=== PATIENT | male | born 1985 | race Two or more races ===

== ENCOUNTER 2016-12-31 11:44 | Inpatient (IN) | payer OTHER ==
[2016-12-31 13:16] VITALS: BMI 26.9
--- NOTE | 2016-12-31 16:48 | HP ---
COWS - Scale Resting Pulse: 0= [place] 80 or Below Sweatin=Flushed/Facial Moisture Restless Observation: 3= Extraneous Movement Pupil Size: 2= Moderately Dilated Bone or Joint Aches: 2= Severe Diffuse Aches Runny Nose/ Eye Tearin= Runny Nose/Eyes GI Upset > 30mins: 3= Vomiting/Diarrhea Tremor Observation: 2= Slight Tremor Visible Yawning Observation: 2= >3x During Session Anxiety or Irritability: 2=Irritable/Anxious Goose Flesh Skin: 0=Smooth Skin COWS Score: 20 CIWA Score - CIWA Score Nausea/Vomitin Muscle Tremors: 3 Anxiety: 3 Agitation: 3 Paroxysmal Sweats: 2 Orientation: 0-Oriented Tacttile Disturbances: 2-Mild Itch/Numbness/Burn Auditory Disturbances: 2-Mild Harshness/Frighten Visual Disturbances: 3-Moderate Sensitivity Headache: 2-Mild CIWA-Ar Total Score: 23 Admission ROS BHS - HPI Chief Complaint: i need help to stop using heroin and alcohol Allergies/Adverse Reactions: Allergies Allergy/AdvReac Type Severity Reaction Status Date / Time No Known Drug Allergies Allergy Verified 12/31/16 16:32 shellfish derived Allergy Verified 12/31/16 16:32 History of Present Illness: this 31 years old male with heroin and alcohol dependence,withdrawal symptom, last detox [facility] 08/09/16 to 08/14/16 asthma depression weight loss nicotine dependence longest period of sobriety 6 months Exam Limitations: No Limitations - Ebola screening Have you traveled outside of the country in the last 21 days: No Have you had contact with anyone from an Ebola affected area: No Have you been sick,other than usual withdrawal symptoms: No Do you have a fever: No - Review of Systems Constitutional: Chills, Diaphoresis, Loss of Appetite, Malaise, Night Sweats, Changes in sleep, Weakness, Unintentional Wgt. Loss EENT: reports: Tearing, Nose Congestion Respiratory: reports: No Symptoms reported Cardiac: reports: Palpitations GI: reports: Diarrhea, Nausea, Vomiting, Abdominal cramping : reports: No Symptoms Reported Musculoskeletal: reports: Back Pain, Joint Pain, Muscle Pain, Joint Stiffness Integumentary: reports: Dryness Neuro: reports: Headache, Tremors Endocrine: reports: No Symptoms Reported Hematology: reports: No Symptoms Reported Psychiatric: reports: No Sypmtoms Reported, Judgement Intact, Mood/Affect Appropiate, Orientated x3, Depressed Patient History - Patient Medical History Hx Anemia: No Hx Asthma: Yes (Pt is on MDI) Hx Chronic Obstructive Pulmonary Disease (COPD): No Hx Cancer: No Hx Cardiac Disorders: No Hx Congestive Heart Failure: No Hx Hypertension: No Hx Hypercholesterolemia: No Hx Pacemaker: No HX Cerebrovascular Accident: No Hx Seizures: No Hx Dementia: No Hx Diabetes: No Hx Gastrointestinal Disorders: No Hx Liver Disease: No Hx Genitourinary Disorders: No Hx Sexually Transmitted Disorders: No Hx Renal Disease (ESRD): No Hx Thyroid Disease: No Hx Human Immunodeficiency Virus (HIV): No (NEGATIVE 2015) Hx Hepatitis C: No (NEGATIVE 2015) Hx Depression: Yes (no med) Hx Suicide Attempt: No Hx Bipolar Disorder: No Hx Schizophrenia: No Other Medical History: no suicidal,no homicidal - Patient Surgical History Past Surgical History: No Hx Neurologic Surgery: No Hx Cataract Extraction: No Hx Cardiac Surgery: No Hx Lung Surgery: No Hx Breast Surgery: No Hx Breast Biopsy: No Hx Abdominal Surgery: No Hx Appendectomy: No Hx Cholecystectomy: No Hx Genitourinary Surgery: No Hx Section: No Hx Orthopedic Surgery: No Anesthesia Reaction: No - PPD History Previous Implant?: Yes Documented Results: Negative w/proof Implanted On Prior [facility] Admission?: Yes Date: 01/28/16 Results: 0 mm PPD to be Administered?: No - Smoking Cessation Smoking history: Current every day smoker Have you smoked in the past 12 months: Yes Aproximately how many cigarettes per day: 20 Cigars Per Day: 0 Hx Chewing Tobacco Use: No Initiated information on smoking cessation: Yes 'Breaking Loose' booklet given: 12/31/16 - Substance & Tx. History Hx Alcohol Use: Yes Hx Substance Use: Yes Substance Use Type: Alcohol, Heroin Hx Substance Use Treatment: Yes ([facility] to 08/14/16) - Substances Abused Heroin Route: Injection Frequency: Daily Amount used: 5-8 bags Age of first use: 25 Date of Last Use: 12/30/16 Alcohol Route: Oral Frequency: Daily Amount used: 1 pint cognac Age of first use: 20 Date of Last Use: 12/30/16 Family Disease History - Family Disease History Family History: Denies Family Disease History: Diabetes: Mother Admission Physical Exam BHS - Vital Signs Vital Signs: Vital Signs - 24 hr 12/31/16 13:12 Temperature 97.3 F L Pulse Rate 76 Respiratory 18 Rate Blood Pressure 133/67 - Physical General Appearance: Yes: Moderate Distress, Tremorous, Irritable, Sweating, Anxious HEENTM: Yes: Within Normal Limits, Normal ENT Inspection, Pharynx Normal, Nasal Congestion Respiratory: Yes: Lungs Clear, Normal Breath Sounds, No Respiratory Distress Neck: Yes: Within Normal Limits Breast: Yes: Within Normal Limits Cardiology: Yes: Within Normal Limits, Regular Rhythm, Regular Rate, S1, S2 Abdominal: Yes: Within Normal Limits, Normal Bowel Sounds, Non Tender, Flat, Soft Genitourinary: Yes: Within Normal Limits Back: Yes: Normal Inspection, Muscle Spasm Musculoskeletal: Yes: Back pain, Joint Stiffness, Muscle Pain Extremities: Yes: Within Normal Limits, Normal Range of Motion, Tremors Neurological: Yes: vice president of news II-XII NML intact, Fully Oriented, Alert, Motor Strength 5/5 Integumentary: Yes: Dry Lymphatic: Yes: Within Normal Limits - Diagnostic (1) Alcohol dependence with uncomplicated withdrawal Current Visit: No Status: Acute (2) Nicotine dependence Current Visit: No Status: Acute Qualifiers: Nicotine product type: cigarettes Substance use status: uncomplicated Qualified Code(s): F17.210 - Nicotine dependence, cigarettes, uncomplicated (3) Opioid dependence with withdrawal Current Visit: No Status: Acute (4) Asthma Current Visit: No Status: Chronic Qualifiers: Asthma severity: mild persistent Asthma complication type: with status asthmaticus Qualified Code(s): J45.32 - Mild persistent asthma with status asthmaticus (5) GERD (gastroesophageal reflux disease) Current Visit: No Status: Chronic Qualifiers: Esophagitis presence: without esophagitis Qualified Code(s): K21.9 - Gastro-esophageal reflux disease without esophagitis (6) Weight loss Current Visit: Yes Status: Acute Cleared for Admission [facility] - Detox or Rehab [facility] Level of Care: Medically Managed Detox Regimen/Protocol: Methadone/Librium S Breath Alcohol Content Breath Alcohol Content: 0 Urine Drug Screen - Results Drug Screen Negative: No Urine Drug Screen Results: LYLE-Cocaine, OPI-Opiates, TCA-Tricyclic Antidepress
[2016-12-31] MEDS ORDERED: P-EPHED 60MG/TRIPROLIDI 2.5MG TABLET PO PRN (16:56)
[2016-12-31] MEDS ORDERED: MAG HYDROX/AL HYDROX/SIMETH 30 ML UNIT-DOSE CUP PO PRN (16:56)
[2016-12-31] MEDS ORDERED: MAGNESIUM HYDROX 2400MG/30ML ORAL SUSPENSION 30 ML CUP PO PRN (16:56)
[2016-12-31] MEDS ORDERED: IBUPROFEN 400 MG TABLET (FP) PO PRN (16:56)
[2016-12-31] MEDS ORDERED: MAGNESIUM CITRATE 300 ML BOTTLE PO PRN (16:56)
[2016-12-31] MEDS ORDERED: LOPERAMIDE HCL 2 MG CAPSULE PO PRN (16:56)
[2016-12-31] MEDS ORDERED: ACETAMINOPHEN 325 MG TABLET (FP) PO PRN (16:56)
[2016-12-31] MEDS ORDERED: MENTHOL/PHENOL 1 EACH UD MM PRN (16:56)
[2016-12-31] MEDS ORDERED: METHADONE HCL 10 MG TABLET (FOR DETOX USE ONLY) PO ONE ×2 (17:45→23:00)
[2016-12-31] MEDS ORDERED: chlordiazePOXIDE HCL 25 MG CAPSULE PO ONE (17:45)
[2016-12-31] MEDS: PANTOPRAZOLE 40 MG TABLET (FP) PO SCH (17:53)
[2016-12-31] MEDS: NICOTINE 21 MG/24 HOURS TOPICAL PATCH TD SCH (17:57)
[2016-12-31] MEDS: diphenhydrAMINE HCL 50 MG CAPSULE PO PRN (22:19)
[2016-12-31] MEDS: THIAMINE HCL 100 MG TABLET (FP) PO SCH (22:19)
[2016-12-31] MEDS: chlordiazePOXIDE HCL 25 MG CAPSULE PO SCH (22:20)
[2016-12-31] MEDS: BUDESONIDE/FORMETEROL FUMARATE 80/4.5 mcg INHALER IH SCH (22:22)
[2016-12-31] MEDS: ALBUTEROL SO4 6.7 GM HFA INHALER IH PRN (22:22)
[2016-12-31 23:29] LABS: URINE APPEARANCE CLEAR; URINE BILIRUBIN NEGATIVE (NEGATIVE); URINE BLOOD NEGATIVE (NEGATIVE); URINE COLOR YELLOW; URINE GLUCOSE (UA) NEGATIVE (NEGATIVE); URINE KETONE NEGATIVE (NEGATIVE); URINE LEUK ESTERASE NEGATIVE (NEGATIVE); URINE NITRITE NEGATIVE (NEGATIVE); URINE PROTEIN NEGATIVE (NEGATIVE); URINE UROBILINOGEN NEGATIVE E.U./dl (0.2-1.0)
[2017-01-01] MEDS: diphenhydrAMINE HCL 50 MG CAPSULE PO PRN (00:47)
[2017-01-01] MEDS: chlordiazePOXIDE HCL 25 MG CAPSULE PO PRN ×2 (02:26→14:22)
[2017-01-01] MEDS: chlordiazePOXIDE HCL 25 MG CAPSULE PO SCH ×4 (05:26→22:17)
[2017-01-01] MEDS: ALBUTEROL SO4 6.7 GM HFA INHALER IH PRN ×2 (09:04→22:18)
[2017-01-01] MEDS ORDERED: METHADONE HCL 10 MG TABLET (FOR DETOX USE ONLY) PO SCH (10:00)
[2017-01-01 10:31] LABS: MCH 27.5 pg (25.7-33.7); MCHC 32.4 g/dl (32.0-35.9); MEAN CELL VOLUME 85.1 fl (80-96); MEAN PLT VOLUME 8.7 fl (7.5-11.1); PLATELET COUNT 276 K/MM3 (134-434); RDW 14.9 % (11.9-15.9); WHITE BLOOD COUNT 7.4 K/mm3 (4.0-10.0)
[2017-01-01 11:07] LABS: ALBUMIN 3.8 g/dl (3.4-5.0); ALK PHOS 48 U/L (45-117); ANION GAP 9 (8-16); BILIRUBIN,TOTAL 0.4 mg/dL (0.2-1.0); CALCIUM 8.6 mg/dL (8.5-10.1); CO2 30 mmol/L (21-32); CREATININE 0.9 mg/dL (0.7-1.3); GLUCOSE,RANDOM 70 mg/dL (74-106); SGOT/AST 15 U/L (15-37); SGPT/ALT 22 U/L (12-78); TOT PROT 7.1 g/dl (6.4-8.2)
[2017-01-01] MEDS: BUDESONIDE/FORMETEROL FUMARATE 80/4.5 mcg INHALER IH SCH ×2 (11:08→22:18)
[2017-01-01] MEDS: PANTOPRAZOLE 40 MG TABLET (FP) PO SCH (11:08)
[2017-01-01] MEDS: PRENATAL VITAMINS W/ FOLIC ACID TABLET (FP) PO SCH (11:08)
[2017-01-01] MEDS: NICOTINE 21 MG/24 HOURS TOPICAL PATCH TD SCH (11:09)
--- NOTE | 2017-01-01 11:45 | PN ---
[facility] CIWA - CIWA Score Nausea/Vomitin Muscle Tremors: 3 Anxiety: 3 Agitation: 2 Paroxysmal Sweats: 1-Minimal Palms Moist Orientation: 0-Oriented Tacttile Disturbances: 1-Very Mild Itch/Numbness Auditory Disturbances: 1-Very Mild Visual Disturbances: 1-Very Mild Sensitivity Headache: 2-Mild CIWA-Ar Total Score: 17 BHS COWS - Scale Resting Pulse: 0= [place] 80 or Below Sweatin= Chills/Flushing Restless Observation: 3= Extraneous Movement Pupil Size: 1= Pupils >than Normal Bone or Joint Aches: 2= Severe Diffuse Aches Runny Nose/ Eye Tearin= Runny Nose/Eyes GI Upset > 30mins: 3= Vomiting/Diarrhea Tremor Observation of Outstretched Hands: 2= Slight Tremor Visible Yawning Observation: 1= 1-2x During Session Anxiety or Irritability: 2=Irritable/Anxious Goose Flesh Skin: 0=Smooth Skin COWS Score: 17 [facility] Progress Note (SOAP) Subjective: ALERT,IRRITABLE,ANXIOUS,INTERRUPTED SLEEP,TREMOR,PAIN IN THE BODY AND BACK Objective: 01/01/17 11:43 Vital Signs Temperature 98.2 F 01/01/17 09:57 Pulse Rate 79 01/01/17 09:57 Respiratory Rate 18 01/01/17 09:57 Blood Pressure 110/67 01/01/17 09:57 O2 Sat by Pulse Oximetry (%) EKG NSR,NORMAL ECG Laboratory Last Values WBC 7.4 K/mm3 (4.0-10.0) 01/01/17 06:00 RBC 5.05 M/mm3 (4.00-5.60) 01/01/17 06:00 Hgb 13.9 GM/dL (11.7-16.9) 01/01/17 06:00 Hct 42.9 % (35.4-49) 01/01/17 06:00 MCV 85.1 fl (80-96) 01/01/17 06:00 MCHC 32.4 g/dl (32.0-35.9) 01/01/17 06:00 RDW 14.9 % (11.9-15.9) 01/01/17 06:00 Plt Count 276 K/MM3 (134-434) D 01/01/17 06:00 MPV 8.7 fl (7.5-11.1) 01/01/17 06:00 Urine Color Yellow 12/31/16 19:34 Urine Appearance Clear 12/31/16 19:34 Urine pH 5.0 (5.0-8.0) 12/31/16 19:34 Ur Specific [place] 1.032 (1.001-1.035) 12/31/16 19:34 Urine Protein Negative (NEGATIVE) 12/31/16 19:34 Urine Glucose (UA) Negative (NEGATIVE) 12/31/16 19:34 Urine Ketones Negative (NEGATIVE) 12/31/16 19:34 Urine Blood Negative (NEGATIVE) 12/31/16 19:34 Urine Nitrite Negative (NEGATIVE) 12/31/16 19:34 Urine Bilirubin Negative (NEGATIVE) 12/31/16 19:34 Urine Urobilinogen Negative E.U./dl (0.2-1.0) 12/31/16 19:34 Ur Leukocyte Esterase Negative (NEGATIVE) 12/31/16 19:34 LABS PENDING Assessment: 01/01/17 11:44 WITHDRAWAL SYMPTOM Plan: CONTINUE DETOX
--- NOTE | 2017-01-01 11:47 | CONSULT ---
[facility] Psychiatric Consult - Data Date of interview: 01/01/17 Admission source: [facility] Identifying data: Another admission to [facility] for this 31 y/o [place] male from [place] descent seeking detox treatment on for alcohol,heroin and cocaine dependence.Patient is ,a father of one,domiciled and intermittently employed.. Substance Abuse History: - Smoking Cessation. Smoking history: Current every day smoker. Have you smoked in the past 12 months: Yes. Aproximately how many cigarettes per day: 20. Cigars Per Day: 0. Hx Chewing Tobacco Use: No. Initiated information on smoking cessation: Yes. 'Breaking Loose' booklet given : 12/31/16. - Substance & Tx. History. Hx Alcohol Use: Yes. Hx Substance Use : Yes. Substance Use Type: Alcohol, Heroin. Hx Substance Use Treatment: Yes ( [facility] to 08/14/16). - Substances Abused. Heroin. Route: Injection. Frequency: Daily. Amount used: 5-8 bags. Age of first use: 25. Date of Last Use: 12/30/16. Alcohol. Route: Oral. Frequency: Daily. Amount used: 1 pint cognac. Age of first use: 20. Date of Last Use: 12/30/16. Confirmed by patient. Medical History: GERD,alopecia and bronchial asthma. Psychiatric History: History of psychiatric hospitalizations.Onset of emotional disturbances occurred at age 20 (suicide attempt via ingestion of pills) .Diagnosed with Anxiety Disorder and MDD.Patient states that he stopped taking psychotropic medications two months ago.No OPD care.Patient denies history of suicide attempts. Physical/Sexual Abuse/Trauma History: Patient denies. Additional Comment: Urine Drug Screen Results: LYLE-Cocaine, OPI-Opiates, TCA- Tricyclic Antidepressant.Noted. Mental Status Exam - Mental Status Exam Alert and Oriented to: Time, Place, Person Cognitive Function: Good Patient Appearance: Well Groomed Mood: Hopeful, Euthymic Affect: Appropriate, Normal Range Patient Behavior: Appropriate, Cooperative Speech Pattern: Clear, Appropriate Voice Loudness: Normal Thought Process: Goal Oriented Thought Disorder: Not Present Hallucinations: Denies Suicidal Ideation: Denies Homicidal Ideation: Denies Insight/Judgement: Fair (limited) Sleep: Fair Appetite: Good Muscle strength/Tone: Normal Gait/Station: Normal Psychiatric Findings - Problem List ([place] 1, 2,3) (1) Alcohol dependence with uncomplicated withdrawal Current Visit: Yes Status: Acute (2) Cocaine dependence Current Visit: Yes Status: Acute Qualifiers: Substance use status: uncomplicated Qualified Code(s): F14.20 - Cocaine dependence, uncomplicated (3) Opioid dependence with withdrawal Current Visit: Yes Status: Acute (4) Nicotine dependence Current Visit: Yes Status: Acute Qualifiers: Nicotine product type: cigarettes Substance use status: uncomplicated Qualified Code(s): F17.210 - Nicotine dependence, cigarettes, uncomplicated (5) Substance induced mood disorder Current Visit: Yes Status: Acute (6) Mood disorder Current Visit: Yes Status: Suspected (7) Asthma Current Visit: Yes Status: Chronic Qualifiers: Asthma severity: mild persistent Asthma complication type: with status asthmaticus Qualified Code(s): J45.32 - Mild persistent asthma with status asthmaticus (8) GERD (gastroesophageal reflux disease) Current Visit: Yes Status: Chronic Qualifiers: Esophagitis presence: without esophagitis Qualified Code(s): K21.9 - Gastro-esophageal reflux disease without esophagitis - Initial Treatment Plan Initial Treatment Plan: Psychoeducation.Detoxification treatment accepted by patient.He consents to resume seroquel and zoloft ONLY.Doses discussed : seroquel 100 mg po hs + zoloft 50 mg po daily.Side effects/benefits of both drugs are explained to patient.Observation.
[2017-01-01] MEDS: hydrOXYzine PAMOATE 25 MG CAPSULE (FP) PO PRN ×2 (14:22→20:16)
[2017-01-01] MEDS: QUEtiapine FUMARATE 100 MG TABLET (FP) PO SCH (22:17)
[2017-01-01] MEDS: THIAMINE HCL 100 MG TABLET (FP) PO SCH (22:17)
[2017-01-02] MEDS: chlordiazePOXIDE HCL 25 MG CAPSULE PO PRN ×4 (02:09→19:25)
[2017-01-02] MEDS: diphenhydrAMINE HCL 50 MG CAPSULE PO PRN (02:09)
[2017-01-02] MEDS: chlordiazePOXIDE HCL 25 MG CAPSULE PO SCH ×3 (05:08→17:19)
[2017-01-02] MEDS: SERTRALINE HCL 50 MG TABLET (FP) PO SCH (10:49)
[2017-01-02] MEDS: PRENATAL VITAMINS W/ FOLIC ACID TABLET (FP) PO SCH (10:49)
[2017-01-02] MEDS: METHADONE HCL 5 MG TABLET (FOR DETOX USE ONLY) PO SCH (10:49)
[2017-01-02] MEDS: NICOTINE 21 MG/24 HOURS TOPICAL PATCH TD SCH (10:50)
[2017-01-02] MEDS: PANTOPRAZOLE 40 MG TABLET (FP) PO SCH (10:50)
[2017-01-02] MEDS: BUDESONIDE/FORMETEROL FUMARATE 80/4.5 mcg INHALER IH SCH ×2 (10:51→22:51)
[2017-01-02] MEDS: guaiFENesin/D-METHORPHAN HB 10 ML UNIT-DOSE CUPS PO PRN ×2 (10:53→17:20)
[2017-01-02] MEDS: ALBUTEROL SO4 6.7 GM HFA INHALER IH PRN ×2 (10:54→16:45)
--- NOTE | 2017-01-02 12:12 | PN ---
[facility] CIWA - CIWA Score Nausea/Vomitin Muscle Tremors: 3 Anxiety: 3 Agitation: 2 Paroxysmal Sweats: 1-Minimal Palms Moist Orientation: 0-Oriented Tacttile Disturbances: 1-Very Mild Itch/Numbness Auditory Disturbances: 1-Very Mild Visual Disturbances: 1-Very Mild Sensitivity Headache: 2-Mild CIWA-Ar Total Score: 17 BHS COWS - Scale Resting Pulse: 1= [place] 81-100 Sweatin= Chills/Flushing Restless Observation: 3= Extraneous Movement Pupil Size: 1= Pupils >than Normal Bone or Joint Aches: 2= Severe Diffuse Aches Runny Nose/ Eye Tearin= Runny Nose/Eyes GI Upset > 30mins: 3= Vomiting/Diarrhea Tremor Observation of Outstretched Hands: 2= Slight Tremor Visible Yawning Observation: 1= 1-2x During Session Anxiety or Irritability: 2=Irritable/Anxious Goose Flesh Skin: 0=Smooth Skin COWS Score: 18 S Progress Note (SOAP) Subjective: ALERT,IRRITABLE,ANXIOUS,INTERRUPTED SLEEP,PAIN IN THE BODY AND BACK,TREMOR Objective: 01/02/17 12:10 Vital Signs Temperature 97.9 F 01/02/17 10:48 Pulse Rate 89 01/02/17 10:48 Respiratory Rate 18 01/02/17 10:48 Blood Pressure 118/78 01/02/17 10:48 O2 Sat by Pulse Oximetry (%) Laboratory Last Values WBC 7.4 K/mm3 (4.0-10.0) 01/01/17 06:00 RBC 5.05 M/mm3 (4.00-5.60) 01/01/17 06:00 Hgb 13.9 GM/dL (11.7-16.9) 01/01/17 06:00 Hct 42.9 % (35.4-49) 01/01/17 06:00 MCV 85.1 fl (80-96) 01/01/17 06:00 MCHC 32.4 g/dl (32.0-35.9) 01/01/17 06:00 RDW 14.9 % (11.9-15.9) 01/01/17 06:00 Plt Count 276 K/MM3 (134-434) D 01/01/17 06:00 MPV 8.7 fl (7.5-11.1) 01/01/17 06:00 Sodium 141 mmol/L (136-145) 01/01/17 06:00 Potassium 4.2 mmol/L (3.5-5.1) 01/01/17 06:00 Chloride 102 mmol/L (98-107) 01/01/17 06:00 Carbon Dioxide 30 mmol/L (21-32) D 01/01/17 06:00 Anion Gap 9 (8-16) 01/01/17 06:00 BUN 14 mg/dL (7-18) 01/01/17 06:00 Creatinine 0.9 mg/dL (0.7-1.3) 01/01/17 06:00 Creat Clearance w eGFR > 60 (>60) 01/01/17 06:00 Random Glucose 70 mg/dL (74-106) L D 01/01/17 06:00 Calcium 8.6 mg/dL (8.5-10.1) 01/01/17 06:00 Total Bilirubin 0.4 mg/dL (0.2-1.0) D 01/01/17 06:00 AST 15 U/L (15-37) D 01/01/17 06:00 ALT 22 U/L (12-78) 01/01/17 06:00 Alkaline Phosphatase 48 U/L (45-117) D 01/01/17 06:00 Total Protein 7.1 g/dl (6.4-8.2) 01/01/17 06:00 Albumin 3.8 g/dl (3.4-5.0) 01/01/17 06:00 Urine Color Yellow 12/31/16 19:34 Urine Appearance Clear 12/31/16 19:34 Urine pH 5.0 (5.0-8.0) 12/31/16 19:34 Ur Specific [place] 1.032 (1.001-1.035) 12/31/16 19:34 Urine Protein Negative (NEGATIVE) 12/31/16 19:34 Urine Glucose (UA) Negative (NEGATIVE) 12/31/16 19:34 Urine Ketones Negative (NEGATIVE) 12/31/16 19:34 Urine Blood Negative (NEGATIVE) 12/31/16 19:34 Urine Nitrite Negative (NEGATIVE) 12/31/16 19:34 Urine Bilirubin Negative (NEGATIVE) 12/31/16 19:34 Urine Urobilinogen Negative E.U./dl (0.2-1.0) 12/31/16 19:34 Ur Leukocyte Esterase Negative (NEGATIVE) 12/31/16 19:34 RPR Titer Nonreactive (NONREACTIVE) 01/01/17 06:00 Assessment: 01/02/17 12:11 WITHDRAWAL SYMPTOM Plan: CONTINUE DETOX
[2017-01-02] MEDS: ALBUTEROL SO4 2.5/IPRATROPIUM 0.5 INH SOL 3 ML VIAL.NEB. NEB PRN (19:23)
[2017-01-02] MEDS: QUEtiapine FUMARATE 100 MG TABLET (FP) PO SCH (22:48)
[2017-01-02] MEDS: chlordiazePOXIDE 5 MG CAPSULE PO SCH (22:48)
[2017-01-02] MEDS: THIAMINE HCL 100 MG TABLET (FP) PO SCH (22:48)
[2017-01-03] MEDS: hydrOXYzine PAMOATE 25 MG CAPSULE (FP) PO PRN ×3 (00:54→20:34)
[2017-01-03] MEDS: chlordiazePOXIDE 5 MG CAPSULE PO SCH ×3 (05:08→17:40)
[2017-01-03] MEDS: guaiFENesin/D-METHORPHAN HB 10 ML UNIT-DOSE CUPS PO PRN ×3 (05:10→17:42)
[2017-01-03] MEDS: ALBUTEROL SO4 6.7 GM HFA INHALER IH PRN ×3 (08:31→21:12)
[2017-01-03] MEDS: chlordiazePOXIDE HCL 25 MG CAPSULE PO PRN (08:35)
[2017-01-03] MEDS: BUDESONIDE/FORMETEROL FUMARATE 80/4.5 mcg INHALER IH SCH ×2 (10:30→22:58)
[2017-01-03] MEDS: PANTOPRAZOLE 40 MG TABLET (FP) PO SCH (10:30)
[2017-01-03] MEDS: METHADONE HCL 5 MG TABLET (FOR DETOX USE ONLY) PO SCH (10:30)
[2017-01-03] MEDS: SERTRALINE HCL 50 MG TABLET (FP) PO SCH (10:30)
[2017-01-03] MEDS: NICOTINE 21 MG/24 HOURS TOPICAL PATCH TD SCH (10:31)
[2017-01-03] MEDS: PRENATAL VITAMINS W/ FOLIC ACID TABLET (FP) PO SCH (10:31)
--- NOTE | 2017-01-03 12:19 | PN ---
BHS Progress Note (SOAP) Subjective: better, but interrrupted sleep, sweats and constipation Objective: 01/03/17 12:18 Vital Signs Temperature 99.1 F 01/03/17 11:25 Pulse Rate 83 01/03/17 11:25 Respiratory Rate 16 01/03/17 11:25 Blood Pressure 114/66 01/03/17 11:25 O2 Sat by Pulse Oximetry (%) Laboratory Tests 12/31/16 01/01/17 01/01/17 19:34 06:00 06:00 WBC 7.4 RBC 5.05 Hgb 13.9 Hct 42.9 MCV 85.1 MCHC 32.4 RDW 14.9 Plt Count 276 D MPV 8.7 Sodium 141 Potassium 4.2 Chloride 102 Carbon Dioxide 30 D Anion Gap 9 BUN 14 Creatinine 0.9 Creat Clearance w eGFR > 60 Random Glucose 70 L D Calcium 8.6 Total Bilirubin 0.4 D AST 15 D ALT 22 Alkaline Phosphatase 48 D Total Protein 7.1 Albumin 3.8 Urine Color Yellow Urine Appearance Clear Urine pH 5.0 Ur Specific [place] 1.032 Urine Protein Negative Urine Glucose (UA) Negative Urine Ketones Negative Urine Blood Negative Urine Nitrite Negative Urine Bilirubin Negative Urine Urobilinogen Negative Ur Leukocyte Esterase Negative RPR Titer 01/01/17 06:00 WBC RBC Hgb Hct MCV MCHC RDW Plt Count MPV Sodium Potassium Chloride Carbon Dioxide Anion Gap BUN Creatinine Creat Clearance w eGFR Random Glucose Calcium Total Bilirubin AST ALT Alkaline Phosphatase Total Protein Albumin Urine Color Urine Appearance Urine pH Ur Specific [place] Urine Protein Urine Glucose (UA) Urine Ketones Urine Blood Urine Nitrite Urine Bilirubin Urine Urobilinogen Ur Leukocyte Esterase RPR Titer Nonreactive pt aox3 in nad ambulating Assessment: 01/03/17 12:18 withdrawal sxx' s Plan: cont. detox increase fluids d/c in am
--- NOTE | 2017-01-03 17:17 | PN ---
[facility] Progress Note Note: Psychiatry Attending's note : Approached by patient. Reason : insomnia + anxiety. Seroquel not effective at 100 mg/hs. Plan : Seroquel 200 mg po hs. Discussed with the patient.He agrees.
[2017-01-03] MEDS: QUEtiapine FUMARATE 200 MG TABLET PO SCH (22:59)
[2017-01-03] MEDS: chlordiazePOXIDE HCL 10 MG CAPSULE PO SCH (22:59)
[2017-01-03] MEDS: THIAMINE HCL 100 MG TABLET (FP) PO SCH (22:59)
[2017-01-04] MEDS: hydrOXYzine PAMOATE 25 MG CAPSULE (FP) PO PRN ×2 (02:57→18:27)
[2017-01-04] MEDS: chlordiazePOXIDE HCL 10 MG CAPSULE PO SCH ×3 (05:28→17:16)
[2017-01-04] MEDS: ALBUTEROL SO4 6.7 GM HFA INHALER IH PRN ×3 (05:30→17:56)
[2017-01-04] MEDS ORDERED: METHADONE HCL 10 MG TABLET (FOR DETOX USE ONLY) PO SCH (10:00)
[2017-01-04] MEDS: PRENATAL VITAMINS W/ FOLIC ACID TABLET (FP) PO SCH (10:44)
[2017-01-04] MEDS: PANTOPRAZOLE 40 MG TABLET (FP) PO SCH (10:44)
[2017-01-04] MEDS: NICOTINE 21 MG/24 HOURS TOPICAL PATCH TD SCH (10:45)
[2017-01-04] MEDS: SERTRALINE HCL 50 MG TABLET (FP) PO SCH (10:45)
[2017-01-04] MEDS: BUDESONIDE/FORMETEROL FUMARATE 80/4.5 mcg INHALER IH SCH ×2 (10:45→23:39)
[2017-01-04] MEDS: guaiFENesin/D-METHORPHAN HB 10 ML UNIT-DOSE CUPS PO PRN (10:49)
--- NOTE | 2017-01-04 11:38 | PN ---
[facility] Progress Note (SOAP) Subjective: sweats agitation low appetite Objective: 01/04/17 11:37 Vital Signs Temperature 100.8 F H 01/04/17 10:48 Pulse Rate 89 01/04/17 10:48 Respiratory Rate 19 01/04/17 10:48 Blood Pressure 116/76 01/04/17 10:48 O2 Sat by Pulse Oximetry (%) awake/alert ambulating no acute distress Assessment: 01/04/17 11:37 withdrawal sx Plan: continue detox increase fluids ensure bid d/c in am
[2017-01-04] MEDS: ALBUTEROL SO4 2.5/IPRATROPIUM 0.5 INH SOL 3 ML VIAL.NEB. NEB PRN (21:45)
[2017-01-04] MEDS: THIAMINE HCL 100 MG TABLET (FP) PO SCH (22:22)
[2017-01-04] MEDS: QUEtiapine FUMARATE 200 MG TABLET PO SCH (22:22)
--- NOTE | 2017-01-04 23:40 | EKG ---
Test Reason : Blood Pressure : / mmHG Vent. Rate : 071 BPM Atrial Rate : 071 BPM P-R Int : 162 ms QRS Dur : 100 ms QT Int : 376 ms P-R-T Axes : 072 074 031 degrees QTc Int : 408 ms NORMAL SINUS RHYTHM NORMAL ECG NO PREVIOUS ECGS AVAILABLE Confirmed by ELLIOT PRIETO MD ([id number]) on 01/04/2017 11:40:39 PM Referred By: Confirmed By:ELLIOT PRIETO MD
[2017-01-05] MEDS ORDERED: METHADONE HCL 5 MG TABLET (FOR DETOX USE ONLY) PO SCH (06:00)
[2017-01-05] MEDS: ALBUTEROL SO4 6.7 GM HFA INHALER IH PRN (06:03)
[2017-01-05 06:21] VITALS: BP 107/62; PULSE 79; TEMP 97.9
--- NOTE | 2017-01-05 09:07 | DS ---
[facility] Detox Discharge Summary Admission Date: 12/31/16 Discharge Date: 01/05/17 - History Present History: Alcohol Dependence, Cocaine Dependence, Opioid Dependence - Physical Exam Results Vital Signs: Vital Signs Temperature 97.9 F 01/05/17 06:00 Pulse Rate 79 01/05/17 06:00 Respiratory Rate 18 01/05/17 06:00 Blood Pressure 107/62 01/05/17 06:00 O2 Sat by Pulse Oximetry (%) - Treatment Hospital Course: Detox Protocol Followed, Detoxed Safely, Responded well, Discharged Condition Good - Medication Discharge Medications: Ambulatory Orders Albuterol Sulfate Inhaler - [Ventolin HFA Inhaler -] 2 puff IH Q4H PRN #1 inhaler 07/07/16 Budesonide/Formeterol Fumarate [SYMBICORT 80/4.5mcg -] 2 puff IH BID #1 inhaler 07/07/16 Esomeprazole Magnesium 40 mg PO DAILY 12/31/16 Quetiapine Fumarate [Seroquel] 100 mg PO HS #30 tablet 01/01/17 Sertraline HCl [Zoloft -] 50 mg PO DAILY #30 tablet 01/01/17 - Diagnosis (1) Alcohol dependence with uncomplicated withdrawal Current Visit: Yes Status: Acute (2) Cocaine dependence Current Visit: Yes Status: Acute Qualifiers: Substance use status: uncomplicated Qualified Code(s): F14.20 - Cocaine dependence, uncomplicated (3) Nicotine dependence Current Visit: Yes Status: Acute Qualifiers: Nicotine product type: cigarettes Substance use status: uncomplicated Qualified Code(s): F17.210 - Nicotine dependence, cigarettes, uncomplicated (4) Opioid dependence with withdrawal Current Visit: Yes Status: Acute (5) Asthma Current Visit: Yes Status: Chronic Qualifiers: Asthma severity: mild persistent Asthma complication type: with status asthmaticus Qualified Code(s): J45.32 - Mild persistent asthma with status asthmaticus (6) GERD (gastroesophageal reflux disease) Current Visit: Yes Status: Chronic Qualifiers: Esophagitis presence: without esophagitis Qualified Code(s): K21.9 - Gastro-esophageal reflux disease without esophagitis - AMA Did Patient Leave Against Medical Advice: No
[2017-01-05] MEDS: SERTRALINE HCL 50 MG TABLET (FP) PO SCH (09:10)
[2017-01-05] MEDS: PRENATAL VITAMINS W/ FOLIC ACID TABLET (FP) PO SCH (09:10)
[2017-01-05] MEDS: BUDESONIDE/FORMETEROL FUMARATE 80/4.5 mcg INHALER IH SCH (09:10)
[2017-01-05] MEDS: NICOTINE 21 MG/24 HOURS TOPICAL PATCH TD SCH (09:10)
[2017-01-05] MEDS: PANTOPRAZOLE 40 MG TABLET (FP) PO SCH (09:10)
== END 2017-01-05 09:12 | disposition home or self-care (01) | DRG 773 ==
LOC: YASAS 11:44 → Y6N 17:18
PROVIDERS: ADMIT Internal Medicine; ATTEND Internal Medicine
PROC: HZ2ZZZZ Detoxification Services for Substance Abuse Treatment (ICD-10-PCS; principal; 2016-12-31)
DX: F11.23 Opioid dependence with withdrawal (principal); F10.230 Alcohol dependence with withdrawal, uncomplicated; F14.20 Cocaine dependence, uncomplicated; F17.210 Nicotine dependence, cigarettes, uncomplicated; F19.24 Other psychoactive substance dependence with psychoactive substance-induced mood disorder; F39 Unspecified mood [affective] disorder; J45.32 Mild persistent asthma with status asthmaticus; K21.9 Gastro-esophageal reflux disease without esophagitis; Z87.898 Personal history of other specified conditions
CPT/HCPCS: 36415; 80053; 81003; 85027; 86593; 93005; 93010; 94640

== ENCOUNTER 2017-02-21 12:38 | Inpatient (IN) | payer OTHER ==
[2017-02-21 14:36] VITALS: BMI 27.2
--- NOTE | 2017-02-21 18:51 | HP ---
COWS - Scale Resting Pulse: 1= [place] 81-100 Sweatin= Chills/Flushing Restless Observation: 1= Difficult to Sit Still Pupil Size: 0= Normal to Room Light Bone or Joint Aches: 2= Severe Diffuse Aches Runny Nose/ Eye Tearin= Nasal Congestion GI Upset > 30mins: 2= Nausea/Diarrhea Tremor Observation: 2= Slight Tremor Visible Yawning Observation: 2= >3x During Session Anxiety or Irritability: 2=Irritable/Anxious Goose Flesh Skin: 0=Smooth Skin COWS Score: 14 CIWA Score - CIWA Score Nausea/Vomitin-Mild Nausea/No Vomiting Muscle Tremors: 4-Moderate,w/Arms Extend Anxiety: 4-Mod. Anxious/Guarded Agitation: 4-Moderately Restless Paroxysmal Sweats: 1-Minimal Palms Moist Orientation: 0-Oriented Tacttile Disturbances: 0-None Auditory Disturbances: 0-None Visual Disturbances: 0-None Headache: 0-None Present CIWA-Ar Total Score: 14 Admission ROS S - HPI Chief Complaint: WITHDRAWAL SX Allergies/Adverse Reactions: Allergies Allergy/AdvReac Type Severity Reaction Status Date / Time No Known Drug Allergies Allergy Verified 02/21/17 16:48 shellfish derived Allergy Verified 02/21/17 16:48 History of Present Illness: 31 YEARS OLD MALE WITH LONG HISTORY OF OPIOID ALCOHOL COCAINE NICOTINE DEPENDENE HAS GERD ASTHMA COPD AND DEPRESSION IS ADMITTED TO DETOX Exam Limitations: No Limitations - Ebola screening Have you traveled outside of the country in the last 21 days: No Have you had contact with anyone from an Ebola affected area: No Have you been sick,other than usual withdrawal symptoms: No Do you have a fever: No - Review of Systems Constitutional: Chills, Changes in sleep, Weight Stable EENT: reports: No Symptoms Reported Respiratory: reports: No Symptoms reported Cardiac: reports: No Symptoms Reported GI: reports: Nausea, Poor Fluid Intake, Indigestion, Abdominal cramping : reports: No Symptoms Reported Musculoskeletal: reports: Back Pain, Joint Pain, Muscle Pain, Neck Pain Integumentary: reports: Change in Color (ELBOWS) Neuro: reports: Tremors Endocrine: reports: No Symptoms Reported Hematology: reports: No Symptoms Reported Psychiatric: reports: Judgement Intact, Orientated x3, Depressed Other Systems: Reviewed and Negative Patient History - Patient Medical History Hx Anemia: No Hx Asthma: Yes Hx Chronic Obstructive Pulmonary Disease (COPD): Yes Hx Cancer: No Hx Cardiac Disorders: No Hx Congestive Heart Failure: No Hx Hypertension: No Hx Hypercholesterolemia: No Hx Pacemaker: No HX Cerebrovascular Accident: No Hx Seizures: No Hx Dementia: No Hx Diabetes: No Hx Gastrointestinal Disorders: Yes (acid reflux) Hx Liver Disease: No Hx Genitourinary Disorders: No Hx Sexually Transmitted Disorders: No Hx Renal Disease (ESRD): No Hx Thyroid Disease: No Hx Human Immunodeficiency Virus (HIV): No (NEGATIVE 2015) Hx Hepatitis C: No (NEGATIVE 2015) Hx Depression: Yes Hx Suicide Attempt: No Hx Bipolar Disorder: No Hx Schizophrenia: No - Patient Surgical History Past Surgical History: No Hx Neurologic Surgery: No Hx Cataract Extraction: No Hx Cardiac Surgery: No Hx Lung Surgery: No Hx Breast Surgery: No Hx Breast Biopsy: No Hx Abdominal Surgery: No Hx Appendectomy: No Hx Cholecystectomy: No Hx Genitourinary Surgery: No Hx Orthopedic Surgery: No - PPD History Previous Implant?: Yes Documented Results: Negative w/proof Implanted On Prior R Admission?: Yes Date: 01/28/16 Results: 0 mm PPD to be Administered?: No - Smoking Cessation Smoking history: Current every day smoker Have you smoked in the past 12 months: Yes Aproximately how many cigarettes per day: 20 Cigars Per Day: 0 Hx Chewing Tobacco Use: No Initiated information on smoking cessation: Yes 'Breaking Loose' booklet given: 02/21/17 - Substance & Tx. History Hx Alcohol Use: Yes Hx Substance Use: Yes Substance Use Type: Alcohol, Cocaine, Opiates - Substances Abused Heroin Route: Injection Frequency: Daily Amount used: 10 bags Age of first use: 26 Date of Last Use: 02/21/17 Cocaine Route: Injection Frequency: Daily Amount used: $100 Age of first use: 25 Date of Last Use: 02/20/17 Alcohol-cognac/whisky Route: Oral Frequency: Daily Amount used: 2 pts. VOLKA Age of first use: 19 Date of Last Use: 02/20/17 Family Disease History - Family Disease History Family Disease History: Diabetes: Mother Admission Physical Exam [facility] - Vital Signs Vital Signs: Vital Signs - 24 hr 02/21/17 14:34 Temperature 96.6 F L Pulse Rate 86 Respiratory 20 Rate Blood Pressure 128/86 - Physical General Appearance: Yes: Nourished, Appropriately Dressed, Mild Distress, Tremorous, Irritable, Sweating, Anxious HEENTM: Yes: Hearing grossly Normal, Normal ENT Inspection, Normocephalic, Normal Voice, Other (LEFT EAR LOB PIMPLE LIKE 1MM CYST, NO EXUDATE) Respiratory: Yes: Chest Non-Tender, Lungs Clear, Normal Breath Sounds, No Respiratory Distress, No Accessory Muscle Use Neck: Yes: Supple, Trachea in good position Breast: Yes: Breasts Symetrical Cardiology: Yes: Regular Rhythm, Regular Rate, S1, S2 Abdominal: Yes: Non Tender, Soft Genitourinary: Yes: Within Normal Limits Back: Yes: Normal Inspection Musculoskeletal: Yes: full range of Motion, Gait Steady, Back pain, Muscle Pain Extremities: Yes: Normal Range of Motion, Non-Tender, Tremors Neurological: Yes: Alert, Motor Strength 5/5, Normal Response, Depressed Affect Integumentary: Yes: Warm, Track Erickson Lymphatic: Yes: Within Normal Limits - Diagnostic (1) Alcohol dependence with uncomplicated withdrawal Current Visit: Yes Status: Acute (2) Nicotine dependence Current Visit: Yes Status: Acute Qualifiers: Nicotine product type: cigarettes Substance use status: in withdrawal Qualified Code(s): F17.213 - Nicotine dependence, cigarettes, with withdrawal (3) Opioid dependence with withdrawal Current Visit: Yes Status: Acute (4) COPD (chronic obstructive pulmonary disease) Current Visit: Yes Status: Chronic Qualifiers: COPD type: emphysema Emphysema type: other Qualified Code(s): J43.8 - Other emphysema (5) GERD (gastroesophageal reflux disease) Current Visit: No Status: Acute Qualifiers: Esophagitis presence: without esophagitis Qualified Code(s): K21.9 - Gastro-esophageal reflux disease without esophagitis (6) Constipation Current Visit: Yes Status: Chronic Qualifiers: Constipation type: slow transit constipation Qualified Code(s): K59.01 - Slow transit constipation (7) Hemorrhoidal skin tag Current Visit: Yes Status: Chronic (8) Fungal toenail infection Current Visit: Yes Status: Chronic (9) Depressive disorder Current Visit: Yes Status: Suspected Comment: Historical diagnosis. Cleared for Admission S - Detox or Rehab [facility] Level of Care: Medically Managed Detox Regimen/Protocol: Methadone/Librium S Breath Alcohol Content Breath Alcohol Content: 0 Urine Drug Screen - Results Drug Screen Negative: No Urine Drug Screen Results: LYLE-Cocaine, OPI-Opiates, MTD-Methadone
[2017-02-21] MEDS ORDERED: NICOTINE POLACRILEX 4 MG GUM BC PRN (18:52)
[2017-02-21] MEDS ORDERED: LOPERAMIDE HCL 2 MG CAPSULE PO PRN (18:52)
[2017-02-21] MEDS ORDERED: METHADONE HCL 10 MG TABLET (FOR DETOX USE ONLY) PO ONE ×2 (18:52→23:00)
[2017-02-21] MEDS ORDERED: MAG HYDROX/AL HYDROX/SIMETH 30 ML UNIT-DOSE CUP PO PRN (18:52)
[2017-02-21] MEDS ORDERED: MAGNESIUM CITRATE 300 ML BOTTLE PO PRN (18:52)
[2017-02-21] MEDS ORDERED: P-EPHED 60MG/TRIPROLIDI 2.5MG TABLET PO PRN (18:52)
[2017-02-21] MEDS ORDERED: guaiFENesin/D-METHORPHAN HB 10 ML UNIT-DOSE CUPS PO PRN (18:52)
[2017-02-21] MEDS ORDERED: MAGNESIUM HYDROX 2400MG/30ML ORAL SUSPENSION 30 ML CUP PO PRN (18:52)
[2017-02-21] MEDS ORDERED: MENTHOL/PHENOL 1 EACH UD MM PRN (18:52)
[2017-02-21] MEDS ORDERED: ALBUTEROL SO4 6.7 GM HFA INHALER IH PRN (18:54)
[2017-02-21] MEDS: chlordiazePOXIDE HCL 25 MG CAPSULE PO PRN (20:00)
[2017-02-21 21:12] LABS: URINE APPEARANCE CLEAR; URINE BILIRUBIN NEGATIVE (NEGATIVE); URINE BLOOD NEGATIVE (NEGATIVE); URINE COLOR YELLOW; URINE GLUCOSE (UA) NEGATIVE (NEGATIVE); URINE KETONE NEGATIVE (NEGATIVE); URINE LEUK ESTERASE NEGATIVE (NEGATIVE); URINE NITRITE NEGATIVE (NEGATIVE); URINE PROTEIN NEGATIVE (NEGATIVE); URINE UROBILINOGEN NEGATIVE E.U./dl (0.2-1.0)
[2017-02-21] MEDS ORDERED: BENZOCAINE 28 GM HEMORRHOIDAL OINTMENT PR SCH (22:00)
[2017-02-21] MEDS: THIAMINE HCL 100 MG TABLET (FP) PO SCH (22:20)
[2017-02-21] MEDS: DOCUSATE SODIUM 100 MG CAPSULE (FP) PO SCH (22:20)
[2017-02-21] MEDS: RANITIDINE HCL 150 MG TABLET (FP) PO SCH (22:20)
[2017-02-21] MEDS: chlordiazePOXIDE HCL 25 MG CAPSULE PO SCH (22:20)
[2017-02-21] MEDS: BUDESONIDE/FORMETEROL FUMARATE 80/4.5 mcg INHALER IH SCH (22:21)
[2017-02-21] MEDS: diphenhydrAMINE HCL 50 MG CAPSULE PO PRN (22:22)
[2017-02-21] MEDS: METHYL SALICYLATE/MENTHOL OINT 30 GM TUBE TP SCH (22:25)
[2017-02-21] MEDS: CLOTRIMAZOLE 1% CREAM 15 GM TUBE TP SCH (22:26)
[2017-02-22] MEDS: diphenhydrAMINE HCL 50 MG CAPSULE PO PRN (00:47)
[2017-02-22] MEDS: chlordiazePOXIDE HCL 25 MG CAPSULE PO SCH ×4 (05:57→22:23)
[2017-02-22] MEDS ORDERED: METHADONE HCL 10 MG TABLET (FOR DETOX USE ONLY) PO SCH (10:00)
[2017-02-22 10:05] LABS: MCH 27.3 pg (25.7-33.7); MCHC 32.5 g/dl (32.0-35.9); MEAN CELL VOLUME 84.1 fl (80-96); MEAN PLT VOLUME 8.7 fl (7.5-11.1); PLATELET COUNT 225 K/MM3 (134-434); RDW 14.2 % (11.9-15.9); WHITE BLOOD COUNT 8.2 K/mm3 (4.0-10.0)
[2017-02-22] MEDS: BUDESONIDE/FORMETEROL FUMARATE 80/4.5 mcg INHALER IH SCH ×2 (10:11→22:23)
[2017-02-22] MEDS: METHYL SALICYLATE/MENTHOL OINT 30 GM TUBE TP SCH ×2 (10:11→22:24)
[2017-02-22] MEDS: PRENATAL VITAMINS W/ FOLIC ACID TABLET (FP) PO SCH (10:12)
[2017-02-22] MEDS: CLOTRIMAZOLE 1% CREAM 15 GM TUBE TP SCH ×2 (10:12→22:22)
[2017-02-22] MEDS: DOCUSATE SODIUM 100 MG CAPSULE (FP) PO SCH ×2 (10:12→22:22)
[2017-02-22] MEDS: RANITIDINE HCL 150 MG TABLET (FP) PO SCH ×2 (10:12→22:22)
[2017-02-22] MEDS: NICOTINE 21 MG/24 HOURS TOPICAL PATCH TD SCH (10:13)
--- NOTE | 2017-02-22 10:18 | PN ---
[facility] CIWA - CIWA Score Nausea/Vomitin-No Nausea/No Vomiting Muscle Tremors: 4-Moderate,w/Arms Extend Anxiety: 4-Mod. Anxious/Guarded Agitation: 4-Moderately Restless Paroxysmal Sweats: 1-Minimal Palms Moist Orientation: 0-Oriented Tacttile Disturbances: 3-Moderate Itch/Numb/Burn Auditory Disturbances: 0-None Visual Disturbances: 0-None Headache: 0-None Present CIWA-Ar Total Score: 16 S COWS - Scale Resting Pulse: 0= [place] 80 or Below Sweatin= Chills/Flushing Restless Observation: 3= Extraneous Movement Pupil Size: 2= Moderately Dilated Bone or Joint Aches: 4=Acute Joint/Muscle Pain Runny Nose/ Eye Tearin= Nasal Congestion GI Upset > 30mins: 1= Stomach Cramp Tremor Observation of Outstretched Hands: 2= Slight Tremor Visible Yawning Observation: 2= >3x During Session Anxiety or Irritability: 2=Irritable/Anxious Goose Flesh Skin: 0=Smooth Skin COWS Score: 18 [facility] Progress Note (SOAP) Subjective: ANXIETY,SWEATS,CHILLS,BACK ACHE. Objective: 02/22/17 10:18 Vital Signs Temperature 98.7 F 02/22/17 09:39 Pulse Rate 74 02/22/17 09:39 Respiratory Rate 18 02/22/17 09:39 Blood Pressure 115/78 02/22/17 09:39 O2 Sat by Pulse Oximetry (%) Laboratory Last Values WBC 8.2 K/mm3 (4.0-10.0) 02/22/17 06:00 RBC 4.92 M/mm3 (4.00-5.60) 02/22/17 06:00 Hgb 13.4 GM/dL (11.7-16.9) 02/22/17 06:00 Hct 41.4 % (35.4-49) 02/22/17 06:00 MCV 84.1 fl (80-96) 02/22/17 06:00 MCHC 32.5 g/dl (32.0-35.9) 02/22/17 06:00 RDW 14.2 % (11.9-15.9) 02/22/17 06:00 Plt Count 225 K/MM3 (134-434) 02/22/17 06:00 MPV 8.7 fl (7.5-11.1) 02/22/17 06:00 Urine Color Yellow 02/21/17 20:52 Urine Appearance Clear 02/21/17 20:52 Urine pH 5.0 (5.0-8.0) 02/21/17 20:52 Ur Specific [place] 1.020 (1.005-1.025) 02/21/17 20:52 Urine Protein Negative (NEGATIVE) 02/21/17 20:52 Urine Glucose (UA) Negative (NEGATIVE) 02/21/17 20:52 Urine Ketones Negative (NEGATIVE) 02/21/17 20:52 Urine Blood Negative (NEGATIVE) 02/21/17 20:52 Urine Nitrite Negative (NEGATIVE) 02/21/17 20:52 Urine Bilirubin Negative (NEGATIVE) 02/21/17 20:52 Urine Urobilinogen Negative E.U./dl (0.2-1.0) 02/21/17 20:52 Ur Leukocyte Esterase Negative (NEGATIVE) 02/21/17 20:52 Assessment: 02/22/17 10:18 WITHDRAWAL SX Plan: CONTINUE DETOX
--- NOTE | 2017-02-22 10:37 | CONSULT ---
[facility] Psychiatric Consult - Data Date of interview: 02/22/17 Admission source: [facility] Identifying data: Readmission to 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 Substance Abuse History: - Smoking Cessation. Smoking history: Current every day smoker. Have you smoked in the past 12 months: Yes. Aproximately how many cigarettes per day: 20. Cigars Per Day: 0. Hx Chewing Tobacco Use: No. Initiated information on smoking cessation: Yes. 'Breaking Loose' booklet given : 02/21/17. - Substance & Tx. History. Hx Alcohol Use: Yes. Hx Substance Use : Yes. Substance Use Type: Alcohol, Cocaine, Opiates. - Substances Abused. * * Heroin. Route: Injection. Frequency: Daily. Amount used: 10 bags. Age of first use: 26. Date of Last Use: 02/21/17. Cocaine. Route: Injection. Frequency: Daily. Amount used: $100. Age of first use: 25. Date of Last Use: 02/20/17. Alcohol-cognac/whisky. Route: Oral. Frequency: Daily. Amount used: 2 pts. VOLKA. Age of first use: 19. Date of Last Use: 02/20/17. Confirmed by patient. Medical History: GERD,alopecia and bronchial asthma. Psychiatric History: History of multiple psychiatric hospitalizations since onset of emotional disturbances (age 20).Patient is known to several institutions,including [facility] and in [facility].Diagnosed with Anxiety Disorder and MDD.Mr Diaz reports seroquel 300 mg/hs as his maintenance medication.Vague about his outpatient prescriber.Not a reliable historian." I took my medication two days ago before coming to this place." Questionable adherence to OPD care.Remote history of suicide attempts. Physical/Sexual Abuse/Trauma History: Patient denies history of abuse. Additional Comment: Urine Drug Screen Results: LYLE-Cocaine, OPI-Opiates, MTD- Methadone.Noted. Mental Status Exam - Mental Status Exam Alert and Oriented to: Time, Place, Person Cognitive Function: Good Patient Appearance: Well Groomed Mood: Hopeful, Euthymic Affect: Appropriate, Normal Range Patient Behavior: Appropriate, Cooperative Speech Pattern: Clear Voice Loudness: Normal Thought Process: Goal Oriented Thought Disorder: Not Present Hallucinations: Denies Suicidal Ideation: Denies Homicidal Ideation: Denies Insight/Judgement: Poor Sleep: Poorly, Difficulty falling asleep Appetite: Good Muscle strength/Tone: Normal Gait/Station: Normal Psychiatric Findings - Problem List ([place] 1, 2,3) (1) Alcohol dependence with uncomplicated withdrawal Current Visit: Yes Status: Acute (2) Opioid dependence with withdrawal Current Visit: Yes Status: Acute (3) Cocaine dependence Current Visit: Yes Status: Acute Qualifiers: Substance use status: uncomplicated Qualified Code(s): F14.20 - Cocaine dependence, uncomplicated (4) Nicotine dependence Current Visit: Yes Status: Acute Qualifiers: Nicotine product type: cigarettes Substance use status: in withdrawal Qualified Code(s): F17.213 - Nicotine dependence, cigarettes, with withdrawal (5) Substance induced mood disorder Current Visit: Yes Status: Acute (6) COPD (chronic obstructive pulmonary disease) Current Visit: Yes Status: Chronic Qualifiers: COPD type: emphysema Emphysema type: other Qualified Code(s): J43.8 - Other emphysema (7) Asthma Current Visit: Yes Status: Chronic Qualifiers: Asthma severity: mild persistent Asthma complication type: with status asthmaticus Qualified Code(s): J45.32 - Mild persistent asthma with status asthmaticus (8) Insomnia Current Visit: Yes Status: Acute - Initial Treatment Plan Initial Treatment Plan: Previous records are reviewed.Psychoeducation.Detoxification.Seroquel 200 mg po hs.Side effects/ benefits discussed with the patient.Patient agrees with careplan.Observation.
[2017-02-22 11:43] LABS: COCKROFT - GAULT 147.62; CREATININE 0.9 mg/dL (0.7-1.3); GLUCOSE,RANDOM 112 mg/dL (74-106)
[2017-02-22 11:44] LABS: ALBUMIN 3.7 g/dl (3.4-5.0); ANION GAP 10 (8-16); BILIRUBIN,TOTAL 0.3 mg/dL (0.2-1.0); CALCIUM 9.1 mg/dL (8.5-10.1); CO2 30 mmol/L (21-32); TOT PROT 7.2 g/dl (6.4-8.2)
[2017-02-22 11:45] LABS: ALK PHOS 59 U/L (45-117); SGOT/AST 23 U/L (15-37); SGPT/ALT 24 U/L (12-78)
--- NOTE | 2017-02-22 11:45 | EKG ---
Test Reason : Blood Pressure : / mmHG Vent. Rate : 076 BPM Atrial Rate : 076 BPM P-R Int : 152 ms QRS Dur : 096 ms QT Int : 392 ms P-R-T Axes : 069 076 042 degrees QTc Int : 441 ms NORMAL SINUS RHYTHM NORMAL ECG WHEN COMPARED WITH ECG OF 31-DEC-2016 17:17, NO SIGNIFICANT CHANGE WAS FOUND Confirmed by ELLIOT PRIETO MD ([id number]) on 02/22/2017 11:44:59 AM Referred By: Confirmed By:ELLIOT PRIETO MD
[2017-02-22 13:35] LABS: HIV 1 & 2 AB NEGATIVE; HIV 1 AGp24 NEGATIVE
[2017-02-22] MEDS: chlordiazePOXIDE HCL 25 MG CAPSULE PO PRN (15:24)
[2017-02-22] MEDS: QUEtiapine FUMARATE 200 MG TABLET PO SCH (22:22)
[2017-02-22] MEDS: THIAMINE HCL 100 MG TABLET (FP) PO SCH (22:22)
[2017-02-22] MEDS: HYDROCORTISONE ACETATE 25 MG/SUPP.RECT RC SCH (22:25)
[2017-02-23] MEDS: chlordiazePOXIDE HCL 25 MG CAPSULE PO SCH ×3 (05:26→17:01)
[2017-02-23] MEDS: METHADONE HCL 5 MG TABLET (FOR DETOX USE ONLY) PO SCH (10:42)
[2017-02-23] MEDS: RANITIDINE HCL 150 MG TABLET (FP) PO SCH ×2 (10:43→22:47)
[2017-02-23] MEDS: DOCUSATE SODIUM 100 MG CAPSULE (FP) PO SCH ×2 (10:43→22:47)
[2017-02-23] MEDS: PRENATAL VITAMINS W/ FOLIC ACID TABLET (FP) PO SCH (10:43)
[2017-02-23] MEDS: BUDESONIDE/FORMETEROL FUMARATE 80/4.5 mcg INHALER IH SCH ×2 (10:45→22:46)
[2017-02-23] MEDS: NICOTINE 21 MG/24 HOURS TOPICAL PATCH TD SCH (10:45)
[2017-02-23] MEDS: CLOTRIMAZOLE 1% CREAM 15 GM TUBE TP SCH ×2 (10:46→22:48)
[2017-02-23] MEDS: METHYL SALICYLATE/MENTHOL OINT 30 GM TUBE TP SCH ×2 (10:47→22:48)
--- NOTE | 2017-02-23 10:58 | PN ---
[facility] CIWA - CIWA Score Nausea/Vomitin Muscle Tremors: 3 Anxiety: 3 Agitation: 2 Paroxysmal Sweats: 1-Minimal Palms Moist Orientation: 0-Oriented Tacttile Disturbances: 1-Very Mild Itch/Numbness Auditory Disturbances: 1-Very Mild Visual Disturbances: 1-Very Mild Sensitivity Headache: 2-Mild CIWA-Ar Total Score: 17 [facility] COWS - Scale Resting Pulse: 1= [place] 81-100 Sweatin= Chills/Flushing Restless Observation: 3= Extraneous Movement Pupil Size: 1= Pupils >than Normal Bone or Joint Aches: 2= Severe Diffuse Aches Runny Nose/ Eye Tearin= Runny Nose/Eyes GI Upset > 30mins: 3= Vomiting/Diarrhea Tremor Observation of Outstretched Hands: 2= Slight Tremor Visible Yawning Observation: 1= 1-2x During Session Anxiety or Irritability: 2=Irritable/Anxious Goose Flesh Skin: 0=Smooth Skin COWS Score: 18 S Progress Note (SOAP) Subjective: ALERT,IRRITABLE,ANXIOUS,INTERRUPTED SLEEP,PAIN IN THE BODY AND BACK Objective: 02/23/17 10:57 Vital Signs Temperature 97.8 F 02/23/17 09:26 Pulse Rate 83 02/23/17 09:26 Respiratory Rate 18 02/23/17 09:26 Blood Pressure 112/79 02/23/17 09:26 O2 Sat by Pulse Oximetry (%) Laboratory Last Values WBC 8.2 K/mm3 (4.0-10.0) 02/22/17 06:00 RBC 4.92 M/mm3 (4.00-5.60) 02/22/17 06:00 Hgb 13.4 GM/dL (11.7-16.9) 02/22/17 06:00 Hct 41.4 % (35.4-49) 02/22/17 06:00 MCV 84.1 fl (80-96) 02/22/17 06:00 MCHC 32.5 g/dl (32.0-35.9) 02/22/17 06:00 RDW 14.2 % (11.9-15.9) 02/22/17 06:00 Plt Count 225 K/MM3 (134-434) 02/22/17 06:00 MPV 8.7 fl (7.5-11.1) 02/22/17 06:00 Sodium 141 mmol/L (136-145) 02/22/17 06:00 Potassium 4.0 mmol/L (3.5-5.1) 02/22/17 06:00 Chloride 101 mmol/L (98-107) 02/22/17 06:00 Carbon Dioxide 30 mmol/L (21-32) 02/22/17 06:00 Anion Gap 10 (8-16) 02/22/17 06:00 BUN 12 mg/dL (7-18) 02/22/17 06:00 Creatinine 0.9 mg/dL (0.7-1.3) 02/22/17 06:00 Creat Clearance w eGFR > 60 (>60) 02/22/17 06:00 Random Glucose 112 mg/dL (74-106) H D 02/22/17 06:00 Calcium 9.1 mg/dL (8.5-10.1) 02/22/17 06:00 Total Bilirubin 0.3 mg/dL (0.2-1.0) D 02/22/17 06:00 AST 23 U/L (15-37) D 02/22/17 06:00 ALT 24 U/L (12-78) 02/22/17 06:00 Alkaline Phosphatase 59 U/L (45-117) D 02/22/17 06:00 Total Protein 7.2 g/dl (6.4-8.2) 02/22/17 06:00 Albumin 3.7 g/dl (3.4-5.0) 02/22/17 06:00 Urine Color Yellow 02/21/17 20:52 Urine Appearance Clear 02/21/17 20:52 Urine pH 5.0 (5.0-8.0) 02/21/17 20:52 Ur Specific [place] 1.020 (1.005-1.025) 02/21/17 20:52 Urine Protein Negative (NEGATIVE) 02/21/17 20:52 Urine Glucose (UA) Negative (NEGATIVE) 02/21/17 20:52 Urine Ketones Negative (NEGATIVE) 02/21/17 20:52 Urine Blood Negative (NEGATIVE) 02/21/17 20:52 Urine Nitrite Negative (NEGATIVE) 02/21/17 20:52 Urine Bilirubin Negative (NEGATIVE) 02/21/17 20:52 Urine Urobilinogen Negative E.U./dl (0.2-1.0) 02/21/17 20:52 Ur Leukocyte Esterase Negative (NEGATIVE) 02/21/17 20:52 RPR Titer Nonreactive (NONREACTIVE) 02/22/17 06:00 Hepatitis C Antibody <0.1 s/co ratio (0.0-0.9) 02/21/17 06:00 HIV 1&2 Antibody Screen Negative 02/21/17 17:03 HIV P24 Antigen Negative 02/21/17 17:03 Assessment: 02/23/17 10:57 WITHDRAWAL SYMPTOM Plan: CONTINUE DETOX
[2017-02-23] MEDS: chlordiazePOXIDE HCL 25 MG CAPSULE PO PRN ×2 (12:59→20:09)
[2017-02-23] MEDS: QUEtiapine FUMARATE 200 MG TABLET PO SCH (22:46)
[2017-02-23] MEDS: chlordiazePOXIDE 5 MG CAPSULE PO SCH (22:47)
[2017-02-23] MEDS: THIAMINE HCL 100 MG TABLET (FP) PO SCH (22:50)
[2017-02-23] MEDS: HYDROCORTISONE ACETATE 25 MG/SUPP.RECT RC SCH (23:00)
[2017-02-23] MEDS: ACETAMINOPHEN 325 MG TABLET (FP) PO PRN (23:04)
[2017-02-24] MEDS: chlordiazePOXIDE 5 MG CAPSULE PO SCH ×3 (05:59→17:12)
[2017-02-24] MEDS: PRENATAL VITAMINS W/ FOLIC ACID TABLET (FP) PO SCH (10:30)
[2017-02-24] MEDS: METHADONE HCL 5 MG TABLET (FOR DETOX USE ONLY) PO SCH (10:30)
[2017-02-24] MEDS: DOCUSATE SODIUM 100 MG CAPSULE (FP) PO SCH ×2 (10:30→22:28)
[2017-02-24] MEDS: RANITIDINE HCL 150 MG TABLET (FP) PO SCH ×2 (10:31→22:28)
[2017-02-24] MEDS: BUDESONIDE/FORMETEROL FUMARATE 80/4.5 mcg INHALER IH SCH ×2 (10:32→22:28)
[2017-02-24] MEDS: CLOTRIMAZOLE 1% CREAM 15 GM TUBE TP SCH ×2 (10:33→22:30)
[2017-02-24] MEDS: NICOTINE 21 MG/24 HOURS TOPICAL PATCH TD SCH (10:33)
[2017-02-24] MEDS: METHYL SALICYLATE/MENTHOL OINT 30 GM TUBE TP SCH ×2 (10:33→22:29)
--- NOTE | 2017-02-24 12:10 | PN ---
[facility] Progress Note (SOAP) Subjective: Interrupted Sleep, Chills, Sweating. Objective: PT. A & O X 2 (DISORIENTED ABOUT DAY / DATE). PT. OBSERVED AMBULATING ON UNIT. 02/24/17 12:09 Vital Signs Temperature 96.7 F L 02/24/17 09:11 Pulse Rate 80 02/24/17 09:11 Respiratory Rate 18 02/24/17 09:11 Blood Pressure 96/67 02/24/17 09:11 O2 Sat by Pulse Oximetry (%) Laboratory Tests 02/21/17 02/21/17 02/21/17 06:00 17:03 20:52 WBC RBC Hgb Hct MCV MCHC RDW Plt Count MPV Sodium Potassium Chloride Carbon Dioxide Anion Gap BUN Creatinine Creat Clearance w eGFR Random Glucose Calcium Total Bilirubin AST ALT Alkaline Phosphatase Total Protein Albumin Urine Color Yellow Urine Appearance Clear Urine pH 5.0 Ur Specific [place] 1.020 Urine Protein Negative Urine Glucose (UA) Negative Urine Ketones Negative Urine Blood Negative Urine Nitrite Negative Urine Bilirubin Negative Urine Urobilinogen Negative Ur Leukocyte Esterase Negative RPR Titer Hepatitis C Antibody <0.1 HIV 1&2 Antibody Screen Negative HIV P24 Antigen Negative 02/22/17 02/22/17 02/22/17 06:00 06:00 06:00 WBC 8.2 RBC 4.92 Hgb 13.4 Hct 41.4 MCV 84.1 MCHC 32.5 RDW 14.2 Plt Count 225 MPV 8.7 Sodium 141 Potassium 4.0 Chloride 101 Carbon Dioxide 30 Anion Gap 10 BUN 12 Creatinine 0.9 Creat Clearance w eGFR > 60 Random Glucose 112 H D Calcium 9.1 Total Bilirubin 0.3 D AST 23 D ALT 24 Alkaline Phosphatase 59 D Total Protein 7.2 Albumin 3.7 Urine Color Urine Appearance Urine pH Ur Specific [place] Urine Protein Urine Glucose (UA) Urine Ketones Urine Blood Urine Nitrite Urine Bilirubin Urine Urobilinogen Ur Leukocyte Esterase RPR Titer Nonreactive Hepatitis C Antibody HIV 1&2 Antibody Screen HIV P24 Antigen LABS NOTED. Assessment: 02/24/17 12:10 WITHDRAWAL SYMPTOMS. Plan: CONTINUE DETOX. INCREASE PO FLUID INTAKE.
[2017-02-24] MEDS: ACETAMINOPHEN 325 MG TABLET (FP) PO PRN (12:28)
[2017-02-24] MEDS: chlordiazePOXIDE HCL 25 MG CAPSULE PO PRN (15:00)
[2017-02-24] MEDS ORDERED: hydrOXYzine PAMOATE 25 MG CAPSULE (FP) PO ONE (22:00)
[2017-02-24] MEDS: chlordiazePOXIDE HCL 10 MG CAPSULE PO SCH (22:28)
[2017-02-24] MEDS: QUEtiapine FUMARATE 200 MG TABLET PO SCH (22:28)
[2017-02-24] MEDS: THIAMINE HCL 100 MG TABLET (FP) PO SCH (22:28)
[2017-02-24] MEDS: HYDROCORTISONE ACETATE 25 MG/SUPP.RECT RC SCH (22:29)
[2017-02-25] MEDS: chlordiazePOXIDE HCL 10 MG CAPSULE PO SCH ×2 (07:08→10:33)
[2017-02-25 09:22] VITALS: BP 103/69; PULSE 77; TEMP 97.4
[2017-02-25] MEDS ORDERED: METHADONE HCL 10 MG TABLET (FOR DETOX USE ONLY) PO SCH (10:00)
[2017-02-25] MEDS: BUDESONIDE/FORMETEROL FUMARATE 80/4.5 mcg INHALER IH SCH (10:33)
[2017-02-25] MEDS: NICOTINE 21 MG/24 HOURS TOPICAL PATCH TD SCH (10:34)
[2017-02-25] MEDS: PRENATAL VITAMINS W/ FOLIC ACID TABLET (FP) PO SCH (10:34)
[2017-02-25] MEDS: RANITIDINE HCL 150 MG TABLET (FP) PO SCH (10:34)
[2017-02-25] MEDS: DOCUSATE SODIUM 100 MG CAPSULE (FP) PO SCH (10:34)
[2017-02-25] MEDS: METHYL SALICYLATE/MENTHOL OINT 30 GM TUBE TP SCH (10:36)
[2017-02-25] MEDS: CLOTRIMAZOLE 1% CREAM 15 GM TUBE TP SCH (10:36)
--- NOTE | 2017-02-25 11:28 | DS ---
[facility] Detox Discharge Summary Admission Date: 02/21/17 Discharge Date: 02/25/17 - History Present History: Alcohol Dependence, Cocaine Dependence, Opioid Dependence Pertinent Past History: Asthma GERD - Physical Exam Results Vital Signs: Vital Signs Temperature 97.4 F L 02/25/17 09:21 Pulse Rate 77 02/25/17 09:21 Respiratory Rate 18 02/25/17 09:21 Blood Pressure 103/69 02/25/17 09:21 O2 Sat by Pulse Oximetry (%) Pertinent Admission Physical Exam Findings: Withdrawal sx Laboratory Last Values WBC 8.2 K/mm3 (4.0-10.0) 02/22/17 06:00 RBC 4.92 M/mm3 (4.00-5.60) 02/22/17 06:00 Hgb 13.4 GM/dL (11.7-16.9) 02/22/17 06:00 Hct 41.4 % (35.4-49) 02/22/17 06:00 MCV 84.1 fl (80-96) 02/22/17 06:00 MCHC 32.5 g/dl (32.0-35.9) 02/22/17 06:00 RDW 14.2 % (11.9-15.9) 02/22/17 06:00 Plt Count 225 K/MM3 (134-434) 02/22/17 06:00 MPV 8.7 fl (7.5-11.1) 02/22/17 06:00 Sodium 141 mmol/L (136-145) 02/22/17 06:00 Potassium 4.0 mmol/L (3.5-5.1) 02/22/17 06:00 Chloride 101 mmol/L (98-107) 02/22/17 06:00 Carbon Dioxide 30 mmol/L (21-32) 02/22/17 06:00 Anion Gap 10 (8-16) 02/22/17 06:00 BUN 12 mg/dL (7-18) 02/22/17 06:00 Creatinine 0.9 mg/dL (0.7-1.3) 02/22/17 06:00 Creat Clearance w eGFR > 60 (>60) 02/22/17 06:00 Random Glucose 112 mg/dL (74-106) H D 02/22/17 06:00 Calcium 9.1 mg/dL (8.5-10.1) 02/22/17 06:00 Total Bilirubin 0.3 mg/dL (0.2-1.0) D 02/22/17 06:00 AST 23 U/L (15-37) D 02/22/17 06:00 ALT 24 U/L (12-78) 02/22/17 06:00 Alkaline Phosphatase 59 U/L (45-117) D 02/22/17 06:00 Total Protein 7.2 g/dl (6.4-8.2) 02/22/17 06:00 Albumin 3.7 g/dl (3.4-5.0) 02/22/17 06:00 Urine Color Yellow 02/21/17 20:52 Urine Appearance Clear 02/21/17 20:52 Urine pH 5.0 (5.0-8.0) 02/21/17 20:52 Ur Specific [place] 1.020 (1.005-1.025) 02/21/17 20:52 Urine Protein Negative (NEGATIVE) 02/21/17 20:52 Urine Glucose (UA) Negative (NEGATIVE) 02/21/17 20:52 Urine Ketones Negative (NEGATIVE) 02/21/17 20:52 Urine Blood Negative (NEGATIVE) 02/21/17 20:52 Urine Nitrite Negative (NEGATIVE) 02/21/17 20:52 Urine Bilirubin Negative (NEGATIVE) 02/21/17 20:52 Urine Urobilinogen Negative E.U./dl (0.2-1.0) 02/21/17 20:52 Ur Leukocyte Esterase Negative (NEGATIVE) 02/21/17 20:52 RPR Titer Nonreactive (NONREACTIVE) 02/22/17 06:00 Hepatitis C Antibody <0.1 s/co ratio (0.0-0.9) 02/21/17 06:00 HIV 1&2 Antibody Screen Negative 02/21/17 17:03 HIV P24 Antigen Negative 02/21/17 17:03 labs noted - Treatment Patient has Accepted a Rehab Referral to: [facility] - Medication Discharge Medications: Ambulatory Orders Albuterol Sulfate Inhaler - [Ventolin HFA Inhaler -] 2 puff IH Q4H PRN #1 inhaler 07/07/16 Budesonide/Formeterol Fumarate [SYMBICORT 80/4.5mcg -] 2 puff IH BID #1 inhaler 07/07/16 Quetiapine Fumarate [Seroquel] 100 mg PO HS #30 tablet 01/01/17 Sertraline HCl [Zoloft -] 50 mg PO DAILY #30 tablet 01/01/17 Albuterol Sulfate Inhaler - [Ventolin HFA Inhaler -] 2 puff IH Q4H PRN #1 inhaler 01/05/17 Budesonide/Formeterol Fumarate [SYMBICORT 80/4.5mcg -] 2 puff IH BID #1 inhaler 01/05/17 Esomeprazole Magnesium 40 mg PO DAILY #30 tab-cap 01/05/17 Pantoprazole Sodium [Protonix -] 40 mg PO DAILY #30 tab 01/05/17 Quetiapine Fumarate [Seroquel -] 200 mg PO HS #30 tab 02/22/17 - Diagnosis (1) Alcohol dependence with uncomplicated withdrawal Current Visit: Yes Status: Acute (2) Cocaine dependence Current Visit: Yes Status: Acute Qualifiers: Substance use status: uncomplicated Qualified Code(s): F14.20 - Cocaine dependence, uncomplicated (3) Insomnia Current Visit: Yes Status: Acute (4) Nicotine dependence Current Visit: Yes Status: Acute Qualifiers: Nicotine product type: cigarettes Substance use status: in withdrawal Qualified Code(s): F17.213 - Nicotine dependence, cigarettes, with withdrawal (5) Opioid dependence with withdrawal Current Visit: Yes Status: Acute (6) Substance induced mood disorder Current Visit: Yes Status: Acute (7) Asthma Current Visit: Yes Status: Chronic Qualifiers: Asthma severity: mild persistent Asthma complication type: with status asthmaticus Qualified Code(s): J45.32 - Mild persistent asthma with status asthmaticus (8) COPD (chronic obstructive pulmonary disease) Current Visit: Yes Status: Chronic Qualifiers: COPD type: emphysema Emphysema type: other Qualified Code(s): J43.8 - Other emphysema (9) GERD (gastroesophageal reflux disease) Current Visit: Yes Status: Acute Qualifiers: Esophagitis presence: without esophagitis Qualified Code(s): K21.9 - Gastro-esophageal reflux disease without esophagitis (10) Substance-induced anxiety disorder Current Visit: No Status: Acute - AMA Did Patient Leave Against Medical Advice: Yes
[2017-02-26] MEDS ORDERED: METHADONE HCL 5 MG TABLET (FOR DETOX USE ONLY) PO SCH (06:00)
== END 2017-02-25 11:18 | disposition left against medical advice (07) | DRG 770 ==
LOC: YASAS 12:38 → Y3N 18:05
PROVIDERS: ADMIT Internal Medicine; ATTEND Internal Medicine
PROC: HZ2ZZZZ Detoxification Services for Substance Abuse Treatment (ICD-10-PCS; principal; 2017-02-21)
DX: F11.23 Opioid dependence with withdrawal (principal); F10.230 Alcohol dependence with withdrawal, uncomplicated; F14.20 Cocaine dependence, uncomplicated; F17.213 Nicotine dependence, cigarettes, with withdrawal; F19.24 Other psychoactive substance dependence with psychoactive substance-induced mood disorder; F19.280 Other psychoactive substance dependence with psychoactive substance-induced anxiety disorder; F32.9 Major depressive disorder, single episode, unspecified; G47.00 Insomnia, unspecified; J45.32 Mild persistent asthma with status asthmaticus; J43.8 Other emphysema; K21.9 Gastro-esophageal reflux disease without esophagitis; K59.01 Slow transit constipation; K64.4 Residual hemorrhoidal skin tags; B35.1 Tinea unguium
CPT/HCPCS: 36415; 80053; 81003; 85027; 86593; 86803; 87389; 93005; 93010

== ENCOUNTER 2017-06-11 11:59 | Inpatient (IN) | payer OTHER ==
[2017-06-11 12:52] VITALS: BMI 25.0
--- NOTE | 2017-06-11 13:53 | HP ---
COWS - Scale Resting Pulse: 1= [place] 81-100 Sweatin= Chills/Flushing Restless Observation: 1= Difficult to Sit Still Pupil Size: 0= Normal to Room Light Bone or Joint Aches: 2= Severe Diffuse Aches Runny Nose/ Eye Tearin= Nasal Congestion GI Upset > 30mins: 1= Stomach Cramp Tremor Observation: 1= Tremor [place], Not Seen Yawning Observation: 1= 1-2x During Session Anxiety or Irritability: 1=Feels Anxious/Irritable Goose Flesh Skin: 0=Smooth Skin COWS Score: 10 CIWA Score - CIWA Score Nausea/Vomitin Muscle Tremors: 4-Moderate,w/Arms Extend Anxiety: 4-Mod. Anxious/Guarded Agitation: 1-Slight > Activity Paroxysmal Sweats: 1-Minimal Palms Moist Orientation: 0-Oriented Tacttile Disturbances: 1-Very Mild Itch/Numbness Auditory Disturbances: 1-Very Mild Visual Disturbances: 2-Mild Sensitivity Headache: 2-Mild CIWA-Ar Total Score: 18 Admission ROS [facility] - HPI Chief Complaint: I need to get clean, get it right, stop using Allergies/Adverse Reactions: Allergies Allergy/AdvReac Type Severity Reaction Status Date / Time No Known Drug Allergies Allergy Verified 06/11/17 14:25 shellfish derived Allergy Verified 06/11/17 14:25 History of Present Illness: 31 yo gentleman here for detox from alcohol, benzodiazpine, heroin - previous detox here in January 2017 - was on suboxone in May for 15 days but insurance issues prevented him from continuing. No seizures or black outs. Exam Limitations: Clinical Condition - Ebola screening Have you traveled outside of the country in the last 21 days: No Have you had contact with anyone from an Ebola affected area: No Have you been sick,other than usual withdrawal symptoms: No Do you have a fever: No - Review of Systems Constitutional: Loss of Appetite, Malaise, Changes in sleep EENT: reports: Blurred Vision, Nose Congestion Respiratory: reports: No Symptoms reported Cardiac: reports: No Symptoms Reported GI: reports: Nausea, Poor Appetite, Indigestion : reports: Dysuria Musculoskeletal: reports: Back Pain, Muscle Pain Integumentary: reports: No Symptoms Reported Neuro: reports: Headache Endocrine: reports: No Symptoms Reported Hematology: reports: No Symptoms Reported Psychiatric: reports: Judgement Intact, Mood/Affect Appropiate, Orientated x3, Anxious Other Systems: Reviewed and Negative Patient History - Patient Medical History Hx Anemia: No Hx Asthma: Yes Hx Chronic Obstructive Pulmonary Disease (COPD): Yes Hx Cancer: No Hx Cardiac Disorders: No Hx Congestive Heart Failure: No Hx Hypertension: No Hx Hypercholesterolemia: No Hx Pacemaker: No HX Cerebrovascular Accident: No Hx Seizures: No Hx Dementia: No Hx Diabetes: No Hx Gastrointestinal Disorders: No Hx Liver Disease: No Hx Genitourinary Disorders: No Hx Sexually Transmitted Disorders: No Hx Renal Disease (ESRD): No Hx Thyroid Disease: No Hx Human Immunodeficiency Virus (HIV): No Hx Hepatitis C: No Hx Depression: Yes (with anxiety - Rx gabapentin for same) Hx Suicide Attempt: No Hx Bipolar Disorder: No Hx Schizophrenia: No - Patient Surgical History Past Surgical History: No Hx Neurologic Surgery: No Hx Cataract Extraction: No Hx Cardiac Surgery: No Hx Lung Surgery: No Hx Breast Surgery: No Hx Breast Biopsy: No Hx Abdominal Surgery: No Hx Appendectomy: No Hx Cholecystectomy: No Hx Genitourinary Surgery: No Hx Section: No Hx Orthopedic Surgery: No Anesthesia Reaction: No - PPD History Previous Implant?: Yes Documented Results: Negative w/proof Implanted On Prior [facility] Admission?: No Date: 02/23/17 Results: 0 mm PPD to be Administered?: No - Reproductive History Patient is a Female of Child Bearing Age (11 -55 yrs old): No (male) - Smoking Cessation Smoking history: Current every day smoker Have you smoked in the past 12 months: Yes Aproximately how many cigarettes per day: 10 Cigars Per Day: 0 Hx Chewing Tobacco Use: No Initiated information on smoking cessation: Yes 'Breaking Loose' booklet given: 06/11/17 (give on floor) - Substance & Tx. History Hx Alcohol Use: Yes Hx Substance Use: Yes Substance Use Type: Alcohol, Cocaine, Heroin, Opiates Hx Substance Use Treatment: Yes (detox, rehab, suboxone) - Substances Abused Alcohol Route: Oral Frequency: Daily Amount used: 2 pints liquor Age of first use: 18 Date of Last Use: 06/10/17 Cocaine Route: Injection Frequency: 3-6 times per week Amount used: 1/2 gm Age of first use: 26 Date of Last Use: 06/10/17 Heroin Route: Injection Frequency: Daily Amount used: 1 bundle Age of first use: 27 Date of Last Use: 06/10/17 Alprazolam (Xanax) Route: Oral Frequency: Daily Amount used: three 2 mg bars Age of first use: 29 Date of Last Use: 06/11/17 Non-Rx Methadone Route: Oral Frequency: 1-3 times last 30 days Amount used: 20mg Age of first use: 31 Date of Last Use: 06/09/17 Family Disease History - Family Disease History Family Disease History: Diabetes: Mother (living, ), Other: Father (living, healthy), Mother, Sister (1 living - healthy), Daughter (age 7 - healthy) Admission Physical Exam S - Vital Signs Vital Signs: Vital Signs - 24 hr 06/11/17 12:51 Temperature 96.4 F L Pulse Rate 80 Respiratory 20 Rate Blood Pressure 100/76 - Physical General Appearance: Yes: Nourished, Appropriately Dressed, Mild Distress HEENTM: Yes: Hearing grossly Normal, Normal ENT Inspection, Normocephalic, Normal Voice, Pharynx Normal Respiratory: Yes: Normal Breath Sounds, No Respiratory Distress Neck: Yes: No masses,lesions,Nodules, Supple Breast: Yes: Breast Exam Deferred Cardiology: Yes: Regular Rhythm, Regular Rate Abdominal: Yes: Soft Genitourinary: Yes: Dysuria Back: Yes: Normal Inspection Musculoskeletal: Yes: full range of Motion, Gait Steady Extremities: Yes: Normal Inspection, Normal Range of Motion Neurological: Yes: Fully Oriented, Alert, Normal Mood/Affect, Normal Response Integumentary: Yes: Normal Color, Warm, Track [place] (both arms - no erythema) Lymphatic: Yes: Within Normal Limits - Diagnostic (1) Opioid dependence with withdrawal Current Visit: Yes Status: Chronic (2) Sedative, hypnotic or anxiolytic dependence with withdrawal, uncomplicated Current Visit: Yes Status: Chronic (3) Alcohol dependence with uncomplicated withdrawal Current Visit: Yes Status: Chronic (4) Cocaine dependence Current Visit: Yes Status: Chronic Qualifiers: Substance use status: uncomplicated Qualified Code(s): F14.20 - Cocaine dependence, uncomplicated (5) Nicotine dependence Current Visit: Yes Status: Chronic Qualifiers: Nicotine product type: cigarettes Substance use status: in withdrawal Qualified Code(s): F17.213 - Nicotine dependence, cigarettes, with withdrawal (6) Asthma Current Visit: No Status: Acute Qualifiers: Asthma severity: mild persistent Asthma complication type: with status asthmaticus Qualified Code(s): J45.32 - Mild persistent asthma with status asthmaticus (7) COPD (chronic obstructive pulmonary disease) Current Visit: Yes Status: Chronic Qualifiers: COPD type: emphysema Emphysema type: other Qualified Code(s): J43.8 - Other emphysema Cleared for Admission B[facility] - Detox or Rehab [facility] Level of Care: Medically Managed Detox Regimen/Protocol: Methadone/Librium B[facility] Breath Alcohol Content Breath Alcohol Content: 0 Urine Drug Screen - Results Drug Screen Negative: No Urine Drug Screen Results: LYLE-Cocaine, OPI-Opiates, BZO-Benzodiazepines, MTD- Methadone
[2017-06-11] MEDS ORDERED: diazePAM 5 MG TABLET PO ONE (13:57)
[2017-06-11] MEDS ORDERED: NICOTINE POLACRILEX 4 MG GUM BUC PRN (13:57)
[2017-06-11] MEDS ORDERED: METHADONE HCL 10 MG TABLET (FOR DETOX USE ONLY) PO ONE ×2 (13:57→23:00)
[2017-06-11] MEDS ORDERED: MAGNESIUM HYDROX 2400MG/30ML ORAL SUSPENSION 30 ML CUP PO PRN (13:57)
[2017-06-11] MEDS ORDERED: ACETAMINOPHEN 325 MG TABLET (FP) PO PRN (13:57)
[2017-06-11] MEDS ORDERED: MAGNESIUM CITRATE 300 ML BOTTLE PO PRN (13:57)
[2017-06-11] MEDS ORDERED: IBUPROFEN 400 MG TABLET (FP) PO PRN (13:57)
[2017-06-11] MEDS ORDERED: guaiFENesin/D-METHORPHAN HB 10 ML UNIT-DOSE CUPS PO PRN (13:57)
[2017-06-11] MEDS ORDERED: P-EPHED 60MG/TRIPROLIDI 2.5MG TABLET PO PRN (13:57)
[2017-06-11] MEDS ORDERED: hydrOXYzine PAMOATE 50 MG CAPSULE (FP) PO PRN (13:57)
[2017-06-11] MEDS ORDERED: MAG HYDROX/AL HYDROX/SIMETH 30 ML UNIT-DOSE CUP PO PRN (13:57)
[2017-06-11] MEDS ORDERED: MENTHOL/PHENOL 1 EACH UD MM PRN (13:57)
[2017-06-11] MEDS ORDERED: LOPERAMIDE HCL 2 MG CAPSULE PO PRN (13:57)
[2017-06-11] MEDS ORDERED: ALBUTEROL SO4 6.7 GM HFA INHALER IH PRN (13:59)
[2017-06-11] MEDS: NICOTINE 21 MG/24 HOURS TOPICAL PATCH TD SCH (15:54)
[2017-06-11] MEDS ORDERED: ALBUTEROL SO4 6.7 GM HFA INHALER IH ONE (21:38)
[2017-06-11] MEDS: diazePAM 5 MG TABLET PO SCH (22:28)
[2017-06-11] MEDS: BUDESONIDE/FORMETEROL FUMARATE 80/4.5 mcg INHALER IH SCH (22:28)
[2017-06-11] MEDS: THIAMINE HCL 100 MG TABLET (FP) PO SCH (22:28)
[2017-06-11] MEDS: diphenhydrAMINE HCL 50 MG CAPSULE PO PRN (22:28)
[2017-06-11 22:34] LABS: URINE APPEARANCE SLCLOUDY; URINE BILIRUBIN NEGATIVE (NEGATIVE); URINE BLOOD NEGATIVE (NEGATIVE); URINE COLOR YELLOW; URINE GLUCOSE (UA) NEGATIVE (NEGATIVE); URINE KETONE NEGATIVE (NEGATIVE); URINE LEUK ESTERASE NEGATIVE (NEGATIVE); URINE NITRITE NEGATIVE (NEGATIVE); URINE PROTEIN NEGATIVE (NEGATIVE); URINE UROBILINOGEN NEGATIVE mg/dL (0.2-1.0)
[2017-06-12] MEDS: diazePAM 5 MG TABLET PO SCH ×3 (05:25→22:40)
[2017-06-12 09:48] LABS: PLATELET COUNT 286 K/MM3 (134-434); WHITE BLOOD COUNT 5.7 K/mm3 (4.0-10.0)
[2017-06-12 09:51] LABS: MCH 26.8 pg (25.7-33.7); MCHC 32.4 g/dl (32.0-35.9); MEAN CELL VOLUME 82.6 fl (80-96); MEAN PLT VOLUME 8.1 fl (7.5-11.1); RDW 14.5 % (11.9-15.9)
--- NOTE | 2017-06-12 09:55 | EKG ---
Test Reason : Blood Pressure : / mmHG Vent. Rate : 073 BPM Atrial Rate : 073 BPM P-R Int : 160 ms QRS Dur : 098 ms QT Int : 380 ms P-R-T Axes : 072 079 051 degrees QTc Int : 418 ms NORMAL SINUS RHYTHM NORMAL ECG WHEN COMPARED WITH ECG OF 21-FEB-2017 19:07, NO SIGNIFICANT CHANGE WAS FOUND Confirmed by MD HARMONY, CORNELIUS ([id number]) on 06/12/2017 9:55:01 AM Referred By: Confirmed By:CORNELIUS ANTUNEZ MD
[2017-06-12] MEDS ORDERED: METHADONE HCL 10 MG TABLET (FOR DETOX USE ONLY) PO SCH (10:00)
[2017-06-12 10:13] LABS: ALBUMIN 3.3 g/dl (3.4-5.0); ALK PHOS 51 U/L (45-117); ANION GAP 9 (8-16); BILIRUBIN,TOTAL 0.4 mg/dL (0.2-1.0); CALCIUM 8.5 mg/dL (8.5-10.1); CO2 28 mmol/L (21-32); CREATININE 0.8 mg/dL (0.7-1.3); GLUCOSE,RANDOM 89 mg/dL (74-106); SGOT/AST 14 U/L (15-37); SGPT/ALT 23 U/L (12-78); TOT PROT 6.8 g/dl (6.4-8.2)
[2017-06-12] MEDS: diazePAM 5 MG TABLET PO PRN ×2 (10:22→19:26)
[2017-06-12] MEDS: BUDESONIDE/FORMETEROL FUMARATE 80/4.5 mcg INHALER IH SCH ×2 (10:22→22:40)
[2017-06-12] MEDS: PRENATAL VITAMINS W/ FOLIC ACID TABLET (FP) PO SCH (10:22)
[2017-06-12] MEDS: NICOTINE 21 MG/24 HOURS TOPICAL PATCH TD SCH (10:23)
--- NOTE | 2017-06-12 17:59 | PN ---
S CIWA - CIWA Score Nausea/Vomitin Muscle Tremors: 4-Moderate,w/Arms Extend Anxiety: 4-Mod. Anxious/Guarded Agitation: 4-Moderately Restless Paroxysmal Sweats: 3 Orientation: 0-Oriented Tacttile Disturbances: 1-Very Mild Itch/Numbness Auditory Disturbances: 0-None Visual Disturbances: 0-None Headache: 1-Very Mild CIWA-Ar Total Score: 20 BHS COWS - Scale Resting Pulse: 0= [place] 80 or Below Sweatin=Flushed/Facial Moisture Restless Observation: 3= Extraneous Movement Pupil Size: 0= Normal to Room Light Bone or Joint Aches: 2= Severe Diffuse Aches Runny Nose/ Eye Tearin= Runny Nose/Eyes GI Upset > 30mins: 2= Nausea/Diarrhea Tremor Observation of Outstretched Hands: 2= Slight Tremor Visible Yawning Observation: 1= 1-2x During Session Anxiety or Irritability: 2=Irritable/Anxious Goose Flesh Skin: 0=Smooth Skin COWS Score: 16 S Progress Note (SOAP) Subjective: Chills, nausea, sweating, tremor Objective: 06/12/17 17:58 Last Vital Signs Temp Pulse Resp BP Pulse Ox 97.1 F L 75 18 113/68 06/12/17 13:30 06/12/17 13:30 06/12/17 13:30 06/12/17 13:30 Laboratory Last Values WBC 5.7 K/mm3 (4.0-10.0) D 06/12/17 07:50 RBC 4.98 M/mm3 (4.00-5.60) 06/12/17 07:50 Hgb 13.3 GM/dL (11.7-16.9) 06/12/17 07:50 Hct 41.1 % (35.4-49) 06/12/17 07:50 MCV 82.6 fl (80-96) 06/12/17 07:50 MCH 26.8 pg (25.7-33.7) 06/12/17 07:50 MCHC 32.4 g/dl (32.0-35.9) 06/12/17 07:50 RDW 14.5 % (11.9-15.9) 06/12/17 07:50 Plt Count 286 K/MM3 (134-434) D 06/12/17 07:50 MPV 8.1 fl (7.5-11.1) 06/12/17 07:50 Sodium 138 mmol/L (136-145) 06/12/17 07:50 Potassium 4.0 mmol/L (3.5-5.1) 06/12/17 07:50 Chloride 101 mmol/L (98-107) 06/12/17 07:50 Carbon Dioxide 28 mmol/L (21-32) 06/12/17 07:50 Anion Gap 9 (8-16) 06/12/17 07:50 BUN 9 mg/dL (7-18) D 06/12/17 07:50 Creatinine 0.8 mg/dL (0.7-1.3) 06/12/17 07:50 Creat Clearance w eGFR > 60 (>60) 06/12/17 07:50 Random Glucose 89 mg/dL (74-106) D 06/12/17 07:50 Calcium 8.5 mg/dL (8.5-10.1) 06/12/17 07:50 Total Bilirubin 0.4 mg/dL (0.2-1.0) D 06/12/17 07:50 AST 14 U/L (15-37) L D 06/12/17 07:50 ALT 23 U/L (12-78) 06/12/17 07:50 Alkaline Phosphatase 51 U/L (45-117) 06/12/17 07:50 Total Protein 6.8 g/dl (6.4-8.2) 06/12/17 07:50 Albumin 3.3 g/dl (3.4-5.0) L 06/12/17 07:50 Urine Color Yellow 06/11/17 22:00 Urine Appearance Slcloudy 06/11/17 22:00 Urine pH 5.0 (5.0-8.0) 06/11/17 22:00 Ur Specific [place] 1.025 (1.005-1.025) 06/11/17 22:00 Urine Protein Negative (NEGATIVE) 06/11/17 22:00 Urine Glucose (UA) Negative (NEGATIVE) 06/11/17 22:00 Urine Ketones Negative (NEGATIVE) 06/11/17 22:00 Urine Blood Negative (NEGATIVE) 06/11/17 22:00 Urine Nitrite Negative (NEGATIVE) 06/11/17 22:00 Urine Bilirubin Negative (NEGATIVE) 06/11/17 22:00 Urine Urobilinogen Negative mg/dL (0.2-1.0) 06/11/17 22:00 Ur Leukocyte Esterase Negative (NEGATIVE) 06/11/17 22:00 RPR Titer Nonreactive (NONREACTIVE) 06/12/17 07:50 Labs noted Assessment: 06/12/17 17:59 Withdrawal symptoms Plan: Continue detox
[2017-06-12] MEDS: THIAMINE HCL 100 MG TABLET (FP) PO SCH (22:40)
[2017-06-12] MEDS: diphenhydrAMINE HCL 50 MG CAPSULE PO PRN (22:40)
[2017-06-13] MEDS: diazePAM 5 MG TABLET PO PRN (08:40)
[2017-06-13 09:27] VITALS: BP 107/70; PULSE 74; TEMP 97.9
[2017-06-13] MEDS ORDERED: diazePAM 5 MG TABLET PO SCH (10:00)
[2017-06-13] MEDS ORDERED: METHADONE HCL 5 MG TABLET (FOR DETOX USE ONLY) PO SCH (10:00)
[2017-06-13] MEDS: PRENATAL VITAMINS W/ FOLIC ACID TABLET (FP) PO SCH (10:48)
[2017-06-13] MEDS: BUDESONIDE/FORMETEROL FUMARATE 80/4.5 mcg INHALER IH SCH (10:48)
[2017-06-13] MEDS: NICOTINE 21 MG/24 HOURS TOPICAL PATCH TD SCH (10:48)
[2017-06-13] MEDS ORDERED: ONDANSETRON *ODT* 4 MG TABLET SL PRN (10:52)
[2017-06-13] MEDS ORDERED: ZOLPIDEM TARTRATE 10 MG TABLET (PARK CARE ONLY) PO PRN (10:53)
--- NOTE | 2017-06-13 10:55 | PN ---
[facility] CIWA - CIWA Score Nausea/Vomitin Muscle Tremors: 4-Moderate,w/Arms Extend Anxiety: 4-Mod. Anxious/Guarded Agitation: 4-Moderately Restless Paroxysmal Sweats: 3 Orientation: 0-Oriented Tacttile Disturbances: 0-None Auditory Disturbances: 0-None Visual Disturbances: 0-None Headache: 0-None Present CIWA-Ar Total Score: 18 BHS COWS - Scale Resting Pulse: 0= [place] 80 or Below Sweatin= Chills/Flushing Restless Observation: 1= Difficult to Sit Still Pupil Size: 1= Pupils >than Normal Bone or Joint Aches: 2= Severe Diffuse Aches Runny Nose/ Eye Tearin= Runny Nose/Eyes GI Upset > 30mins: 2= Nausea/Diarrhea Tremor Observation of Outstretched Hands: 2= Slight Tremor Visible Yawning Observation: 1= 1-2x During Session Anxiety or Irritability: 2=Irritable/Anxious Goose Flesh Skin: 3=[place] COWS Score: 17 [facility] Progress Note (SOAP) Subjective: nausea, sweats, interrupted sleep, anxiety, tremosrs, runny nose, body aches Objective: 06/13/17 10:54 Vital Signs - 24 hr 06/12/17 06/12/17 06/12/17 13:30 18:15 22:29 Temperature 97.1 F L 98.0 F 98.6 F Pulse Rate 75 71 67 Respiratory 18 18 18 Rate Blood Pressure 113/68 103/64 124/76 06/13/17 06/13/17 06/13/17 00:30 03:43 09:26 Temperature 97.9 F Pulse Rate 74 Respiratory 18 18 18 Rate Blood Pressure 107/70 Laboratory Tests 06/11/17 06/12/17 06/12/17 22:00 07:50 07:50 WBC 5.7 D RBC 4.98 Hgb 13.3 Hct 41.1 MCV 82.6 MCH 26.8 MCHC 32.4 RDW 14.5 Plt Count 286 D MPV 8.1 Sodium 138 Potassium 4.0 Chloride 101 Carbon Dioxide 28 Anion Gap 9 BUN 9 D Creatinine 0.8 Creat Clearance w eGFR > 60 Random Glucose 89 D Calcium 8.5 Total Bilirubin 0.4 D AST 14 L D ALT 23 Alkaline Phosphatase 51 Total Protein 6.8 Albumin 3.3 L Urine Color Yellow Urine Appearance Slcloudy Urine pH 5.0 Ur Specific [place] 1.025 Urine Protein Negative Urine Glucose (UA) Negative Urine Ketones Negative Urine Blood Negative Urine Nitrite Negative Urine Bilirubin Negative Urine Urobilinogen Negative Ur Leukocyte Esterase Negative RPR Titer 06/12/17 07:50 WBC RBC Hgb Hct MCV MCH MCHC RDW Plt Count MPV Sodium Potassium Chloride Carbon Dioxide Anion Gap BUN Creatinine Creat Clearance w eGFR Random Glucose Calcium Total Bilirubin AST ALT Alkaline Phosphatase Total Protein Albumin Urine Color Urine Appearance Urine pH Ur Specific [place] Urine Protein Urine Glucose (UA) Urine Ketones Urine Blood Urine Nitrite Urine Bilirubin Urine Urobilinogen Ur Leukocyte Esterase RPR Titer Nonreactive Assessment: 06/13/17 10:54 withdrawal sx Plan: cont detox, fluids, ensure plus, symptomatic relief
--- NOTE | 2017-06-13 11:08 | PN ---
[facility] Progress Note Note: patient does not wish to complete detox as ordered in spite of additional medication sadded to regimen, risks and benefits of not completing detox discussed, nurse aware patient will be signing out AMA
--- NOTE | 2017-06-13 11:11 | DS ---
[facility] Detox Discharge Summary Admission Date: 06/11/17 Discharge Date: 06/13/17 - History Present History: Alcohol Dependence, Cocaine Dependence, Opioid Dependence Pertinent Past History: nicotine dependence, anxiety, depression, insomnia, GERD - Physical Exam Results Vital Signs: Vital Signs Temperature 97.9 F 06/13/17 09:26 Pulse Rate 74 06/13/17 09:26 Respiratory Rate 18 06/13/17 09:26 Blood Pressure 107/70 06/13/17 09:26 O2 Sat by Pulse Oximetry (%) Laboratory Tests 06/11/17 06/12/17 06/12/17 22:00 07:50 07:50 WBC 5.7 D RBC 4.98 Hgb 13.3 Hct 41.1 MCV 82.6 MCH 26.8 MCHC 32.4 RDW 14.5 Plt Count 286 D MPV 8.1 Sodium 138 Potassium 4.0 Chloride 101 Carbon Dioxide 28 Anion Gap 9 BUN 9 D Creatinine 0.8 Creat Clearance w eGFR > 60 Random Glucose 89 D Calcium 8.5 Total Bilirubin 0.4 D AST 14 L D ALT 23 Alkaline Phosphatase 51 Total Protein 6.8 Albumin 3.3 L Urine Color Yellow Urine Appearance Slcloudy Urine pH 5.0 Ur Specific [place] 1.025 Urine Protein Negative Urine Glucose (UA) Negative Urine Ketones Negative Urine Blood Negative Urine Nitrite Negative Urine Bilirubin Negative Urine Urobilinogen Negative Ur Leukocyte Esterase Negative RPR Titer 06/12/17 07:50 WBC RBC Hgb Hct MCV MCH MCHC RDW Plt Count MPV Sodium Potassium Chloride Carbon Dioxide Anion Gap BUN Creatinine Creat Clearance w eGFR Random Glucose Calcium Total Bilirubin AST ALT Alkaline Phosphatase Total Protein Albumin Urine Color Urine Appearance Urine pH Ur Specific [place] Urine Protein Urine Glucose (UA) Urine Ketones Urine Blood Urine Nitrite Urine Bilirubin Urine Urobilinogen Ur Leukocyte Esterase RPR Titer Nonreactive Pertinent Admission Physical Exam Findings: withdrawal sx - Treatment Hospital Course: Detox Protocol Followed - Medication Discharge Medications: Ambulatory Orders Albuterol Sulfate Inhaler - [Ventolin HFA Inhaler -] 2 puff IH Q4H PRN #1 inhaler 07/07/16 Budesonide/Formeterol Fumarate [SYMBICORT 80/4.5mcg -] 2 puff IH BID #1 inhaler 07/07/16 Gabapentin [Neurontin] 600 mg PO TID 06/11/17 - Diagnosis (1) Alcohol dependence with uncomplicated withdrawal Current Visit: Yes Status: Chronic (2) COPD (chronic obstructive pulmonary disease) Current Visit: Yes Status: Chronic Qualifiers: COPD type: emphysema Emphysema type: other Qualified Code(s): J43.8 - Other emphysema (3) Cocaine dependence Current Visit: Yes Status: Chronic Qualifiers: Substance use status: uncomplicated Qualified Code(s): F14.20 - Cocaine dependence, uncomplicated (4) Nicotine dependence Current Visit: Yes Status: Chronic Qualifiers: Nicotine product type: cigarettes Substance use status: in withdrawal Qualified Code(s): F17.213 - Nicotine dependence, cigarettes, with withdrawal (5) Opioid dependence with withdrawal Current Visit: Yes Status: Chronic (6) Sedative, hypnotic or anxiolytic dependence with withdrawal, uncomplicated Current Visit: Yes Status: Chronic (7) Asthma Current Visit: No Status: Acute Qualifiers: Asthma severity: mild persistent Asthma complication type: with status asthmaticus Qualified Code(s): J45.32 - Mild persistent asthma with status asthmaticus (8) Panic disorder Current Visit: No Status: Acute (9) Substance induced mood disorder Current Visit: No Status: Acute (10) Substance-induced anxiety disorder Current Visit: No Status: Acute (11) Weight loss Current Visit: No Status: Acute (12) Acne Current Visit: No Status: Chronic (13) Alopecia Current Visit: No Status: Chronic (14) Anxiety and depression Current Visit: No Status: Chronic (15) Fungal toenail infection Current Visit: No Status: Chronic (16) Hemorrhoidal skin tag Current Visit: No Status: Chronic (17) Heroin dependence Current Visit: No Status: Chronic (18) MDD (major depressive disorder), recurrent episode, moderate Current Visit: No Status: Chronic (19) TINO (generalized anxiety disorder) Current Visit: Yes Status: Chronic (20) Mood disorder Current Visit: No Status: Suspected - AMA Did Patient Leave Against Medical Advice: Yes
[2017-06-13] MEDS ORDERED: NAPROXEN 500 MG TABLET (FP) PO SCH (11:30)
[2017-06-13] MEDS ORDERED: cloNIDine HCL 0.1 MG TABLET PO SCH (11:30)
[2017-06-13] MEDS ORDERED: CYCLOBENZAPRINE HCL 10 MG TABLET (FP) PO SCH (14:00)
[2017-06-13] MEDS ORDERED: GABAPENTIN 300 MG CAPSULE (FP) PO SCH (14:00)
[2017-06-15] MEDS ORDERED: diazePAM 5 MG TABLET PO SCH (10:00)
[2017-06-15] MEDS ORDERED: METHADONE HCL 10 MG TABLET (FOR DETOX USE ONLY) PO SCH (10:00)
[2017-06-16] MEDS ORDERED: METHADONE HCL 5 MG TABLET (FOR DETOX USE ONLY) PO SCH (06:00)
== END 2017-06-13 11:30 | disposition left against medical advice (07) | DRG 770 ==
LOC: YASAS 11:59 → Y3N 15:03
PROVIDERS: ADMIT Internal Medicine Addiction Medicine; ATTEND Internal Medicine Addiction Medicine
PROC: HZ2ZZZZ Detoxification Services for Substance Abuse Treatment (ICD-10-PCS; principal; 2017-06-11)
DX: F11.23 Opioid dependence with withdrawal (principal); F13.230 Sedative, hypnotic or anxiolytic dependence with withdrawal, uncomplicated; F10.230 Alcohol dependence with withdrawal, uncomplicated; F14.20 Cocaine dependence, uncomplicated; F17.213 Nicotine dependence, cigarettes, with withdrawal; F41.0 Panic disorder [episodic paroxysmal anxiety]; F19.24 Other psychoactive substance dependence with psychoactive substance-induced mood disorder; F19.280 Other psychoactive substance dependence with psychoactive substance-induced anxiety disorder; F41.8 Other specified anxiety disorders; F33.2 Major depressive disorder, recurrent severe without psychotic features; F41.1 Generalized anxiety disorder; J45.32 Mild persistent asthma with status asthmaticus; J43.8 Other emphysema; L70.9 Acne, unspecified; L65.9 Nonscarring hair loss, unspecified; B35.1 Tinea unguium; K64.4 Residual hemorrhoidal skin tags; Z87.898 Personal history of other specified conditions; Z91.013 Allergy to seafood
CPT/HCPCS: 36415; 80053; 81003; 85027; 86593; 93005; 93010

== ENCOUNTER 2017-08-10 14:30 | Inpatient (IN) | payer OTHER ==
[2017-08-10 17:53] VITALS: BMI 25.0
--- NOTE | 2017-08-10 18:16 | HP ---
Admission ROS [facility] Chief Complaint: I WANT TO GO TO REHAB Allergies/Adverse Reactions: Allergies Allergy/AdvReac Type Severity Reaction Status Date / Time shellfish derived Allergy Severe Swelling Verified 08/10/17 18:25 No Known Drug Allergies Allergy Verified 08/10/17 18:25 History of Present Illness: 31 YEARS OLD MALE WITH LONG HISTORY OF ALCOHOL COCAINE NICOTINE DEPENDENCE HAD WISDOM TOOTH REMOVED 08/08/17 METHADONE 100 MG PO DAILY AND DEPRESSION IS ADMITTED TO REHAB Exam Limitations: No Limitations - Ebola screening Have you traveled outside of the country in the last 21 days: No Have you had contact with anyone from an Ebola affected area: No Have you been sick,other than usual withdrawal symptoms: No Do you have a fever: No - Review of Systems Constitutional: Loss of Appetite, Unintentional Wgt. Loss EENT: reports: Dental Problems (TOOTH REMOVED 08/08/17) Respiratory: reports: SOB with Exertion Cardiac: reports: No Symptoms Reported GI: reports: Constipated : reports: No Symptoms Reported Musculoskeletal: reports: No Symptoms Reported Integumentary: reports: No Symptoms Reported Neuro: reports: No Symptoms reported Endocrine: reports: No Symptoms Reported Hematology: reports: No Symptoms Reported Psychiatric: reports: Judgement Intact, Orientated x3, Depressed Other Systems: Reviewed and Negative Patient History - Patient Medical History Hx Anemia: No Hx Asthma: Yes Hx Chronic Obstructive Pulmonary Disease (COPD): No Hx Cancer: No Hx Cardiac Disorders: No Hx Congestive Heart Failure: No Hx Hypertension: No Hx Hypercholesterolemia: No Hx Pacemaker: No HX Cerebrovascular Accident: No Hx Seizures: No Hx Dementia: No Hx Diabetes: No Hx Gastrointestinal Disorders: Yes (acid reflux) Hx Liver Disease: No Hx Genitourinary Disorders: No Hx Sexually Transmitted Disorders: No Hx Renal Disease (ESRD): No Hx Thyroid Disease: No Hx Human Immunodeficiency Virus (HIV): No (negative) Hx Hepatitis C: No (negative) Hx Depression: Yes Hx Suicide Attempt: No (denies) Hx Bipolar Disorder: No Hx Schizophrenia: No - Patient Surgical History Past Surgical History: No Hx Neurologic Surgery: No Hx Cataract Extraction: No Hx Cardiac Surgery: No Hx Lung Surgery: No Hx Breast Surgery: No Hx Breast Biopsy: No Hx Abdominal Surgery: No Hx Appendectomy: No Hx Cholecystectomy: No Hx Genitourinary Surgery: No Hx Orthopedic Surgery: No - PPD History Previous Implant?: Yes Documented Results: Negative w/proof Implanted On Prior [facility] Admission?: Yes Date: 02/23/17 Results: 0 mm PPD to be Administered?: No - Smoking Cessation Smoking history: Current every day smoker Have you smoked in the past 12 months: Yes Aproximately how many cigarettes per day: 20 Cigars Per Day: 0 Hx Chewing Tobacco Use: No Initiated information on smoking cessation: Yes 'Breaking Loose' booklet given: 08/10/17 - Substance & Tx. History Hx Alcohol Use: Yes Hx Substance Use: Yes Substance Use Type: Alcohol, Cocaine Hx Substance Use Treatment: Yes (08/2017) - Substances Abused Alcohol Route: Oral Frequency: Daily Amount used: 2 [place] Age of first use: 21 Date of Last Use: 08/01/17 Family Disease History - Family Disease History Family Disease History: Diabetes: Mother (living, ), Other: Father (living, healthy), Mother, Sister (1 living - healthy), Daughter (age 7 - healthy) Admission Physical Exam S - Vital Signs Vital Signs: Vital Signs - 24 hr 08/10/17 17:50 Temperature 97.7 F Pulse Rate 83 Respiratory 18 Rate Blood Pressure 117/68 - Physical General Appearance: Yes: No Apparent Distress, Appropriately Dressed, Thin HEENTM: Yes: Hearing grossly Normal, Normal ENT Inspection, Normocephalic, Normal Voice, Other (TOOTH REMOVED 08/08/17) Respiratory: Yes: Chest Non-Tender, No Respiratory Distress, No Accessory Muscle Use, Wheezing Neck: Yes: Supple, Trachea in good position Breast: Yes: Breasts Symetrical Cardiology: Yes: Regular Rhythm, Regular Rate, S1, S2 Abdominal: Yes: Normal Bowel Sounds, Non Tender, Soft Genitourinary: Yes: Within Normal Limits Back: Yes: Normal Inspection Musculoskeletal: Yes: full range of Motion, Gait Steady Extremities: Yes: Normal Inspection, Normal Range of Motion, Non-Tender Neurological: Yes: Fully Oriented, Alert, Motor Strength 5/5, Normal Response, Depressed Affect Integumentary: Yes: Warm Lymphatic: Yes: Within Normal Limits - Diagnostic (1) Constipation Current Visit: Yes Status: Chronic Qualifiers: Constipation type: slow transit constipation Qualified Code(s): K59.01 - Slow transit constipation (2) Weight loss Current Visit: Yes Status: Acute (3) Alcohol dependence with uncomplicated withdrawal Current Visit: Yes Status: Acute (4) Asthma Current Visit: Yes Status: Chronic Qualifiers: Asthma severity: mild Asthma complication type: with status asthmaticus (5) Nicotine dependence Current Visit: Yes Status: Acute Qualifiers: Nicotine product type: cigarettes Substance use status: in withdrawal Qualified Code(s): F17.213 - Nicotine dependence, cigarettes, with withdrawal Cleared for Admission [facility] - Detox or Rehab [facility] Level of Care: Observation Bed Detox Regimen/Protocol: Not Applicable Claeared for Rehab Admission: Yes [facility] Breath Alcohol Content Breath Alcohol Content: 0 Urine Drug Screen - Results Drug Screen Negative: No Urine Drug Screen Results: LYLE-Cocaine, OPI-Opiates, MET-Methamphetamine, BZO- Benzodiazepines, MTD-Methadone, TCA-Tricyclic Antidepress Inpatient Rehab Admission - Initial Determination Are CD services needed?: Yes Free of communicable disease: Yes Not in need of hospitalization: Yes - Rehab Admission Criteria Previous failed treatment: Yes Poor recovery environment: Yes Comorbidities: Yes Lacks judgement: No Patient is meeting Inpatient Rehab admission criteria:: Yes
[2017-08-10] MEDS ORDERED: MAGNESIUM HYDROX 2400MG/30ML ORAL SUSPENSION 30 ML CUP PO PRN (18:25)
[2017-08-10] MEDS ORDERED: P-EPHED 60MG/TRIPROLIDI 2.5MG TABLET PO PRN (18:25)
[2017-08-10] MEDS ORDERED: MENTHOL/PHENOL 1 EACH UD MM PRN (18:25)
[2017-08-10] MEDS ORDERED: MAGNESIUM CITRATE 300 ML BOTTLE PO PRN (18:25)
[2017-08-10] MEDS ORDERED: NICOTINE POLACRILEX 4 MG GUM BUC PRN (18:25)
[2017-08-10] MEDS ORDERED: LOPERAMIDE HCL 2 MG CAPSULE PO PRN (18:25)
[2017-08-10] MEDS ORDERED: guaiFENesin/D-METHORPHAN HB 10 ML UNIT-DOSE CUPS PO PRN (18:25)
[2017-08-10] MEDS ORDERED: BENZOCAINE 28 GM HEMORRHOIDAL OINTMENT PR PRN (18:47)
[2017-08-10] MEDS: THIAMINE HCL 100 MG TABLET (FP) PO SCH (21:49)
[2017-08-10] MEDS: RANITIDINE HCL 150 MG TABLET (FP) PO SCH ×2 (21:49→22:02)
[2017-08-10] MEDS ORDERED: IBUPROFEN 400 MG TABLET (FP) PO ONE (21:52)
[2017-08-10] MEDS ORDERED: AMOXICILLIN 500 MG CAPSULE (FP) PO ONE (21:53)
[2017-08-10] MEDS: BUDESONIDE/FORMETEROL FUMARATE 80/4.5 mcg INHALER IH SCH ×2 (22:18)
[2017-08-10] MEDS ORDERED: QUEtiapine FUMARATE 300 MG TABLET PO ONE (22:33)
--- NOTE | 2017-08-10 22:35 | PN ---
[facility] Progress Note Note: Psychiatry Attending's note :
--- NOTE | 2017-08-10 22:42 | PN ---
[facility] Progress Note Note: Psychiatry Attending's credit card control clerk note : Called to enter order for seroquel. Patient is already known to mortgage loan underwriter. Mr Diaz was seen on . Transferred today to [facility]-. Maintained on seroquel 300 mg po hs. Ordered.
[2017-08-10] MEDS: DOCUSATE SODIUM 100 MG CAPSULE (FP) PO PRN (23:00)
[2017-08-11 01:09] LABS: URINE APPEARANCE CLEAR; URINE BILIRUBIN NEGATIVE (NEGATIVE); URINE BLOOD NEGATIVE (NEGATIVE); URINE COLOR YELLOW; URINE GLUCOSE (UA) NEGATIVE (NEGATIVE); URINE KETONE NEGATIVE (NEGATIVE); URINE NITRITE NEGATIVE (NEGATIVE); URINE PROTEIN NEGATIVE (NEGATIVE); URINE UROBILINOGEN NEGATIVE mg/dL (0.2-1.0)
--- NOTE | 2017-08-11 08:12 | HP ---
Psychiatrist Admission - Data Date of interview: 08/11/17 Admission source: N Identifying data: This is the second 5N inpatient rehabilitation admission for this 31 year old nale who is father of one, he is domiciled and unemployed supported by relatives/friends. Medical History: GERD, and bronchial asthma, smokes cigarettes 1/2 PPD. On MMTP 100 mg. Psychiatric History: Patient peports first psychiaric contact was at age 20 when he was admitted to [facility] for suicidal attempt by taking pills. Reports a subsequent hospitalization in 2016 at [facility] for depression. Patient known for non-compliance with psychiatric outpatient services and medications, while at 6 detox was seen by and he currently on Seroquel 300 mg po HS. At present, he feels depressed, anxious having panic attacks, fearful to take public transportation. While at in 2016 treated with Buspar and Gabapentin. Physical/Sexual Abuse/Trauma History: Denies history of sexual, physical and verbal abuse. Vital Signs: Vital Signs - 24 hr 08/10/17 08/10/17 08/11/17 17:50 21:14 00:30 Temperature 97.7 F Pulse Rate 83 75 Respiratory 18 18 16 Rate Blood Pressure 117/68 120/77 08/11/17 08/11/17 03:30 07:01 Temperature 97.9 F Pulse Rate 67 Respiratory 16 16 Rate Blood Pressure 105/64 Allergies/Adverse Reactions: Allergies Allergy/AdvReac Type Severity Reaction Status Date / Time shellfish derived Allergy Severe Swelling Verified 08/10/17 18:25 No Known Drug Allergies Allergy Verified 08/10/17 18:25 Date of last physical exam: 08/10/17 Concur with the findings of this exam: Yes - Substance Abuse/Tx History Hx Alcohol Use: Yes (age of first use 22) Hx Substance Use: Yes Substance Use Type: Alcohol (cognag 2 pints daily, beer "sometimes"), Cocaine ( 2 times a week), Heroin (2 bags daily injecting ), Tranquilizers (xanax daily 4 mg , started using 6 months ago) Hx Substance Use Treatment: Yes (5N, [facility]) Mental Status Exam - Mental Status Exam Alert and Oriented to: Time, Place, Person Cognitive Function: Good Patient Appearance: Well Groomed Mood: Depressed, Sad, Anxious Patient Behavior: Appropriate, Cooperative Speech Pattern: Clear, Appropriate Voice Loudness: Normal Thought Process: Goal Oriented Thought Disorder: Not Present Hallucinations: Denies Suicidal Ideation: Denies Homicidal Ideation: Denies Insight/Judgement: Fair Sleep: Well Appetite: Weight loss (20 lbs over 6 months) Muscle strength/Tone: Normal Gait/Station: Normal Psychiatric Findings - Problem List ([place] 1, 2,3) (1) TINO (generalized anxiety disorder) Current Visit: No Status: Chronic Comment: Historical diagnosis. (2) Alcohol dependence Current Visit: Yes Status: Acute (3) Opioid dependence on agonist therapy Current Visit: No Status: Acute (4) Mood disorder Current Visit: No Status: Suspected (5) Sedative hypnotic or anxiolytic dependence Current Visit: Yes Status: Acute - Initial Treatment Plan Initial Treatment Plan: Will continue Seroquel 300 mg po hs, restart Buspar 10 mg po bid.
[2017-08-11 08:58] LABS: URINE LEUK ESTERASE Negative (NEGATIVE)
[2017-08-11] MEDS: NICOTINE 21 MG/24 HOURS TOPICAL PATCH TD SCH (09:15)
[2017-08-11] MEDS: RANITIDINE HCL 150 MG TABLET (FP) PO SCH ×2 (09:16→21:27)
[2017-08-11] MEDS: PRENATAL VITAMINS W/ FOLIC ACID TABLET (FP) PO SCH (09:16)
[2017-08-11] MEDS: BUDESONIDE/FORMETEROL FUMARATE 80/4.5 mcg INHALER IH SCH ×2 (09:16→21:30)
[2017-08-11] MEDS ORDERED: METHADONE HCL 10 MG TABLET PO SCH (09:45)
[2017-08-11] MEDS ORDERED: FLUTICASONE/SALMETEROL 100 MCG/50 MCG DISKUS IH SCH (10:00)
[2017-08-11] MEDS ORDERED: busPIRone HCL 10 MG TABLET (FP) PO SCH (10:45)
[2017-08-11] MEDS: PATIENT'S OWN MEDICATION (NON-FORMULARY) (Ibuprofen [Ibuprofen] 800 MG) PO SCH ×3 (10:52→21:29)
[2017-08-11] MEDS: CHLORHEXIDINE GLUCONATE PO SCH ×3 (10:53→21:27)
[2017-08-11] MEDS ORDERED: METHADONE HCL 40 MG DISPERSABLE TABLET ONE (11:03)
[2017-08-11] MEDS: METHADONE 80 MG, METHADONE 20 MG PO SCH (11:05)
[2017-08-11] MEDS: DOCUSATE SODIUM 100 MG CAPSULE (FP) PO PRN (11:06)
[2017-08-11] MEDS ORDERED: PNEUMOCOCCAL 23 VACCINE 0.5 ML VIAL IM ONE (12:00)
[2017-08-11] MEDS ORDERED: PNEUMOC 13-VAL CONJ-DIP CRM/PF 0.5 ML DISP.SYRIN IM ONE (12:00)
--- NOTE | 2017-08-11 13:51 | PN ---
S Progress Note (SOAP) Subjective: c/o constipation from methadone Objective: 08/11/17 13:50 Vital Signs - 8 hr 08/11/17 07:01 Temperature 97.9 F Pulse Rate 67 Respiratory 16 Rate Blood Pressure 105/64 Laboratory Tests 08/10/17 22:56 Urine Color Yellow Urine Appearance Clear Urine pH 6.0 Ur Specific [place] 1.023 Urine Protein Negative Urine Glucose (UA) Negative Urine Ketones Negative Urine Blood Negative Urine Nitrite Negative Urine Bilirubin Negative Urine Urobilinogen Negative Ur Leukocyte Esterase Negative glucose WNL, has had elevated hb a1c in past and fasting glucose, prediabetic Assessment: 08/11/17 13:50 constipation 2/2 methadone, prediabetes, strong familiy history Plan: colace 300mg qHS scheduled, dietary advice given with nursing staff, d/c ensure glucerna ordered
[2017-08-11] MEDS: ACETAMINOPHEN 325 MG TABLET (FP) PO PRN (14:59)
--- NOTE | 2017-08-11 16:39 | EKG ---
Test Reason : Blood Pressure : / mmHG Vent. Rate : 072 BPM Atrial Rate : 072 BPM P-R Int : 154 ms QRS Dur : 108 ms QT Int : 398 ms P-R-T Axes : 071 080 058 degrees QTc Int : 435 ms SINUS RHYTHM WITH PREMATURE SUPRAVENTRICULAR COMPLEXES OTHERWISE NORMAL ECG WHEN COMPARED WITH ECG OF 01-AUG-2017 16:46, PREMATURE SUPRAVENTRICULAR COMPLEXES ARE NOW PRESENT Confirmed by BIBIANA MURRAY, PENG ([id number]) on 08/11/2017 4:38:51 PM Referred By: BUD WHYTE Confirmed By:PENG MCCARTY MD
[2017-08-11] MEDS: MAG HYDROX/AL HYDROX/SIMETH 30 ML UNIT-DOSE CUP PO PRN (17:16)
[2017-08-11] MEDS: ALBUTEROL SO4 18 GM HFA INHALER IH PRN (19:32)
[2017-08-11] MEDS: THIAMINE HCL 100 MG TABLET (FP) PO SCH (21:27)
[2017-08-11] MEDS: busPIRone HCL 10 MG TABLET (FP) PO SCH (21:27)
[2017-08-11] MEDS: DOCUSATE SODIUM 100 MG CAPSULE (FP) PO SCH (21:29)
[2017-08-11] MEDS: QUEtiapine FUMARATE 300 MG TABLET PO SCH (21:29)
[2017-08-12] MEDS ORDERED: METHADONE HCL 10 MG TABLET ONE (03:24)
[2017-08-12] MEDS ORDERED: METHADONE HCL 40 MG DISPERSABLE TABLET ONE (03:24)
[2017-08-12] MEDS: METHADONE 80 MG, METHADONE 20 MG PO SCH (06:57)
[2017-08-12] MEDS: PATIENT'S OWN MEDICATION (NON-FORMULARY) (Ibuprofen [Ibuprofen] 800 MG) PO SCH ×3 (08:48→21:38)
[2017-08-12] MEDS: NICOTINE 21 MG/24 HOURS TOPICAL PATCH TD SCH (10:18)
[2017-08-12] MEDS: PRENATAL VITAMINS W/ FOLIC ACID TABLET (FP) PO SCH (10:19)
[2017-08-12] MEDS: RANITIDINE HCL 150 MG TABLET (FP) PO SCH ×2 (10:19→21:35)
[2017-08-12] MEDS: busPIRone HCL 10 MG TABLET (FP) PO SCH ×2 (10:19→21:35)
[2017-08-12] MEDS: CHLORHEXIDINE GLUCONATE PO SCH ×2 (10:20→21:40)
[2017-08-12] MEDS: BUDESONIDE/FORMETEROL FUMARATE 80/4.5 mcg INHALER IH SCH ×2 (10:20→21:38)
[2017-08-12] MEDS: MAG HYDROX/AL HYDROX/SIMETH 30 ML UNIT-DOSE CUP PO PRN (11:31)
[2017-08-12] MEDS: DOCUSATE SODIUM 100 MG CAPSULE (FP) PO PRN (14:49)
[2017-08-12] MEDS: THIAMINE HCL 100 MG TABLET (FP) PO SCH (21:35)
[2017-08-12] MEDS: DOCUSATE SODIUM 100 MG CAPSULE (FP) PO SCH (21:35)
[2017-08-12] MEDS: QUEtiapine FUMARATE 300 MG TABLET PO SCH (21:35)
[2017-08-13] MEDS ORDERED: METHADONE HCL 10 MG TABLET ONE (03:12)
[2017-08-13] MEDS ORDERED: METHADONE HCL 40 MG DISPERSABLE TABLET ONE (03:13)
[2017-08-13] MEDS: METHADONE 80 MG, METHADONE 20 MG PO SCH (06:56)
[2017-08-13] MEDS: PATIENT'S OWN MEDICATION (NON-FORMULARY) (Ibuprofen [Ibuprofen] 800 MG) PO SCH ×3 (06:57→15:43)
[2017-08-13] MEDS: DOCUSATE SODIUM 100 MG CAPSULE (FP) PO PRN ×2 (08:34→15:37)
[2017-08-13] MEDS: NICOTINE 21 MG/24 HOURS TOPICAL PATCH TD SCH (09:59)
[2017-08-13] MEDS: RANITIDINE HCL 150 MG TABLET (FP) PO SCH ×2 (09:59→21:24)
[2017-08-13] MEDS: PRENATAL VITAMINS W/ FOLIC ACID TABLET (FP) PO SCH (09:59)
[2017-08-13] MEDS: busPIRone HCL 10 MG TABLET (FP) PO SCH ×2 (09:59→21:24)
[2017-08-13] MEDS: BUDESONIDE/FORMETEROL FUMARATE 80/4.5 mcg INHALER IH SCH ×2 (09:59→21:55)
[2017-08-13] MEDS: CHLORHEXIDINE GLUCONATE PO SCH ×2 (10:00→21:25)
[2017-08-13] MEDS: ALBUTEROL SO4 18 GM HFA INHALER IH PRN (15:37)
[2017-08-13] MEDS: THIAMINE HCL 100 MG TABLET (FP) PO SCH (21:24)
[2017-08-13] MEDS: DOCUSATE SODIUM 100 MG CAPSULE (FP) PO SCH (21:24)
[2017-08-13] MEDS: HYDROCORTISONE ACETATE 25 MG/SUPP.RECT RC SCH ×2 (21:24→21:59)
[2017-08-13] MEDS: QUEtiapine FUMARATE 300 MG TABLET PO SCH (21:24)
[2017-08-13] MEDS: ACETAMINOPHEN 325 MG TABLET (FP) PO PRN (21:26)
[2017-08-14] MEDS: PATIENT'S OWN MEDICATION (NON-FORMULARY) (Ibuprofen [Ibuprofen] 800 MG) PO SCH ×4 (00:04→21:35)
[2017-08-14] MEDS ORDERED: METHADONE HCL 40 MG DISPERSABLE TABLET ONE (03:08)
[2017-08-14] MEDS ORDERED: METHADONE HCL 10 MG TABLET ONE (03:08)
[2017-08-14] MEDS: METHADONE 80 MG, METHADONE 20 MG PO SCH (06:32)
[2017-08-14] MEDS: busPIRone HCL 10 MG TABLET (FP) PO SCH ×2 (10:11→21:33)
[2017-08-14] MEDS: PRENATAL VITAMINS W/ FOLIC ACID TABLET (FP) PO SCH (10:11)
[2017-08-14] MEDS: RANITIDINE HCL 150 MG TABLET (FP) PO SCH ×2 (10:11→21:33)
[2017-08-14] MEDS: NICOTINE 21 MG/24 HOURS TOPICAL PATCH TD SCH (10:11)
[2017-08-14] MEDS: CHLORHEXIDINE GLUCONATE PO SCH ×2 (10:12→21:34)
[2017-08-14] MEDS: BUDESONIDE/FORMETEROL FUMARATE 80/4.5 mcg INHALER IH SCH ×2 (10:14→21:35)
[2017-08-14] MEDS: DOCUSATE SODIUM 100 MG CAPSULE (FP) PO PRN (10:14)
[2017-08-14] MEDS ORDERED: HYDROCORTISONE ACETATE 25 MG/SUPP.RECT PR ONE (12:04)
[2017-08-14] MEDS: ALBUTEROL SO4 18 GM HFA INHALER IH PRN (20:57)
[2017-08-14] MEDS: THIAMINE HCL 100 MG TABLET (FP) PO SCH (21:33)
[2017-08-14] MEDS: QUEtiapine FUMARATE 300 MG TABLET PO SCH (21:33)
[2017-08-14] MEDS: DOCUSATE SODIUM 100 MG CAPSULE (FP) PO SCH (21:33)
[2017-08-14] MEDS: HYDROCORTISONE ACETATE 25 MG/SUPP.RECT RC SCH (21:33)
[2017-08-15] MEDS ORDERED: METHADONE HCL 10 MG TABLET ONE (03:03)
[2017-08-15] MEDS ORDERED: METHADONE HCL 40 MG DISPERSABLE TABLET ONE (03:04)
[2017-08-15] MEDS: METHADONE 80 MG, METHADONE 20 MG PO SCH (06:06)
[2017-08-15] MEDS: PATIENT'S OWN MEDICATION (NON-FORMULARY) (Ibuprofen [Ibuprofen] 800 MG) PO SCH (07:19)
[2017-08-15] MEDS: HYDROCORTISONE ACETATE 25 MG/SUPP.RECT RC SCH ×2 (09:46→21:37)
[2017-08-15] MEDS: PRENATAL VITAMINS W/ FOLIC ACID TABLET (FP) PO SCH (09:46)
[2017-08-15] MEDS: RANITIDINE HCL 150 MG TABLET (FP) PO SCH ×2 (09:47→21:33)
[2017-08-15] MEDS: BUDESONIDE/FORMETEROL FUMARATE 80/4.5 mcg INHALER IH SCH ×2 (09:47→21:35)
[2017-08-15] MEDS: DOCUSATE SODIUM 100 MG CAPSULE (FP) PO PRN (09:47)
[2017-08-15] MEDS: busPIRone HCL 10 MG TABLET (FP) PO SCH (09:47)
[2017-08-15] MEDS: NICOTINE 21 MG/24 HOURS TOPICAL PATCH TD SCH (09:47)
[2017-08-15] MEDS: CHLORHEXIDINE GLUCONATE PO SCH ×2 (10:34→21:35)
--- NOTE | 2017-08-15 10:44 | PN ---
S Progress Note (SOAP) Subjective: still constipated, tolerating glucerna instead of ensure Objective: 08/15/17 10:43 Vital Signs - 8 hr 08/15/17 08/15/17 03:30 06:00 Temperature 98.1 F Pulse Rate 55 L Respiratory 18 18 Rate Blood Pressure 124/74 Laboratory Tests 08/10/17 22:56 Urine Color Yellow Urine Appearance Clear Urine pH 6.0 Ur Specific [place] 1.023 Urine Protein Negative Urine Glucose (UA) Negative Urine Ketones Negative Urine Blood Negative Urine Nitrite Negative Urine Bilirubin Negative Urine Urobilinogen Negative Ur Leukocyte Esterase Negative Assessment: 08/15/17 10:43 constipation, prediabtes Plan: cont glucerna, dietary counseling, add senna to colace
[2017-08-15] MEDS ORDERED: SENNOSIDES 8.6MG TABLET (FP) PO SCH (10:45)
[2017-08-15] MEDS: ACETAMINOPHEN 325 MG TABLET (FP) PO PRN (11:24)
[2017-08-15] MEDS: SENNOSIDES 8.6MG TABLET (FP) PO SCH ×2 (13:07→21:33)
[2017-08-15] MEDS: IBUPROFEN 400 MG TABLET (FP) PO SCH ×2 (13:09→21:36)
--- NOTE | 2017-08-15 13:31 | PN ---
Psychiatric Progress Note Vital Signs: Vital Signs Period Temp Pulse Resp BP Sys/Samuel Pulse Ox Last 24 Hr 98.1 F 55-78 18-18 102-124/72-74 Date of Session: 08/15/17 Chief Complaint:: "anxious" HPI: Patient is addressing alcohol, opioid, sedative hypnotic dependence comorbid mood disorder and TINO. Current Medications: Active Medications Generic Name Dose Route Start Last Admin Trade Name Freq PRN Reason Stop Dose Admin Acetaminophen 650 mg 08/10/17 18:25 08/15/17 11:24 Tylenol - PO 650 mg Q4H PRN Administration PAIN Al Hydroxide/Mg Hydroxide 30 ml 08/10/17 18:25 08/12/17 11:31 Mylanta Oral Suspension - PO 30 ml Q6H PRN Administration DYSPEPSIA Albuterol Sulfate 2 puff 08/10/17 18:26 08/14/17 20:57 Ventolin Hfa Inhaler - IH 2 puff Q4H PRN Administration SHORT OF BREATH/WHEEZING Benzocaine 1 applic 08/10/17 18:47 Americaine Ointment - ME PRN PRN PAIN Budesonide/Formoterol Fumarate 2 puff 08/10/17 18:30 08/15/17 09:47 Symbicort 80/4.5mcg - IH 2 puff BID RONNA Administration Buspirone HCl 30 mg 08/16/17 10:00 Buspar - PO 09/13/17 09:59 DAILY RONNA Docusate Sodium 300 mg 08/11/17 22:00 08/14/17 21:33 Colace - PO 300 mg HS RONNA Administration Eucalyptus/Menthol/Phenol/Sorbitol 1 each 08/10/17 18:25 Cepastat Lozenge - MM Q4H PRN SORE THROAT Guaifenesin 10 ml 08/10/17 18:25 Robitussin Dm - PO Q6H PRN COUGH Hydrocortisone Acetate 25 mg 08/14/17 22:00 08/15/17 09:46 Anusol Hc Suppository - RC 25 mg BID RONNA Administration Ibuprofen 800 mg 08/15/17 07:00 08/15/17 13:09 Motrin - PO 800 mg TID RONNA Administration Loperamide HCl 4 mg 08/10/17 18:25 Imodium - PO Q6H PRN DIARRHEA Magnesium Citrate 300 ml 08/10/17 18:25 Citroma - PO Q48H PRN CONSTIPATION Magnesium Hydroxide 30 ml 08/10/17 18:25 08/14/17 21:37 Milk Of Magnesia - PO 30 ml DAILY PRN Administration CONSTIPATION Methadone HCl 80 mg/ Methadone 100 mg 08/11/17 10:54 08/15/17 06:06 HCl 20 mg PO 08/18/17 10:53 100 mg DAILY@0600 RONNA Administration Nicotine 21 mg 08/11/17 10:00 08/15/17 09:47 Nicoderm Patch - TD 21 mg DAILY RONNA Administration Nicotine Polacrilex 4 mg 08/10/17 18:25 Nicorette Gum - BUC Q2H PRN NICOTINE REPLACEMENT RX Non-Formulary Medication 0.5 oz 08/10/17 22:00 08/15/17 10:34 Chlorhexidine Gluconate [Chlorhexidine Gluconate] PO 0.5 oz BID RONNA Administration Multivit/Folic Acid/Iron 1 tab 08/11/17 10:00 08/15/17 09:46 Vitamins (Sjr) - PO 1 tab DAILY RONNA Administration Pseudoephedrine/Triprolidine 1 combo 08/10/17 18:25 Actifed - PO TID PRN NASAL CONGESTION Quetiapine Fumarate 300 mg 08/11/17 22:00 08/14/17 21:33 Seroquel - PO 300 mg HS RONNA Administration Ranitidine HCl 150 mg 08/10/17 18:30 08/15/17 09:47 Zantac - PO 150 mg BID RONNA Administration Senna 2 tab 08/15/17 11:15 08/15/17 13:07 Senna - PO 2 tab HS RONNA Administration Senna 2 tab 08/16/17 10:00 Senna - PO DAILY RONNA Thiamine HCl 100 mg 08/10/17 22:00 08/14/17 21:33 Vitamin B1 - PO 100 mg HS RONNA Administration Medication(s) Change(s): increase Buspar 30 mg po daily Current Side Effect: No Lab tests ordered: No Lab tests reviewed: Yes Provider note:: Patient reports that he still very anxious and restless, thinks that he prefer to take buspar once a day trathe than bid, will change to 30 mg po daily, continue to monitor progress. Total face to face time:: 15 Mental Status Exam - Mental Status Exam Alert and Oriented to: Time, Place, Person Cognitive Function: Good Patient Appearance: Well Groomed Mood: Sad, Anxious Patient Behavior: Appropriate, Cooperative Speech Pattern: Clear Voice Loudness: Normal Thought Process: Goal Oriented Thought Disorder: Not Present Hallucinations: Denies Suicidal Ideation: Denies Homicidal Ideation: Denies Insight/Judgement: Fair Sleep: Fair Appetite: Fair Muscle strength/Tone: Normal Gait/Station: Normal Psychiatric Treatment Plan - Problem List (1) TINO (generalized anxiety disorder) Current Visit: No Comment: Historical diagnosis. (2) Alcohol dependence Current Visit: Yes (3) Opioid dependence on agonist therapy Current Visit: No (4) Mood disorder Current Visit: No (5) Sedative hypnotic or anxiolytic dependence Current Visit: Yes
[2017-08-15] MEDS: ALBUTEROL SO4 18 GM HFA INHALER IH PRN (20:35)
[2017-08-15] MEDS: THIAMINE HCL 100 MG TABLET (FP) PO SCH (21:33)
[2017-08-15] MEDS: QUEtiapine FUMARATE 300 MG TABLET PO SCH (21:33)
[2017-08-15] MEDS: DOCUSATE SODIUM 100 MG CAPSULE (FP) PO SCH (21:33)
[2017-08-16] MEDS ORDERED: METHADONE HCL 40 MG DISPERSABLE TABLET ONE (03:11)
[2017-08-16] MEDS ORDERED: METHADONE HCL 10 MG TABLET ONE (03:11)
[2017-08-16] MEDS: METHADONE 80 MG, METHADONE 20 MG PO SCH (06:23)
[2017-08-16] MEDS: IBUPROFEN 400 MG TABLET (FP) PO SCH (06:24)
[2017-08-16] MEDS: NICOTINE 21 MG/24 HOURS TOPICAL PATCH TD SCH (09:55)
[2017-08-16] MEDS: RANITIDINE HCL 150 MG TABLET (FP) PO SCH ×2 (09:55→21:18)
[2017-08-16] MEDS: PRENATAL VITAMINS W/ FOLIC ACID TABLET (FP) PO SCH (09:55)
[2017-08-16] MEDS: SENNOSIDES 8.6MG TABLET (FP) PO SCH ×2 (09:56→21:18)
[2017-08-16] MEDS: HYDROCORTISONE ACETATE 25 MG/SUPP.RECT RC SCH ×2 (09:56→21:17)
[2017-08-16] MEDS: CHLORHEXIDINE GLUCONATE PO SCH ×2 (09:56→21:18)
[2017-08-16] MEDS: BUDESONIDE/FORMETEROL FUMARATE 80/4.5 mcg INHALER IH SCH ×2 (09:56→21:18)
[2017-08-16] MEDS ORDERED: IBUPROFEN 400 MG TABLET (FP) PO PRN (14:56)
[2017-08-16] MEDS: ACETAMINOPHEN 325 MG TABLET (FP) PO PRN (15:46)
[2017-08-16] MEDS: ALBUTEROL SO4 18 GM HFA INHALER IH PRN (19:43)
[2017-08-16] MEDS: QUEtiapine FUMARATE 300 MG TABLET PO SCH (21:17)
[2017-08-16] MEDS: DOCUSATE SODIUM 100 MG CAPSULE (FP) PO SCH (21:17)
[2017-08-16] MEDS: THIAMINE HCL 100 MG TABLET (FP) PO SCH (21:18)
[2017-08-17] MEDS ORDERED: METHADONE HCL 10 MG TABLET ONE (03:08)
[2017-08-17] MEDS ORDERED: METHADONE HCL 40 MG DISPERSABLE TABLET ONE (03:08)
[2017-08-17] MEDS: METHADONE 80 MG, METHADONE 20 MG PO SCH (06:23)
[2017-08-17] MEDS: PRENATAL VITAMINS W/ FOLIC ACID TABLET (FP) PO SCH (09:58)
[2017-08-17] MEDS: HYDROCORTISONE ACETATE 25 MG/SUPP.RECT RC SCH ×2 (09:58→21:15)
[2017-08-17] MEDS: RANITIDINE HCL 150 MG TABLET (FP) PO SCH ×2 (09:58→21:15)
[2017-08-17] MEDS: SENNOSIDES 8.6MG TABLET (FP) PO SCH ×2 (09:58→21:15)
[2017-08-17] MEDS: CHLORHEXIDINE GLUCONATE PO SCH ×2 (09:59→21:15)
[2017-08-17] MEDS: NICOTINE 21 MG/24 HOURS TOPICAL PATCH TD SCH (09:59)
[2017-08-17] MEDS: BUDESONIDE/FORMETEROL FUMARATE 80/4.5 mcg INHALER IH SCH ×2 (09:59→21:16)
[2017-08-17] MEDS: IBUPROFEN 400 MG TABLET (FP) PO SCH ×2 (11:48→11:52)
[2017-08-17] MEDS: QUEtiapine FUMARATE 300 MG TABLET PO SCH (21:15)
[2017-08-17] MEDS: DOCUSATE SODIUM 100 MG CAPSULE (FP) PO SCH (21:15)
[2017-08-17] MEDS: THIAMINE HCL 100 MG TABLET (FP) PO SCH (21:15)
[2017-08-18] MEDS ORDERED: METHADONE HCL 10 MG TABLET ONE (03:53)
[2017-08-18] MEDS ORDERED: METHADONE HCL 40 MG DISPERSABLE TABLET ONE (03:54)
[2017-08-18] MEDS: METHADONE 80 MG, METHADONE 20 MG PO SCH (06:11)
[2017-08-18] MEDS: BUDESONIDE/FORMETEROL FUMARATE 80/4.5 mcg INHALER IH SCH ×2 (10:08→21:20)
[2017-08-18] MEDS: RANITIDINE HCL 150 MG TABLET (FP) PO SCH ×2 (10:09→21:20)
[2017-08-18] MEDS: NICOTINE 21 MG/24 HOURS TOPICAL PATCH TD SCH (10:09)
[2017-08-18] MEDS: HYDROCORTISONE ACETATE 25 MG/SUPP.RECT RC SCH ×2 (10:09→21:20)
[2017-08-18] MEDS: PRENATAL VITAMINS W/ FOLIC ACID TABLET (FP) PO SCH (10:09)
[2017-08-18] MEDS: SENNOSIDES 8.6MG TABLET (FP) PO SCH ×2 (10:09→21:20)
[2017-08-18] MEDS: CHLORHEXIDINE GLUCONATE PO SCH ×2 (10:11→21:21)
[2017-08-18] MEDS: QUEtiapine FUMARATE 300 MG TABLET PO SCH (21:20)
[2017-08-18] MEDS: DOCUSATE SODIUM 100 MG CAPSULE (FP) PO SCH (21:20)
[2017-08-18] MEDS: THIAMINE HCL 100 MG TABLET (FP) PO SCH (21:21)
[2017-08-19] MEDS ORDERED: METHADONE HCL 40 MG DISPERSABLE TABLET PO SCH (00:30)
[2017-08-19] MEDS ORDERED: METHADONE HCL 40 MG DISPERSABLE TABLET ONE (06:11)
[2017-08-19] MEDS ORDERED: METHADONE HCL 10 MG TABLET ONE (06:12)
[2017-08-19] MEDS: METHADONE 80 MG, METHADONE 20 MG PO SCH (06:42)
[2017-08-19] MEDS: PRENATAL VITAMINS W/ FOLIC ACID TABLET (FP) PO SCH (09:55)
[2017-08-19] MEDS: RANITIDINE HCL 150 MG TABLET (FP) PO SCH ×2 (09:55→21:20)
[2017-08-19] MEDS: HYDROCORTISONE ACETATE 25 MG/SUPP.RECT RC SCH ×2 (09:55→21:21)
[2017-08-19] MEDS: SENNOSIDES 8.6MG TABLET (FP) PO SCH ×2 (09:55→21:21)
[2017-08-19] MEDS: DOCUSATE SODIUM 100 MG CAPSULE (FP) PO SCH ×2 (09:55→21:20)
[2017-08-19] MEDS: CHLORHEXIDINE GLUCONATE PO SCH ×2 (09:57→21:21)
[2017-08-19] MEDS: BUDESONIDE/FORMETEROL FUMARATE 80/4.5 mcg INHALER IH SCH ×2 (09:57→21:21)
[2017-08-19] MEDS: NICOTINE 21 MG/24 HOURS TOPICAL PATCH TD SCH (09:58)
[2017-08-19] MEDS: MAG HYDROX/AL HYDROX/SIMETH 30 ML UNIT-DOSE CUP PO PRN (13:39)
[2017-08-19] MEDS: ACETAMINOPHEN 325 MG TABLET (FP) PO PRN (13:39)
[2017-08-19] MEDS: QUEtiapine FUMARATE 300 MG TABLET PO SCH (21:20)
[2017-08-19] MEDS: THIAMINE HCL 100 MG TABLET (FP) PO SCH (21:20)
[2017-08-20] MEDS ORDERED: METHADONE HCL 40 MG DISPERSABLE TABLET ONE (03:40)
[2017-08-20] MEDS ORDERED: METHADONE HCL 10 MG TABLET ONE (03:40)
[2017-08-20] MEDS: METHADONE 80 MG, METHADONE 20 MG PO SCH (06:19)
[2017-08-20] MEDS: BUDESONIDE/FORMETEROL FUMARATE 80/4.5 mcg INHALER IH SCH ×2 (09:52→21:19)
[2017-08-20] MEDS: HYDROCORTISONE ACETATE 25 MG/SUPP.RECT RC SCH ×2 (09:52→21:18)
[2017-08-20] MEDS: DOCUSATE SODIUM 100 MG CAPSULE (FP) PO SCH ×2 (09:53→21:18)
[2017-08-20] MEDS: RANITIDINE HCL 150 MG TABLET (FP) PO SCH ×2 (09:53→21:18)
[2017-08-20] MEDS: SENNOSIDES 8.6MG TABLET (FP) PO SCH ×2 (09:53→21:18)
[2017-08-20] MEDS: PRENATAL VITAMINS W/ FOLIC ACID TABLET (FP) PO SCH (09:53)
[2017-08-20] MEDS: NICOTINE 21 MG/24 HOURS TOPICAL PATCH TD SCH (09:53)
[2017-08-20] MEDS: CHLORHEXIDINE GLUCONATE PO SCH ×2 (09:54→21:18)
[2017-08-20] MEDS: THIAMINE HCL 100 MG TABLET (FP) PO SCH (21:17)
[2017-08-20] MEDS: QUEtiapine FUMARATE 300 MG TABLET PO SCH (21:18)
[2017-08-21] MEDS ORDERED: METHADONE HCL 10 MG TABLET ONE (03:37)
[2017-08-21] MEDS ORDERED: METHADONE HCL 40 MG DISPERSABLE TABLET ONE (03:38)
[2017-08-21] MEDS: METHADONE 80 MG, METHADONE 20 MG PO SCH (06:20)
[2017-08-21] MEDS: BUDESONIDE/FORMETEROL FUMARATE 80/4.5 mcg INHALER IH SCH ×2 (09:55→21:29)
[2017-08-21] MEDS: DOCUSATE SODIUM 100 MG CAPSULE (FP) PO SCH ×2 (09:55→21:28)
[2017-08-21] MEDS: PRENATAL VITAMINS W/ FOLIC ACID TABLET (FP) PO SCH (09:55)
[2017-08-21] MEDS: RANITIDINE HCL 150 MG TABLET (FP) PO SCH ×2 (09:55→21:28)
[2017-08-21] MEDS: SENNOSIDES 8.6MG TABLET (FP) PO SCH ×2 (09:56→21:31)
[2017-08-21] MEDS: NICOTINE 21 MG/24 HOURS TOPICAL PATCH TD SCH (09:56)
[2017-08-21] MEDS: CHLORHEXIDINE GLUCONATE PO SCH ×2 (09:57→21:30)
[2017-08-21] MEDS: HYDROCORTISONE ACETATE 25 MG/SUPP.RECT RC SCH ×2 (09:57→21:30)
[2017-08-21] MEDS: THIAMINE HCL 100 MG TABLET (FP) PO SCH (21:28)
[2017-08-21] MEDS: QUEtiapine FUMARATE 300 MG TABLET PO SCH (21:28)
[2017-08-22] MEDS ORDERED: METHADONE HCL 40 MG DISPERSABLE TABLET ONE (03:18)
[2017-08-22] MEDS ORDERED: METHADONE HCL 10 MG TABLET ONE (03:18)
[2017-08-22] MEDS: METHADONE 80 MG, METHADONE 20 MG PO SCH (06:07)
[2017-08-22 07:04] VITALS: TEMP 97.5
[2017-08-22] MEDS: NICOTINE 21 MG/24 HOURS TOPICAL PATCH TD SCH (10:21)
[2017-08-22] MEDS: BUDESONIDE/FORMETEROL FUMARATE 80/4.5 mcg INHALER IH SCH ×2 (10:21→21:34)
[2017-08-22] MEDS: RANITIDINE HCL 150 MG TABLET (FP) PO SCH ×2 (10:22→21:32)
[2017-08-22] MEDS: PRENATAL VITAMINS W/ FOLIC ACID TABLET (FP) PO SCH (10:23)
[2017-08-22] MEDS: DOCUSATE SODIUM 100 MG CAPSULE (FP) PO SCH ×2 (10:24→21:32)
[2017-08-22] MEDS: CHLORHEXIDINE GLUCONATE PO SCH ×2 (10:26→21:33)
[2017-08-22] MEDS: HYDROCORTISONE ACETATE 25 MG/SUPP.RECT RC SCH ×2 (10:27→21:33)
[2017-08-22] MEDS: SENNOSIDES 8.6MG TABLET (FP) PO SCH ×2 (11:00→21:34)
[2017-08-22 11:31] VITALS: BP 109/53
[2017-08-22] MEDS: QUEtiapine FUMARATE 300 MG TABLET PO SCH (21:32)
[2017-08-22] MEDS: THIAMINE HCL 100 MG TABLET (FP) PO SCH (21:32)
[2017-08-23] MEDS ORDERED: METHADONE HCL 40 MG DISPERSABLE TABLET ONE (03:13)
[2017-08-23] MEDS ORDERED: METHADONE HCL 10 MG TABLET ONE (03:13)
[2017-08-23] MEDS: METHADONE 80 MG, METHADONE 20 MG PO SCH (06:22)
[2017-08-23 06:49] VITALS: PULSE 69
--- NOTE | 2017-08-23 09:24 | PN ---
Psychiatric Progress Note Vital Signs: Vital Signs Period Temp Pulse Resp BP Sys/Samuel Pulse Ox Last 24 Hr 97.5 F 69-73 18-20 109/53 Date of Session: 08/23/17 Chief Complaint:: discharge visit HPI: Patient is addressing alcohol, opioid, sedative hypnotic dependence comorbid mood disorder and TINO ROS: asthma, GERD medically managed Current Medications: Active Medications Generic Name Dose Route Start Last Admin Trade Name Freq PRN Reason Stop Dose Admin Acetaminophen 650 mg 08/10/17 18:25 08/19/17 13:39 Tylenol - PO 650 mg Q4H PRN Administration PAIN Al Hydroxide/Mg Hydroxide 30 ml 08/10/17 18:25 08/19/17 13:39 Mylanta Oral Suspension - PO 30 ml Q6H PRN Administration DYSPEPSIA Albuterol Sulfate 2 puff 08/10/17 18:26 08/16/17 19:43 Ventolin Hfa Inhaler - IH 2 puff Q4H PRN Administration SHORT OF BREATH/WHEEZING Benzocaine 1 applic 08/10/17 18:47 Americaine Ointment - MD PRN PRN PAIN Budesonide/Formoterol Fumarate 2 puff 08/10/17 18:30 08/22/17 21:34 Symbicort 80/4.5mcg - IH 2 puff BID RONNA Administration Buspirone HCl 30 mg 08/16/17 10:00 08/22/17 10:22 Buspar - PO 09/13/17 09:59 30 mg DAILY RONNA Administration Docusate Sodium 200 mg 08/18/17 22:00 08/22/17 21:32 Colace - PO 200 mg BID RONNA Administration Eucalyptus/Menthol/Phenol/Sorbitol 1 each 08/10/17 18:25 Cepastat Lozenge - MM Q4H PRN SORE THROAT Guaifenesin 10 ml 08/10/17 18:25 Robitussin Dm - PO Q6H PRN COUGH Hydrocortisone Acetate 25 mg 08/14/17 22:00 08/22/17 21:33 Anusol Hc Suppository - RC 25 mg BID RONNA Administration Ibuprofen 800 mg 08/16/17 14:56 Motrin - PO TID PRN PAIN Loperamide HCl 4 mg 08/10/17 18:25 Imodium - PO Q6H PRN DIARRHEA Magnesium Citrate 300 ml 08/10/17 18:25 Citroma - PO Q48H PRN CONSTIPATION Magnesium Hydroxide 30 ml 08/10/17 18:25 08/14/17 21:37 Milk Of Magnesia - PO 30 ml DAILY PRN Administration CONSTIPATION Methadone HCl 80 mg/ Methadone 100 mg 08/19/17 06:15 08/23/17 06:22 HCl 20 mg PO 100 mg DAILY@0600 RONNA Administration Nicotine 21 mg 08/11/17 10:00 08/22/17 10:21 Nicoderm Patch - TD 21 mg DAILY RONNA Administration Nicotine Polacrilex 4 mg 08/10/17 18:25 Nicorette Gum - BUC Q2H PRN NICOTINE REPLACEMENT RX Non-Formulary Medication 0.5 oz 08/10/17 22:00 08/22/17 21:33 Chlorhexidine Gluconate [Chlorhexidine Gluconate] PO 0.5 oz BID RONNA Administration Multivit/Folic Acid/Iron 1 tab 08/11/17 10:00 08/22/17 10:23 Vitamins (Sjr) - PO 1 tab DAILY RONNA Administration Pseudoephedrine/Triprolidine 1 combo 08/10/17 18:25 Actifed - PO TID PRN NASAL CONGESTION Quetiapine Fumarate 300 mg 08/11/17 22:00 08/22/17 21:32 Seroquel - PO 300 mg HS RONNA Administration Ranitidine HCl 150 mg 08/10/17 18:30 08/22/17 21:32 Zantac - PO 150 mg BID RONNA Administration Senna 2 tab 08/15/17 11:15 08/22/17 21:34 Senna - PO Not Given HS RONNA Senna 2 tab 08/16/17 10:00 08/22/17 11:00 Senna - PO Not Given DAILY RONNA Thiamine HCl 100 mg 08/10/17 22:00 08/22/17 21:32 Vitamin B1 - PO 100 mg HS RONNA Administration Current Side Effect: No Lab tests ordered: No Lab tests reviewed: Yes Provider note:: Patient has completed today his treatment and met his goals, will continue to address his issues at his MMTP program, he gained insights into his addiction and motivated to continue maintain abstinence. Medications well tolerated, scripts for Seroquel and Buspar provided, patient was encouraged to take medications as directed, he is stable for discharge today. Total face to face time:: 15 Mental Status Exam - Mental Status Exam Alert and Oriented to: Time, Place, Person Cognitive Function: Good Patient Appearance: Well Groomed Mood: Hopeful Affect: Appropriate, Mood Congruent Patient Behavior: Appropriate, Cooperative Speech Pattern: Clear, Appropriate Voice Loudness: Normal Thought Process: Goal Oriented Thought Disorder: Not Present Hallucinations: Denies Suicidal Ideation: Denies Homicidal Ideation: Denies Insight/Judgement: Fair Sleep: Fair Appetite: Fair Muscle strength/Tone: Normal Gait/Station: Normal Psychiatric Treatment Plan - Problem List (1) TINO (generalized anxiety disorder) Current Visit: No Comment: Historical diagnosis. (2) Alcohol dependence Current Visit: Yes (3) Opioid dependence on agonist therapy Current Visit: No (4) Mood disorder Current Visit: No (5) Sedative hypnotic or anxiolytic dependence Current Visit: Yes
[2017-08-23] MEDS: SENNOSIDES 8.6MG TABLET (FP) PO SCH (09:29)
[2017-08-23] MEDS: DOCUSATE SODIUM 100 MG CAPSULE (FP) PO SCH (09:29)
[2017-08-23] MEDS: HYDROCORTISONE ACETATE 25 MG/SUPP.RECT RC SCH (09:29)
[2017-08-23] MEDS: RANITIDINE HCL 150 MG TABLET (FP) PO SCH (09:29)
[2017-08-23] MEDS: BUDESONIDE/FORMETEROL FUMARATE 80/4.5 mcg INHALER IH SCH (09:30)
[2017-08-23] MEDS: CHLORHEXIDINE GLUCONATE PO SCH (09:30)
[2017-08-23] MEDS: NICOTINE 21 MG/24 HOURS TOPICAL PATCH TD SCH (09:30)
[2017-08-23] MEDS: PRENATAL VITAMINS W/ FOLIC ACID TABLET (FP) PO SCH (09:31)
== END 2017-08-23 09:50 | disposition home or self-care (01) | DRG 772 ==
LOC: YASAS 14:30 → Y5N 19:43
PROVIDERS: ADMIT Psychiatry & Neurology Psychiatry; ATTEND Psychiatry & Neurology Psychiatry
PROC: HZ42ZZZ Group Counseling for Substance Abuse Treatment, Cognitive-Behavioral (ICD-10-PCS; principal; 2017-08-10)
DX: F11.20 Opioid dependence, uncomplicated (principal); F13.20 Sedative, hypnotic or anxiolytic dependence, uncomplicated; F10.230 Alcohol dependence with withdrawal, uncomplicated; F41.1 Generalized anxiety disorder; F39 Unspecified mood [affective] disorder; K59.01 Slow transit constipation; J45.22 Mild intermittent asthma with status asthmaticus; R63.4 Abnormal weight loss; Z68.25 Body mass index [BMI] 25.0-25.9, adult
CPT/HCPCS: 81003; 90732; 93005; 93010; G0009

== ENCOUNTER 2017-12-06 17:27 | Inpatient (IN) | payer OTHER ==
[2017-12-06 19:43] VITALS: BMI 28.1
--- NOTE | 2017-12-06 20:54 | HP ---
CIWA Score - CIWA Score Nausea/Vomitin Muscle Tremors: 3 Anxiety: 1-Mildly Anxious Agitation: 1-Slight > Activity Paroxysmal Sweats: 3 Orientation: 1-Uncertain about Date Tacttile Disturbances: 0-None Auditory Disturbances: 0-None Visual Disturbances: 1-Very Mild Sensitivity Headache: 0-None Present CIWA-Ar Total Score: 13 Admission ROS S - HPI Chief Complaint: withdrawal symptoms Allergies/Adverse Reactions: Allergies Allergy/AdvReac Type Severity Reaction Status Date / Time shellfish derived Allergy Severe Swelling Verified 12/06/17 19:38 No Known Drug Allergies Allergy Verified 12/06/17 19:38 History of Present Illness: 32 yo male with hx xanax, alcohol, IV heroin, and nicotine dependence is here seeking detox. PMHX: asthma, insomnia and anxiety. Denies suicidal / homicidal ideation or suicide attempts. Longest period of sobriety 1 year. Currently attend [facility] out patient MMTP currently on methadone 70 mg last medicated 12/06/17. Exam Limitations: No Limitations - Ebola screening Have you traveled outside of the country in the last 21 days: No Have you had contact with anyone from an Ebola affected area: No Have you been sick,other than usual withdrawal symptoms: No Do you have a fever: No - Review of Systems Constitutional: Chills, Loss of Appetite, Changes in sleep, Unintentional Wgt. Loss (20 lbs weight loss over 2 months) EENT: reports: Dental Problems (missing teeth) Respiratory: reports: No Symptoms reported Cardiac: reports: No Symptoms Reported GI: reports: Constipated, Poor Appetite, Poor Fluid Intake, Indigestion : reports: No Symptoms Reported Musculoskeletal: reports: Back Pain Integumentary: reports: No Symptoms Reported Neuro: reports: No Symptoms reported Endocrine: reports: No Symptoms Reported Hematology: reports: No Symptoms Reported Psychiatric: reports: Orientated x3, Depressed Other Systems: Reviewed and Negative Patient History - Patient Medical History Hx Anemia: No Hx Asthma: Yes Hx Chronic Obstructive Pulmonary Disease (COPD): No Hx Cancer: No Hx Cardiac Disorders: No Hx Congestive Heart Failure: No Hx Hypertension: No Hx Hypercholesterolemia: No Hx Pacemaker: No HX Cerebrovascular Accident: No Hx Seizures: No Hx Dementia: No Hx Diabetes: No Hx Gastrointestinal Disorders: Yes (ACID REFLUX) Hx Liver Disease: No Hx Genitourinary Disorders: No Hx Sexually Transmitted Disorders: No Hx Renal Disease (ESRD): No Hx Thyroid Disease: No Hx Human Immunodeficiency Virus (HIV): No (negative) Hx Hepatitis C: No (negative) Hx Depression: Yes Hx Suicide Attempt: No Hx Bipolar Disorder: No Hx Schizophrenia: No - Patient Surgical History Past Surgical History: No Hx Neurologic Surgery: No Hx Cataract Extraction: No Hx Cardiac Surgery: No Hx Lung Surgery: No Hx Breast Surgery: No Hx Breast Biopsy: No Hx Abdominal Surgery: No Hx Appendectomy: No Hx Cholecystectomy: No Hx Genitourinary Surgery: No Hx Section: No Hx Orthopedic Surgery: No Anesthesia Reaction: No - PPD History Previous Implant?: Yes Documented Results: Negative w/proof Date: 02/23/17 Results: 0 mm PPD to be Administered?: No - Reproductive History Patient is a Female of Child Bearing Age (11 -55 yrs old): Yes - Smoking Cessation Smoking history: Current every day smoker Have you smoked in the past 12 months: Yes Aproximately how many cigarettes per day: 20 Cigars Per Day: 0 Hx Chewing Tobacco Use: No Initiated information on smoking cessation: Yes 'Breaking Loose' booklet given: 12/06/17 - Substance & Tx. History Hx Alcohol Use: Yes Hx Substance Use: Yes Substance Use Type: Alcohol, Opiates, Tranquilizers - Substances Abused Alprazolam (Xanax) Route: Oral Frequency: Daily Amount used: 6mg Age of first use: 29 Date of Last Use: 12/06/17 Alcohol Route: Oral Frequency: 3-6 times per week Amount used: 2 pints Hen[place] Age of first use: 21 Date of Last Use: 12/05/17 Family Disease History - Family Disease History Family Disease History: Diabetes: Mother (living, ), Other: Father (living, healthy), Mother, Sister (1 living - healthy), Daughter (age 7 - healthy) Admission Physical Exam BHS - Vital Signs Vital Signs: Vital Signs - 24 hr 12/06/17 19:41 Temperature 97.0 F L Pulse Rate 93 H Respiratory 18 Rate Blood Pressure 111/62 - Physical General Appearance: Yes: Disheveled, Sweating, Anxious HEENTM: Yes: Within Normal Limits, EOMI, Hearing grossly Normal, Normal ENT Inspection, Normocephalic, Normal Voice, JONATHON, Pharynx Normal, Tm's normal Respiratory: Yes: Chest Non-Tender, Lungs Clear, Normal Breath Sounds, No Respiratory Distress, No Accessory Muscle Use Neck: Yes: No masses,lesions,Nodules, Trachea in good position Breast: Yes: Breast Exam Deferred Cardiology: Yes: Regular Rhythm, Regular Rate Abdominal: Yes: Normal Bowel Sounds, Non Tender, Flat, Soft Genitourinary: Yes: Within Normal Limits Back: Yes: Normal Inspection Musculoskeletal: Yes: full range of Motion, Gait Steady, Pelvis Stable Extremities: Yes: Normal Capillary Refill, Normal Inspection, Normal Range of Motion, Non-Tender Neurological: Yes: serologist II-XII NML intact, Fully Oriented, Alert, Motor Strength 5/5, Depressed Affect Integumentary: Yes: Normal Color, Dry, Warm, Track Erickson (in different healing stages without signs of infection) Lymphatic: Yes: Within Normal Limits - Diagnostic (1) Alcohol dependence with uncomplicated withdrawal Current Visit: Yes Status: Acute (2) Insomnia Current Visit: Yes Status: Acute Qualifiers: Insomnia type: unspecified Qualified Code(s): G47.00 - Insomnia, unspecified (3) Nicotine dependence Current Visit: Yes Status: Chronic Qualifiers: Nicotine product type: cigarettes Substance use status: in withdrawal Qualified Code(s): F17.213 - Nicotine dependence, cigarettes, with withdrawal (4) Opioid dependence on agonist therapy Current Visit: Yes Status: Chronic (5) Weight loss Current Visit: No Status: Acute (6) COPD (chronic obstructive pulmonary disease) Current Visit: Yes Status: Chronic Qualifiers: COPD type: chronic bronchitis (7) Heroin dependence Current Visit: No Status: Chronic (8) Sedative, hypnotic or anxiolytic dependence with withdrawal, uncomplicated Current Visit: Yes Status: Acute Cleared for Admission [facility] - Detox or Rehab [facility] Level of Care: Medically Managed Detox Regimen/Protocol: Valium [facility] Breath Alcohol Content Breath Alcohol Content: 0 Urine Drug Screen - Results Drug Screen Negative: No Urine Drug Screen Results: LYLE-Cocaine, OPI-Opiates, MET-Methamphetamine, BZO- Benzodiazepines, MTD-Methadone, TCA-Tricyclic Antidepress
[2017-12-06] MEDS ORDERED: diazePAM 5 MG TABLET PO ONE (21:01)
[2017-12-06] MEDS ORDERED: NICOTINE POLACRILEX 2 MG GUM BC PRN (21:01)
[2017-12-06] MEDS ORDERED: P-EPHED 60MG/TRIPROLIDI 2.5MG TABLET PO PRN (21:01)
[2017-12-06] MEDS ORDERED: MAG HYDROX/AL HYDROX/SIMETH 30 ML UNIT-DOSE CUP PO PRN (21:01)
[2017-12-06] MEDS ORDERED: MENTHOL/PHENOL 1 EACH UD MM PRN (21:01)
[2017-12-06] MEDS ORDERED: IBUPROFEN 400 MG TABLET (FP) PO PRN (21:01)
[2017-12-06] MEDS ORDERED: guaiFENesin/D-METHORPHAN HB 10 ML UNIT-DOSE CUPS PO PRN (21:01)
[2017-12-06] MEDS ORDERED: MAGNESIUM CITRATE 300 ML BOTTLE PO PRN (21:01)
[2017-12-06] MEDS ORDERED: MAGNESIUM HYDROX 2400MG/30ML ORAL SUSPENSION 30 ML CUP PO PRN (21:01)
[2017-12-06] MEDS ORDERED: LOPERAMIDE HCL 2 MG CAPSULE PO PRN (21:01)
[2017-12-06] MEDS ORDERED: BENZOYL PEROXIDE TP SCH (21:30)
[2017-12-06] MEDS: DOCUSATE SODIUM 50 MG/5 ML ML *BULK BOTTLE PO SCH (22:38)
[2017-12-06] MEDS: THIAMINE HCL 100 MG TABLET (FP) PO SCH (22:38)
[2017-12-06] MEDS: diazePAM 5 MG TABLET PO SCH (22:41)
[2017-12-06] MEDS: FLUTICASONE/SALMETEROL 100 MCG/50 MCG DISKUS IH SCH (22:41)
[2017-12-07 00:37] LABS: URINE APPEARANCE TURBID; URINE BILIRUBIN NEGATIVE (NEGATIVE); URINE BLOOD NEGATIVE (NEGATIVE); URINE COLOR YELLOW; URINE GLUCOSE (UA) NEGATIVE (NEGATIVE); URINE KETONE NEGATIVE (NEGATIVE); URINE LEUK ESTERASE NEGATIVE (NEGATIVE); URINE NITRITE NEGATIVE (NEGATIVE); URINE PROTEIN NEGATIVE (NEGATIVE); URINE UROBILINOGEN 4.0 E.U/dl mg/dL (0.2-1.0)
[2017-12-07] MEDS: diazePAM 5 MG TABLET PO SCH ×3 (05:57→22:32)
[2017-12-07] MEDS: ALBUTEROL SO4 18 GM HFA INHALER IH PRN ×3 (06:07→17:58)
[2017-12-07] MEDS: DOCUSATE SODIUM 50 MG/5 ML ML *BULK BOTTLE PO SCH (06:45)
[2017-12-07] MEDS ORDERED: METHADONE HCL 10 MG TABLET PO SCH (10:00)
[2017-12-07 10:13] LABS: HEMATOCRIT 37.6 % (35.4-49); HEMOGLOBIN 12.3 GM/dL (11.7-16.9); MCH 27.8 pg (25.7-33.7); MCHC 32.7 g/dl (32.0-35.9); MEAN CELL VOLUME 84.9 fl (80-96); PLATELET COUNT 235 K/MM3 (134-434); RBC 4.43 M/mm3 (4.00-5.60); RDW 14.7 % (11.9-15.9); WHITE BLOOD COUNT 5.5 K/mm3 (4.0-10.0)
[2017-12-07 10:17] LABS: ALBUMIN 3.2 g/dl (3.4-5.0); ANION GAP 7 (8-16); BLOOD UREA NITROGEN 13 mg/dL (7-18); CALCIUM 8.2 mg/dL (8.5-10.1); CHLORIDE 107 mmol/L (98-107); CO2 28 mmol/L (21-32); CREATININE 0.9 mg/dL (0.7-1.3); GLUCOSE,RANDOM 111 mg/dL (74-106); SGOT/AST 14 U/L (15-37); SGPT/ALT 21 U/L (12-78); SODIUM 142 mmol/L (136-145)
[2017-12-07 10:19] LABS: ALK PHOS 44 U/L (45-117); BILIRUBIN,TOTAL 0.3 mg/dL (0.2-1.0); TOT PROT 6.2 g/dl (6.4-8.2)
--- NOTE | 2017-12-07 10:23 | EKG ---
Test Reason : Blood Pressure : / mmHG Vent. Rate : 087 BPM Atrial Rate : 087 BPM P-R Int : 158 ms QRS Dur : 096 ms QT Int : 378 ms P-R-T Axes : 068 071 038 degrees QTc Int : 454 ms NORMAL SINUS RHYTHM NORMAL ECG WHEN COMPARED WITH ECG OF 10-AUG-2017 23:04, PREMATURE SUPRAVENTRICULAR COMPLEXES ARE NO LONGER PRESENT Confirmed by DIOMEDES MURRAY, VALERIY ([id number]) on 12/07/2017 10:22:46 AM Referred By: Confirmed By:VALERIY HERCULES MD
[2017-12-07] MEDS ORDERED: METHADONE HCL 10 MG TABLET ONE (10:25)
[2017-12-07] MEDS ORDERED: METHADONE HCL 40 MG DISPERSABLE TABLET ONE (10:25)
[2017-12-07] MEDS: METHADONE 40 MG, METHADONE 30 MG PO SCH (10:32)
[2017-12-07] MEDS: PRENATAL VITAMINS W/ FOLIC ACID TABLET (FP) PO SCH (10:32)
[2017-12-07] MEDS: FLUTICASONE/SALMETEROL 100 MCG/50 MCG DISKUS IH SCH ×2 (10:32→22:30)
[2017-12-07] MEDS: NICOTINE 14 MG/24 HOURS TOPICAL PATCH TD SCH (10:32)
[2017-12-07] MEDS: diazePAM 5 MG TABLET PO PRN ×2 (10:34→17:57)
--- NOTE | 2017-12-07 11:32 | PN ---
S CIWA - CIWA Score Nausea/Vomitin-No Nausea/No Vomiting Muscle Tremors: 3 Anxiety: 4-Mod. Anxious/Guarded Agitation: 3 Paroxysmal Sweats: 3 Orientation: 0-Oriented Tacttile Disturbances: 1-Very Mild Itch/Numbness Auditory Disturbances: 0-None Visual Disturbances: 2-Mild Sensitivity Headache: 0-None Present CIWA-Ar Total Score: 16 BHS Progress Note (SOAP) Subjective: Tremors, Sweating, Body Aches, Interrupted Sleep. Objective: PATIENT A & O X 3, OBSERVED AMBULATING ON UNIT. NO ACUTE DISTRESS. 12/07/17 11:30 Vital Signs Temperature 96.2 F L 12/07/17 09:19 Pulse Rate 86 12/07/17 09:19 Respiratory Rate 18 12/07/17 09:19 Blood Pressure 108/60 12/07/17 09:19 O2 Sat by Pulse Oximetry (%) Laboratory Tests 12/06/17 12/07/17 12/07/17 21:50 06:00 06:00 WBC 5.5 RBC 4.43 Hgb 12.3 Hct 37.6 MCV 84.9 MCH 27.8 MCHC 32.7 RDW 14.7 Plt Count 235 MPV 8.0 Sodium 142 Potassium 4.0 Chloride 107 Carbon Dioxide 28 Anion Gap 7 L BUN 13 Creatinine 0.9 Creat Clearance w eGFR > 60 Random Glucose 111 H Calcium 8.2 L Total Bilirubin 0.3 AST 14 L D ALT 21 D Alkaline Phosphatase 44 L Total Protein 6.2 L Albumin 3.2 L Urine Color Yellow Urine Appearance Turbid Urine pH 5.0 Ur Specific [place] 1.035 Urine Protein Negative Urine Glucose (UA) Negative Urine Ketones Negative Urine Blood Negative Urine Nitrite Negative Urine Bilirubin Negative Urine Urobilinogen 4.0 e.u/dl Ur Leukocyte Esterase Negative RPR Titer 12/07/17 06:00 WBC RBC Hgb Hct MCV MCH MCHC RDW Plt Count MPV Sodium Potassium Chloride Carbon Dioxide Anion Gap BUN Creatinine Creat Clearance w eGFR Random Glucose Calcium Total Bilirubin AST ALT Alkaline Phosphatase Total Protein Albumin Urine Color Urine Appearance Urine pH Ur Specific [place] Urine Protein Urine Glucose (UA) Urine Ketones Urine Blood Urine Nitrite Urine Bilirubin Urine Urobilinogen Ur Leukocyte Esterase RPR Titer Nonreactive LABS NOTED. Assessment: 12/07/17 11:31 WITHDRAWAL SYMPTOMS. Plan: CONTINUE DETOX.
--- NOTE | 2017-12-07 12:03 | CONSULT ---
[facility] Psychiatric Consult - Data Date of interview: 12/07/17 Admission source: [facility] Identifying data: Readmission to [facility] for this 32 y/o male seeking detox treatment on 3 for alcohol,heroin,xanax and cocaine dependence.Patient is ,a father of one,domiciled,unemployed and supported on Public Assistance. Substance Abuse History: Confirmed by patient in this interview.Smoking history : Current every day smoker. Have you smoked in the past 12 months: Yes. Aproximately how many cigarettes per day: 20. Cigars Per Day: 0. Hx Chewing Tobacco Use: No. Initiated information on smoking cessation: Yes. 'Breaking Loose' booklet given: 12/06/17. - Substance & Tx. History. Hx Alcohol Use: Yes. Hx Substance Use: Yes. Substance Use Type: Alcohol, Opiates, Tranquilizers. - Substances Abused. Alprazolam (Xanax). Route: Oral. Frequency: Daily. Amount used: 6mg. Age of first use: 29. Date of Last Use: 12/06/17. Alcohol. Route: Oral. Frequency: 3-6 times per week. Amount used: 2 pints [place]. Age of first use: 21. Date of Last Use: 12/05/17 Medical History: GERD,alopecia and bronchial asthma. Psychiatric History: History of multiple psychiatric hospitalizations.Onset of emotional disturbances (age 20).Patient is known to [facility] and [facility].Diagnosed with Anxiety Disorder and MDD.Currently on methadone maintenance (70 mg/day) at [facility] program in the [place].Prescribed seroquel 300 mg/hs + buspar 30 mg/day.Chronically non-adherent to [facility] care.Remote history of suicide attempts via various means. Additional Comment: LYLE-Cocaine, OPI-Opiates, MET-Methamphetamine, BZO- Benzodiazepines, MTD-Methadone, TCA-Tricyclic Antidepressant.Noted. Mental Status Exam - Mental Status Exam Alert and Oriented to: Time, Place, Person Cognitive Function: Good Patient Appearance: Well Groomed Mood: Withdrawn, Anxious, Hopeful Affect: Mood Congruent Patient Behavior: Fatigued, Appropriate, Cooperative Speech Pattern: Clear, Appropriate Voice Loudness: Normal Thought Process: Goal Oriented Thought Disorder: Not Present Hallucinations: Denies Suicidal Ideation: Denies Homicidal Ideation: Denies Insight/Judgement: Poor Sleep: Poorly, Difficulty falling asleep Appetite: Good Muscle strength/Tone: Normal Gait/Station: Normal Psychiatric Findings - Problem List ([place] 1, 2,3) (1) Opioid dependence on agonist therapy Current Visit: Yes Status: Acute (2) Alcohol dependence with uncomplicated withdrawal Current Visit: Yes Status: Acute (3) Sedative, hypnotic or anxiolytic dependence with withdrawal, uncomplicated Current Visit: Yes Status: Acute (4) Cocaine dependence Current Visit: Yes Status: Acute Qualifiers: Substance use status: uncomplicated Qualified Code(s): F14.20 - Cocaine dependence, uncomplicated (5) Nicotine dependence Current Visit: Yes Status: Acute Qualifiers: Nicotine product type: cigarettes Substance use status: in withdrawal Qualified Code(s): F17.213 - Nicotine dependence, cigarettes, with withdrawal (6) Substance induced mood disorder Current Visit: Yes Status: Acute (7) Insomnia Current Visit: Yes Status: Acute Qualifiers: Insomnia type: unspecified Qualified Code(s): G47.00 - Insomnia, unspecified - Initial Treatment Plan Initial Treatment Plan: Psychoeducation.Detoxification in progress.Sleep hygiene.Medications : seroquel 300 mg po hs + buspar 30 mg po daily.Side effects /benefits of both drugs are discussed with the patient.Mr Diaz is in agreement with this careplan.Observation.
[2017-12-07] MEDS: BENZOYL PEROXIDE 5% 60 GM GEL..GRAM. TP SCH (12:50)
[2017-12-07] MEDS: hydrOXYzine PAMOATE 50 MG CAPSULE (FP) PO PRN (18:58)
[2017-12-07] MEDS: THIAMINE HCL 100 MG TABLET (FP) PO SCH (22:32)
[2017-12-07] MEDS: QUEtiapine FUMARATE 300 MG TABLET PO SCH (22:32)
[2017-12-07] MEDS: DOCUSATE SODIUM 100 MG CAPSULE (FP) PO SCH (22:32)
[2017-12-08] MEDS: diazePAM 5 MG TABLET PO PRN ×5 (01:04→21:24)
[2017-12-08] MEDS ORDERED: METHADONE HCL 40 MG DISPERSABLE TABLET ONE (03:58)
[2017-12-08] MEDS ORDERED: METHADONE HCL 10 MG TABLET ONE (03:58)
[2017-12-08] MEDS: METHADONE 40 MG, METHADONE 30 MG PO SCH (05:44)
[2017-12-08] MEDS: ACETAMINOPHEN 325 MG TABLET (FP) PO PRN (05:44)
[2017-12-08] MEDS ORDERED: TRIMETHOBENZAMIDE HCL 200MG/2ML INJ IM PRN (10:01)
[2017-12-08] MEDS ORDERED: ONDANSETRON *ODT* 4 MG TABLET SL PRN (10:02)
[2017-12-08] MEDS: diazePAM 5 MG TABLET PO SCH ×3 (10:28→22:58)
[2017-12-08] MEDS: PRENATAL VITAMINS W/ FOLIC ACID TABLET (FP) PO SCH (10:28)
[2017-12-08] MEDS: NICOTINE 14 MG/24 HOURS TOPICAL PATCH TD SCH (10:28)
[2017-12-08] MEDS: BENZOYL PEROXIDE 5% 60 GM GEL..GRAM. TP SCH (10:29)
[2017-12-08] MEDS: FLUTICASONE/SALMETEROL 100 MCG/50 MCG DISKUS IH SCH ×2 (10:29→22:25)
[2017-12-08] MEDS: PANTOPRAZOLE 40 MG TABLET (FP) PO SCH (11:10)
--- NOTE | 2017-12-08 11:49 | PN ---
S CIWA - CIWA Score Nausea/Vomitin Muscle Tremors: 2 Anxiety: 4-Mod. Anxious/Guarded Agitation: 3 Paroxysmal Sweats: 3 Orientation: 0-Oriented Tacttile Disturbances: 0-None Auditory Disturbances: 0-None Visual Disturbances: 2-Mild Sensitivity Headache: 0-None Present CIWA-Ar Total Score: 17 BHS Progress Note (SOAP) Subjective: Nausea, Constipation, Body Aches, Anxious, Tremors, Sweating, Interrupted Sleep. Objective: PATIENT A & O X 3, OBSERVED AMBULATING ON UNIT. NO ACUTE DISTRESS. 12/08/17 11:47 Vital Signs Temperature 97.2 F L 12/08/17 09:34 Pulse Rate 88 12/08/17 09:34 Respiratory Rate 20 12/08/17 09:34 Blood Pressure 110/72 12/08/17 09:34 O2 Sat by Pulse Oximetry (%) Laboratory Tests 12/06/17 12/07/17 12/07/17 21:50 06:00 06:00 WBC 5.5 RBC 4.43 Hgb 12.3 Hct 37.6 MCV 84.9 MCH 27.8 MCHC 32.7 RDW 14.7 Plt Count 235 MPV 8.0 Sodium 142 Potassium 4.0 Chloride 107 Carbon Dioxide 28 Anion Gap 7 L BUN 13 Creatinine 0.9 Creat Clearance w eGFR > 60 Random Glucose 111 H Calcium 8.2 L Total Bilirubin 0.3 AST 14 L D ALT 21 D Alkaline Phosphatase 44 L Total Protein 6.2 L Albumin 3.2 L Urine Color Yellow Urine Appearance Turbid Urine pH 5.0 Ur Specific [place] 1.035 Urine Protein Negative Urine Glucose (UA) Negative Urine Ketones Negative Urine Blood Negative Urine Nitrite Negative Urine Bilirubin Negative Urine Urobilinogen 4.0 e.u/dl Ur Leukocyte Esterase Negative RPR Titer 12/07/17 06:00 WBC RBC Hgb Hct MCV MCH MCHC RDW Plt Count MPV Sodium Potassium Chloride Carbon Dioxide Anion Gap BUN Creatinine Creat Clearance w eGFR Random Glucose Calcium Total Bilirubin AST ALT Alkaline Phosphatase Total Protein Albumin Urine Color Urine Appearance Urine pH Ur Specific [place] Urine Protein Urine Glucose (UA) Urine Ketones Urine Blood Urine Nitrite Urine Bilirubin Urine Urobilinogen Ur Leukocyte Esterase RPR Titer Nonreactive LABS NOTED. Assessment: 12/08/17 11:48 WITHDRAWAL SYMPTOMS. Plan: CONTINUE DETOX. PRN TIGAN IM FOR NAUSEA. PRN FLEXERIL FOR BODY ACHES / MUSCLE SPASMS. PRN MOM FOR CONSTIPATION. INCREASE DAILY PO FLUID INTAKE.
[2017-12-08] MEDS ORDERED: BENZOYL PEROXIDE TP PRN (14:08)
[2017-12-08] MEDS: CYCLOBENZAPRINE HCL 10 MG TABLET (FP) PO PRN (14:09)
[2017-12-08] MEDS: [UNRECOGNIZED DRUG - OTHER] TP SCH (15:25)
[2017-12-08] MEDS: CLOBETASOL PROPIONATE TP SCH (15:25)
--- NOTE | 2017-12-08 18:15 | PN ---
Psychiatric Progress Note Vital Signs: Vital Signs Period Temp Pulse Resp BP Sys/Samuel Pulse Ox Last 24 Hr 97.0 F-98.3 F 83-89 18-20 106-121/61-72 Date of Session: 12/08/17 Chief Complaint:: " I can't sleep." HPI: Pt. admitted to for alcohol,heroin,xanax and cocaine dependence. ROS: Unremarkable. Current Medications: Active Medications Generic Name Dose Route Start Last Admin Trade Name Freq PRN Reason Stop Dose Admin Acetaminophen 650 mg 12/06/17 21:01 12/08/17 05:44 Tylenol - PO 650 mg Q4H PRN Administration FEVER Al Hydroxide/Mg Hydroxide 30 ml 12/06/17 21:01 Mylanta Oral Suspension - PO Q6H PRN DYSPEPSIA Albuterol Sulfate 2 puff 12/06/17 21:00 12/07/17 17:58 Ventolin Hfa Inhaler - IH 2 puff Q4H PRN Administration SHORT OF BREATH/WHEEZING Buspirone HCl 30 mg 12/08/17 10:00 12/08/17 10:28 Buspar - PO 30 mg DAILY RONNA Administration Cyclobenzaprine HCl 10 mg 12/08/17 11:39 12/08/17 14:09 Flexeril - PO 10 mg TID PRN Administration MUSCLE SPASMS Diazepam 10 mg 12/06/17 21:01 12/08/17 16:54 Valium - PO 12/09/17 21:00 10 mg Q4H PRN Administration WITHDRAWAL(CONT SUBST) Diazepam 5 mg 12/08/17 10:00 12/08/17 10:28 Valium - PO 12/09/17 22:01 5 mg BID RONNA Administration Diazepam 5 mg 12/10/17 10:00 Valium - PO 12/10/17 10:01 DAILY RONNA Docusate Sodium 300 mg 12/07/17 22:00 12/07/17 22:32 Colace - PO 300 mg HS RONNA Administration Eucalyptus/Menthol/Phenol/Sorbitol 1 each 12/06/17 21:01 Cepastat Lozenge - MM Q4H PRN SORE THROAT Guaifenesin 10 ml 12/06/17 21:01 Robitussin Dm - PO Q6H PRN COUGH Hydroxyzine Pamoate 50 mg 12/06/17 21:01 12/07/17 18:58 Vistaril - PO 50 mg Q4H PRN Administration AGITATION Ibuprofen 400 mg 12/06/17 21:01 Motrin - PO Q6H PRN PAIN LEVEL 4-6 Loperamide HCl 4 mg 12/06/17 21:01 Imodium - PO Q6H PRN DIARRHEA Magnesium Citrate 300 ml 12/06/17 21:01 Citroma - PO Q48H PRN CONSTIPATION Magnesium Hydroxide 30 ml 12/06/17 21:01 Milk Of Magnesia - PO DAILY PRN CONSTIPATION Methadone HCl 40 mg/ Methadone 70 mg 12/07/17 10:10 12/08/17 05:44 HCl 30 mg PO 12/14/17 10:09 70 mg DAILY@0600 RONNA Administration Nicotine 14 mg 12/07/17 10:00 12/08/17 10:28 Nicoderm Patch - TD 14 mg DAILY RONNA Administration Nicotine Polacrilex 2 mg 12/06/17 21:01 Nicorette Gum - BC Q2H PRN NICOTINE REPLACEMENT RX Non-Formulary Medication 0 gm 12/08/17 14:08 Benzoyl Peroxide [Foaming Acne Face Wash] TP Th@1000 PRN acne Non-Formulary Medication 0 ml 12/08/17 14:15 12/08/17 15:25 Clindamycin Po4 1% Top Lotion [Cleocin T] TP Not Given DAILY RONNA Non-Formulary Medication 0 ml 12/08/17 14:15 12/08/17 15:25 Clobetasol Propionate [Cormax] TP Not Given DAILY RONNA Pantoprazole Sodium 40 mg 12/08/17 10:30 12/08/17 11:10 Protonix - PO 40 mg DAILY RONNA Administration Multivit/Folic Acid/Iron 1 tab 12/07/17 10:00 12/08/17 10:28 Vitamins (Sjr) - PO 1 tab DAILY RONNA Administration Pseudoephedrine/Triprolidine 1 combo 12/06/17 21:01 Actifed - PO TID PRN NASAL CONGESTION Quetiapine Fumarate 300 mg 12/07/17 22:00 12/07/17 22:32 Seroquel - PO 300 mg HS RONNA Administration Fluticasone/Salmeterol 1 puff 12/06/17 22:00 12/08/17 10:29 Advair 100mcg/50mcg - IH 1 inhaler BID RONNA Administration Thiamine HCl 100 mg 12/06/17 22:00 12/07/17 22:32 Vitamin B1 - PO 100 mg HS RONNA Administration Trimethobenzamide HCl 200 mg 12/08/17 10:01 Tigan Injection - IM Q8H PRN NAUSEA Medication(s) Change(s): Yes will add ambien 5mg. Current Side Effect: No Lab tests ordered: No Lab tests reviewed: Yes Provider note:: Water Team Leader approached patient concerning psychiatric reconsultation. Pt. reports poor sleep. Pt. requesting sleep aid. Pt. refusing benadryl. Pt. then offered ambien which he accepted. Pt. made aware of the benefits and risk of sleep walking when accepting ambien. Verbal consent given. Will order ambien 5mg. Sleep hygiene and psychoeducation provided. Pt. satisifed and receptive to feedback. Total face to face time:: 25 Mental Status Exam - Mental Status Exam Alert and Oriented to: Time, Place, Person Cognitive Function: Good Patient Appearance: Well Groomed Mood: Anxious Affect: Mood Congruent Patient Behavior: Cooperative Speech Pattern: Appropriate Voice Loudness: Normal Thought Process: Goal Oriented Thought Disorder: Not Present Hallucinations: Denies Suicidal Ideation: Denies Homicidal Ideation: Denies Insight/Judgement: Poor Sleep: Poorly Appetite: Fair Muscle strength/Tone: Normal Gait/Station: Normal Psychiatric Treatment Plan - Problem List (1) Alcohol dependence with uncomplicated withdrawal Current Visit: Yes (2) Cocaine dependence Current Visit: Yes Qualifiers: Substance use status: uncomplicated Qualified Code(s): F14.20 - Cocaine dependence, uncomplicated (3) Insomnia Current Visit: Yes Qualifiers: Insomnia type: unspecified Qualified Code(s): G47.00 - Insomnia, unspecified (4) Nicotine dependence Current Visit: Yes Qualifiers: Nicotine product type: cigarettes Substance use status: in withdrawal Qualified Code(s): F17.213 - Nicotine dependence, cigarettes, with withdrawal (5) Opioid dependence on agonist therapy Current Visit: Yes (6) Sedative, hypnotic or anxiolytic dependence with withdrawal, uncomplicated Current Visit: Yes (7) Substance induced mood disorder Current Visit: Yes
[2017-12-08] MEDS: hydrOXYzine PAMOATE 50 MG CAPSULE (FP) PO PRN (19:59)
[2017-12-08] MEDS: THIAMINE HCL 100 MG TABLET (FP) PO SCH (22:25)
[2017-12-08] MEDS: DOCUSATE SODIUM 100 MG CAPSULE (FP) PO SCH (22:26)
[2017-12-08] MEDS: HYDROCORTISONE ACETATE 25 MG/SUPP.RECT RC SCH (22:26)
[2017-12-08] MEDS: ZOLPIDEM TARTRATE 5 MG TABLET PO PRN (22:26)
[2017-12-08] MEDS: QUEtiapine FUMARATE 300 MG TABLET PO SCH (22:27)
[2017-12-09] MEDS ORDERED: METHADONE HCL 10 MG TABLET ONE (03:45)
[2017-12-09] MEDS ORDERED: METHADONE HCL 40 MG DISPERSABLE TABLET ONE (03:45)
[2017-12-09] MEDS: CYCLOBENZAPRINE HCL 10 MG TABLET (FP) PO PRN (05:51)
[2017-12-09] MEDS: METHADONE 40 MG, METHADONE 30 MG PO SCH (05:51)
[2017-12-09] MEDS: diazePAM 5 MG TABLET PO PRN ×3 (05:51→16:57)
[2017-12-09] MEDS ORDERED: WITCH HAZEL 50% (TUCKS) 40 PAD/JAR PAD TP PRN (10:04)
[2017-12-09] MEDS: FLUTICASONE/SALMETEROL 100 MCG/50 MCG DISKUS IH SCH ×2 (10:26→23:14)
[2017-12-09] MEDS: PANTOPRAZOLE 40 MG TABLET (FP) PO SCH (10:26)
[2017-12-09] MEDS: PRENATAL VITAMINS W/ FOLIC ACID TABLET (FP) PO SCH (10:26)
[2017-12-09] MEDS: [UNRECOGNIZED DRUG - OTHER] TP SCH (10:27)
[2017-12-09] MEDS: CLOBETASOL PROPIONATE TP SCH (10:28)
[2017-12-09] MEDS: NICOTINE 14 MG/24 HOURS TOPICAL PATCH TD SCH (10:29)
[2017-12-09] MEDS: diazePAM 5 MG TABLET PO SCH ×2 (10:29→21:14)
--- NOTE | 2017-12-09 12:37 | PN ---
BHS Progress Note (SOAP) Subjective: Tremors, Anxious, Body Aches. Objective: PATIENT A & O X 3, OBSERVED AMBULATING ON UNIT. NO ACUTE DISTRESS. 12/09/17 12:36 Vital Signs Temperature 97 F L 12/09/17 10:55 Pulse Rate 104 H 12/09/17 10:55 Respiratory Rate 20 12/09/17 10:55 Blood Pressure 115/74 12/09/17 10:55 O2 Sat by Pulse Oximetry (%) Laboratory Tests 12/06/17 12/07/17 12/07/17 21:50 06:00 06:00 WBC 5.5 RBC 4.43 Hgb 12.3 Hct 37.6 MCV 84.9 MCH 27.8 MCHC 32.7 RDW 14.7 Plt Count 235 MPV 8.0 Sodium 142 Potassium 4.0 Chloride 107 Carbon Dioxide 28 Anion Gap 7 L BUN 13 Creatinine 0.9 Creat Clearance w eGFR > 60 Random Glucose 111 H Calcium 8.2 L Total Bilirubin 0.3 AST 14 L D ALT 21 D Alkaline Phosphatase 44 L Total Protein 6.2 L Albumin 3.2 L Urine Color Yellow Urine Appearance Turbid Urine pH 5.0 Ur Specific [place] 1.035 Urine Protein Negative Urine Glucose (UA) Negative Urine Ketones Negative Urine Blood Negative Urine Nitrite Negative Urine Bilirubin Negative Urine Urobilinogen 4.0 e.u/dl Ur Leukocyte Esterase Negative RPR Titer 12/07/17 06:00 WBC RBC Hgb Hct MCV MCH MCHC RDW Plt Count MPV Sodium Potassium Chloride Carbon Dioxide Anion Gap BUN Creatinine Creat Clearance w eGFR Random Glucose Calcium Total Bilirubin AST ALT Alkaline Phosphatase Total Protein Albumin Urine Color Urine Appearance Urine pH Ur Specific [place] Urine Protein Urine Glucose (UA) Urine Ketones Urine Blood Urine Nitrite Urine Bilirubin Urine Urobilinogen Ur Leukocyte Esterase RPR Titer Nonreactive LABS NOTED. Assessment: 12/09/17 12:36 WITHDRAWAL SYMPTOMS. Plan: CONTINUE DETOX. INCREASE DAILY PO FLUID INTAKE.
[2017-12-09] MEDS: ACETAMINOPHEN 325 MG TABLET (FP) PO PRN ×2 (16:56→21:37)
[2017-12-09] MEDS: HYDROCORTISONE ACETATE 25 MG/SUPP.RECT RC SCH (21:13)
[2017-12-09] MEDS: DOCUSATE SODIUM 100 MG CAPSULE (FP) PO SCH (21:14)
[2017-12-09] MEDS: QUEtiapine FUMARATE 300 MG TABLET PO SCH (21:14)
[2017-12-09] MEDS: ZOLPIDEM TARTRATE 5 MG TABLET PO PRN (21:36)
[2017-12-09] MEDS: THIAMINE HCL 100 MG TABLET (FP) PO SCH (21:36)
[2017-12-10] MEDS ORDERED: VITAMINS A AND D TOPICAL OINTMENT 60 GM TUBE TP SCH
[2017-12-10] MEDS: ALBUTEROL SO4 18 GM HFA INHALER IH PRN (03:50)
[2017-12-10] MEDS ORDERED: METHADONE HCL 10 MG TABLET ONE (04:10)
[2017-12-10] MEDS ORDERED: METHADONE HCL 40 MG DISPERSABLE TABLET ONE (04:10)
[2017-12-10] MEDS: METHADONE 40 MG, METHADONE 30 MG PO SCH (06:10)
[2017-12-10 06:57] VITALS: BP 105/67; PULSE 81; TEMP 97
[2017-12-10] MEDS: ACETAMINOPHEN 325 MG TABLET (FP) PO PRN (08:22)
[2017-12-10] MEDS ORDERED: diazePAM 5 MG TABLET PO SCH (10:00)
--- NOTE | 2017-12-10 18:44 | PN ---
BHS Progress Note (SOAP) Subjective: Patient denies current detox symptoms and reports that he is feeling well overall. Objective: PATIENT A & O X 3, OBSERVED AMBULATING ON UNIT. NO ACUTE DISTRESS. 12/10/17 18:39 Vital Signs Temperature 97.0 F L 12/10/17 06:56 Pulse Rate 81 12/10/17 06:56 Respiratory Rate 18 12/10/17 06:56 Blood Pressure 105/67 12/10/17 06:56 O2 Sat by Pulse Oximetry (%) Laboratory Tests 12/06/17 12/07/17 12/07/17 21:50 06:00 06:00 WBC 5.5 RBC 4.43 Hgb 12.3 Hct 37.6 MCV 84.9 MCH 27.8 MCHC 32.7 RDW 14.7 Plt Count 235 MPV 8.0 Sodium 142 Potassium 4.0 Chloride 107 Carbon Dioxide 28 Anion Gap 7 L BUN 13 Creatinine 0.9 Creat Clearance w eGFR > 60 Random Glucose 111 H Calcium 8.2 L Total Bilirubin 0.3 AST 14 L D ALT 21 D Alkaline Phosphatase 44 L Total Protein 6.2 L Albumin 3.2 L Urine Color Yellow Urine Appearance Turbid Urine pH 5.0 Ur Specific [place] 1.035 Urine Protein Negative Urine Glucose (UA) Negative Urine Ketones Negative Urine Blood Negative Urine Nitrite Negative Urine Bilirubin Negative Urine Urobilinogen 4.0 e.u/dl Ur Leukocyte Esterase Negative RPR Titer 12/07/17 06:00 WBC RBC Hgb Hct MCV MCH MCHC RDW Plt Count MPV Sodium Potassium Chloride Carbon Dioxide Anion Gap BUN Creatinine Creat Clearance w eGFR Random Glucose Calcium Total Bilirubin AST ALT Alkaline Phosphatase Total Protein Albumin Urine Color Urine Appearance Urine pH Ur Specific [place] Urine Protein Urine Glucose (UA) Urine Ketones Urine Blood Urine Nitrite Urine Bilirubin Urine Urobilinogen Ur Leukocyte Esterase RPR Titer Nonreactive LABS NOTED. Assessment: 12/10/17 18:43 COMPLETION OF DETOX REGIMEN. Plan: PATIENT SCHEDULED FOR DISCHARGE TODAY. PATIENT SCHEDULED TO GO ON TO [facility] FOR AFTERCARE.
--- NOTE | 2017-12-10 18:46 | DS ---
[facility] Detox Discharge Summary Admission Date: 12/06/17 Discharge Date: 12/10/17 - History Present History: Alcohol Dependence, Cocaine Dependence, Opioid Dependence, Sedative Dependence, MMTP Additional Comments: PATIENT GOING TO [facility] FOR AFTERCARE. PATIENT WAS DISCHARGED FROM DETOX UNIT IN STABLE MEDICAL CONDITION. Pertinent Past History: Depression, Insomnia, Asthma, GERD, MMTP, COPD, Weight Loss, Nicotine Dependence. - Physical Exam Results Vital Signs: Vital Signs Temperature 97.0 F L 12/10/17 06:56 Pulse Rate 81 12/10/17 06:56 Respiratory Rate 18 12/10/17 06:56 Blood Pressure 105/67 12/10/17 06:56 O2 Sat by Pulse Oximetry (%) Pertinent Admission Physical Exam Findings: WITHDRAWAL SYMPTOMS. Laboratory Tests 12/06/17 12/07/17 12/07/17 21:50 06:00 06:00 WBC 5.5 RBC 4.43 Hgb 12.3 Hct 37.6 MCV 84.9 MCH 27.8 MCHC 32.7 RDW 14.7 Plt Count 235 MPV 8.0 Sodium 142 Potassium 4.0 Chloride 107 Carbon Dioxide 28 Anion Gap 7 L BUN 13 Creatinine 0.9 Creat Clearance w eGFR > 60 Random Glucose 111 H Calcium 8.2 L Total Bilirubin 0.3 AST 14 L D ALT 21 D Alkaline Phosphatase 44 L Total Protein 6.2 L Albumin 3.2 L Urine Color Yellow Urine Appearance Turbid Urine pH 5.0 Ur Specific [place] 1.035 Urine Protein Negative Urine Glucose (UA) Negative Urine Ketones Negative Urine Blood Negative Urine Nitrite Negative Urine Bilirubin Negative Urine Urobilinogen 4.0 e.u/dl Ur Leukocyte Esterase Negative RPR Titer 12/07/17 06:00 WBC RBC Hgb Hct MCV MCH MCHC RDW Plt Count MPV Sodium Potassium Chloride Carbon Dioxide Anion Gap BUN Creatinine Creat Clearance w eGFR Random Glucose Calcium Total Bilirubin AST ALT Alkaline Phosphatase Total Protein Albumin Urine Color Urine Appearance Urine pH Ur Specific [place] Urine Protein Urine Glucose (UA) Urine Ketones Urine Blood Urine Nitrite Urine Bilirubin Urine Urobilinogen Ur Leukocyte Esterase RPR Titer Nonreactive LABS NOTED. - Treatment Hospital Course: Detox Protocol Followed, Detoxed Safely, Responded well, Discharged Condition Good, Rehab Referral Accepted Patient has Accepted a [facility]hab Referral to: [facility]. - Medication Discharge Medications: Ambulatory Orders Quetiapine Fumarate [Seroquel -] 300 mg PO HS #30 tab 08/02/17 Chlorhexidine Gluconate 0.5 oz PO BID 08/10/17 Salmeterol/Fluticasone [Advair 100Mcg/50Mcg -] 1 inh PO BID #1 inh 08/22/17 Benzoyl Peroxide [Foaming Acne Face Wash] 227 gm TP WEEKLY PRN 12/08/17 Clindamycin Po4 1% Top Lotion [Cleocin T] 60 ml TP DAILY 12/08/17 Clobetasol Propionate [Cormax] 50 ml TP DAILY 12/08/17 Albuterol Sulfate Inhaler - [Ventolin HFA Inhaler -] 2 puff IH Q4H PRN #1 inhaler 12/09/17 Buspirone HCl [Buspar -] 30 mg PO DAILY #30 tablet 12/10/17 Docusate Sodium [Colace] 100 mg PO BID 30 Days #60 capsule 12/10/17 Quetiapine Fumarate [Seroquel -] 300 mg PO HS #30 tablet 12/10/17 - Diagnosis (1) Alcohol dependence with uncomplicated withdrawal Status: Acute (2) Sedative, hypnotic or anxiolytic dependence with withdrawal, uncomplicated Status: Acute (3) COPD (chronic obstructive pulmonary disease) Status: Chronic Qualifiers: COPD type: chronic bronchitis Chronic bronchitis type: unspecified Qualified Code(s): J42 - Unspecified chronic bronchitis (4) Opioid dependence on agonist therapy Status: Acute (5) Insomnia Status: Acute Qualifiers: Insomnia type: unspecified Qualified Code(s): G47.00 - Insomnia, unspecified (6) Nicotine dependence Status: Acute Qualifiers: Nicotine product type: cigarettes Substance use status: in withdrawal Qualified Code(s): F17.213 - Nicotine dependence, cigarettes, with withdrawal (7) Weight loss Status: Acute (8) Heroin dependence Status: Chronic (9) Substance induced mood disorder Status: Acute - AMA Did Patient Leave Against Medical Advice: No
== END 2017-12-10 09:50 | disposition home or self-care (01) | DRG 773 ==
LOC: YASAS 17:27 → Y3N 20:08
PROVIDERS: ADMIT Internal Medicine; ATTEND Internal Medicine
PROC: HZ2ZZZZ Detoxification Services for Substance Abuse Treatment (ICD-10-PCS; principal; 2017-12-06)
DX: F10.230 Alcohol dependence with withdrawal, uncomplicated (principal); F11.20 Opioid dependence, uncomplicated; F13.230 Sedative, hypnotic or anxiolytic dependence with withdrawal, uncomplicated; F17.213 Nicotine dependence, cigarettes, with withdrawal; F19.24 Other psychoactive substance dependence with psychoactive substance-induced mood disorder; J42 Unspecified chronic bronchitis; G47.00 Insomnia, unspecified; K21.9 Gastro-esophageal reflux disease without esophagitis; Z91.013 Allergy to seafood; Z87.898 Personal history of other specified conditions
CPT/HCPCS: 36415; 80053; 81003; 85027; 86593; 93005; 93010

== ENCOUNTER 2018-01-30 18:41 | Inpatient (IN) | payer OTHER ==
[2018-01-30 18:56] VITALS: BMI 11.9
--- NOTE | 2018-01-30 21:23 | HP ---
CIWA Score - CIWA Score Nausea/Vomitin-No Nausea/No Vomiting Muscle Tremors: 4-Moderate,w/Arms Extend Anxiety: 4-Mod. Anxious/Guarded Agitation: 4-Moderately Restless Paroxysmal Sweats: No Perspiration Orientation: 0-Oriented Tacttile Disturbances: 0-None Auditory Disturbances: 0-None Visual Disturbances: 0-None Headache: 0-None Present CIWA-Ar Total Score: 12 Admission ROS BHS - HPI Chief Complaint: SEEKING DETOX FOR ALCOHOL DEPENDENCE AND WITHDRAWAL SX'S Allergies/Adverse Reactions: Allergies Allergy/AdvReac Type Severity Reaction Status Date / Time shellfish derived Allergy Severe Swelling Verified 01/30/18 20:47 No Known Drug Allergies Allergy Verified 01/30/18 20:47 History of Present Illness: 32 Y.O. MALE WITH ALCOHOLISM AND OPIOID DEPENDENCE HERE FOR DETOX. CURRENTLY ON MMTP AAT [facility] METHADONE 65 MG DAILY LDM TODAY PENDING VERIFICATION. REFERRED BY HIS METHADONE PROGRAM REPORTS LONGEST CLEAN TIME 5 MONTHS. PMHX- ASTHMA, CONSTIPATION, GERD, ATHLETES FOOT AND HEMORRHOIDS. MENTAL REPORTS ANXIETY. DENIES PAST AND PRESENT SI/HI AND A/V HALLUCINATIONS Exam Limitations: No Limitations - Ebola screening Have you traveled outside of the country in the last 21 days: No Have you had contact with anyone from an Ebola affected area: No Have you been sick,other than usual withdrawal symptoms: No Do you have a fever: No - Review of Systems Constitutional: Chills, Loss of Appetite EENT: reports: Dental Problems (MISSING TEETH) Respiratory: reports: Shortness of Breath (ASTHMA) Cardiac: reports: No Symptoms Reported GI: reports: Constipated (ON MEDS), Poor Appetite, Other (HEMORRHOIDS) : reports: No Symptoms Reported Musculoskeletal: reports: No Symptoms Reported Integumentary: reports: No Symptoms Reported Neuro: reports: No Symptoms reported Endocrine: reports: No Symptoms Reported Hematology: reports: No Symptoms Reported Psychiatric: reports: Anxious Other Systems: Reviewed and Negative Patient History - Patient Medical History Hx Anemia: No Hx Asthma: Yes Hx Chronic Obstructive Pulmonary Disease (COPD): No Hx Cancer: No Hx Cardiac Disorders: No Hx Congestive Heart Failure: No Hx Hypertension: No Hx Hypercholesterolemia: No Hx Pacemaker: No HX Cerebrovascular Accident: No Hx Seizures: No Hx Dementia: No Hx Diabetes: No Hx Gastrointestinal Disorders: Yes (ACID REFLUX) Hx Liver Disease: No Hx Genitourinary Disorders: No Hx Sexually Transmitted Disorders: No Hx Renal Disease (ESRD): No Hx Thyroid Disease: No Hx Human Immunodeficiency Virus (HIV): No Hx Hepatitis C: No (negative) Hx Depression: Yes Hx Suicide Attempt: No Hx Bipolar Disorder: No Hx Schizophrenia: No Other Medical History: ANXIETY - Patient Surgical History Past Surgical History: No Hx Neurologic Surgery: No Hx Cataract Extraction: No Hx Cardiac Surgery: No Hx Lung Surgery: No Hx Breast Surgery: No Hx Breast Biopsy: No Hx Abdominal Surgery: No Hx Appendectomy: No Hx Cholecystectomy: No Hx Genitourinary Surgery: No Hx Section: No Hx Orthopedic Surgery: No Anesthesia Reaction: No - PPD History Previous Implant?: Yes Documented Results: Negative w/proof Date: 02/23/17 Results: 0 mm PPD to be Administered?: No - Smoking Cessation Smoking history: Current every day smoker Have you smoked in the past 12 months: Yes Aproximately how many cigarettes per day: 20 Cigars Per Day: 0 Hx Chewing Tobacco Use: No Initiated information on smoking cessation: Yes 'Breaking Loose' booklet given: 01/30/18 - Substance & Tx. History Hx Alcohol Use: Yes Hx Substance Use: Yes Substance Use Type: Alcohol, Cocaine, Heroin (ON MMTP), Prescribed (METHADONE) Hx Substance Use Treatment: Yes ([facility]) - Substances Abused Alcohol Route: Oral Frequency: Daily Amount used: liquor- 4 pints, beer- 1 six pack Age of first use: 21 Date of Last Use: 01/29/18 COCAINE Route: Injection Frequency: 3-6 times per week Amount used: 1/2 GRAM Age of first use: 27 Date of Last Use: 01/29/18 Family Disease History - Family Disease History Family Disease History: Diabetes: Mother (living, ), Other: Father (living, healthy), Mother, Sister (1 living - healthy), Daughter (age 7 - healthy) Admission Physical Exam BHS - Vital Signs Vital Signs: Vital Signs - 24 hr 01/30/18 18:53 Temperature 98.0 F Pulse Rate 96 H Respiratory 20 Rate Blood Pressure 120/71 - Physical General Appearance: Yes: Appropriately Dressed, Mild Distress, Tremorous, Anxious HEENTM: Yes: EOMI, Normocephalic, Normal Voice, JONATHON, Pharynx Normal, Other ( MISSING TEETH) Respiratory: Yes: Chest Non-Tender, Lungs Clear, Normal Breath Sounds, No Respiratory Distress, No Accessory Muscle Use Neck: Yes: No masses,lesions,Nodules, Supple, Trachea in good position, Other ( SCAR) Breast: Yes: Breast Exam Deferred Cardiology: Yes: Regular Rhythm, Regular Rate, S1, S2 Abdominal: Yes: Normal Bowel Sounds, Non Tender, Soft, Surgical Scar Genitourinary: Yes: Within Normal Limits (NO C/O) Back: Yes: Normal Inspection Musculoskeletal: Yes: full range of Motion, Gait Steady Extremities: Yes: Normal Capillary Refill, Non-Tender, Tremors Neurological: Yes: Fully Oriented, Alert, Motor Strength 5/5 Integumentary: Yes: Normal Color, Dry, Warm, Track Erickson Lymphatic: Yes: Within Normal Limits - Diagnostic (1) Alcohol dependence with uncomplicated withdrawal Current Visit: Yes Status: Chronic (2) Cocaine dependence Current Visit: Yes Status: Chronic Qualifiers: Substance use status: uncomplicated Qualified Code(s): F14.20 - Cocaine dependence, uncomplicated (3) Insomnia Current Visit: Yes Status: Chronic Qualifiers: Insomnia type: unspecified Qualified Code(s): G47.00 - Insomnia, unspecified (4) Nicotine dependence Current Visit: Yes Status: Chronic Qualifiers: Nicotine product type: cigarettes Substance use status: in withdrawal Qualified Code(s): F17.213 - Nicotine dependence, cigarettes, with withdrawal (5) Opioid dependence on agonist therapy Current Visit: Yes Status: Chronic (6) Substance induced mood disorder Current Visit: Yes Status: Suspected (7) Asthma Current Visit: Yes Status: Chronic Qualifiers: Asthma severity: mild Asthma complication type: with status asthmaticus (8) Constipation Current Visit: Yes Status: Chronic Qualifiers: Constipation type: slow transit constipation Qualified Code(s): K59.01 - Slow transit constipation (9) Hemorrhoidal skin tag Current Visit: Yes Status: Chronic (10) GERD (gastroesophageal reflux disease) Current Visit: Yes Status: Acute (11) Skin turgor poor Current Visit: Yes Status: Acute Cleared for Admission BHS - Detox or Rehab [facility] Level of Care: Medically Managed Detox Regimen/Protocol: Librium Claeared for Rehab Admission: No BHS Breath Alcohol Content Breath Alcohol Content: 0 Urine Drug Screen - Results Drug Screen Negative: No Urine Drug Screen Results: LYLE-Cocaine, OPI-Opiates, MTD-Methadone, TCA- Tricyclic Antidepress
[2018-01-30] MEDS ORDERED: ALBUTEROL SO4 18 GM HFA INHALER IH PRN (21:26)
[2018-01-30] MEDS ORDERED: WITCH HAZEL 50% (TUCKS) 40 PAD/JAR PAD TP PRN (21:28)
[2018-01-30] MEDS ORDERED: PHENYLEPHRINE 0.25%/STARCH 1 EACH SUPP.RECT PR PRN (21:29)
[2018-01-30] MEDS ORDERED: MAGNESIUM HYDROX 2400MG/30ML ORAL SUSPENSION 30 ML CUP PO PRN (21:30)
[2018-01-30] MEDS ORDERED: MAGNESIUM CITRATE 300 ML BOTTLE PO PRN (21:30)
[2018-01-30] MEDS ORDERED: NICOTINE POLACRILEX 2 MG GUM BC PRN (21:30)
[2018-01-30] MEDS ORDERED: MENTHOL/PHENOL 1 EACH UD MM PRN (21:30)
[2018-01-30] MEDS ORDERED: LOPERAMIDE HCL 2 MG CAPSULE PO PRN (21:30)
[2018-01-30] MEDS ORDERED: IBUPROFEN 400 MG TABLET (FP) PO PRN (21:30)
[2018-01-30] MEDS ORDERED: MELATONIN 5 MG TABLETS PO PRN (22:00)
[2018-01-30] MEDS: chlordiazePOXIDE HCL 25 MG CAPSULE PO SCH (22:46)
[2018-01-30] MEDS: DOCUSATE SODIUM 100 MG CAPSULE (FP) PO SCH (22:47)
[2018-01-30] MEDS: THIAMINE HCL 100 MG TABLET (FP) PO SCH (22:47)
[2018-01-30] MEDS: BUDESONIDE/FORMETEROL FUMARATE 160/4.5 mcg INHALER IH SCH (22:47)
[2018-01-30 23:12] LABS: URINE APPEARANCE SLCLOUDY; URINE BILIRUBIN NEGATIVE (<2.0 mg/dL); URINE COLOR AMBER; URINE GLUCOSE (UA) NEGATIVE (NEGATIVE); URINE KETONE NEGATIVE (NEGATIVE); URINE LEUK ESTERASE NEGATIVE (NEGATIVE); URINE NITRITE NEGATIVE (NEGATIVE); URINE UROBILINOGEN 4.0 E.U/dl mg/dL (0.2-1.0)
[2018-01-30 23:13] LABS: URINE PROTEIN 1+ (NEGATIVE)
[2018-01-30 23:15] LABS: URINE MUCUS FEW
[2018-01-31] MEDS: chlordiazePOXIDE HCL 25 MG CAPSULE PO PRN ×4 (02:54→19:30)
[2018-01-31] MEDS: ACETAMINOPHEN 325 MG TABLET (FP) PO PRN (02:54)
[2018-01-31] MEDS: P-EPHED 60MG/TRIPROLIDI 2.5MG TABLET PO PRN (02:54)
[2018-01-31] MEDS: chlordiazePOXIDE HCL 25 MG CAPSULE PO SCH ×4 (05:29→22:31)
[2018-01-31] MEDS ORDERED: METHADONE HCL 10 MG TABLET PO SCH (08:45)
[2018-01-31] MEDS ORDERED: METHADONE 40 MG, METHADONE 20 MG, METHADONE 5 MG PO ONE (09:15)
[2018-01-31] MEDS ORDERED: METHADONE HCL 10 MG TABLET ONE (09:41)
[2018-01-31] MEDS ORDERED: METHADONE HCL 40 MG DISPERSABLE TABLET ONE (09:41)
[2018-01-31] MEDS ORDERED: METHADONE HCL 5 MG TABLET ONE (09:41)
[2018-01-31 10:00] LABS: HEMATOCRIT 35.5 % (35.4-49); HEMOGLOBIN 11.7 GM/dL (11.7-16.9); MCH 27.7 pg (25.7-33.7); MEAN PLT VOLUME 8.4 fl (7.5-11.1); PLATELET COUNT 200 K/MM3 (134-434); RBC 4.23 M/mm3 (4.00-5.60); RDW 15.1 % (11.9-15.9); WHITE BLOOD COUNT 6.8 K/mm3 (4.0-10.0)
[2018-01-31] MEDS: DOCUSATE SODIUM 100 MG CAPSULE (FP) PO SCH ×2 (10:51→22:31)
[2018-01-31] MEDS: BUDESONIDE/FORMETEROL FUMARATE 160/4.5 mcg INHALER IH SCH ×2 (10:51→22:33)
[2018-01-31] MEDS: PANTOPRAZOLE 20 MG TABLET (FP) PO SCH (10:51)
[2018-01-31] MEDS: PRENATAL VITAMINS W/ FOLIC ACID TABLET (FP) PO SCH (10:51)
[2018-01-31] MEDS: NICOTINE 21 MG/24 HOURS TOPICAL PATCH TD SCH (10:55)
[2018-01-31 11:06] LABS: CHLORIDE 104 mmol/L (98-107); SODIUM 143 mmol/L (136-145)
[2018-01-31 11:20] LABS: ALBUMIN 3.4 g/dl (3.4-5.0); ALK PHOS 69 U/L (45-117); ANION GAP 9 (8-16); BILIRUBIN,TOTAL 0.3 mg/dL (0.2-1.0); BLOOD UREA NITROGEN 10 mg/dL (7-18); CALCIUM 8.6 mg/dL (8.5-10.1); CO2 30 mmol/L (21-32); CREATININE 0.9 mg/dL (0.7-1.3); GLUCOSE,RANDOM 84 mg/dL (74-106); SGOT/AST 30 U/L (15-37); SGPT/ALT 35 U/L (12-78); TOT PROT 6.8 g/dl (6.4-8.2)
--- NOTE | 2018-01-31 11:41 | PN ---
S CIWA - CIWA Score Nausea/Vomitin Muscle Tremors: 3 Anxiety: 3 Agitation: 3 Paroxysmal Sweats: 1-Minimal Palms Moist Orientation: 0-Oriented Tacttile Disturbances: 1-Very Mild Itch/Numbness Auditory Disturbances: 1-Very Mild Visual Disturbances: 0-None Headache: 2-Mild CIWA-Ar Total Score: 17 BHS Progress Note (SOAP) Subjective: ALERT,IRRITABLE,ANXIOUS,INTERRUPTED SLEEP,TREMOR,PAIN IN THE BODY Objective: 01/31/18 11:37 Vital Signs Temperature 98.1 F 01/31/18 10:30 Pulse Rate 85 01/31/18 10:30 Respiratory Rate 20 01/31/18 10:30 Blood Pressure 103/58 01/31/18 10:30 O2 Sat by Pulse Oximetry (%) EKG NSR 95/MIN PROLONG QT 376/472 NO CHEST PAIN,NO SOB,NO DIZZINESS Laboratory Last Values WBC 6.8 K/mm3 (4.0-10.0) 01/31/18 07:00 RBC 4.23 M/mm3 (4.00-5.60) 01/31/18 07:00 Hgb 11.7 GM/dL (11.7-16.9) 01/31/18 07:00 Hct 35.5 % (35.4-49) 01/31/18 07:00 MCV 84.0 fl (80-96) 01/31/18 07:00 MCH 27.7 pg (25.7-33.7) 01/31/18 07:00 MCHC 33.0 g/dl (32.0-35.9) 01/31/18 07:00 RDW 15.1 % (11.9-15.9) 01/31/18 07:00 Plt Count 200 K/MM3 (134-434) 01/31/18 07:00 MPV 8.4 fl (7.5-11.1) 01/31/18 07:00 Sodium 143 mmol/L (136-145) 01/31/18 07:00 Potassium 4.0 mmol/L (3.5-5.1) 01/31/18 07:00 Chloride 104 mmol/L (98-107) 01/31/18 07:00 Carbon Dioxide 30 mmol/L (21-32) 01/31/18 07:00 Anion Gap 9 (8-16) 01/31/18 07:00 BUN 10 mg/dL (7-18) D 01/31/18 07:00 Creatinine 0.9 mg/dL (0.7-1.3) 01/31/18 07:00 Creat Clearance w eGFR > 60 (>60) 01/31/18 07:00 Random Glucose 84 mg/dL (74-106) D 01/31/18 07:00 Calcium 8.6 mg/dL (8.5-10.1) 01/31/18 07:00 Total Bilirubin 0.3 mg/dL (0.2-1.0) 01/31/18 07:00 AST 30 U/L (15-37) D 01/31/18 07:00 ALT 35 U/L (12-78) D 01/31/18 07:00 Alkaline Phosphatase 69 U/L (45-117) D 01/31/18 07:00 Total Protein 6.8 g/dl (6.4-8.2) 01/31/18 07:00 Albumin 3.4 g/dl (3.4-5.0) 01/31/18 07:00 Urine Color Shu 01/30/18 23:10 Urine Appearance Slcloudy 01/30/18 23:10 Urine pH 5.0 (5.0-8.0) 01/30/18 23:10 Ur Specific [place] 1.031 (1.001-1.035) 01/30/18 23:10 Urine Protein 1+ (NEGATIVE) H 01/30/18 23:10 Urine Glucose (UA) Negative (NEGATIVE) 01/30/18 23:10 Urine Ketones Negative (NEGATIVE) 01/30/18 23:10 Urine Blood Negative (NEGATIVE) 01/30/18 23:10 Urine Nitrite Negative (NEGATIVE) 01/30/18 23:10 Urine Bilirubin Negative (<2.0 mg/dL) 01/30/18 23:10 Urine Urobilinogen 4.0 e.u/dl mg/dL (0.2-1.0) 01/30/18 23:10 Ur Leukocyte Esterase Negative (NEGATIVE) 01/30/18 23:10 Urine WBC (Auto) 1 /hpf (3-5) 01/30/18 23:10 Urine RBC (Auto) <1 /hpf (0-3) 01/30/18 23:10 Urine Mucus Few 01/30/18 23:10 01/31/18 11:40 LABS PENDING Assessment: 01/31/18 11:40 WITHDRAWAL SYMPTOM Plan: CONTINUE DETOX
[2018-01-31] MEDS: guaiFENesin/D-METHORPHAN HB 10 ML UNIT-DOSE CUPS PO PRN (12:22)
--- NOTE | 2018-01-31 13:08 | CONSULT ---
[facility] Psychiatric Consult - Data Date of interview: 01/31/18 Admission source: 01/31/18 Identifying data: Patient is a 32 year old male, father of one, unemployed (not receiving financial assistance), and staying at the [facility] inpatient prison. This is one of multiple admissions for patient. Pt. admitted to for alcohol, cocaine, and opiates dependence. Substance Abuse History: Following information confirmed with : Smoking Cessation. Smoking history: Current every day smoker. Have you smoked in the past 12 months: Yes. Aproximately how many cigarettes per day: 20. Cigars Per Day: 0. Hx Chewing Tobacco Use: No. Initiated information on smoking cessation: Yes. 'Breaking Loose' booklet given: 01/30/18. - Substance & Tx. History. Hx Alcohol Use: Yes. Hx Substance Use: Yes. Substance Use Type : Alcohol, Cocaine, Heroin (ON MMTP), Prescribed (METHADONE). Hx Substance Use Treatment: Yes ([facility]). - Substances Abused. Alcohol. Route: Oral. Frequency: Daily. Amount used: liquor- 4 pints, beer- 1 six pack. Age of first use: 21. Date of Last Use: 01/29/18. COCAINE. Route: Injection. Frequency: 3-6 times per week. Amount used: 1/2 GRAM. Age of first use: 27. Date of Last Use: 01/29/18 Medical History: Asthma, acid reflux Psychiatric History: Patient denies h/o psychiatric hospitalizations but did report one psychiatric emergency room visit "years ago" at [facility] [place] in [place]. OPD care is provided at the [facility] in the [place]. As per previous entries, patient reported multiple psychiatric hospitalizations but denied it to sports book writer when asked. Patient reports a diagnosis of anxiety and depression. Pt. reports being prescribed seroquel 300mg qhs + Buspar 30mg PO daily + Gabapentin 400mg TID. Pt. reports taking his medications yesterday before admission. Pt. denies h/o suicide attempts. Physical/Sexual Abuse/Trauma History: Denies. Mental Status Exam - Mental Status Exam Alert and Oriented to: Time, Place, Person Cognitive Function: Good Patient Appearance: Unkempt Mood: Euthymic Affect: Mood Congruent Patient Behavior: Appropriate, Cooperative Speech Pattern: Appropriate Voice Loudness: Normal Thought Process: Goal Oriented Thought Disorder: Not Present Hallucinations: Denies Suicidal Ideation: Denies Homicidal Ideation: Denies Insight/Judgement: Poor Sleep: Poorly Appetite: Fair Muscle strength/Tone: Normal Gait/Station: Normal Psychiatric Findings - Problem List ([place] 1, 2,3) (1) Alcohol dependence with uncomplicated withdrawal Current Visit: Yes Status: Acute (2) Cocaine dependence Current Visit: Yes Status: Chronic Qualifiers: Substance use status: uncomplicated Qualified Code(s): F14.20 - Cocaine dependence, uncomplicated (3) Substance induced mood disorder Current Visit: Yes Status: Acute (4) Insomnia Current Visit: Yes Status: Chronic Qualifiers: Insomnia type: unspecified Qualified Code(s): G47.00 - Insomnia, unspecified (5) Nicotine dependence Current Visit: Yes Status: Chronic Qualifiers: Nicotine product type: cigarettes Substance use status: in withdrawal Qualified Code(s): F17.213 - Nicotine dependence, cigarettes, with withdrawal (6) Opioid dependence on agonist therapy Current Visit: Yes Status: Chronic - Initial Treatment Plan Initial Treatment Plan: Psychoeducation provided. Buspar 30mg PO daily + Gabapentin 200mg TID + Seroquel 300mg qhs ordered. Benefits and side effects discussed. Verbal consent given. Will continue to monitor.
[2018-01-31] MEDS: GABAPENTIN 100 MG CAPSULE (FP) PO SCH ×2 (14:32→22:31)
[2018-01-31] MEDS: MAG HYDROX/AL HYDROX/SIMETH 30 ML UNIT-DOSE CUP PO PRN (15:13)
[2018-01-31] MEDS: QUEtiapine FUMARATE 300 MG TABLET PO SCH (22:31)
[2018-01-31] MEDS: THIAMINE HCL 100 MG TABLET (FP) PO SCH (22:31)
[2018-02-01] MEDS ORDERED: METHADONE HCL 5 MG TABLET ONE (05:16)
[2018-02-01] MEDS ORDERED: METHADONE HCL 40 MG DISPERSABLE TABLET ONE (05:17)
[2018-02-01] MEDS ORDERED: METHADONE HCL 10 MG TABLET ONE (05:17)
[2018-02-01] MEDS: chlordiazePOXIDE HCL 25 MG CAPSULE PO SCH ×3 (05:43→17:10)
[2018-02-01] MEDS: GABAPENTIN 100 MG CAPSULE (FP) PO SCH ×3 (05:43→22:19)
[2018-02-01] MEDS: METHADONE 40 MG, METHADONE 20 MG, METHADONE 5 MG PO SCH (05:43)
[2018-02-01] MEDS: ACETAMINOPHEN 325 MG TABLET (FP) PO PRN ×3 (06:51→19:28)
--- NOTE | 2018-02-01 09:49 | EKG ---
Test Reason : Blood Pressure : / mmHG Vent. Rate : 095 BPM Atrial Rate : 095 BPM P-R Int : 154 ms QRS Dur : 098 ms QT Int : 376 ms P-R-T Axes : 073 077 046 degrees QTc Int : 472 ms NORMAL SINUS RHYTHM NONSPECIFIC T WAVE ABNORMALITY ABNORMAL ECG WHEN COMPARED WITH ECG OF 06-DEC-2017 22:35, NONSPECIFIC T WAVE ABNORMALITY NOW EVIDENT IN ANTERIOR LEADS Confirmed by DIOMEDES MURRAY, VALERIY ([id number]) on 02/01/2018 9:48:51 AM Referred By: Confirmed By:VALERIY HERCULES MD
--- NOTE | 2018-02-01 10:25 | PN ---
S CIWA - CIWA Score Nausea/Vomitin Muscle Tremors: 3 Anxiety: 2 Agitation: 2 Paroxysmal Sweats: 1-Minimal Palms Moist Orientation: 0-Oriented Tacttile Disturbances: 1-Very Mild Itch/Numbness Auditory Disturbances: 1-Very Mild Visual Disturbances: 0-None Headache: 2-Mild CIWA-Ar Total Score: 15 BHS Progress Note (SOAP) Subjective: ALERT,IRRITABLE,ANXIOUS,INTERRUPTED SLEEP,CONSTIPATION Objective: 02/01/18 10:22 Vital Signs Temperature 99.1 F 02/01/18 09:22 Pulse Rate 107 H 02/01/18 09:22 Respiratory Rate 20 02/01/18 09:22 Blood Pressure 98/65 02/01/18 09:22 O2 Sat by Pulse Oximetry (%) Laboratory Last Values WBC 6.8 K/mm3 (4.0-10.0) 01/31/18 07:00 RBC 4.23 M/mm3 (4.00-5.60) 01/31/18 07:00 Hgb 11.7 GM/dL (11.7-16.9) 01/31/18 07:00 Hct 35.5 % (35.4-49) 01/31/18 07:00 MCV 84.0 fl (80-96) 01/31/18 07:00 MCH 27.7 pg (25.7-33.7) 01/31/18 07:00 MCHC 33.0 g/dl (32.0-35.9) 01/31/18 07:00 RDW 15.1 % (11.9-15.9) 01/31/18 07:00 Plt Count 200 K/MM3 (134-434) 01/31/18 07:00 MPV 8.4 fl (7.5-11.1) 01/31/18 07:00 Sodium 143 mmol/L (136-145) 01/31/18 07:00 Potassium 4.0 mmol/L (3.5-5.1) 01/31/18 07:00 Chloride 104 mmol/L (98-107) 01/31/18 07:00 Carbon Dioxide 30 mmol/L (21-32) 01/31/18 07:00 Anion Gap 9 (8-16) 01/31/18 07:00 BUN 10 mg/dL (7-18) D 01/31/18 07:00 Creatinine 0.9 mg/dL (0.7-1.3) 01/31/18 07:00 Creat Clearance w eGFR > 60 (>60) 01/31/18 07:00 Random Glucose 84 mg/dL (74-106) D 01/31/18 07:00 Calcium 8.6 mg/dL (8.5-10.1) 01/31/18 07:00 Total Bilirubin 0.3 mg/dL (0.2-1.0) 01/31/18 07:00 AST 30 U/L (15-37) D 01/31/18 07:00 ALT 35 U/L (12-78) D 01/31/18 07:00 Alkaline Phosphatase 69 U/L (45-117) D 01/31/18 07:00 Total Protein 6.8 g/dl (6.4-8.2) 01/31/18 07:00 Albumin 3.4 g/dl (3.4-5.0) 01/31/18 07:00 Urine Color Shu 01/30/18 23:10 Urine Appearance Slcloudy 01/30/18 23:10 Urine pH 5.0 (5.0-8.0) 01/30/18 23:10 Ur Specific [place] 1.031 (1.001-1.035) 01/30/18 23:10 Urine Protein 1+ (NEGATIVE) H 01/30/18 23:10 Urine Glucose (UA) Negative (NEGATIVE) 01/30/18 23:10 Urine Ketones Negative (NEGATIVE) 01/30/18 23:10 Urine Blood Negative (NEGATIVE) 01/30/18 23:10 Urine Nitrite Negative (NEGATIVE) 01/30/18 23:10 Urine Bilirubin Negative (<2.0 mg/dL) 01/30/18 23:10 Urine Urobilinogen 4.0 e.u/dl mg/dL (0.2-1.0) 01/30/18 23:10 Ur Leukocyte Esterase Negative (NEGATIVE) 01/30/18 23:10 Urine WBC (Auto) 1 /hpf (3-5) 01/30/18 23:10 Urine RBC (Auto) <1 /hpf (0-3) 01/30/18 23:10 Urine Mucus Few 01/30/18 23:10 HIV 1&2 Antibody Screen Negative 01/31/18 07:00 HIV P24 Antigen Negative 01/31/18 07:00 02/01/18 10:23 RPR PENDING Assessment: 02/01/18 10:23 WITHDRAWAL SYMPTOM Plan: CONTINUE DETOX,ENCOURAGE ORAL FLUID
[2018-02-01] MEDS: BUDESONIDE/FORMETEROL FUMARATE 160/4.5 mcg INHALER IH SCH ×2 (10:45→22:20)
[2018-02-01] MEDS: PRENATAL VITAMINS W/ FOLIC ACID TABLET (FP) PO SCH (10:45)
[2018-02-01] MEDS: PANTOPRAZOLE 20 MG TABLET (FP) PO SCH (10:45)
[2018-02-01] MEDS: NICOTINE 21 MG/24 HOURS TOPICAL PATCH TD SCH (10:45)
[2018-02-01] MEDS: DOCUSATE SODIUM 100 MG CAPSULE (FP) PO SCH ×2 (13:21→22:19)
[2018-02-01] MEDS: chlordiazePOXIDE HCL 25 MG CAPSULE PO PRN ×2 (13:21→19:28)
[2018-02-01] MEDS: hydrOXYzine PAMOATE 50 MG CAPSULE (FP) PO PRN (14:15)
[2018-02-01] MEDS: guaiFENesin/D-METHORPHAN HB 10 ML UNIT-DOSE CUPS PO PRN (17:55)
[2018-02-01] MEDS: P-EPHED 60MG/TRIPROLIDI 2.5MG TABLET PO PRN (17:55)
[2018-02-01] MEDS: MAG HYDROX/AL HYDROX/SIMETH 30 ML UNIT-DOSE CUP PO PRN (19:29)
[2018-02-01] MEDS: chlordiazePOXIDE 5 MG CAPSULE PO SCH (22:19)
[2018-02-01] MEDS: QUEtiapine FUMARATE 300 MG TABLET PO SCH (22:19)
[2018-02-01] MEDS: THIAMINE HCL 100 MG TABLET (FP) PO SCH (22:19)
[2018-02-02] MEDS ORDERED: METHADONE HCL 40 MG DISPERSABLE TABLET ONE (04:29)
[2018-02-02] MEDS ORDERED: METHADONE HCL 10 MG TABLET ONE (04:29)
[2018-02-02] MEDS ORDERED: METHADONE HCL 5 MG TABLET ONE (04:29)
[2018-02-02] MEDS: METHADONE 40 MG, METHADONE 20 MG, METHADONE 5 MG PO SCH (06:16)
[2018-02-02] MEDS: GABAPENTIN 100 MG CAPSULE (FP) PO SCH ×3 (06:17→22:46)
[2018-02-02] MEDS: chlordiazePOXIDE 5 MG CAPSULE PO SCH ×3 (06:17→17:10)
[2018-02-02] MEDS: DOCUSATE SODIUM 100 MG CAPSULE (FP) PO SCH ×3 (06:17→22:46)
[2018-02-02] MEDS: PANTOPRAZOLE 20 MG TABLET (FP) PO SCH (10:25)
[2018-02-02] MEDS: PRENATAL VITAMINS W/ FOLIC ACID TABLET (FP) PO SCH (10:25)
[2018-02-02] MEDS: NICOTINE 21 MG/24 HOURS TOPICAL PATCH TD SCH (10:25)
[2018-02-02] MEDS: BUDESONIDE/FORMETEROL FUMARATE 160/4.5 mcg INHALER IH SCH ×2 (10:25→22:48)
[2018-02-02] MEDS: ACETAMINOPHEN 325 MG TABLET (FP) PO PRN ×2 (10:27→19:27)
[2018-02-02] MEDS: hydrOXYzine PAMOATE 50 MG CAPSULE (FP) PO PRN (10:56)
--- NOTE | 2018-02-02 11:12 | PN ---
S Progress Note (SOAP) Subjective: ALERT,RUNNING TEMPERATURE,COUGHING,YELLOWISH MUCOUS Objective: 02/02/18 11:09 Vital Signs Temperature 100 F H 02/02/18 09:29 Pulse Rate 93 H 02/02/18 09:29 Respiratory Rate 18 02/02/18 09:29 Blood Pressure 134/72 02/02/18 09:29 O2 Sat by Pulse Oximetry (%) Assessment: 02/02/18 11:10 WITHDRAWAL SYMPTOM 02/02/18 11:10 LUNG NO WHEEZING Plan: CONTINUE DETOX,AUGMENTIN 875 MGS PO BID FOR 7 DAYS FOR BRONCHITIS,CHEST XRAY TODAY,DISCHARGE IN AM
[2018-02-02] MEDS ORDERED: AMOX TR/POT CLAV 875MG/125MG TABLETS (FP) PO ONE (11:30)
[2018-02-02] MEDS ORDERED: AMOX TR/POT CLAV 875MG/125MG TABLETS (FP) PO SCH (11:30)
[2018-02-02] MEDS: P-EPHED 60MG/TRIPROLIDI 2.5MG TABLET PO PRN (11:34)
[2018-02-02] MEDS: chlordiazePOXIDE HCL 25 MG CAPSULE PO PRN ×2 (14:25→19:28)
[2018-02-02] MEDS: AMOX TR/POT CLAV 875MG/125MG TABLETS (FP) PO SCH (17:10)
[2018-02-02] MEDS: QUEtiapine FUMARATE 300 MG TABLET PO SCH (22:46)
[2018-02-02] MEDS: chlordiazePOXIDE HCL 10 MG CAPSULE PO SCH (22:46)
[2018-02-02] MEDS: THIAMINE HCL 100 MG TABLET (FP) PO SCH (22:46)
[2018-02-03] MEDS ORDERED: METHADONE HCL 5 MG TABLET ONE (05:27)
[2018-02-03] MEDS ORDERED: METHADONE HCL 10 MG TABLET ONE (05:27)
[2018-02-03] MEDS ORDERED: METHADONE HCL 40 MG DISPERSABLE TABLET ONE (05:27)
[2018-02-03] MEDS: METHADONE 40 MG, METHADONE 20 MG, METHADONE 5 MG PO SCH (06:20)
[2018-02-03] MEDS: chlordiazePOXIDE HCL 10 MG CAPSULE PO SCH ×2 (06:20→10:18)
[2018-02-03] MEDS: GABAPENTIN 100 MG CAPSULE (FP) PO SCH (06:20)
[2018-02-03] MEDS: DOCUSATE SODIUM 100 MG CAPSULE (FP) PO SCH (06:20)
[2018-02-03] MEDS: AMOX TR/POT CLAV 875MG/125MG TABLETS (FP) PO SCH (07:21)
[2018-02-03] MEDS: MAG HYDROX/AL HYDROX/SIMETH 30 ML UNIT-DOSE CUP PO PRN (09:09)
--- NOTE | 2018-02-03 09:56 | PN ---
S Progress Note (SOAP) Subjective: ALERT,NO COMPLAINT Objective: 02/03/18 09:52 Vital Signs Temperature 95.0 F L 02/03/18 07:05 Pulse Rate 83 02/03/18 07:05 Respiratory Rate 16 02/03/18 07:05 Blood Pressure 124/68 02/03/18 07:05 O2 Sat by Pulse Oximetry (%) CHEST XRAY ON 02/02/18 QUESTIONABLE EARLY RIGHT UPPER LOBE INFILTATION Assessment: 02/03/18 09:55 DETOX COMPLETED,NO WITHDRAWAL SYMPTOM Plan: DISCHARGE TODAY,FOLLOW UP WITH AFTER CARE PROGRAM ARRANGEMENT
--- NOTE | 2018-02-03 10:03 | DS ---
[facility] Detox Discharge Summary Admission Date: 01/30/18 Discharge Date: 02/03/18 - History Present History: Alcohol Dependence, Cocaine Dependence, MMTP Additional Comments: FOLLOW UP WITH AFTER CARE PROGRAM ARRANGEMENT Pertinent Past History: ASTHMA GERD CONSTIPATION ACUTE BRONCHITIS PNEUMONIA - Physical Exam Results Vital Signs: Vital Signs Temperature 95.0 F L 02/03/18 07:05 Pulse Rate 83 02/03/18 07:05 Respiratory Rate 16 02/03/18 07:05 Blood Pressure 124/68 02/03/18 07:05 O2 Sat by Pulse Oximetry (%) Pertinent Admission Physical Exam Findings: WITHDRAWAL SIGNS AND SYMPTOM Vital Signs Temperature 95.0 F L 02/03/18 07:05 Pulse Rate 83 02/03/18 07:05 Respiratory Rate 16 02/03/18 07:05 Blood Pressure 124/68 02/03/18 07:05 O2 Sat by Pulse Oximetry (%) Laboratory Last Values WBC 6.8 K/mm3 (4.0-10.0) 01/31/18 07:00 RBC 4.23 M/mm3 (4.00-5.60) 01/31/18 07:00 Hgb 11.7 GM/dL (11.7-16.9) 01/31/18 07:00 Hct 35.5 % (35.4-49) 01/31/18 07:00 MCV 84.0 fl (80-96) 01/31/18 07:00 MCH 27.7 pg (25.7-33.7) 01/31/18 07:00 MCHC 33.0 g/dl (32.0-35.9) 01/31/18 07:00 RDW 15.1 % (11.9-15.9) 01/31/18 07:00 Plt Count 200 K/MM3 (134-434) 01/31/18 07:00 MPV 8.4 fl (7.5-11.1) 01/31/18 07:00 Sodium 143 mmol/L (136-145) 01/31/18 07:00 Potassium 4.0 mmol/L (3.5-5.1) 01/31/18 07:00 Chloride 104 mmol/L (98-107) 01/31/18 07:00 Carbon Dioxide 30 mmol/L (21-32) 01/31/18 07:00 Anion Gap 9 (8-16) 01/31/18 07:00 BUN 10 mg/dL (7-18) D 01/31/18 07:00 Creatinine 0.9 mg/dL (0.7-1.3) 01/31/18 07:00 Creat Clearance w eGFR > 60 (>60) 01/31/18 07:00 Random Glucose 84 mg/dL (74-106) D 01/31/18 07:00 Calcium 8.6 mg/dL (8.5-10.1) 01/31/18 07:00 Total Bilirubin 0.3 mg/dL (0.2-1.0) 01/31/18 07:00 AST 30 U/L (15-37) D 01/31/18 07:00 ALT 35 U/L (12-78) D 01/31/18 07:00 Alkaline Phosphatase 69 U/L (45-117) D 01/31/18 07:00 Total Protein 6.8 g/dl (6.4-8.2) 01/31/18 07:00 Albumin 3.4 g/dl (3.4-5.0) 01/31/18 07:00 Urine Color Shu 01/30/18 23:10 Urine Appearance Slcloudy 01/30/18 23:10 Urine pH 5.0 (5.0-8.0) 01/30/18 23:10 Ur Specific [place] 1.031 (1.001-1.035) 01/30/18 23:10 Urine Protein 1+ (NEGATIVE) H 01/30/18 23:10 Urine Glucose (UA) Negative (NEGATIVE) 01/30/18 23:10 Urine Ketones Negative (NEGATIVE) 01/30/18 23:10 Urine Blood Negative (NEGATIVE) 01/30/18 23:10 Urine Nitrite Negative (NEGATIVE) 01/30/18 23:10 Urine Bilirubin Negative (<2.0 mg/dL) 01/30/18 23:10 Urine Urobilinogen 4.0 e.u/dl mg/dL (0.2-1.0) 01/30/18 23:10 Ur Leukocyte Esterase Negative (NEGATIVE) 01/30/18 23:10 Urine WBC (Auto) 1 /hpf (3-5) 01/30/18 23:10 Urine RBC (Auto) <1 /hpf (0-3) 01/30/18 23:10 Urine Mucus Few 01/30/18 23:10 RPR Titer Nonreactive (NONREACTIVE) 01/31/18 07:00 HIV 1&2 Antibody Screen Negative 01/31/18 07:00 HIV P24 Antigen Negative 01/31/18 07:00 - Treatment Hospital Course: Detox Protocol Followed, Detoxed Safely, Responded well, Discharged Condition Good - Medication Discharge Medications: Ambulatory Orders Quetiapine Fumarate [Seroquel -] 300 mg PO HS #30 tab 08/02/17 Chlorhexidine Gluconate 0.5 oz PO BID 08/10/17 Salmeterol/Fluticasone [Advair 100Mcg/50Mcg -] 1 inh PO BID #1 inh 08/22/17 Benzoyl Peroxide [Foaming Acne Face Wash] 227 gm TP WEEKLY PRN 12/08/17 Clindamycin Po4 1% Top Lotion [Cleocin T] 60 ml TP DAILY 12/08/17 Clobetasol Propionate [Cormax] 50 ml TP DAILY 12/08/17 Albuterol Sulfate Inhaler - [Ventolin HFA Inhaler -] 2 puff IH Q4H PRN #1 inhaler 12/09/17 Buspirone HCl [Buspar -] 30 mg PO DAILY #30 tablet 12/10/17 Docusate Sodium [Colace] 100 mg PO BID 30 Days #60 capsule 12/10/17 Quetiapine Fumarate [Seroquel -] 300 mg PO HS #30 tablet 12/10/17 - Diagnosis (1) Alcohol dependence with uncomplicated withdrawal Current Visit: Yes Status: Acute (2) GERD (gastroesophageal reflux disease) Current Visit: Yes Status: Acute (3) Asthma Current Visit: Yes Status: Chronic Qualifiers: Asthma severity: mild Asthma complication type: with status asthmaticus (4) Cocaine dependence Current Visit: Yes Status: Chronic Qualifiers: Substance use status: uncomplicated Qualified Code(s): F14.20 - Cocaine dependence, uncomplicated (5) Nicotine dependence Current Visit: Yes Status: Chronic Qualifiers: Nicotine product type: cigarettes Substance use status: in withdrawal Qualified Code(s): F17.213 - Nicotine dependence, cigarettes, with withdrawal (6) Opioid dependence on agonist therapy Current Visit: Yes Status: Chronic (7) Type 2 diabetes mellitus Current Visit: No Status: Acute (8) Constipation Current Visit: Yes Status: Chronic Qualifiers: Constipation type: slow transit constipation Qualified Code(s): K59.01 - Slow transit constipation (9) Dehydration Current Visit: Yes Status: Acute (10) Acute bronchitis Current Visit: Yes Status: Acute (11) Pneumonia Current Visit: Yes Status: Acute - AMA Did Patient Leave Against Medical Advice: No
[2018-02-03] MEDS: PANTOPRAZOLE 20 MG TABLET (FP) PO SCH (10:17)
[2018-02-03] MEDS: PRENATAL VITAMINS W/ FOLIC ACID TABLET (FP) PO SCH (10:18)
[2018-02-03] MEDS: BUDESONIDE/FORMETEROL FUMARATE 160/4.5 mcg INHALER IH SCH (10:19)
[2018-02-03] MEDS: NICOTINE 21 MG/24 HOURS TOPICAL PATCH TD SCH (10:19)
[2018-02-03 10:22] VITALS: BP 131/62; PULSE 93; TEMP 99
[2018-02-03] MEDS ORDERED: LACTULOSE 20 GM/30 ML UDC (FOR ORAL USE ONLY) PO ONE (10:30)
== END 2018-02-03 10:27 | disposition home or self-care (01) | DRG 773 ==
LOC: YASAS 18:41 → Y6N 20:47
PROVIDERS: ADMIT Internal Medicine; ATTEND Internal Medicine
PROC: HZ2ZZZZ Detoxification Services for Substance Abuse Treatment (ICD-10-PCS; principal; 2018-01-30)
DX: F11.20 Opioid dependence, uncomplicated (principal); F10.230 Alcohol dependence with withdrawal, uncomplicated; F14.20 Cocaine dependence, uncomplicated; F17.210 Nicotine dependence, cigarettes, uncomplicated; K21.9 Gastro-esophageal reflux disease without esophagitis; J45.22 Mild intermittent asthma with status asthmaticus; J20.9 Acute bronchitis, unspecified; J18.9 Pneumonia, unspecified organism; K64.4 Residual hemorrhoidal skin tags; K59.01 Slow transit constipation; E86.0 Dehydration; G47.00 Insomnia, unspecified; R23.8 Other skin changes
CPT/HCPCS: 36415; 71045-TC-FY; 80053; 81003; 81015; 85027; 86593; 87389; 93005; 93010

== ENCOUNTER 2018-04-05 10:54 | Inpatient (IN) | payer OTHER ==
[2018-04-05 11:01] VITALS: BMI 24.8
--- NOTE | 2018-04-05 12:58 | HP ---
COWS - Scale Resting Pulse: 1= OR 81-100 Sweatin= Beads of Sweat on Face Restless Observation: 1= Difficult to Sit Still Pupil Size: 0= Normal to Room Light Bone or Joint Aches: 1= Mild Discomfort Runny Nose/ Eye Tearin= Nasal Congestion GI Upset > 30mins: 0= None Tremor Observation: 2= Slight Tremor Visible Yawning Observation: 0= None Anxiety or Irritability: 2=Irritable/Anxious Goose Flesh Skin: 0=Smooth Skin COWS Score: 11 CIWA Score - CIWA Score Nausea/Vomitin-No Nausea/No Vomiting Muscle Tremors: 4-Moderate,w/Arms Extend Anxiety: 4-Mod. Anxious/Guarded Agitation: 4-Moderately Restless Paroxysmal Sweats: 4-Forehead w/Sweat Beads Orientation: 0-Oriented Tacttile Disturbances: 0-None Auditory Disturbances: 0-None Visual Disturbances: 0-None Headache: 0-None Present CIWA-Ar Total Score: 16 Admission ROS [facility] - HPI Chief Complaint: Here for alcohol withdrawal. Allergies/Adverse Reactions: Allergies Allergy/AdvReac Type Severity Reaction Status Date / Time shellfish derived Allergy Severe Swelling Verified 01/30/18 20:47 No Known Drug Allergies Allergy Verified 01/30/18 20:47 History of Present Illness: 32 yom w/ hx alcohol use since age 19, cocaine use, currently IV, since age 25, opiate use, currently IV, since age 28. On [facility] M[facility] but uses heroin as well. States missed methadone dosing on 04/04 and 04/05. States is on methadone 70 mg PO daily. Hx blackout r/t alcohol use. Denies seizures. Hx. asthma w/ frequent exacerbations and on meds. States hx hemorrhoids and uses Prep H weekly. Hx acid reflux and takes OTC Nexium. Denies bloody or black stools. State has been able to maintain sobriety for 4 months after detox. States I want to get myself together. Recent tooth removal and has difficulty chewing. Exam Limitations: No Limitations - Ebola screening Have you traveled outside of the country in the last 21 days: No Have you had contact with anyone from an Ebola affected area: No Have you been sick,other than usual withdrawal symptoms: No Do you have a fever: No - Review of Systems Constitutional: Changes in sleep (Difficulty falling and staying asleep. No meds at this time. In past used se) EENT: reports: Dental Problems (Missing many teeth. Tooth extraction 03/28/18 and gums are still sore. Has difficulty chewing.) Respiratory: reports: Other (Hx. asthma on meds. Exacerbation 2 days ago as evidenced by SOB and wheezing. Takes symbicort daily and albuterol as needed.) Cardiac: reports: No Symptoms Reported GI: reports: Constipated (On colace. BM q 3 days. BM's brown. Denies bleeding.) , Other (Hx internal hemorrhoids uses Prep H weekly.) : reports: No Symptoms Reported Musculoskeletal: reports: Back Pain (minor w/ withdrawal), Muscle Weakness (w/ withdrawal) Integumentary: reports: No Symptoms Reported Neuro: reports: Tremors (w/ withdrawal) Endocrine: reports: No Symptoms Reported Hematology: reports: No Symptoms Reported Psychiatric: reports: Orientated x3, Agitated (w/ withdrawal), Anxious (States gabapentin for anxiety.), Depressed (Hx depression 7 years ago r/t grief and was treated for a short time w/ Zoloft. Denies suicide or violent ideation.) Patient History - Patient Medical History Hx Anemia: No Hx Asthma: Yes (exacerbation 2 days ago) Hx Chronic Obstructive Pulmonary Disease (COPD): No Hx Cancer: No Hx Cardiac Disorders: No Hx Congestive Heart Failure: No Hx Hypertension: No Hx Hypercholesterolemia: No Hx Pacemaker: No HX Cerebrovascular Accident: No Hx Seizures: No Hx Dementia: No Hx Diabetes: No Hx Gastrointestinal Disorders: Yes (ACID REFLUX - rx w/ OTC nexium) Hx Liver Disease: No Hx Genitourinary Disorders: No Hx Sexually Transmitted Disorders: No Hx Renal Disease (ESRD): No Hx Thyroid Disease: No Hx Human Immunodeficiency Virus (HIV): No Hx Hepatitis C: No (negative) Hx Depression: Yes (Denies suicide or violent ideation) Hx Suicide Attempt: No Hx Bipolar Disorder: No Hx Schizophrenia: No - Patient Surgical History Past Surgical History: No Hx Neurologic Surgery: No Hx Cataract Extraction: No Hx Cardiac Surgery: No Hx Lung Surgery: No Hx Breast Surgery: No Hx Breast Biopsy: No Hx Abdominal Surgery: No Hx Appendectomy: No Hx Cholecystectomy: No Hx Genitourinary Surgery: No Hx Section: No Hx Orthopedic Surgery: No Anesthesia Reaction: No - PPD History Date: 02/23/17 Results: 0 mm PPD to be Administered?: Yes - Smoking Cessation Smoking history: Current every day smoker Have you smoked in the past 12 months: Yes Aproximately how many cigarettes per day: 20 Cigars Per Day: 0 Hx Chewing Tobacco Use: No Initiated information on smoking cessation: Yes 'Breaking Loose' booklet given: 04/05/18 - Substance & Tx. History Hx Alcohol Use: Yes Hx Substance Use: Yes Substance Use Type: Alcohol, Cocaine, Heroin, Opiates Hx Substance Use Treatment: Yes (Detox's; On [facility]) - Substances Abused Alcohol Route: Oral Frequency: Daily Amount used: 1-2 pints liquor Age of first use: 19 Date of Last Use: 04/04/18 (7 pm) Benzodiazepine (Klonopin) Route: Oral Frequency: Daily Amount used: 2 - 8 mg Age of first use: 31 Date of Last Use: 04/04/18 Alprazolam (Xanax) Route: Oral Frequency: Daily Amount used: 2- 8 mg Age of first use: 31 Date of Last Use: 04/04/18 Heroin Route: Injection (IV) Frequency: Daily Amount used: 2-3 bags Age of first use: 28 Date of Last Use: 04/05/18 (2 am) Cocaine Route: Injection (IV) Frequency: 1-2 times per week Amount used: 1 gm Age of first use: 25 Date of Last Use: 04/03/18 Family Disease History - Family Disease History Family Disease History: Diabetes: Mother (living, ), Other: Father (living, healthy), Mother, Sister (1 living - healthy), Daughter (age 7 - healthy) Admission Physical Exam [facility] - Vital Signs Vital Signs: Vital Signs - 24 hr 04/05/18 11:00 Temperature 99.3 F Pulse Rate 100 H Respiratory 18 Rate Blood Pressure 115/70 - Physical General Appearance: Yes: Appropriately Dressed, Tremorous, Sweating ( Perspiration only on forehead), Anxious HEENTM: Yes: EOMI, Hearing grossly Normal, Normocephalic, Normal Voice, JONATHON, Other (Dry mouth. Thick whitish saliva. Multiple missing teeth. Gums w/o lesions or edema.) Respiratory: Yes: Lungs Clear, Normal Breath Sounds, No Respiratory Distress, No Accessory Muscle Use Neck: Yes: No masses,lesions,Nodules, Supple Breast: Yes: Breast Exam Deferred Cardiology: Yes: Regular Rhythm, Regular Rate, S1, S2, Tachycardia Abdominal: Yes: Normal Bowel Sounds, Non Tender, Flat, Soft Genitourinary: Yes: Within Normal Limits Back: Yes: Normal Inspection Musculoskeletal: Yes: full range of Motion, Gait Steady Extremities: Yes: Normal Capillary Refill, Normal Range of Motion, Non-Tender, Tremors Neurological: Yes: production worker II-XII NML intact, Fully Oriented, Alert, Motor Strength 5/5 Integumentary: Yes: Normal Color, Dry (Dry oral cavity and decreased skin turgor.), Warm, Track Allen (Old and new track allen on both arms.) Lymphatic: Yes: Within Normal Limits - Diagnostic (1) Nicotine dependence with withdrawal Current Visit: Yes Status: Acute Qualifiers: Nicotine product type: cigarettes Qualified Code(s): F17.213 - Nicotine dependence, cigarettes, with withdrawal (2) Hemorrhoids without complication Current Visit: No Status: Chronic (3) Alcohol dependence with uncomplicated withdrawal Current Visit: Yes Status: Acute (4) Dehydration Current Visit: Yes Status: Acute (5) GERD (gastroesophageal reflux disease) Current Visit: Yes Status: Chronic Qualifiers: Esophagitis presence: esophagitis presence not specified Qualified Code(s) : K21.9 - Gastro-esophageal reflux disease without esophagitis (6) Sedative, hypnotic or anxiolytic dependence with withdrawal, uncomplicated Current Visit: Yes Status: Acute (7) Cocaine dependence Current Visit: Yes Status: Chronic Qualifiers: Substance use status: uncomplicated Qualified Code(s): F14.20 - Cocaine dependence, uncomplicated (8) Constipation Current Visit: Yes Status: Chronic Qualifiers: Constipation type: unspecified constipation type Qualified Code(s): K59.00 - Constipation, unspecified (9) Opioid dependence on agonist therapy Current Visit: Yes Status: Chronic (10) Opioid dependence with withdrawal Current Visit: Yes Status: Acute Cleared for Admission S - Detox or Rehab [facility] Level of Care: Medically Managed Detox Regimen/Protocol: Librium [facility] Breath Alcohol Content Breath Alcohol Content: 0 Urine Drug Screen - Results Drug Screen Negative: No Urine Drug Screen Results: LLYE-Cocaine, OPI-Opiates, BZO-Benzodiazepines, MTD- Methadone, OXY-Oxycodone
[2018-04-05] MEDS ORDERED: MAGNESIUM HYDROX 2400MG/30ML ORAL SUSPENSION 30 ML CUP PO PRN (13:38)
[2018-04-05] MEDS ORDERED: MAG HYDROX/AL HYDROX/SIMETH 30 ML UNIT-DOSE CUP PO PRN (13:38)
[2018-04-05] MEDS ORDERED: IBUPROFEN 400 MG TABLET (FP) PO PRN (13:38)
[2018-04-05] MEDS ORDERED: guaiFENesin/D-METHORPHAN HB 10 ML UNIT-DOSE CUPS PO PRN (13:38)
[2018-04-05] MEDS ORDERED: P-EPHED 60MG/TRIPROLIDI 2.5MG TABLET PO PRN (13:38)
[2018-04-05] MEDS ORDERED: LOPERAMIDE HCL 2 MG CAPSULE PO PRN (13:38)
[2018-04-05] MEDS ORDERED: MAGNESIUM CITRATE 300 ML BOTTLE PO PRN (13:38)
[2018-04-05] MEDS ORDERED: ACETAMINOPHEN 325 MG TABLET (FP) PO PRN (13:38)
[2018-04-05] MEDS ORDERED: MENTHOL/PHENOL 1 EACH UD MM PRN (13:38)
[2018-04-05] MEDS ORDERED: ALBUTEROL SO4 8 GM HFA INHALER IH PRN (13:46)
[2018-04-05] MEDS ORDERED: METHADONE HCL 10 MG TABLET PO ONE (14:01)
[2018-04-05] MEDS: DOCUSATE SODIUM 100 MG CAPSULE (FP) PO SCH ×2 (15:20→22:26)
[2018-04-05] MEDS: chlordiazePOXIDE HCL 25 MG CAPSULE PO PRN ×2 (15:20→20:24)
[2018-04-05] MEDS: NICOTINE 21 MG/24 HOURS TOPICAL PATCH TD SCH (15:22)
[2018-04-05] MEDS: chlordiazePOXIDE HCL 25 MG CAPSULE PO SCH ×2 (17:22→22:26)
[2018-04-05] MEDS ORDERED: MELATONIN 5 MG TABLETS PO PRN (22:00)
[2018-04-05] MEDS: THIAMINE HCL 100 MG TABLET (FP) PO SCH (22:26)
[2018-04-05] MEDS: BUDESONIDE/FORMETEROL FUMARATE 160/4.5 mcg INHALER IH SCH (22:26)
[2018-04-05] MEDS: hydrOXYzine PAMOATE 50 MG CAPSULE (FP) PO PRN (22:27)
[2018-04-06] MEDS: chlordiazePOXIDE HCL 25 MG CAPSULE PO SCH ×4 (05:43→22:03)
[2018-04-06] MEDS: DOCUSATE SODIUM 100 MG CAPSULE (FP) PO SCH ×3 (05:43→22:03)
[2018-04-06] MEDS ORDERED: METHADONE 40 MG, METHADONE 30 MG PO SCH (06:00)
[2018-04-06] MEDS ORDERED: METHADONE HCL 40 MG DISPERSABLE TABLET PO SCH (06:00)
[2018-04-06] MEDS ORDERED: METHADONE HCL 10 MG TABLET PO ONE (09:17)
[2018-04-06] MEDS ORDERED: METHADONE 40 MG, METHADONE 20 MG PO ONE (09:45)
[2018-04-06] MEDS ORDERED: PANTOPRAZOLE 20 MG TABLET (FP) PO SCH (10:00)
[2018-04-06] MEDS ORDERED: PRENATAL VITAMINS W/ FOLIC ACID TABLET (FP) PO SCH (10:00)
[2018-04-06] MEDS ORDERED: METHADONE HCL 10 MG TABLET ONE (10:09)
[2018-04-06] MEDS ORDERED: METHADONE HCL 40 MG DISPERSABLE TABLET ONE (10:10)
[2018-04-06] MEDS: BUDESONIDE/FORMETEROL FUMARATE 160/4.5 mcg INHALER IH SCH ×2 (10:13→22:03)
[2018-04-06] MEDS: NICOTINE 21 MG/24 HOURS TOPICAL PATCH TD SCH (10:13)
--- NOTE | 2018-04-06 10:26 | PN ---
S CIWA - CIWA Score Nausea/Vomitin Muscle Tremors: 4-Moderate,w/Arms Extend Anxiety: 4-Mod. Anxious/Guarded Agitation: 4-Moderately Restless Paroxysmal Sweats: 1-Minimal Palms Moist Orientation: 0-Oriented Tacttile Disturbances: 0-None Auditory Disturbances: 0-None Visual Disturbances: 0-None Headache: 0-None Present CIWA-Ar Total Score: 16 [facility] Progress Note (SOAP) Subjective: PT C/O NAUSEA,CHILLS,ANXIETY,BODY ACHES, RUNNY NOSE. LAST DOSE OF METHADONE WAS 04/04/18. RECEIVED 20 MG YESTERDAY HERE PENDING VERIFICATION TODAY. PT DOSE VERIFIED AND ON DAILY DOSE OF 70 MG PO DAILY. PT WILL RECEIVE METHADONE 60 MG TODAY AND START REGULAR DOSE OF 70 MG IN A.M. Objective: 04/06/18 10:26 Vital Signs 04/06/18 04/06/18 04/06/18 03:30 06:11 09:11 Temperature 97.6 F 97.1 F L Pulse Rate 63 67 Respiratory 18 18 18 Rate Blood Pressure 101/55 92/55 LABS PENDING Assessment: 04/06/18 10:26 WITHDRAWAL SX Plan: CONTINUE DETOX ACTIFED PRN ZOFRAN OK
[2018-04-06] MEDS ORDERED: ONDANSETRON *ODT* 4 MG TABLET SL PRN (10:27)
[2018-04-06 10:33] LABS: HEMATOCRIT 36.8 % (35.4-49); MCH 27.2 pg (25.7-33.7); MCHC 32.6 g/dl (32.0-35.9); MEAN CELL VOLUME 83.6 fl (80-96); MEAN PLT VOLUME 8.3 fl (7.5-11.1); PLATELET COUNT 204 K/MM3 (134-434); RDW 13.9 % (11.9-15.9); WHITE BLOOD COUNT 5.4 K/mm3 (4.0-10.0)
[2018-04-06 10:43] LABS: ALBUMIN 3.2 g/dl (3.4-5.0); ALK PHOS 73 U/L (45-117); ANION GAP 6 (8-16); BILIRUBIN,TOTAL 0.3 mg/dL (0.2-1.0); BLOOD UREA NITROGEN 12 mg/dL (7-18); CALCIUM 8.4 mg/dL (8.5-10.1); CHLORIDE 105 mmol/L (98-107); CO2 31 mmol/L (21-32); CREATININE 0.8 mg/dL (0.7-1.3); GLUCOSE,RANDOM 89 mg/dL (74-106); POTASSIUM 4.2 mmol/L (3.5-5.1); SGOT/AST 44 U/L (15-37); SGPT/ALT 43 U/L (12-78); SODIUM 142 mmol/L (136-145); TOT PROT 6.4 g/dl (6.4-8.2)
--- NOTE | 2018-04-06 11:31 | EKG ---
Test Reason : Blood Pressure : / mmHG Vent. Rate : 076 BPM Atrial Rate : 076 BPM P-R Int : 162 ms QRS Dur : 104 ms QT Int : 410 ms P-R-T Axes : 076 074 054 degrees QTc Int : 461 ms SINUS RHYTHM WITH PREMATURE SUPRAVENTRICULAR COMPLEXES OTHERWISE NORMAL ECG WHEN COMPARED WITH ECG OF 30-JAN-2018 22:49, PREMATURE SUPRAVENTRICULAR COMPLEXES ARE NOW PRESENT NON-SPECIFIC CHANGE IN ST SEGMENT IN ANTEROLATERAL LEADS NONSPECIFIC T WAVE ABNORMALITY, IMPROVED IN INFERIOR LEADS NONSPECIFIC T WAVE ABNORMALITY, IMPROVED IN ANTEROLATERAL LEADS Confirmed by PENG MCCARTY MD ([id number]) on 04/06/2018 11:31:01 AM Referred By: Laron Nguyen Confirmed By:PENG MCCARTY MD
--- NOTE | 2018-04-06 12:51 | CONSULT ---
[facility] Psychiatric Consult - Data Date of interview: 04/06/18 Admission source: [facility] Identifying data: Patient is a 32 year old single male, father of one, unemployed, and currently homeless. This is one of multiple admissions for patient. Pt. admitted to for alcohol, cocaine, benzodiazepine, and opiate dependence. Substance Abuse History: Substance & Tx. History. Hx Alcohol Use: Yes. Hx Substance Use: Yes. Substance Use Type: Alcohol, Cocaine, Heroin, Opiates. Hx Substance Use Treatment: Yes (Detox's; On [facility]). - Substances Abused. Alcohol. Route: Oral. Frequency: Daily. Amount used: 1-2 pints liquor. Age of first use: 19. Date of Last Use: 04/04/18 (7 pm). Benzodiazepine ( Klonopin). Route: Oral. Frequency: Daily. Amount used: 2 - 8 mg. Age of first use: 31. Date of Last Use: 04/04/18. Alprazolam (Xanax). Route: Oral. Frequency: Daily. Amount used: 2- 8 mg. Age of first use: 31. Date of Last Use: 04/04/18. Heroin. Route: Injection (IV). Frequency: Daily. Amount used: 2-3 bags. Age of first use: 28. Date of Last Use: 04/05/18 (2 am) . Cocaine. Route: Injection (IV). Frequency: 1-2 times per week. Amount used: 1 gm. Age of first use: 25. Date of Last Use: 04/03/18 Medical History: Asthma, GERD Psychiatric History: Patient denies h/o psychiatric hospitalization. OPD was provided at the [facility] but reports not seeing the psychiatrist for several months. Pt. has been admitted to detox several times. Pt. has been prescribed seroquel 300mg but reports medication nonadherence for two months. As per records, patient has also accepted buspar 30mg daily. Today, patient is only requesting seroquel. Pt denies h/o suicide attempt. Physical/Sexual Abuse/Trauma History: Denies. Mental Status Exam - Mental Status Exam Alert and Oriented to: Time, Place, Person Cognitive Function: Good Patient Appearance: Unkempt Mood: Withdrawn, Euthymic Affect: Mood Congruent Patient Behavior: Cooperative Speech Pattern: Appropriate Voice Loudness: Moderately Soft/Quiet Thought Process: Intact, Goal Oriented Thought Disorder: Not Present Hallucinations: Denies Suicidal Ideation: Denies Homicidal Ideation: Denies Insight/Judgement: Poor Sleep: Poorly Appetite: Fair Muscle strength/Tone: Normal Gait/Station: Normal Psychiatric Findings - Problem List ([place] 1, 2,3) (1) Alcohol dependence with uncomplicated withdrawal Current Visit: Yes Status: Acute (2) Cocaine dependence Current Visit: Yes Status: Acute Qualifiers: Substance use status: uncomplicated Qualified Code(s): F14.20 - Cocaine dependence, uncomplicated (3) Opioid dependence with withdrawal Current Visit: Yes Status: Acute (4) Sedative, hypnotic or anxiolytic dependence with withdrawal, uncomplicated Current Visit: Yes Status: Acute (5) GERD (gastroesophageal reflux disease) Current Visit: Yes Status: Chronic Qualifiers: Esophagitis presence: esophagitis presence not specified Qualified Code(s) : K21.9 - Gastro-esophageal reflux disease without esophagitis (6) Opioid dependence on agonist therapy Current Visit: Yes Status: Chronic (7) Substance induced mood disorder Current Visit: Yes Status: Acute (8) Substance-induced sleep disorder Current Visit: Yes Status: Acute (9) Nicotine dependence Current Visit: Yes Status: Chronic Qualifiers: Nicotine product type: cigarettes Substance use status: in withdrawal Qualified Code(s): F17.213 - Nicotine dependence, cigarettes, with withdrawal - Initial Treatment Plan Initial Treatment Plan: Psychoeducation provided. Detoxification in progress. Seroquel 100mg qhs ordered (reduce dosage due to nonadherence). Benefits and side effects discussed. Verbal consent given.
[2018-04-06] MEDS: chlordiazePOXIDE HCL 25 MG CAPSULE PO PRN ×2 (14:59→20:04)
[2018-04-06 16:52] LABS: URINE APPEARANCE CLEAR; URINE BILIRUBIN NEGATIVE (<2.0 mg/dL); URINE COLOR LTYELLOW; URINE GLUCOSE (UA) NEGATIVE (NEGATIVE); URINE KETONE NEGATIVE (NEGATIVE); URINE LEUK ESTERASE NEGATIVE (NEGATIVE); URINE NITRITE NEGATIVE (NEGATIVE); URINE PROTEIN NEGATIVE (NEGATIVE); URINE UROBILINOGEN 4.0 E.U/dl mg/dL (0.2-1.0)
[2018-04-06] MEDS ORDERED: QUEtiapine FUMARATE 100 MG TABLET (FP) PO SCH (22:00)
[2018-04-06] MEDS: THIAMINE HCL 100 MG TABLET (FP) PO SCH (22:03)
[2018-04-06] MEDS: hydrOXYzine PAMOATE 50 MG CAPSULE (FP) PO PRN (22:06)
[2018-04-06 22:14] VITALS: BP 99/54; PULSE 66; TEMP 97.8
[2018-04-07] MEDS: chlordiazePOXIDE HCL 25 MG CAPSULE PO PRN (01:37)
[2018-04-07] MEDS ORDERED: METHADONE HCL 10 MG TABLET ONE (04:09)
[2018-04-07] MEDS ORDERED: METHADONE HCL 40 MG DISPERSABLE TABLET ONE (04:09)
[2018-04-07] MEDS ORDERED: METHADONE HCL 10 MG TABLET PO SCH (06:00)
[2018-04-07] MEDS ORDERED: METHADONE 40 MG, METHADONE 30 MG PO SCH (06:00)
[2018-04-07] MEDS: chlordiazePOXIDE HCL 25 MG CAPSULE PO SCH (06:10)
[2018-04-07] MEDS: DOCUSATE SODIUM 100 MG CAPSULE (FP) PO SCH (06:10)
--- NOTE | 2018-04-07 09:56 | PN ---
[facility] Progress Note Note: PT DECLINED TO CONTINUE WITH DETOX STATING "I GOT A COUPLE OF THINGS I HAVE TO DO WITH MY KIDS". REPORTS HE IS GOING BACK TO [facility] AT HIS MMTP. PT WAS REMINDED AND ENCOURAGED TO FOLLOW UP AT [facility] REFERRAL PLANNED. PT IS ALERT O X 3. NAD, Vital Signs 04/07/18 03:30 Respiratory 18 Rate PT REFUSED VITAL SIGNS PREVIOUS SHIFT AND THIS SHIFT. IN NO ACUTE DISTRESS AT TIME OF DISCHARGE. PLAN:PT SIGNED OUT AMA
--- NOTE | 2018-04-07 09:58 | DS ---
[facility] Detox Discharge Summary Admission Date: 04/05/18 Discharge Date: 04/07/18 - History Present History: Alcohol Dependence, Cocaine Dependence, Sedative Dependence, MMTP Additional Comments: PT DECLINED TO CONTINUE DETOX. ALERT O X 3. NAD. [facility]. Pertinent Past History: PLEASE SEE DX BELOW. - Physical Exam Results Vital Signs: Vital Signs Temperature 97.8 F 04/06/18 22:12 Pulse Rate 66 04/06/18 22:12 Respiratory Rate 18 04/07/18 03:30 Blood Pressure 99/54 04/06/18 22:12 O2 Sat by Pulse Oximetry (%) Pertinent Admission Physical Exam Findings: WITHDRAWAL SX Laboratory Last Values WBC 5.4 K/mm3 (4.0-10.0) 04/06/18 07:40 RBC 4.40 M/mm3 (4.00-5.60) 04/06/18 07:40 Hgb 12.0 GM/dL (11.7-16.9) 04/06/18 07:40 Hct 36.8 % (35.4-49) 04/06/18 07:40 MCV 83.6 fl (80-96) 04/06/18 07:40 MCH 27.2 pg (25.7-33.7) 04/06/18 07:40 MCHC 32.6 g/dl (32.0-35.9) 04/06/18 07:40 RDW 13.9 % (11.9-15.9) 04/06/18 07:40 Plt Count 204 K/MM3 (134-434) 04/06/18 07:40 MPV 8.3 fl (7.5-11.1) 04/06/18 07:40 Sodium 142 mmol/L (136-145) 04/06/18 07:40 Potassium 4.2 mmol/L (3.5-5.1) 04/06/18 07:40 Chloride 105 mmol/L (98-107) 04/06/18 07:40 Carbon Dioxide 31 mmol/L (21-32) 04/06/18 07:40 Anion Gap 6 (8-16) L 04/06/18 07:40 BUN 12 mg/dL (7-18) 04/06/18 07:40 Creatinine 0.8 mg/dL (0.7-1.3) 04/06/18 07:40 Creat Clearance w eGFR > 60 (>60) 04/06/18 07:40 Random Glucose 89 mg/dL (74-106) 04/06/18 07:40 Calcium 8.4 mg/dL (8.5-10.1) L 04/06/18 07:40 Total Bilirubin 0.3 mg/dL (0.2-1.0) 04/06/18 07:40 AST 44 U/L (15-37) H D 04/06/18 07:40 ALT 43 U/L (12-78) D 04/06/18 07:40 Alkaline Phosphatase 73 U/L (45-117) 04/06/18 07:40 Total Protein 6.4 g/dl (6.4-8.2) 04/06/18 07:40 Albumin 3.2 g/dl (3.4-5.0) L 04/06/18 07:40 Urine Color Ltyellow 04/06/18 11:10 Urine Appearance Clear 04/06/18 11:10 Urine pH 7.0 (5.0-8.0) D 04/06/18 11:10 Ur Specific [place] 1.023 (1.001-1.035) 04/06/18 11:10 Urine Protein Negative (NEGATIVE) 04/06/18 11:10 Urine Glucose (UA) Negative (NEGATIVE) 04/06/18 11:10 Urine Ketones Negative (NEGATIVE) 04/06/18 11:10 Urine Blood Negative (NEGATIVE) 04/06/18 11:10 Urine Nitrite Negative (NEGATIVE) 04/06/18 11:10 Urine Bilirubin Negative (<2.0 mg/dL) 04/06/18 11:10 Urine Urobilinogen 4.0 e.u/dl mg/dL (0.2-1.0) 04/06/18 11:10 Ur Leukocyte Esterase Negative (NEGATIVE) 04/06/18 11:10 RPR Titer Nonreactive (NONREACTIVE) 04/06/18 07:40 HIV 1&2 Antibody Screen Negative 04/06/18 07:40 HIV P24 Antigen Negative 04/06/18 07:40 - Treatment Hospital Course: Discharged Condition Good - Medication Discharge Medications: Ambulatory Orders Albuterol Sulfate Inhaler - [Ventolin HFA Inhaler -] 2 puff IH Q4H PRN #1 inhaler 02/03/18 Budesonide/Formeterol Fumarate [SYMBICORT 160/4.5mcg -] 1 puff IH BID #1 inhaler 02/03/18 Gabapentin 600 mg PO TID 04/05/18 Quetiapine Fumarate [Seroquel] 100 mg PO HS 04/06/18 - Diagnosis (1) Alcohol dependence with uncomplicated withdrawal Status: Acute (2) Dehydration Status: Acute (3) Sedative, hypnotic or anxiolytic dependence with withdrawal, uncomplicated Status: Acute (4) Skin turgor poor Status: Acute (5) Cocaine dependence Status: Acute Qualifiers: Substance use status: uncomplicated Qualified Code(s): F14.20 - Cocaine dependence, uncomplicated (6) Asthma Status: Chronic Qualifiers: Asthma severity: mild Asthma complication type: with status asthmaticus (7) Nicotine dependence Status: Acute Qualifiers: Nicotine product type: cigarettes Substance use status: in withdrawal Qualified Code(s): F17.213 - Nicotine dependence, cigarettes, with withdrawal (8) Methadone maintenance therapy patient Status: Chronic - AMA Did Patient Leave Against Medical Advice: Yes (AMA)
[2018-04-07] MEDS ORDERED: chlordiazePOXIDE 5 MG CAPSULE PO SCH (17:00)
[2018-04-08] MEDS ORDERED: chlordiazePOXIDE HCL 10 MG CAPSULE PO SCH (17:00)
== END 2018-04-07 09:40 | disposition left against medical advice (07) | DRG 770 ==
LOC: YASAS 10:54 → Y3N 14:34
PROVIDERS: ADMIT Surgery; ATTEND Surgery
PROC: HZ2ZZZZ Detoxification Services for Substance Abuse Treatment (ICD-10-PCS; principal; 2018-04-05)
DX: F11.20 Opioid dependence, uncomplicated (principal); F13.230 Sedative, hypnotic or anxiolytic dependence with withdrawal, uncomplicated; F10.230 Alcohol dependence with withdrawal, uncomplicated; F14.20 Cocaine dependence, uncomplicated; F17.213 Nicotine dependence, cigarettes, with withdrawal; F19.24 Other psychoactive substance dependence with psychoactive substance-induced mood disorder; F19.282 Other psychoactive substance dependence with psychoactive substance-induced sleep disorder; J45.22 Mild intermittent asthma with status asthmaticus; K21.9 Gastro-esophageal reflux disease without esophagitis; K64.9 Unspecified hemorrhoids; E86.0 Dehydration; R23.8 Other skin changes
CPT/HCPCS: 36415; 80053; 81003; 85027; 86593; 87389; 93005; 93010

== ENCOUNTER 2018-05-22 12:27 | Inpatient (IN) | payer OTHER ==
[2018-05-22 12:29] VITALS: BMI 24.4
--- NOTE | 2018-05-22 18:58 | HP ---
CIWA Score - CIWA Score Nausea/Vomitin-No Nausea/No Vomiting Muscle Tremors: 2 Anxiety: 4-Mod. Anxious/Guarded Agitation: 3 Paroxysmal Sweats: 2 Orientation: 1-Uncertain about Date (no distress) Tacttile Disturbances: 1-Very Mild Itch/Numbness Auditory Disturbances: 0-None Visual Disturbances: 1-Very Mild Sensitivity Headache: 3-Moderate CIWA-Ar Total Score: 17 Admission ROS BHS - HPI Chief Complaint: benzo and alcohol withdrawal symptoms Allergies/Adverse Reactions: Allergies Allergy/AdvReac Type Severity Reaction Status Date / Time shellfish derived Allergy Severe Swelling Verified 05/22/18 13:09 No Known Drug Allergies Allergy Verified 05/22/18 13:09 History of Present Illness: Patient is a 32 yo male with hx alcohol use since age 19, cocaine use, currently IV heroin and cocaine. On [facility] MMTP : on methadone 90 mg qd, last medicated today, dose pending verification, patient continue to use heroin as well. Hx blackout r/t alcohol use. Denies seizures. PMHX: asthma w/ frequent exacerbations and on meds, hemorrhoids, GERD. Last detox [facility] 04/05/18 -04/07/18 left AMA. Denies suicidal / homicidal ideation. Reports longest period of sobriety 4 months. Exam Limitations: No Limitations - Ebola screening Have you traveled outside of the country in the last 21 days: No (N) Have you had contact with anyone from an Ebola affected area: No Have you been sick,other than usual withdrawal symptoms: No Do you have a fever: No - Review of Systems Constitutional: Loss of Appetite, Changes in sleep, Unintentional Wgt. Loss (40 lbs) EENT: reports: No Symptoms Reported Respiratory: reports: No Symptoms reported Cardiac: reports: No Symptoms Reported GI: reports: No Symptoms Reported : reports: No Symptoms Reported Musculoskeletal: reports: Back Pain Integumentary: reports: No Symptoms Reported Neuro: reports: Headache Endocrine: reports: Increased Thirst Hematology: reports: No Symptoms Reported Psychiatric: reports: Orientated x3, Anxious Other Systems: Reviewed and Negative Patient History - Patient Medical History Hx Anemia: No Hx Asthma: Yes Hx Chronic Obstructive Pulmonary Disease (COPD): No Hx Cancer: No Hx Cardiac Disorders: No Hx Congestive Heart Failure: No Hx Hypertension: No Hx Hypercholesterolemia: No Hx Pacemaker: No HX Cerebrovascular Accident: No Hx Seizures: No Hx Dementia: No Hx Diabetes: No Hx Gastrointestinal Disorders: Yes (acid reflux) Hx Liver Disease: No Hx Genitourinary Disorders: No Hx Sexually Transmitted Disorders: No Hx Renal Disease (ESRD): No Hx Thyroid Disease: No Hx Human Immunodeficiency Virus (HIV): No Hx Hepatitis C: No (negative) Hx Depression: Yes Hx Suicide Attempt: No Hx Bipolar Disorder: No Hx Schizophrenia: No - Patient Surgical History Past Surgical History: No Hx Neurologic Surgery: No Hx Cataract Extraction: No Hx Cardiac Surgery: No Hx Lung Surgery: No Hx Breast Surgery: No Hx Breast Biopsy: No Hx Abdominal Surgery: No Hx Appendectomy: No Hx Cholecystectomy: No Hx Genitourinary Surgery: No Hx Section: No Hx Orthopedic Surgery: No Anesthesia Reaction: No - PPD History Previous Implant?: Yes Documented Results: Negative w/proof Implanted On Prior [facility] Admission?: Yes Date: 04/07/18 Results: 0 mm PPD to be Administered?: Yes - Smoking Cessation Smoking history: Current every day smoker Have you smoked in the past 12 months: Yes Aproximately how many cigarettes per day: 20 Cigars Per Day: 0 Hx Chewing Tobacco Use: No Initiated information on smoking cessation: Yes 'Breaking Loose' booklet given: 05/22/18 - Substance & Tx. History Hx Alcohol Use: Yes Hx Substance Use: Yes Substance Use Type: Alcohol, Cocaine, Heroin, Tranquilizers Hx Substance Use Treatment: Yes ([facility] 04/05/18 -04/07/18 left AMA ) - Substances Abused Cocaine Route: Injection Frequency: Daily Amount used: $80 Age of first use: 26 Date of Last Use: 05/22/18 Xanax/Klonopin Route: Oral Frequency: Daily Amount used: 6 mg. Age of first use: 30 Date of Last Use: 05/21/18 Alcohol- Route: Oral Frequency: 1-2 times per week Amount used: 1 pt. (cognac) Age of first use: 21 Date of Last Use: 05/20/18 Marijuana Route: Smoking Family Disease History - Family Disease History Family Disease History: Diabetes: Mother (living, ), Other: Father (living, healthy), Mother, Sister (1 living - healthy), Daughter (age 7 - healthy) Admission Physical Exam BHS - Vital Signs Vital Signs: Vital Signs - 24 hr 05/22/18 12:28 Temperature 97.6 F Pulse Rate 83 Respiratory 18 Rate Blood Pressure 105/60 - Physical General Appearance: Yes: Nourished, Appropriately Dressed, Sweating, Anxious HEENTM: Yes: EOMI, Hearing grossly Normal, Normal ENT Inspection, Normocephalic , Normal Voice, JONATHON, Pharynx Normal, Tm's normal, Other (poor dentition) Respiratory: Yes: Chest Non-Tender, Lungs Clear, Normal Breath Sounds, No Respiratory Distress, No Accessory Muscle Use Neck: Yes: No masses,lesions,Nodules, Trachea in good position Breast: Yes: Breast Exam Deferred Cardiology: Yes: Regular Rhythm, Regular Rate Abdominal: Yes: Normal Bowel Sounds, Non Tender, Flat, Soft Genitourinary: Yes: Within Normal Limits Back: Yes: Normal Inspection Musculoskeletal: Yes: full range of Motion, Gait Steady, Pelvis Stable, Back pain Extremities: Yes: Normal Capillary Refill, Normal Inspection, Normal Range of Motion, Non-Tender Neurological: Yes: spiritual advisor II-XII NML intact, Fully Oriented, Alert, Motor Strength 5/5, Depressed Affect Integumentary: Yes: Normal Color, Warm, Diaphoresis, Track Erickson (bilateral forearms no infection) Lymphatic: Yes: Within Normal Limits - Diagnostic (1) Alcohol dependence with uncomplicated withdrawal Current Visit: Yes Status: Acute (2) Cocaine dependence Current Visit: Yes Status: Acute Qualifiers: Substance use status: uncomplicated Qualified Code(s): F14.20 - Cocaine dependence, uncomplicated (3) Nicotine dependence Current Visit: Yes Status: Acute Qualifiers: Nicotine product type: cigarettes Substance use status: in withdrawal Qualified Code(s): F17.213 - Nicotine dependence, cigarettes, with withdrawal (4) Sedative, hypnotic or anxiolytic dependence with withdrawal, uncomplicated Current Visit: Yes Status: Acute (5) Weight loss Current Visit: Yes Status: Acute (6) Constipation Current Visit: Yes Status: Chronic Qualifiers: Constipation type: unspecified constipation type Qualified Code(s): K59.00 - Constipation, unspecified (7) Opioid dependence on agonist therapy Current Visit: Yes Status: Chronic Comment: [facility]'s MMTP : on methadone 90 mg qd, last medicated today, dose pending verification (8) Asthma Current Visit: Yes Status: Chronic Qualifiers: Asthma severity: mild Asthma complication type: with status asthmaticus Cleared for Admission [facility] - Detox or Rehab [facility] Level of Care: Medically Managed Detox Regimen/Protocol: Valium [facility] Breath Alcohol Content Breath Alcohol Content: 0 Urine Drug Screen - Results Drug Screen Negative: No Urine Drug Screen Results: THC-Marijuana, LYLE-Cocaine, OPI-Opiates, BAR- Barbiturates, BZO-Benzodiazepines, MTD-Methadone
[2018-05-22] MEDS ORDERED: guaiFENesin/D-METHORPHAN HB 10 ML UNIT-DOSE CUPS PO PRN (19:00)
[2018-05-22] MEDS ORDERED: MAG HYDROX/AL HYDROX/SIMETH 30 ML UNIT-DOSE CUP PO PRN (19:00)
[2018-05-22] MEDS ORDERED: diazePAM 5 MG TABLET PO ONE (19:00)
[2018-05-22] MEDS ORDERED: LOPERAMIDE HCL 2 MG CAPSULE PO PRN (19:00)
[2018-05-22] MEDS ORDERED: IBUPROFEN 400 MG TABLET (FP) PO PRN (19:00)
[2018-05-22] MEDS ORDERED: MAGNESIUM CITRATE 300 ML BOTTLE PO PRN (19:00)
[2018-05-22] MEDS ORDERED: MAGNESIUM HYDROX 2400MG/30ML ORAL SUSPENSION 30 ML CUP PO PRN (19:00)
[2018-05-22] MEDS ORDERED: hydrOXYzine PAMOATE 50 MG CAPSULE (FP) PO PRN (19:00)
[2018-05-22] MEDS ORDERED: MENTHOL/PHENOL 1 EACH UD MM PRN (19:00)
[2018-05-22] MEDS ORDERED: NICOTINE POLACRILEX 2 MG GUM BUC PRN (19:00)
[2018-05-22] MEDS ORDERED: P-EPHED 60MG/TRIPROLIDI 2.5MG TABLET PO PRN (19:00)
[2018-05-22] MEDS ORDERED: ALBUTEROL SO4 8 GM HFA INHALER IH PRN (19:01)
[2018-05-22] MEDS: ACETAMINOPHEN 325 MG TABLET (FP) PO PRN (20:04)
[2018-05-22] MEDS ORDERED: MELATONIN 5 MG TABLETS PO PRN (22:00)
[2018-05-22] MEDS: diazePAM 5 MG TABLET PO SCH (22:23)
[2018-05-22] MEDS: THIAMINE HCL 100 MG TABLET (FP) PO SCH (22:23)
[2018-05-22] MEDS: DOCUSATE SODIUM 100 MG CAPSULE (FP) PO SCH (22:23)
[2018-05-22] MEDS: RANITIDINE HCL 150 MG TABLET (FP) PO SCH (22:23)
[2018-05-22] MEDS: BUDESONIDE/FORMETEROL FUMARATE 160/4.5 mcg INHALER IH SCH (23:03)
[2018-05-23 01:01] LABS: URINE APPEARANCE CLEAR; URINE BILIRUBIN NEGATIVE (<2.0 mg/dL); URINE GLUCOSE (UA) NEGATIVE (NEGATIVE); URINE KETONE NEGATIVE (NEGATIVE); URINE LEUK ESTERASE NEGATIVE (NEGATIVE); URINE NITRITE NEGATIVE (NEGATIVE); URINE UROBILINOGEN 4.0 E.U/dl mg/dL (0.2-1.0)
[2018-05-23 01:09] LABS: URINE COLOR YELLOW; URINE PROTEIN 1+ (NEGATIVE)
[2018-05-23 01:16] LABS: URINE MUCUS FEW
[2018-05-23] MEDS: diazePAM 5 MG TABLET PO PRN ×2 (01:46→12:10)
[2018-05-23] MEDS: diazePAM 5 MG TABLET PO SCH ×3 (05:28→22:24)
[2018-05-23] MEDS: DOCUSATE SODIUM 100 MG CAPSULE (FP) PO SCH ×3 (05:45→22:24)
[2018-05-23] MEDS ORDERED: METHADONE HCL 40 MG DISPERSABLE TABLET PO SCH (07:15)
[2018-05-23] MEDS ORDERED: METHADONE HCL 10 MG TABLET ONE (08:31)
[2018-05-23] MEDS ORDERED: METHADONE HCL 40 MG DISPERSABLE TABLET ONE (08:31)
[2018-05-23 10:24] LABS: HEMATOCRIT 38.1 % (35.4-49); HEMOGLOBIN 12.6 GM/dL (11.7-16.9); MCH 27.3 pg (25.7-33.7); MCHC 33.2 g/dl (32.0-35.9); MEAN CELL VOLUME 82.5 fl (80-96); MEAN PLT VOLUME 8.5 fl (7.5-11.1); PLATELET COUNT 213 K/MM3 (134-434); RBC 4.62 M/mm3 (4.00-5.60); RDW 14.4 % (11.9-15.9); WHITE BLOOD COUNT 3.7 K/mm3 (4.0-10.0)
[2018-05-23 10:53] LABS: ALBUMIN 3.1 g/dl (3.4-5.0); BLOOD UREA NITROGEN 6 mg/dL (7-18); CALCIUM 8.3 mg/dL (8.5-10.1); CHLORIDE 103 mmol/L (98-107); SODIUM 140 mmol/L (136-145)
[2018-05-23 10:58] LABS: ALK PHOS 80 U/L (45-117); ANION GAP 4 (8-16); BILIRUBIN,TOTAL 0.3 mg/dL (0.2-1.0); CO2 33 mmol/L (21-32); CREATININE 0.8 mg/dL (0.7-1.3); GLUCOSE,RANDOM 89 mg/dL (74-106); SGOT/AST 90 U/L (15-37); SGPT/ALT 92 U/L (12-78); TOT PROT 6.3 g/dl (6.4-8.2)
[2018-05-23] MEDS: PRENATAL VITAMINS W/ FOLIC ACID TABLET (FP) PO SCH (11:23)
[2018-05-23] MEDS: RANITIDINE HCL 150 MG TABLET (FP) PO SCH ×2 (11:23→22:24)
[2018-05-23] MEDS: NICOTINE 14 MG/24 HOURS TOPICAL PATCH TD SCH (11:23)
[2018-05-23] MEDS: METHADONE 80 MG, METHADONE 10 MG PO SCH (11:23)
--- NOTE | 2018-05-23 11:53 | CONSULT ---
[facility] Psychiatric Consult - Data Date of interview: 05/23/18 Admission source: [facility] Identifying data: Patient is a 32 year old single male, father of one, domiciled , and currently unemployed. This is one of multiple admissions for patient. Pt. admitted to for alcohol, cocaine, marijuana, and opiate dependence. Substance Abuse History: Smoking Cessation. Smoking history: Current every day smoker. Have you smoked in the past 12 months: Yes. Aproximately how many cigarettes per day: 20. Cigars Per Day: 0. Hx Chewing Tobacco Use: No. Initiated information on smoking cessation: Yes. 'Breaking Loose' booklet given : 05/22/18. - Substance & Tx. History. Hx Alcohol Use: Yes. Hx Substance Use : Yes. Substance Use Type: Alcohol, Cocaine, Heroin, Tranquilizers. Hx Substance Use Treatment: Yes ([facility] 04/05/18 -04/07/18 left AMA ). - Substances Abused. Cocaine. Route: Injection. Frequency: Daily. Amount used: $80. Age of first use: 26. Date of Last Use: 05/22/18. Xanax/Klonopin. Route: Oral. Frequency: Daily. Amount used: 6 mg. Age of first use: 30. Date of Last Use: 05/21/18. Alcohol-. Route: Oral. Frequency: 1-2 times per week. Amount used: 1 pt. (cognac). Age of first use: 21. Date of Last Use: Medical History: asthma, acid reflux Psychiatric History: Patient reports one psychiatric hospitalization at [facility]. OPD was provided at the [facility] clinic. Pt. is nonadherent to outpatient psychiatric services. This is patient's fourth admission to detox in 2018. Pt. has been prescribed seroquel 300mg but reports medication nonadherence for several months. As per records, patient has also accepted buspar 30mg and states he has accepted gabapentin 600mg TID . Patient requesting to resume medications. Patient is currently on Methadone maintainence of 90mg daily. Pt denies h/o suicide attempt. Physical/Sexual Abuse/Trauma History: denies. Mental Status Exam - Mental Status Exam Alert and Oriented to: Time, Place, Person Cognitive Function: Good Patient Appearance: Well Groomed Mood: Euthymic Affect: Appropriate Patient Behavior: Appropriate, Cooperative Speech Pattern: Clear, Appropriate Voice Loudness: Normal Thought Process: Intact, Goal Oriented Thought Disorder: Not Present Hallucinations: Denies Suicidal Ideation: Denies Homicidal Ideation: Denies Insight/Judgement: Poor Sleep: Poorly Appetite: Fair Muscle strength/Tone: Normal Gait/Station: Normal Psychiatric Findings - Problem List ([place] 1, 2,3) (1) Alcohol dependence with uncomplicated withdrawal Current Visit: Yes Status: Acute (2) Cocaine dependence Current Visit: Yes Status: Acute Qualifiers: Substance use status: uncomplicated Qualified Code(s): F14.20 - Cocaine dependence, uncomplicated (3) Nicotine dependence Current Visit: Yes Status: Chronic Qualifiers: Nicotine product type: cigarettes Substance use status: in withdrawal Qualified Code(s): F17.213 - Nicotine dependence, cigarettes, with withdrawal (4) Sedative, hypnotic or anxiolytic dependence with withdrawal, uncomplicated Current Visit: Yes Status: Acute (5) Opioid dependence on agonist therapy Current Visit: Yes Status: Chronic Comment: [facility] MMTP : on methadone 90 mg qd, last medicated today, dose pending verification (6) Substance induced mood disorder Current Visit: Yes Status: Acute (7) Insomnia Current Visit: Yes Status: Acute Qualifiers: Insomnia type: unspecified Qualified Code(s): G47.00 - Insomnia, unspecified - Initial Treatment Plan Initial Treatment Plan: Psychoeducation provided. Detoxification in progress. Buspar 15mg BID + Gabapentin 300mg TID + Seroquel 100mg qhs. Benefits and side effects discussed. Verbal consent given.
--- NOTE | 2018-05-23 13:17 | EKG ---
Test Reason : Blood Pressure : / mmHG Vent. Rate : 071 BPM Atrial Rate : 071 BPM P-R Int : 164 ms QRS Dur : 102 ms QT Int : 402 ms P-R-T Axes : 066 071 048 degrees QTc Int : 436 ms NORMAL SINUS RHYTHM NORMAL ECG WHEN COMPARED WITH ECG OF 05-APR-2018 14:58, PREMATURE SUPRAVENTRICULAR COMPLEXES ARE NO LONGER PRESENT Confirmed by Samuel Slater MD ([id number]) on 05/23/2018 1:16:18 PM Referred By: Confirmed By:Samuel Slater MD
--- NOTE | 2018-05-23 13:37 | PN ---
S CIWA - CIWA Score Nausea/Vomitin Muscle Tremors: 3 Anxiety: 3 Agitation: 2 Paroxysmal Sweats: 1-Minimal Palms Moist Orientation: 0-Oriented Tacttile Disturbances: 1-Very Mild Itch/Numbness Auditory Disturbances: 1-Very Mild Visual Disturbances: 0-None Headache: 2-Mild CIWA-Ar Total Score: 16 BHS Progress Note (SOAP) Subjective: alert,irritable,anxious,interrupted sleep,tremor Objective: 05/23/18 13:55 Vital Signs Temperature 96.6 F L 05/23/18 06:00 Pulse Rate 49 L 05/23/18 06:00 Respiratory Rate 18 05/23/18 06:00 Blood Pressure 103/58 05/23/18 06:00 O2 Sat by Pulse Oximetry (%) Vital Signs Temperature 96.6 F L 05/23/18 06:00 Pulse Rate 49 L 05/23/18 06:00 Respiratory Rate 18 05/23/18 06:00 Blood Pressure 103/58 05/23/18 06:00 O2 Sat by Pulse Oximetry (%) Laboratory Last Values WBC 3.7 K/mm3 (4.0-10.0) L 05/23/18 07:30 RBC 4.62 M/mm3 (4.00-5.60) 05/23/18 07:30 Hgb 12.6 GM/dL (11.7-16.9) 05/23/18 07:30 Hct 38.1 % (35.4-49) 05/23/18 07:30 MCV 82.5 fl (80-96) 05/23/18 07:30 MCH 27.3 pg (25.7-33.7) 05/23/18 07:30 MCHC 33.2 g/dl (32.0-35.9) 05/23/18 07:30 RDW 14.4 % (11.9-15.9) 05/23/18 07:30 Plt Count 213 K/MM3 (134-434) 05/23/18 07:30 MPV 8.5 fl (7.5-11.1) 05/23/18 07:30 Sodium 140 mmol/L (136-145) 05/23/18 07:30 Potassium 4.0 mmol/L (3.5-5.1) 05/23/18 07:30 Chloride 103 mmol/L (98-107) 05/23/18 07:30 Carbon Dioxide 33 mmol/L (21-32) H 05/23/18 07:30 Anion Gap 4 (8-16) L 05/23/18 07:30 BUN 6 mg/dL (7-18) L 05/23/18 07:30 Creatinine 0.8 mg/dL (0.7-1.3) 05/23/18 07:30 Creat Clearance w eGFR > 60 (>60) 05/23/18 07:30 Random Glucose 89 mg/dL (74-106) 05/23/18 07:30 Calcium 8.3 mg/dL (8.5-10.1) L 05/23/18 07:30 Total Bilirubin 0.3 mg/dL (0.2-1.0) 05/23/18 07:30 AST 90 U/L (15-37) H D 05/23/18 07:30 ALT 92 U/L (12-78) H D 05/23/18 07:30 Alkaline Phosphatase 80 U/L (45-117) 05/23/18 07:30 Total Protein 6.3 g/dl (6.4-8.2) L 05/23/18 07:30 Albumin 3.1 g/dl (3.4-5.0) L 05/23/18 07:30 Urine Color Yellow 05/22/18 23:30 Urine Appearance Clear 05/22/18 23:30 Urine pH 6.0 (5.0-8.0) 05/22/18 23:30 Ur Specific [place] 1.024 (1.001-1.035) 05/22/18 23:30 Urine Protein 1+ (NEGATIVE) H 05/22/18 23:30 Urine Glucose (UA) Negative (NEGATIVE) 05/22/18 23:30 Urine Ketones Negative (NEGATIVE) 05/22/18 23:30 Urine Blood Negative (NEGATIVE) 05/22/18 23:30 Urine Nitrite Negative (NEGATIVE) 05/22/18 23:30 Urine Bilirubin Negative (<2.0 mg/dL) 05/22/18 23:30 Urine Urobilinogen 4.0 e.u/dl mg/dL (0.2-1.0) 05/22/18 23:30 Ur Leukocyte Esterase Negative (NEGATIVE) 05/22/18 23:30 Urine WBC (Auto) 1 /hpf (3-5) 05/22/18 23:30 Urine RBC (Auto) <1 /hpf (0-3) 05/22/18 23:30 Urine Mucus Few 05/22/18 23:30 RPR Titer Nonreactive (NONREACTIVE) 05/23/18 07:30 HIV 1&2 Antibody Screen Negative 05/22/18 07:30 HIV P24 Antigen Negative 05/22/18 07:30 Assessment: 05/23/18 13:57 withdrawal symptom Plan: continue detox
[2018-05-23] MEDS: BUDESONIDE/FORMETEROL FUMARATE 160/4.5 mcg INHALER IH SCH ×2 (15:44→22:24)
[2018-05-23] MEDS: GABAPENTIN 300 MG CAPSULE (FP) PO SCH ×2 (15:46→22:24)
[2018-05-23] MEDS: THIAMINE HCL 100 MG TABLET (FP) PO SCH (22:24)
[2018-05-23] MEDS: QUEtiapine FUMARATE 100 MG TABLET (FP) PO SCH (22:24)
[2018-05-24] MEDS: diazePAM 5 MG TABLET PO PRN ×3 (01:31→16:32)
[2018-05-24] MEDS ORDERED: METHADONE HCL 40 MG DISPERSABLE TABLET ONE (04:44)
[2018-05-24] MEDS ORDERED: METHADONE HCL 10 MG TABLET ONE (04:45)
[2018-05-24] MEDS: GABAPENTIN 300 MG CAPSULE (FP) PO SCH ×3 (06:55→22:42)
[2018-05-24] MEDS: DOCUSATE SODIUM 100 MG CAPSULE (FP) PO SCH ×3 (06:56→22:41)
[2018-05-24] MEDS: METHADONE 80 MG, METHADONE 10 MG PO SCH (06:56)
[2018-05-24] MEDS: ACETAMINOPHEN 325 MG TABLET (FP) PO PRN (09:34)
[2018-05-24] MEDS: PRENATAL VITAMINS W/ FOLIC ACID TABLET (FP) PO SCH (09:38)
[2018-05-24] MEDS: NICOTINE 14 MG/24 HOURS TOPICAL PATCH TD SCH (09:38)
[2018-05-24] MEDS: diazePAM 5 MG TABLET PO SCH ×2 (09:39→22:42)
[2018-05-24] MEDS: RANITIDINE HCL 150 MG TABLET (FP) PO SCH ×2 (09:39→22:42)
[2018-05-24] MEDS: BUDESONIDE/FORMETEROL FUMARATE 160/4.5 mcg INHALER IH SCH ×2 (10:54→22:42)
--- NOTE | 2018-05-24 11:16 | PN ---
S CIWA - CIWA Score Nausea/Vomitin Muscle Tremors: 3 Anxiety: 2 Agitation: 2 Paroxysmal Sweats: 1-Minimal Palms Moist Orientation: 0-Oriented Tacttile Disturbances: 1-Very Mild Itch/Numbness Auditory Disturbances: 1-Very Mild Visual Disturbances: 0-None Headache: 2-Mild CIWA-Ar Total Score: 15 S Progress Note (SOAP) Subjective: alert,irritable,anxious,interrupted sleep,pain in the body Objective: 05/24/18 11:15 Vital Signs Temperature 98.4 F 05/24/18 09:53 Pulse Rate 58 L 05/24/18 09:53 Respiratory Rate 18 05/24/18 09:53 Blood Pressure 101/51 05/24/18 09:53 O2 Sat by Pulse Oximetry (%) 05/24/18 11:15 Laboratory Last Values WBC 3.7 K/mm3 (4.0-10.0) L 05/23/18 07:30 RBC 4.62 M/mm3 (4.00-5.60) 05/23/18 07:30 Hgb 12.6 GM/dL (11.7-16.9) 05/23/18 07:30 Hct 38.1 % (35.4-49) 05/23/18 07:30 MCV 82.5 fl (80-96) 05/23/18 07:30 MCH 27.3 pg (25.7-33.7) 05/23/18 07:30 MCHC 33.2 g/dl (32.0-35.9) 05/23/18 07:30 RDW 14.4 % (11.9-15.9) 05/23/18 07:30 Plt Count 213 K/MM3 (134-434) 05/23/18 07:30 MPV 8.5 fl (7.5-11.1) 05/23/18 07:30 Sodium 140 mmol/L (136-145) 05/23/18 07:30 Potassium 4.0 mmol/L (3.5-5.1) 05/23/18 07:30 Chloride 103 mmol/L (98-107) 05/23/18 07:30 Carbon Dioxide 33 mmol/L (21-32) H 05/23/18 07:30 Anion Gap 4 (8-16) L 05/23/18 07:30 BUN 6 mg/dL (7-18) L 05/23/18 07:30 Creatinine 0.8 mg/dL (0.7-1.3) 05/23/18 07:30 Creat Clearance w eGFR > 60 (>60) 05/23/18 07:30 Random Glucose 89 mg/dL (74-106) 05/23/18 07:30 Calcium 8.3 mg/dL (8.5-10.1) L 05/23/18 07:30 Total Bilirubin 0.3 mg/dL (0.2-1.0) 05/23/18 07:30 AST 90 U/L (15-37) H D 05/23/18 07:30 ALT 92 U/L (12-78) H D 05/23/18 07:30 Alkaline Phosphatase 80 U/L (45-117) 05/23/18 07:30 Total Protein 6.3 g/dl (6.4-8.2) L 05/23/18 07:30 Albumin 3.1 g/dl (3.4-5.0) L 05/23/18 07:30 Urine Color Yellow 05/22/18 23:30 Urine Appearance Clear 05/22/18 23:30 Urine pH 6.0 (5.0-8.0) 05/22/18 23:30 Ur Specific [place] 1.024 (1.001-1.035) 05/22/18 23:30 Urine Protein 1+ (NEGATIVE) H 05/22/18 23:30 Urine Glucose (UA) Negative (NEGATIVE) 05/22/18 23:30 Urine Ketones Negative (NEGATIVE) 05/22/18 23:30 Urine Blood Negative (NEGATIVE) 05/22/18 23:30 Urine Nitrite Negative (NEGATIVE) 05/22/18 23:30 Urine Bilirubin Negative (<2.0 mg/dL) 05/22/18 23:30 Urine Urobilinogen 4.0 e.u/dl mg/dL (0.2-1.0) 05/22/18 23:30 Ur Leukocyte Esterase Negative (NEGATIVE) 05/22/18 23:30 Urine WBC (Auto) 1 /hpf (3-5) 05/22/18 23:30 Urine RBC (Auto) <1 /hpf (0-3) 05/22/18 23:30 Urine Mucus Few 05/22/18 23:30 RPR Titer Nonreactive (NONREACTIVE) 05/23/18 07:30 HIV 1&2 Antibody Screen Negative 05/22/18 07:30 HIV P24 Antigen Negative 05/22/18 07:30 Assessment: 05/24/18 11:15 withdrawal symptom Plan: continue detox
[2018-05-24] MEDS: QUEtiapine FUMARATE 100 MG TABLET (FP) PO SCH (22:42)
[2018-05-24] MEDS: THIAMINE HCL 100 MG TABLET (FP) PO SCH (22:42)
[2018-05-25] MEDS ORDERED: METHADONE HCL 40 MG DISPERSABLE TABLET ONE (04:17)
[2018-05-25] MEDS ORDERED: METHADONE HCL 10 MG TABLET ONE (04:17)
[2018-05-25] MEDS: GABAPENTIN 300 MG CAPSULE (FP) PO SCH ×3 (05:31→22:46)
[2018-05-25] MEDS: DOCUSATE SODIUM 100 MG CAPSULE (FP) PO SCH ×3 (05:31→22:46)
[2018-05-25] MEDS: METHADONE 80 MG, METHADONE 10 MG PO SCH (05:31)
[2018-05-25] MEDS: diazePAM 5 MG TABLET PO PRN ×4 (05:33→18:10)
[2018-05-25] MEDS: RANITIDINE HCL 150 MG TABLET (FP) PO SCH ×2 (10:05→22:46)
[2018-05-25] MEDS: PRENATAL VITAMINS W/ FOLIC ACID TABLET (FP) PO SCH (10:05)
[2018-05-25] MEDS: NICOTINE 14 MG/24 HOURS TOPICAL PATCH TD SCH (10:06)
[2018-05-25] MEDS: BUDESONIDE/FORMETEROL FUMARATE 160/4.5 mcg INHALER IH SCH ×2 (10:06→22:49)
[2018-05-25] MEDS: diazePAM 5 MG TABLET PO SCH ×2 (10:07→22:46)
--- NOTE | 2018-05-25 10:44 | PN ---
S Progress Note (SOAP) Subjective: alert,irritable,anxious,interrupted sleep,constipation Objective: 05/25/18 10:42 Vital Signs Temperature 97.8 F 05/25/18 09:27 Pulse Rate 79 05/25/18 09:27 Respiratory Rate 19 05/25/18 09:27 Blood Pressure 121/66 05/25/18 09:27 O2 Sat by Pulse Oximetry (%) Assessment: 05/25/18 10:42 withdrawal symptom Plan: continue detox,metamucil ,discharge in am
[2018-05-25] MEDS ORDERED: PSYLLIUM 5.85 GM PACKET PO SCH (10:45)
[2018-05-25] MEDS: QUEtiapine FUMARATE 100 MG TABLET (FP) PO SCH (22:46)
[2018-05-25] MEDS: THIAMINE HCL 100 MG TABLET (FP) PO SCH (22:50)
[2018-05-26] MEDS ORDERED: METHADONE HCL 40 MG DISPERSABLE TABLET ONE (04:22)
[2018-05-26] MEDS ORDERED: METHADONE HCL 10 MG TABLET ONE (04:22)
[2018-05-26] MEDS: DOCUSATE SODIUM 100 MG CAPSULE (FP) PO SCH (06:10)
[2018-05-26] MEDS: METHADONE 80 MG, METHADONE 10 MG PO SCH (06:10)
[2018-05-26] MEDS: GABAPENTIN 300 MG CAPSULE (FP) PO SCH (06:14)
[2018-05-26 07:11] VITALS: BP 107/52; PULSE 72; TEMP 97.7
--- NOTE | 2018-05-26 08:00 | PN ---
S Progress Note (SOAP) Subjective: alert,no complaint Objective: 05/26/18 07:58 Vital Signs Temperature 97.7 F 05/26/18 07:10 Pulse Rate 72 05/26/18 07:10 Respiratory Rate 18 05/26/18 07:10 Blood Pressure 107/52 05/26/18 07:10 O2 Sat by Pulse Oximetry (%) Assessment: 05/26/18 07:59 detox completed,no withdrawal symptom Plan: discharge today,follow up with after care program as arrangement
--- NOTE | 2018-05-26 08:06 | DS ---
[facility] Detox Discharge Summary Admission Date: 05/22/18 Discharge Date: 05/26/18 - History Present History: Alcohol Dependence, Cocaine Dependence, Sedative Dependence, MMTP Additional Comments: follow up with [facility] as arrangement Pertinent Past History: asthma weight loss - Physical Exam Results Vital Signs: Vital Signs Temperature 97.7 F 05/26/18 07:10 Pulse Rate 72 05/26/18 07:10 Respiratory Rate 18 05/26/18 07:10 Blood Pressure 107/52 05/26/18 07:10 O2 Sat by Pulse Oximetry (%) Pertinent Admission Physical Exam Findings: withdrawal signs and symptom Vital Signs Temperature 97.7 F 05/26/18 07:10 Pulse Rate 72 05/26/18 07:10 Respiratory Rate 18 05/26/18 07:10 Blood Pressure 107/52 05/26/18 07:10 O2 Sat by Pulse Oximetry (%) Laboratory Last Values WBC 3.7 K/mm3 (4.0-10.0) L 05/23/18 07:30 RBC 4.62 M/mm3 (4.00-5.60) 05/23/18 07:30 Hgb 12.6 GM/dL (11.7-16.9) 05/23/18 07:30 Hct 38.1 % (35.4-49) 05/23/18 07:30 MCV 82.5 fl (80-96) 05/23/18 07:30 MCH 27.3 pg (25.7-33.7) 05/23/18 07:30 MCHC 33.2 g/dl (32.0-35.9) 05/23/18 07:30 RDW 14.4 % (11.9-15.9) 05/23/18 07:30 Plt Count 213 K/MM3 (134-434) 05/23/18 07:30 MPV 8.5 fl (7.5-11.1) 05/23/18 07:30 Sodium 140 mmol/L (136-145) 05/23/18 07:30 Potassium 4.0 mmol/L (3.5-5.1) 05/23/18 07:30 Chloride 103 mmol/L (98-107) 05/23/18 07:30 Carbon Dioxide 33 mmol/L (21-32) H 05/23/18 07:30 Anion Gap 4 (8-16) L 05/23/18 07:30 BUN 6 mg/dL (7-18) L 05/23/18 07:30 Creatinine 0.8 mg/dL (0.7-1.3) 05/23/18 07:30 Creat Clearance w eGFR > 60 (>60) 05/23/18 07:30 Random Glucose 89 mg/dL (74-106) 05/23/18 07:30 Calcium 8.3 mg/dL (8.5-10.1) L 05/23/18 07:30 Total Bilirubin 0.3 mg/dL (0.2-1.0) 05/23/18 07:30 AST 90 U/L (15-37) H D 05/23/18 07:30 ALT 92 U/L (12-78) H D 05/23/18 07:30 Alkaline Phosphatase 80 U/L (45-117) 05/23/18 07:30 Total Protein 6.3 g/dl (6.4-8.2) L 05/23/18 07:30 Albumin 3.1 g/dl (3.4-5.0) L 05/23/18 07:30 Urine Color Yellow 05/22/18 23:30 Urine Appearance Clear 05/22/18 23:30 Urine pH 6.0 (5.0-8.0) 05/22/18 23:30 Ur Specific [place] 1.024 (1.001-1.035) 05/22/18 23:30 Urine Protein 1+ (NEGATIVE) H 05/22/18 23:30 Urine Glucose (UA) Negative (NEGATIVE) 05/22/18 23:30 Urine Ketones Negative (NEGATIVE) 05/22/18 23:30 Urine Blood Negative (NEGATIVE) 05/22/18 23:30 Urine Nitrite Negative (NEGATIVE) 05/22/18 23:30 Urine Bilirubin Negative (<2.0 mg/dL) 05/22/18 23:30 Urine Urobilinogen 4.0 e.u/dl mg/dL (0.2-1.0) 05/22/18 23:30 Ur Leukocyte Esterase Negative (NEGATIVE) 05/22/18 23:30 Urine WBC (Auto) 1 /hpf (3-5) 05/22/18 23:30 Urine RBC (Auto) <1 /hpf (0-3) 05/22/18 23:30 Urine Mucus Few 05/22/18 23:30 RPR Titer Nonreactive (NONREACTIVE) 05/23/18 07:30 HIV 1&2 Antibody Screen Negative 05/22/18 07:30 HIV P24 Antigen Negative 05/22/18 07:30 - Treatment Hospital Course: Detox Protocol Followed, Detoxed Safely, Responded well, Discharged Condition Good, Rehab Referral Accepted Patient has Accepted a Rehab Referral to: [facility] - Medication Discharge Medications: Ambulatory Orders Gabapentin 600 mg PO TID 04/05/18 Benzoyl Peroxide [Bp Wash] 227 gm TP ASDIR 05/22/18 Buspirone HCl [Buspar -] 15 mg PO BID 05/22/18 Chlorhexidine Gluconate 15 ml MM BID 05/22/18 Docusate Sodium [Colace -] 100 mg PO TID 05/22/18 Quetiapine Fumarate [Seroquel] 100 mg PO HS 05/23/18 Albuterol Sulfate Inhaler - [Ventolin HFA Inhaler -] 2 puff IH Q4H PRN #1 inhaler 05/25/18 Budesonide/Formeterol Fumarate [SYMBICORT 160/4.5mcg -] 2 puff IH BID #1 inhaler 05/25/18 Docusate Sodium [Colace -] 100 mg PO TID #30 capsule 05/25/18 Psyllium [Metamucil (Sugar-Free) -] 5.85 gm PO DAILY #10 packet 05/25/18 Ranitidine [Zantac -] 150 mg PO BID #20 tablet 05/25/18 - Diagnosis (1) Alcohol dependence with uncomplicated withdrawal Current Visit: Yes Status: Acute (2) Cocaine dependence Current Visit: Yes Status: Acute Qualifiers: Substance use status: uncomplicated Qualified Code(s): F14.20 - Cocaine dependence, uncomplicated (3) Sedative, hypnotic or anxiolytic dependence with withdrawal, uncomplicated Current Visit: Yes Status: Acute (4) Weight loss Current Visit: Yes Status: Acute (5) Asthma Current Visit: Yes Status: Chronic Qualifiers: Asthma severity: mild Asthma complication type: with status asthmaticus (6) Opioid dependence on agonist therapy Current Visit: Yes Status: Chronic (7) Constipation Current Visit: Yes Status: Chronic Qualifiers: Constipation type: unspecified constipation type Qualified Code(s): K59.00 - Constipation, unspecified - AMA Did Patient Leave Against Medical Advice: No
[2018-05-26] MEDS ORDERED: diazePAM 5 MG TABLET PO SCH (10:00)
== END 2018-05-26 08:28 | disposition home or self-care (01) | DRG 773 ==
LOC: YASAS 12:27 → Y6N 15:06
PROVIDERS: ADMIT Surgery; ATTEND Surgery
PROC: HZ2ZZZZ Detoxification Services for Substance Abuse Treatment (ICD-10-PCS; principal; 2018-05-22)
DX: F13.230 Sedative, hypnotic or anxiolytic dependence with withdrawal, uncomplicated (principal); F11.20 Opioid dependence, uncomplicated; F10.230 Alcohol dependence with withdrawal, uncomplicated; F14.20 Cocaine dependence, uncomplicated; F17.213 Nicotine dependence, cigarettes, with withdrawal; J45.22 Mild intermittent asthma with status asthmaticus; K59.00 Constipation, unspecified; J20.9 Acute bronchitis, unspecified; G47.00 Insomnia, unspecified; K21.9 Gastro-esophageal reflux disease without esophagitis; Z91.013 Allergy to seafood; Z87.898 Personal history of other specified conditions
CPT/HCPCS: 36415; 80053; 81003; 81015; 85027; 86593; 87389; 93005; 93010

== ENCOUNTER 2018-06-26 12:39 | Inpatient (IN) | payer OTHER ==
[2018-06-26 12:50] VITALS: BMI 25.7
--- NOTE | 2018-06-26 17:40 | HP ---
"CIWA Score - CIWA Score Nausea/Vomitin-Mild Nausea/No Vomiting Muscle Tremors: 4-Moderate,w/Arms Extend Anxiety: 4-Mod. Anxious/Guarded Agitation: 3 Paroxysmal Sweats: 1-Minimal Palms Moist Orientation: 0-Oriented Tacttile Disturbances: 0-None Auditory Disturbances: 0-None Visual Disturbances: 0-None Headache: 0-None Present CIWA-Ar Total Score: 13 Admission ROS S - HPI Chief Complaint: Here for alcohol and benzo withdrawal. Allergies/Adverse Reactions: Allergies Allergy/AdvReac Type Severity Reaction Status Date / Time shellfish derived Allergy Severe Swelling Verified 06/26/18 14:31 No Known Drug Allergies Allergy Verified 06/26/18 14:31 History of Present Illness: Alcohol use since age 19. Cocaine use since age 21. Heroin use since age 24. Xanan use since age 29. Denies hx seizures, blackouts or overdose. Started Methadone program about 1 year ago. Continues to bhakti and dab with heroin despite being on MMTP. Uses heroin IV. State does not share needles or works. Discussed overdose risks and has a overdose kit at home. Search Terms: Mohinder Diaz, 1985 Search Date: 06/26/2018 05:33:43 PM The Drug Utilization Report below displays all of the controlled substance prescriptions, if any, that your patient has filled in the last twelve months. The information displayed on this report is compiled from pharmacy submissions to the Department, and accurately reflects the information as submitted by the pharmacies. This report was requested by: Rose Pardo | Reference #: [id number] Patient Name: Mohinder Diaz Date: 1985 Address: [address] [place] [address] Sex: Male Rx Written Rx Dispensed Drug Quantity Days Supply Prescriber Name 03/28/2018 03/28/2018 acetaminophen-cod #3 tablet 15 3 Selin Luo DDS MD 08/08/2017 08/08/2017 hydrocodone-acetaminophen 5-325 mg tablet 10 2 Mir Finn DMD Exam Limitations: No Limitations - Ebola screening Have you traveled outside of the country in the last 21 days: No Have you had contact with anyone from an Ebola affected area: No Have you been sick,other than usual withdrawal symptoms: No Do you have a fever: No - Review of Systems Constitutional: Changes in sleep (Difficulty staying asleep) EENT: reports: Dental Problems (Missing back teeth. Some difficulty chewing.) Respiratory: reports: No Symptoms reported, Other (Hx asthma - exacerbation 2 days ago - evidenced by SOB and wheezing.) Cardiac: reports: No Symptoms Reported GI: reports: Constipated (Occ blood in stool from straining. Have hemorrhoids.) , Nausea (From withdrawal), Indigestion (Has acid reflux.) : reports: No Symptoms Reported Musculoskeletal: reports: Back Pain (States chronic back pain. Takes Gabapentin for pain. Pain is sharp to achy. Denies pain at this time.) Integumentary: reports: No Symptoms Reported Neuro: reports: Tremors, Other (Occ jerking motions when going to sleep or relaxed) Endocrine: reports: No Symptoms Reported Hematology: reports: No Symptoms Reported Psychiatric: reports: Judgement Intact, Orientated x3, Agitated, Anxious ( Increased anxiety), Depressed (Denies thoughts of harming self or others.) Patient History - Patient Medical History Hx Anemia: No Hx Asthma: Yes Hx Chronic Obstructive Pulmonary Disease (COPD): No Hx Cancer: No Hx Cardiac Disorders: No Hx Congestive Heart Failure: No Hx Hypertension: No Hx Hypercholesterolemia: No Hx Pacemaker: No HX Cerebrovascular Accident: No Hx Seizures: No Hx Dementia: No Hx Diabetes: No Hx Gastrointestinal Disorders: No (Acid reflux) Hx Liver Disease: No Hx Genitourinary Disorders: No Hx Sexually Transmitted Disorders: No Hx Renal Disease (ESRD): No Hx Thyroid Disease: No Hx Human Immunodeficiency Virus (HIV): No Hx Hepatitis C: No (negative) Hx Depression: Yes Hx Suicide Attempt: No Hx Bipolar Disorder: No Hx Schizophrenia: No - Patient Surgical History Past Surgical History: No Hx Neurologic Surgery: No Hx Cataract Extraction: No Hx Cardiac Surgery: No Hx Lung Surgery: No Hx Breast Surgery: No Hx Breast Biopsy: No Hx Abdominal Surgery: No Hx Appendectomy: No Hx Cholecystectomy: No Hx Genitourinary Surgery: No Hx Section: No Hx Orthopedic Surgery: No Anesthesia Reaction: No - PPD History Previous Implant?: Yes Documented Results: Negative w/proof Implanted On Prior [facility] Admission?: Yes Date: 04/07/18 Results: NEGATIVE PPD to be Administered?: No - Smoking Cessation Smoking history: Current every day smoker Have you smoked in the past 12 months: Yes Aproximately how many cigarettes per day: 10 Cigars Per Day: 0 Hx Chewing Tobacco Use: No Initiated information on smoking cessation: Yes 'Breaking Loose' booklet given: 06/26/18 - Substances Abused Alcohol Route: Oral Frequency: Daily Amount used: 2 PINTS OF MISAEL Age of first use: 19 Date of Last Use: 06/25/18 Cocaine Route: Injection Frequency: 3-6 times per week Amount used: 0.5 GRAM Age of first use: 21 Date of Last Use: 06/25/18 Heroin Route: Injection Frequency: 3-6 times per week Amount used: 0.5 BUNDLE Age of first use: 24 Date of Last Use: 06/25/18 XANAX Route: Oral Frequency: Daily Amount used: 2 MG TABS 3 TIMES A DAY Age of first use: 29 Date of Last Use: 06/25/18 Family Disease History - Family Disease History Family Disease History: Diabetes: Mother (living, ), Other: Father (living, healthy), Mother, Sister (1 living - healthy), Daughter (age 7 - healthy) Admission Physical Exam [facility] - Vital Signs Vital Signs: Vital Signs - 24 hr 06/26/18 12:48 Temperature 98.3 F Pulse Rate 95 H Respiratory 19 Rate Blood Pressure 103/58 L - Physical General Appearance: Yes: Mild Distress, Tremorous, Sweating, Anxious HEENTM: Yes: EOMI, Hearing grossly Normal, Normal Voice, JONATHON (pupils at 2 mm), Other (Tongue and mucous membranes dry.) Respiratory: Yes: Chest Non-Tender, Lungs Clear, Normal Breath Sounds, No Respiratory Distress Neck: Yes: No masses,lesions,Nodules, Supple Breast: Yes: Breast Exam Deferred Cardiology: Yes: Regular Rhythm, Regular Rate, S1, S2 Abdominal: Yes: Non Tender, Soft Genitourinary: Yes: Within Normal Limits Back: Yes: Normal Inspection Musculoskeletal: Yes: full range of Motion, Gait Steady Extremities: Yes: Normal Capillary Refill, Normal Range of Motion, Non-Tender, Tremors (of hands when extended and at rest) Neurological: Yes: aircraft engine specialist II-XII NML intact, Fully Oriented, Alert, Motor Strength 5/5, Normal Mood/Affect Integumentary: Yes: Normal Color, Dry (Decreased skin turgor), Warm Lymphatic: Yes: Within Normal Limits - Diagnostic (1) Alcohol dependence with uncomplicated withdrawal Current Visit: Yes Status: Acute (2) Cocaine dependence Current Visit: Yes Status: Chronic Qualifiers: Substance use status: uncomplicated Qualified Code(s): F14.20 - Cocaine dependence, uncomplicated (3) Dehydration Current Visit: Yes Status: Chronic (4) Sedative, hypnotic or anxiolytic dependence with withdrawal, uncomplicated Current Visit: Yes Status: Acute (5) Skin turgor poor Current Visit: Yes Status: Chronic (6) Constipation Current Visit: No Status: Chronic Qualifiers: Constipation type: unspecified constipation type Qualified Code(s): K59.00 - Constipation, unspecified (7) GERD (gastroesophageal reflux disease) Current Visit: Yes Status: Chronic Qualifiers: Esophagitis presence: esophagitis presence not specified Qualified Code(s) : K21.9 - Gastro-esophageal reflux disease without esophagitis (8) Opioid dependence on agonist therapy Current Visit: Yes Status: Chronic (9) Chronic obstructive pulmonary disease, unspecified Current Visit: Yes Status: Acute Qualifiers: COPD type: unspecified COPD Qualified Code(s): J44.9 - Chronic obstructive pulmonary disease, unspecified (10) Back pain Current Visit: Yes Status: Chronic Qualifiers: Back pain location: low back pain Chronicity: chronic Back pain laterality: midline Sciatica presence: without sciatica Qualified Code(s): M54.5 - Low back pain; G89.29 - Other chronic pain (11) Poor dentition Current Visit: Yes Status: Chronic Cleared for Admission S - Detox or Rehab [facility] Level of Care: Medically Managed Detox Regimen/Protocol: Librium [facility] Breath Alcohol Content Breath Alcohol Content: 0 Urine Drug Screen - Results Drug Screen Negative: No Urine Drug Screen Results: LYLE-Cocaine, OPI-Opiates, BZO-Benzodiazepines, MTD- Methadone"
[2018-06-26] MEDS ORDERED: P-EPHED 60MG/TRIPROLIDI 2.5MG TABLET PO PRN (18:21)
[2018-06-26] MEDS ORDERED: NICOTINE POLACRILEX 2 MG GUM BC PRN (18:21)
[2018-06-26] MEDS ORDERED: guaiFENesin/D-METHORPHAN HB 10 ML UNIT-DOSE CUPS PO PRN (18:21)
[2018-06-26] MEDS ORDERED: LOPERAMIDE HCL 2 MG CAPSULE PO PRN (18:21)
[2018-06-26] MEDS ORDERED: MAG HYDROX/AL HYDROX/SIMETH 30 ML UNIT-DOSE CUP PO PRN (18:21)
[2018-06-26] MEDS ORDERED: IBUPROFEN 400 MG TABLET (FP) PO PRN (18:21)
[2018-06-26] MEDS ORDERED: MAGNESIUM CITRATE 300 ML BOTTLE PO PRN (18:21)
[2018-06-26] MEDS ORDERED: MENTHOL/PHENOL 1 EACH UD MM PRN (18:21)
[2018-06-26] MEDS: chlordiazePOXIDE HCL 25 MG CAPSULE PO PRN (19:29)
[2018-06-26] MEDS ORDERED: GABAPENTIN 300 MG CAPSULE (FP) PO SCH (22:00)
[2018-06-26] MEDS ORDERED: MELATONIN 5 MG TABLETS PO PRN (22:00)
[2018-06-26] MEDS: BUDESONIDE/FORMETEROL FUMARATE 160/4.5 mcg INHALER IH SCH (22:26)
[2018-06-26] MEDS: DOCUSATE SODIUM 100 MG CAPSULE (FP) PO SCH (22:27)
[2018-06-26] MEDS: GABAPENTIN 300 MG CAPSULE (FP) PO SCH (22:27)
[2018-06-26] MEDS: RANITIDINE HCL 150 MG TABLET (FP) PO SCH (22:27)
[2018-06-26] MEDS: THIAMINE HCL 100 MG TABLET (FP) PO SCH (22:27)
[2018-06-26] MEDS: chlordiazePOXIDE HCL 25 MG CAPSULE PO SCH (22:28)
[2018-06-26 23:06] LABS: URINE APPEARANCE CLEAR; URINE BILIRUBIN NEGATIVE (<2.0 mg/dL); URINE COLOR DKYELLOW; URINE GLUCOSE (UA) NEGATIVE (NEGATIVE); URINE KETONE NEGATIVE (NEGATIVE); URINE LEUK ESTERASE NEGATIVE (NEGATIVE); URINE NITRITE NEGATIVE (NEGATIVE); URINE PROTEIN NEGATIVE (NEGATIVE); URINE UROBILINOGEN 4.0 E.U/dl mg/dL (0.2-1.0)
[2018-06-27] MEDS ORDERED: METHADONE HCL 40 MG DISPERSABLE TABLET ONE (04:13)
[2018-06-27] MEDS ORDERED: METHADONE HCL 10 MG TABLET ONE (04:13)
[2018-06-27] MEDS: GABAPENTIN 300 MG CAPSULE (FP) PO SCH ×3 (05:30→22:33)
[2018-06-27] MEDS: chlordiazePOXIDE HCL 25 MG CAPSULE PO SCH ×4 (05:30→22:32)
[2018-06-27] MEDS: METHADONE 80 MG, METHADONE 20 MG PO SCH (05:30)
[2018-06-27] MEDS: DOCUSATE SODIUM 100 MG CAPSULE (FP) PO SCH ×3 (05:31→22:33)
[2018-06-27] MEDS ORDERED: METHADONE HCL 40 MG DISPERSABLE TABLET PO SCH (06:00)
[2018-06-27] MEDS: chlordiazePOXIDE HCL 25 MG CAPSULE PO PRN ×3 (07:36→19:01)
[2018-06-27] MEDS: PRENATAL VITAMINS W/ FOLIC ACID TABLET (FP) PO SCH (10:12)
[2018-06-27] MEDS: RANITIDINE HCL 150 MG TABLET (FP) PO SCH ×2 (10:12→22:33)
[2018-06-27] MEDS: BUDESONIDE/FORMETEROL FUMARATE 160/4.5 mcg INHALER IH SCH ×2 (10:12→23:36)
[2018-06-27] MEDS: NICOTINE 14 MG/24 HOURS TOPICAL PATCH TD SCH (10:13)
[2018-06-27 10:53] LABS: HEMATOCRIT 40.8 % (35.4-49); MCH 26.5 pg (25.7-33.7); MCHC 31.9 g/dl (32.0-35.9); MEAN CELL VOLUME 83.2 fl (80-96); RDW 15.4 % (11.9-15.9); WHITE BLOOD COUNT 5.5 K/mm3 (4.0-10.0)
--- NOTE | 2018-06-27 11:00 | EKG ---
Test Reason : Blood Pressure : / mmHG Vent. Rate : 068 BPM Atrial Rate : 068 BPM P-R Int : 160 ms QRS Dur : 094 ms QT Int : 420 ms P-R-T Axes : 067 080 056 degrees QTc Int : 446 ms NORMAL SINUS RHYTHM NORMAL ECG Confirmed by MD HARMONY, CORNELIUS (2012) on 06/27/2018 11:00:19 AM Referred By: Confirmed By:CORNELIUS ANTUNEZ MD
[2018-06-27 11:47] LABS: ALBUMIN 3.5 g/dl (3.4-5.0); ALK PHOS 160 U/L (45-117); ANION GAP 10 MMOL/L (8-16); BILIRUBIN,TOTAL 0.4 mg/dL (0.2-1); BLOOD UREA NITROGEN 14 mg/dL (7-18); CALCIUM 8.9 mg/dL (8.5-10.1); CHLORIDE 101 mmol/L (98-107); CO2 28 mmol/L (21-32); CREATININE 0.9 mg/dL (0.55-1.3); GLUCOSE,RANDOM 106 mg/dL (74-106); POTASSIUM 4.9 mmol/L (3.5-5.1); SGOT/AST 481 U/L (15-37); SGPT/ALT 552 U/L (13-61); SODIUM 139 mmol/L (136-145); TOT PROT 6.9 g/dl (6.4-8.2)
--- NOTE | 2018-06-27 11:54 | PN ---
S CIWA - CIWA Score Nausea/Vomitin Muscle Tremors: 4-Moderate,w/Arms Extend Anxiety: 4-Mod. Anxious/Guarded Agitation: 3 Paroxysmal Sweats: 3 Orientation: 0-Oriented Tacttile Disturbances: 0-None Auditory Disturbances: 0-None Visual Disturbances: 0-None Headache: 1-Very Mild CIWA-Ar Total Score: 18 S Progress Note (SOAP) Subjective: Tremor, chills, interrupted sleep Objective: 06/27/18 11:49 Last Vital Signs Temp Pulse Resp BP Pulse Ox 97.5 F L 67 16 107/61 06/27/18 09:16 06/27/18 09:16 06/27/18 09:16 06/27/18 09:16 Laboratory Tests 06/26/18 06/27/18 06/27/18 21:30 06:00 06:00 WBC 5.5 RBC 4.90 Hgb 13.0 Hct 40.8 MCV 83.2 MCH 26.5 MCHC 31.9 L RDW 15.4 Sodium 139 Potassium 4.9 Chloride 101 Carbon Dioxide 28 Anion Gap 10 BUN 14 Creatinine 0.9 Creat Clearance w eGFR > 60 Random Glucose 106 Calcium 8.9 Total Bilirubin 0.4 AST 481 H ALT 552 H Alkaline Phosphatase 160 H Total Protein 6.9 Albumin 3.5 Urine Color Dkyellow Urine Appearance Clear Urine pH 6.0 Ur Specific [place] 1.018 Urine Protein Negative Urine Glucose (UA) Negative Urine Ketones Negative Urine Blood Negative Urine Nitrite Negative Urine Bilirubin Negative Urine Urobilinogen 4.0 e.u/dl Ur Leukocyte Esterase Negative Labs ordered: elevated LFTs Assessment: 06/27/18 11:54 Withdrawal symptoms Noted with elevated LFTs Plan: Continue detox Encouraged PO water intake Repeat hepatic panel
--- NOTE | 2018-06-27 15:48 | CONSULT ---
[facility] Psychiatric Consult - Data Date of interview: 06/27/18 Admission source: [facility] Identifying data: Another admission to [facility] for this 32 y/o male self-referred for detoxification treatment (xanax,alcohol,cocaine,opioid). Admitted to [address] [place] [address].Patient is ,a father of one,domiciled,unemployed and supported on Public Assistance. Substance Abuse History: Confirmed by the patient in thiks interview.Details in current [facility] report as follows : Smoking history: Current every day smoker. Have you smoked in the past 12 months: Yes. Aproximately how many cigarettes per day: 10. Cigars Per Day: 0. Hx Chewing Tobacco Use: No. Initiated information on smoking cessation: Yes. 'Breaking Loose' booklet given: . - Substances Abused. Alcohol. Route: Oral. Frequency: Daily. Amount used: 2 PINTS OF MISAEL. Age of first use: 19. Date of Last Use: 06/25/18. Cocaine. Route: Injection. Frequency: 3-6 times per week. Amount used: 0.5 GRAM. Age of first use: 21. Date of Last Use: 06/25/18. Heroin. Route : Injection. Frequency: 3-6 times per week. Amount used: 0.5 BUNDLE. Age of first use: 24. Date of Last Use: 06/25/18. XANAX. Route: Oral. Frequency : Daily. Amount used: 2 MG TABS 3 TIMES A DAY. Age of first use: 29. Date of Last Use: 06/25/18 Medical History: GERD and bronchial asthma. Psychiatric History: No change in psychiatris profile [facility] encounter of 12/2017. History of multiple psychiatric hospitalizations.Onset of emotional disturbances (age 20).Past psychiatric admissions to [facility] and [facility] in [facility].Mr Diaz is diagnosed with Generalized Anxiety Disorder and MDD.Currently on methadone maintenance (100 mg/ day) at [facility] in the [place]. On a regimen of seroquel 300 mg/hs + buspar 15 mg po bid.Chronically non-adherent to OPD care.Distant history of suicide attempts via various means. Physical/Sexual Abuse/Trauma History: Patient denies. Additional Comment: Urine Drug Screen Results: LYLE-Cocaine, OPI-Opiates, BZO- Benzodiazepines, MTD-Methadone.Noted. Mental Status Exam - Mental Status Exam Alert and Oriented to: Time, Place, Person Cognitive Function: Good Patient Appearance: Well Groomed Mood: Nervous, Anxious, Irritable Affect: Mood Congruent Patient Behavior: Fatigued, Cooperative Speech Pattern: Clear, Appropriate Voice Loudness: Normal Thought Process: Goal Oriented Thought Disorder: Not Present Hallucinations: Denies Suicidal Ideation: Denies Homicidal Ideation: Denies Insight/Judgement: Poor Sleep: Poorly, Difficulty falling asleep Appetite: Good Muscle strength/Tone: Normal Gait/Station: Normal Psychiatric Findings - Problem List ([place] 1, 2,3) (1) Opioid dependence on agonist therapy Current Visit: Yes Status: Acute (2) Alcohol dependence with uncomplicated withdrawal Current Visit: Yes Status: Acute (3) Sedative, hypnotic or anxiolytic dependence with withdrawal, uncomplicated Current Visit: Yes Status: Acute (4) Cocaine dependence Current Visit: Yes Status: Acute Qualifiers: Substance use status: uncomplicated Qualified Code(s): F14.20 - Cocaine dependence, uncomplicated (5) Nicotine dependence Current Visit: Yes Status: Acute Qualifiers: Nicotine product type: cigarettes Substance use status: in withdrawal Qualified Code(s): F17.213 - Nicotine dependence, cigarettes, with withdrawal (6) Substance induced mood disorder Current Visit: Yes Status: Acute (7) TINO (generalized anxiety disorder) Current Visit: Yes Status: Chronic Comment: Historical diagnosis. (8) Insomnia Current Visit: Yes Status: Acute Qualifiers: Insomnia type: unspecified Qualified Code(s): G47.00 - Insomnia, unspecified - Initial Treatment Plan Initial Treatment Plan: Psychoeducation.Sleep hygiene.detoxification.Medications reconciled : seroquel 300 mg po hs + buspar 15 mg po bid.Side effects/benefits of both drugs are discussed with the patient.Doses verified with pharmacist at [facility] ([phone]) : refills issued on 06/22/18.Patient is in agreement with this careplan.Observation.
[2018-06-27] MEDS: ACETAMINOPHEN 325 MG TABLET (FP) PO PRN (18:05)
[2018-06-27] MEDS: ALBUTEROL SO4 8 GM HFA INHALER IH PRN (21:24)
[2018-06-27] MEDS: THIAMINE HCL 100 MG TABLET (FP) PO SCH (22:33)
[2018-06-27] MEDS: QUEtiapine FUMARATE 300 MG TABLET PO SCH (22:33)
[2018-06-28] MEDS ORDERED: METHADONE HCL 10 MG TABLET ONE (03:45)
[2018-06-28] MEDS ORDERED: METHADONE HCL 40 MG DISPERSABLE TABLET ONE (03:45)
[2018-06-28] MEDS: METHADONE 80 MG, METHADONE 20 MG PO SCH (05:37)
[2018-06-28] MEDS: DOCUSATE SODIUM 100 MG CAPSULE (FP) PO SCH ×3 (05:38→22:19)
[2018-06-28] MEDS: ACETAMINOPHEN 325 MG TABLET (FP) PO PRN (05:38)
[2018-06-28] MEDS: chlordiazePOXIDE HCL 25 MG CAPSULE PO SCH ×3 (05:38→16:20)
[2018-06-28] MEDS: GABAPENTIN 300 MG CAPSULE (FP) PO SCH ×3 (05:38→22:19)
[2018-06-28] MEDS: ALBUTEROL SO4 8 GM HFA INHALER IH PRN ×2 (08:27→22:21)
[2018-06-28] MEDS: chlordiazePOXIDE HCL 25 MG CAPSULE PO PRN ×2 (08:30→15:07)
[2018-06-28] MEDS: RANITIDINE HCL 150 MG TABLET (FP) PO SCH ×2 (10:03→22:19)
[2018-06-28] MEDS: BUDESONIDE/FORMETEROL FUMARATE 160/4.5 mcg INHALER IH SCH ×2 (10:03→22:20)
[2018-06-28] MEDS: PRENATAL VITAMINS W/ FOLIC ACID TABLET (FP) PO SCH (10:04)
[2018-06-28] MEDS: NICOTINE 14 MG/24 HOURS TOPICAL PATCH TD SCH (10:04)
--- NOTE | 2018-06-28 12:10 | PN ---
S CIWA - CIWA Score Nausea/Vomitin Muscle Tremors: 3 Anxiety: 3 Agitation: 3 Paroxysmal Sweats: 2 Orientation: 0-Oriented Tacttile Disturbances: 0-None Auditory Disturbances: 0-None Visual Disturbances: 0-None Headache: 0-None Present CIWA-Ar Total Score: 13 [facility] Progress Note (SOAP) Subjective: Nausea, headache, back pain, interrupted sleep Objective: 06/28/18 12:10 Last Vital Signs Temp Pulse Resp BP Pulse Ox 97.4 F L 93 H 18 99/58 L 06/28/18 09:27 06/28/18 09:27 06/28/18 09:27 06/28/18 09:27 Laboratory Tests 06/26/18 06/27/18 06/27/18 21:30 06:00 06:00 WBC 5.5 RBC 4.90 Hgb 13.0 Hct 40.8 MCV 83.2 MCH 26.5 MCHC 31.9 L RDW 15.4 Plt Count Platelet Comment Mod plt clumping Sodium 139 Potassium 4.9 Chloride 101 Carbon Dioxide 28 Anion Gap 10 BUN 14 Creatinine 0.9 Creat Clearance w eGFR > 60 Random Glucose 106 Calcium 8.9 Total Bilirubin 0.4 AST 481 H ALT 552 H Alkaline Phosphatase 160 H Total Protein 6.9 Albumin 3.5 Urine Color Dkyellow Urine Appearance Clear Urine pH 6.0 Ur Specific [place] 1.018 Urine Protein Negative Urine Glucose (UA) Negative Urine Ketones Negative Urine Blood Negative Urine Nitrite Negative Urine Bilirubin Negative Urine Urobilinogen 4.0 e.u/dl Ur Leukocyte Esterase Negative RPR Titer 06/27/18 06:00 WBC RBC Hgb Hct MCV MCH MCHC RDW Plt Count Platelet Comment Sodium Potassium Chloride Carbon Dioxide Anion Gap BUN Creatinine Creat Clearance w eGFR Random Glucose Calcium Total Bilirubin AST ALT Alkaline Phosphatase Total Protein Albumin Urine Color Urine Appearance Urine pH Ur Specific [place] Urine Protein Urine Glucose (UA) Urine Ketones Urine Blood Urine Nitrite Urine Bilirubin Urine Urobilinogen Ur Leukocyte Esterase RPR Titer Nonreactive Labs reviewed: noted with elevated LFTs Assessment: 06/28/18 12:11 Withdrawal symptoms Noted with elevated LFTs Plan: Continue detox Elevated LFTs: follow up on repeated LFTs
[2018-06-28] MEDS: hydrOXYzine PAMOATE 25 MG CAPSULE (FP) PO PRN (20:19)
[2018-06-28] MEDS: QUEtiapine FUMARATE 300 MG TABLET PO SCH (22:19)
[2018-06-28] MEDS: THIAMINE HCL 100 MG TABLET (FP) PO SCH (22:19)
[2018-06-28] MEDS: chlordiazePOXIDE 5 MG CAPSULE PO SCH (22:19)
[2018-06-29] MEDS ORDERED: METHADONE HCL 10 MG TABLET ONE (04:05)
[2018-06-29] MEDS ORDERED: METHADONE HCL 40 MG DISPERSABLE TABLET ONE (04:05)
[2018-06-29] MEDS: ACETAMINOPHEN 325 MG TABLET (FP) PO PRN (05:38)
[2018-06-29] MEDS: chlordiazePOXIDE 5 MG CAPSULE PO SCH ×3 (05:38→17:25)
[2018-06-29] MEDS: METHADONE 80 MG, METHADONE 20 MG PO SCH (05:38)
[2018-06-29] MEDS: DOCUSATE SODIUM 100 MG CAPSULE (FP) PO SCH ×3 (05:39→22:34)
[2018-06-29] MEDS: GABAPENTIN 300 MG CAPSULE (FP) PO SCH ×3 (05:39→22:33)
[2018-06-29] MEDS ORDERED: IBUPROFEN 600 MG TABLET (FP) PO PRN (07:36)
[2018-06-29] MEDS: chlordiazePOXIDE HCL 25 MG CAPSULE PO PRN ×2 (09:11→14:04)
[2018-06-29] MEDS: NICOTINE 14 MG/24 HOURS TOPICAL PATCH TD SCH (10:04)
[2018-06-29] MEDS: RANITIDINE HCL 150 MG TABLET (FP) PO SCH ×2 (10:04→22:34)
[2018-06-29] MEDS: PRENATAL VITAMINS W/ FOLIC ACID TABLET (FP) PO SCH (10:04)
[2018-06-29] MEDS: BUDESONIDE/FORMETEROL FUMARATE 160/4.5 mcg INHALER IH SCH ×2 (10:04→23:15)
[2018-06-29 10:31] LABS: ALBUMIN 3.2 g/dl (3.4-5.0); BILIRUBIN,DIRECT 0.3 mg/dL (0.0-0.2); BILIRUBIN,TOTAL 0.4 mg/dL (0.2-1); TOT PROT 6.6 g/dl (6.4-8.2)
--- NOTE | 2018-06-29 11:49 | PN ---
[facility] Progress Note (SOAP) Subjective: Back pain, nausea, sweating Objective: 06/29/18 11:48 Last Vital Signs Temp Pulse Resp BP Pulse Ox 97.8 F 96 H 18 116/71 06/29/18 09:09 06/29/18 09:09 06/29/18 09:09 06/29/18 09:09 Laboratory Tests 06/26/18 06/27/18 06/27/18 21:30 06:00 06:00 WBC 5.5 RBC 4.90 Hgb 13.0 Hct 40.8 MCV 83.2 MCH 26.5 MCHC 31.9 L RDW 15.4 Plt Count Platelet Comment Mod plt clumping Sodium 139 Potassium 4.9 Chloride 101 Carbon Dioxide 28 Anion Gap 10 BUN 14 Creatinine 0.9 Creat Clearance w eGFR > 60 Random Glucose 106 Calcium 8.9 Total Bilirubin 0.4 Direct Bilirubin AST 481 H ALT 552 H Alkaline Phosphatase 160 H Total Protein 6.9 Albumin 3.5 Urine Color Dkyellow Urine Appearance Clear Urine pH 6.0 Ur Specific [place] 1.018 Urine Protein Negative Urine Glucose (UA) Negative Urine Ketones Negative Urine Blood Negative Urine Nitrite Negative Urine Bilirubin Negative Urine Urobilinogen 4.0 e.u/dl Ur Leukocyte Esterase Negative RPR Titer 06/27/18 06/29/18 06:00 07:00 WBC RBC Hgb Hct MCV MCH MCHC RDW Plt Count Platelet Comment Sodium Potassium Chloride Carbon Dioxide Anion Gap BUN Creatinine Creat Clearance w eGFR Random Glucose Calcium Total Bilirubin 0.4 Direct Bilirubin 0.3 H AST 222 H ALT 527 H Alkaline Phosphatase 204 H Total Protein 6.6 Albumin 3.2 L Urine Color Urine Appearance Urine pH Ur Specific [place] Urine Protein Urine Glucose (UA) Urine Ketones Urine Blood Urine Nitrite Urine Bilirubin Urine Urobilinogen Ur Leukocyte Esterase RPR Titer Nonreactive Labs reviewed Assessment: 06/29/18 11:48 Withdrawal symptoms Plan: Continue detox
[2018-06-29] MEDS: MAGNESIUM HYDROX 2400MG/30ML ORAL SUSPENSION 30 ML CUP PO PRN ×2 (14:07→22:37)
[2018-06-29] MEDS: hydrOXYzine PAMOATE 25 MG CAPSULE (FP) PO PRN (19:11)
[2018-06-29] MEDS ORDERED: chlordiazePOXIDE HCL 10 MG CAPSULE PO ONE (19:17)
[2018-06-29] MEDS: THIAMINE HCL 100 MG TABLET (FP) PO SCH (22:33)
[2018-06-29] MEDS: QUEtiapine FUMARATE 300 MG TABLET PO SCH (22:34)
[2018-06-29] MEDS: chlordiazePOXIDE HCL 10 MG CAPSULE PO SCH (22:34)
[2018-06-30] MEDS ORDERED: METHADONE HCL 10 MG TABLET ONE (04:43)
[2018-06-30] MEDS ORDERED: METHADONE HCL 40 MG DISPERSABLE TABLET ONE (04:44)
[2018-06-30] MEDS: DOCUSATE SODIUM 100 MG CAPSULE (FP) PO SCH (05:14)
[2018-06-30] MEDS: GABAPENTIN 300 MG CAPSULE (FP) PO SCH (05:14)
[2018-06-30] MEDS: METHADONE 80 MG, METHADONE 20 MG PO SCH (05:14)
[2018-06-30] MEDS: chlordiazePOXIDE HCL 10 MG CAPSULE PO SCH ×2 (05:14→10:11)
[2018-06-30 09:11] VITALS: BP 107/65; PULSE 92; TEMP 97.6
[2018-06-30] MEDS: RANITIDINE HCL 150 MG TABLET (FP) PO SCH (10:10)
[2018-06-30] MEDS: BUDESONIDE/FORMETEROL FUMARATE 160/4.5 mcg INHALER IH SCH (10:10)
[2018-06-30] MEDS: PRENATAL VITAMINS W/ FOLIC ACID TABLET (FP) PO SCH (10:10)
[2018-06-30] MEDS: NICOTINE 14 MG/24 HOURS TOPICAL PATCH TD SCH (10:11)
--- NOTE | 2018-06-30 12:24 | DS ---
[facility] Detox Discharge Summary Admission Date: 06/26/18 Discharge Date: 06/30/18 - History Present History: Alcohol Dependence, Cocaine Dependence, Opioid Dependence, MMTP Additional Comments: Patient scheduled for discharge to rehab today here at [facility] Pertinent Past History: Withdrawal symptoms Laboratory Tests 06/26/18 06/27/18 06/27/18 21:30 06:00 06:00 WBC 5.5 RBC 4.90 Hgb 13.0 Hct 40.8 MCV 83.2 MCH 26.5 MCHC 31.9 L RDW 15.4 Plt Count Platelet Comment Mod plt clumping Sodium 139 Potassium 4.9 Chloride 101 Carbon Dioxide 28 Anion Gap 10 BUN 14 Creatinine 0.9 Creat Clearance w eGFR > 60 Random Glucose 106 Calcium 8.9 Total Bilirubin 0.4 Direct Bilirubin AST 481 H ALT 552 H Alkaline Phosphatase 160 H Total Protein 6.9 Albumin 3.5 Urine Color Dkyellow Urine Appearance Clear Urine pH 6.0 Ur Specific [place] 1.018 Urine Protein Negative Urine Glucose (UA) Negative Urine Ketones Negative Urine Blood Negative Urine Nitrite Negative Urine Bilirubin Negative Urine Urobilinogen 4.0 e.u/dl Ur Leukocyte Esterase Negative RPR Titer 06/27/18 06/29/18 06:00 07:00 WBC RBC Hgb Hct MCV MCH MCHC RDW Plt Count Platelet Comment Sodium Potassium Chloride Carbon Dioxide Anion Gap BUN Creatinine Creat Clearance w eGFR Random Glucose Calcium Total Bilirubin 0.4 Direct Bilirubin 0.3 H AST 222 H ALT 527 H Alkaline Phosphatase 204 H Total Protein 6.6 Albumin 3.2 L Urine Color Urine Appearance Urine pH Ur Specific [place] Urine Protein Urine Glucose (UA) Urine Ketones Urine Blood Urine Nitrite Urine Bilirubin Urine Urobilinogen Ur Leukocyte Esterase RPR Titer Nonreactive Labs reviewed: elevated LFTs (trending downwards, denies h/o hepatitis C) - Physical Exam Results Vital Signs: Vital Signs Temperature 97.6 F 06/30/18 09:10 Pulse Rate 92 H 06/30/18 09:10 Respiratory Rate 17 06/30/18 09:10 Blood Pressure 107/65 06/30/18 09:10 O2 Sat by Pulse Oximetry (%) - Treatment Hospital Course: Detox Protocol Followed, Detoxed Safely, Responded well, Discharged Condition Good, Rehab Referral Accepted - Medication Discharge Medications: Ambulatory Orders Gabapentin 600 mg PO TID 04/05/18 Benzoyl Peroxide [Bp Wash] 227 gm TP ASDIR 05/22/18 Buspirone HCl [Buspar -] 15 mg PO BID 05/22/18 Chlorhexidine Gluconate 15 ml MM BID 05/22/18 Docusate Sodium [Colace -] 100 mg PO TID 05/22/18 Quetiapine Fumarate [Seroquel] 300 mg PO HS 05/23/18 Albuterol Sulfate Inhaler - [Ventolin HFA Inhaler -] 2 puff IH Q4H PRN #1 inhaler 05/25/18 Budesonide/Formeterol Fumarate [SYMBICORT 160/4.5mcg -] 2 puff IH BID #1 inhaler 05/25/18 Ranitidine [Zantac -] 150 mg PO BID #20 tablet 05/25/18 Albuterol Sulfate Inhaler - [Ventolin Hfa Inhaler -] 2 inh PO Q4H PRN 06/26/18 Loratadine 10 mg PO DAILY PRN 06/26/18 - Diagnosis (1) Elevated LFTs Current Visit: Yes Status: Acute (2) Alcohol dependence with uncomplicated withdrawal Current Visit: Yes Status: Acute (3) Sedative, hypnotic or anxiolytic dependence with withdrawal, uncomplicated Current Visit: Yes Status: Acute (4) COPD (chronic obstructive pulmonary disease) Current Visit: Yes Status: Chronic Qualifiers: Chronic bronchitis type: unspecified (5) Cocaine dependence Current Visit: Yes Status: Acute Qualifiers: Substance use status: uncomplicated Qualified Code(s): F14.20 - Cocaine dependence, uncomplicated (6) Opioid dependence on agonist therapy Current Visit: Yes Status: Acute (7) Asthma Current Visit: No Status: Chronic Qualifiers: Asthma severity: mild Asthma complication type: with status asthmaticus (8) MDD (major depressive disorder), recurrent episode, moderate Current Visit: No Status: Chronic (9) Nicotine dependence Current Visit: Yes Status: Acute Qualifiers: Nicotine product type: cigarettes Substance use status: in withdrawal Qualified Code(s): F17.213 - Nicotine dependence, cigarettes, with withdrawal - AMA Did Patient Leave Against Medical Advice: No (F/U with your PCP within 1 week after completing rehab)
== END 2018-06-30 12:33 | disposition other institution (70) | DRG 773 ==
LOC: YASAS 12:39 → Y3N 17:28
PROC: HZ2ZZZZ Detoxification Services for Substance Abuse Treatment (ICD-10-PCS; principal; 2018-06-26)
DX: F10.230 Alcohol dependence with withdrawal, uncomplicated (principal); F13.230 Sedative, hypnotic or anxiolytic dependence with withdrawal, uncomplicated; F14.20 Cocaine dependence, uncomplicated; F11.20 Opioid dependence, uncomplicated; F17.213 Nicotine dependence, cigarettes, with withdrawal; F33.1 Major depressive disorder, recurrent, moderate; J45.22 Mild intermittent asthma with status asthmaticus; J43.9 Emphysema, unspecified; R94.5 Abnormal results of liver function studies
CPT/HCPCS: 36415; 80053; 80076; 81003; 85027; 86593; 93005; 93010

== ENCOUNTER 2018-06-30 12:46 | Inpatient (IN) | payer OTHER ==
[2018-06-30 14:18] VITALS: BP 120/72; PULSE 95; TEMP 98.6
[2018-06-30] MEDS ORDERED: NICOTINE POLACRILEX 2 MG GUM BUC PRN (14:33)
[2018-06-30] MEDS ORDERED: MAG HYDROX/AL HYDROX/SIMETH 30 ML UNIT-DOSE CUP PO PRN (14:33)
[2018-06-30] MEDS ORDERED: P-EPHED 60MG/TRIPROLIDI 2.5MG TABLET PO PRN (14:33)
[2018-06-30] MEDS ORDERED: MENTHOL/PHENOL 1 EACH UD MM PRN (14:33)
[2018-06-30] MEDS ORDERED: hydrOXYzine PAMOATE 50 MG CAPSULE (FP) PO PRN (14:33)
[2018-06-30] MEDS ORDERED: MAGNESIUM CITRATE 300 ML BOTTLE PO PRN (14:33)
[2018-06-30] MEDS ORDERED: LOPERAMIDE HCL 2 MG CAPSULE PO PRN (14:33)
[2018-06-30] MEDS ORDERED: MAGNESIUM HYDROX 2400MG/30ML ORAL SUSPENSION 30 ML CUP PO PRN (14:33)
[2018-06-30] MEDS ORDERED: IBUPROFEN 400 MG TABLET (FP) PO PRN (14:33)
[2018-06-30] MEDS ORDERED: ACETAMINOPHEN 325 MG TABLET (FP) PO PRN (14:33)
[2018-06-30] MEDS ORDERED: guaiFENesin/D-METHORPHAN HB 10 ML UNIT-DOSE CUPS PO PRN (14:33)
--- NOTE | 2018-06-30 14:39 | HP ---
[facility] Rehab Assess/Revision - Admission History Admitted to Rehab from: [facility] Date of Admission to Rehab: 06/30/2018 - Vital signs Vital Signs: Vital Signs Period Temp Pulse Resp BP Sys/Samuel Pulse Ox Last 24 Hr 98.6 F 95 18 120/72 - Findings Detox History & Physical reviewed: Yes Concur with findings: Yes Comments/Additional Findings: Transferred from detox to rehab as per protocols. Inpatient Rehab Admission - Initial Determination Are CD services needed?: Yes Free of communicable disease: Yes Not in need of hospitalization: Yes - Rehab Admission Criteria Previous failed treatment: Yes Poor recovery environment: Yes Comorbidities: Yes Lacks judgement: No Patient is meeting Inpatient Rehab admission criteria:: Yes
--- NOTE | 2018-06-30 14:40 | HP ---
Psychiatrist Admission - Data Date of interview: 06/30/18 Admission source: [address] [place] [address] detox Identifying data: this is the first admission to [address] [place] [address] rehabilitation for this 32 years old father of 8 years old daughter, patient resides with his mother,supported by PA. Medical History: Significant for COPD. Psychiatric History: Patient sees psychiatrist at [facility] .He is on Seroquel 300 mg po hs,Neurontin 600 mg po tid and Buspar 15 mg po bid. Physical/Sexual Abuse/Trauma History: denies Vital Signs: Vital Signs - 24 hr 06/30/18 14:17 Temperature 98.6 F Pulse Rate 95 H Respiratory 18 Rate Blood Pressure 120/72 Allergies/Adverse Reactions: Allergies Allergy/AdvReac Type Severity Reaction Status Date / Time shellfish derived Allergy Severe Swelling Verified 06/26/18 14:31 No Known Drug Allergies Allergy Verified 06/26/18 14:31 Date of last physical exam: 06/26/18 Concur with the findings of this exam: Yes - Substance Abuse/Tx History Hx Alcohol Use: Yes (drinking since 23 yo) Hx Substance Use: Yes (Xanax since 29 yo,Heroin since 30,MMTP 100 mg daily) Substance Use Type: Alcohol, Cocaine, Opiates, Prescribed Hx [facility] Mental Status Exam - Mental Status Exam Alert and Oriented to: Time, Place, Person Cognitive Function: Grossly Intact Patient Appearance: Unkempt Mood: Anxious, Irritable Affect: Mood Congruent, Labile Patient Behavior: Cooperative Speech Pattern: Clear Voice Loudness: Normal Thought Process: Goal Oriented Thought Disorder: Not Present Hallucinations: Denies Suicidal Ideation: Denies Homicidal Ideation: Denies Insight/Judgement: Fair Sleep: Difficulty falling asleep Appetite: Good Muscle strength/Tone: Normal Gait/Station: Normal Psychiatric Findings - Problem List ([place] 1, 2,3) (1) Alcohol dependence Current Visit: Yes Status: Chronic (2) Chronic obstructive pulmonary disease, unspecified Current Visit: Yes Status: Chronic Qualifiers: (3) Cocaine dependence Current Visit: Yes Status: Chronic Qualifiers: (4) Nicotine dependence Current Visit: Yes Status: Chronic Qualifiers: (5) Opioid dependence on agonist therapy Current Visit: Yes Status: Chronic (6) Substance induced mood disorder Current Visit: Yes Status: Chronic (7) Methadone maintenance therapy patient Current Visit: Yes Status: Chronic - Initial Treatment Plan Initial Treatment Plan: Seroquel 300 mg po hs ,Buspar ,30 mg po daily,Neurontin 600 mg po tid.
[2018-06-30] MEDS ORDERED: GABAPENTIN 300 MG CAPSULE (FP) PO SCH (22:00)
[2018-06-30] MEDS ORDERED: QUEtiapine FUMARATE 300 MG TABLET PO SCH (22:00)
[2018-06-30] MEDS ORDERED: THIAMINE HCL 100 MG TABLET (FP) PO SCH (22:00)
[2018-06-30] MEDS ORDERED: MELATONIN 5 MG TABLETS PO PRN (22:00)
[2018-07-01] MEDS ORDERED: METHADONE HCL 10 MG TABLET PO SCH (06:00)
[2018-07-01] MEDS ORDERED: PRENATAL VITAMINS W/ FOLIC ACID TABLET (FP) PO SCH (10:00)
[2018-07-01] MEDS ORDERED: NICOTINE 14 MG/24 HOURS TOPICAL PATCH TD SCH (10:00)
[2018-07-01] MEDS ORDERED: FLU VACCINE QUAD 60 MCG/0.5 ML (MDV 18-19) IM ONE (12:00)
== END 2018-06-30 14:20 | disposition home or self-care (01) | DRG 772 ==
LOC: YASAS 12:46 → Y5N 12:47
PROVIDERS: ADMIT Psychiatry & Neurology Psychiatry; ATTEND Psychiatry & Neurology Psychiatry
PROC: HZ42ZZZ Group Counseling for Substance Abuse Treatment, Cognitive-Behavioral (ICD-10-PCS; principal; 2018-06-30)
DX: F10.20 Alcohol dependence, uncomplicated (principal); F13.20 Sedative, hypnotic or anxiolytic dependence, uncomplicated; F14.20 Cocaine dependence, uncomplicated; F11.20 Opioid dependence, uncomplicated; F17.213 Nicotine dependence, cigarettes, with withdrawal; F33.1 Major depressive disorder, recurrent, moderate; F19.24 Other psychoactive substance dependence with psychoactive substance-induced mood disorder; J45.22 Mild intermittent asthma with status asthmaticus; J43.9 Emphysema, unspecified; R94.5 Abnormal results of liver function studies

== ENCOUNTER 2018-08-07 10:57 | Inpatient (IN) | payer OTHER ==
[2018-08-07 12:01] VITALS: BMI 27.8
--- NOTE | 2018-08-07 13:48 | HP ---
CIWA Score - CIWA Score Nausea/Vomitin Muscle Tremors: 2 Anxiety: 2 Agitation: 2 Paroxysmal Sweats: 1-Minimal Palms Moist Orientation: 0-Oriented Tacttile Disturbances: 1-Very Mild Itch/Numbness Auditory Disturbances: 1-Very Mild Visual Disturbances: 0-None Headache: 2-Mild CIWA-Ar Total Score: 13 CIWA Score Nausea/Vomitin Muscle Tremors: 2 Anxiety: 2 Agitation: 2 Paroxysmal Sweats: 1-Minimal Palms Moist Orientation: 0-Oriented Tacttile Disturbances: 1-Very Mild Itch/Numbness Auditory Disturbances: 1-Very Mild Visual Disturbances: 0-None Headache: 2-Mild CIWA-Ar Total Score: 13 - Admission Criteria Patient presents the following: CIWA greater than 12 Admission Criteria Met: Admission criteria met Admission ROS [facility] - HPI Chief Complaint: i need help to stop drinking alcohol and xanax,cocaine Allergies/Adverse Reactions: Allergies Allergy/AdvReac Type Severity Reaction Status Date / Time shellfish derived Allergy Severe Swelling Verified 08/07/18 12:56 No Known Drug Allergies Allergy Verified 08/07/18 12:56 History of Present Illness: this 32 years old male with alcohol,cocaine and xanax dependence,seek[facility] detox, withdrawal symptom,last treatment [facility] 06/26/18 to 06/30/18 syncope alcohol related mmtp 100 mgs/day,last medicated today weight loss 15 lbs anxiety and depression nicotine dependence multiple admissions but keep relapsing longest period of sobriety 1 years Exam Limitations: No Limitations - Ebola screening Have you traveled outside of the country in the last 21 days: No Have you had contact with anyone from an Ebola affected area: No Have you been sick,other than usual withdrawal symptoms: No - Review of Systems Constitutional: Loss of Appetite, Malaise, Night Sweats, Changes in sleep, Weakness, Unintentional Wgt. Loss EENT: reports: Nose Congestion Respiratory: reports: No Symptoms reported Cardiac: reports: No Symptoms Reported GI: reports: Diarrhea, Nausea, Vomiting, Abdominal cramping : reports: No Symptoms Reported Musculoskeletal: reports: Back Pain, Muscle Pain Integumentary: reports: Dryness Endocrine: reports: No Symptoms Reported Hematology: reports: No Symptoms Reported Psychiatric: reports: No Sypmtoms Reported, Judgement Intact, Mood/Affect Appropiate, Anxious, Depressed Patient History - Patient Medical History Hx Anemia: No Hx Asthma: Yes (on albuterol inhaler) Hx Chronic Obstructive Pulmonary Disease (COPD): No Hx Cancer: No Hx Cardiac Disorders: No Hx Congestive Heart Failure: No Hx Hypertension: No Hx Hypercholesterolemia: No Hx Pacemaker: No HX Cerebrovascular Accident: No Hx Seizures: No Hx Dementia: No Hx Diabetes: No Hx Gastrointestinal Disorders: Yes (acid reflux) Hx Liver Disease: No Hx Genitourinary Disorders: No Hx Sexually Transmitted Disorders: No Hx Renal Disease (ESRD): No Hx Thyroid Disease: No Hx Human Immunodeficiency Virus (HIV): No Hx Hepatitis C: No (negative) Hx Depression: Yes (and anxiety) Hx Suicide Attempt: No Hx Bipolar Disorder: No Hx Schizophrenia: No Other Medical History: no suicidal,no homicidal - Patient Surgical History Past Surgical History: No Hx Neurologic Surgery: No Hx Cataract Extraction: No Hx Cardiac Surgery: No Hx Lung Surgery: No Hx Breast Surgery: No Hx Breast Biopsy: No Hx Abdominal Surgery: No Hx Appendectomy: No Hx Cholecystectomy: No Hx Genitourinary Surgery: No Hx Section: No Hx Orthopedic Surgery: No Anesthesia Reaction: No - PPD History Previous Implant?: Yes Documented Results: Negative w/proof Implanted On Prior R Admission?: Yes Date: 04/07/18 Results: negative PPD to be Administered?: No - Smoking Cessation Smoking history: Current every day smoker Have you smoked in the past 12 months: Yes Aproximately how many cigarettes per day: 10 Cigars Per Day: 0 Hx Chewing Tobacco Use: No Initiated information on smoking cessation: Yes 'Breaking Loose' booklet given: 08/07/18 - Substance & Tx. History Hx Alcohol Use: Yes Hx Substance Use: Yes Substance Use Type: Alcohol, Cocaine, Tranquilizers - Substances Abused Cocaine Route: Injection Frequency: Daily Amount used: $80 Age of first use: 26 Date of Last Use: 08/06/18 Heroin Route: Injection Frequency: 1-2 times per week Amount used: 2 bags Age of first use: 28 Date of Last Use: 08/06/18 Alcohol-cognac Route: Oral Frequency: Daily Amount used: 2 pts. Age of first use: 22 Date of Last Use: 08/06/18 Xanax Route: Oral Frequency: Daily Amount used: 6-8 mg. Age of first use: 28 Date of Last Use: 08/06/18 Family Disease History - Family Disease History Family Disease History: Diabetes: Mother (living, ), Other: Father (living, healthy), Mother, Sister (1 living - healthy), Daughter (age 7 - healthy) Admission Physical Exam [facility] - Vital Signs Vital Signs: Vital Signs - 24 hr 08/07/18 11:59 Temperature 97.5 F L Pulse Rate 76 Respiratory 20 Rate Blood Pressure 97/60 - Physical General Appearance: Yes: Moderate Distress, Tremorous, Irritable, Sweating, Anxious HEENTM: Yes: Normal ENT Inspection, JONATHON, Pharynx Normal Respiratory: Yes: Lungs Clear, Normal Breath Sounds, No Respiratory Distress Neck: Yes: Within Normal Limits, Supple, Trachea in good position Breast: Yes: Within Normal Limits Cardiology: Yes: Within Normal Limits, Regular Rhythm, Regular Rate, S1, S2 Abdominal: Yes: Within Normal Limits, Normal Bowel Sounds, Non Tender, Flat, Soft Genitourinary: Yes: Within Normal Limits Back: Yes: Muscle Spasm Musculoskeletal: Yes: Back pain, Joint Stiffness, Muscle Pain Extremities: Yes: Tremors, Inflammation Neurological: Yes: Fully Oriented, Alert, Motor Strength 5/5 Integumentary: Yes: Dry Lymphatic: Yes: Within Normal Limits - Diagnostic (1) Alcohol dependence with uncomplicated withdrawal Current Visit: Yes Status: Acute (2) Sedative, hypnotic or anxiolytic dependence with withdrawal, uncomplicated Current Visit: No Status: Acute (3) Dehydration Current Visit: No Status: Chronic (4) GERD (gastroesophageal reflux disease) Current Visit: No Status: Chronic Qualifiers: Esophagitis presence: esophagitis presence not specified Qualified Code(s) : K21.9 - Gastro-esophageal reflux disease without esophagitis (5) Opioid dependence on agonist therapy Current Visit: Yes Status: Chronic (6) Poor dentition Current Visit: No Status: Chronic (7) Insomnia secondary to depression with anxiety Current Visit: Yes Status: Acute Cleared for Admission [facility] - Detox or Rehab [facility] Level of Care: Medically Managed Detox Regimen/Protocol: Valium [facility] Breath Alcohol Content Breath Alcohol Content: 0 Urine Drug Screen - Results Drug Screen Negative: No Urine Drug Screen Results: LYLE-Cocaine, OPI-Opiates, BAR-Barbiturates, BZO- Benzodiazepines, MTD-Methadone
[2018-08-07] MEDS ORDERED: MAG HYDROX/AL HYDROX/SIMETH 30 ML UNIT-DOSE CUP PO PRN (14:00)
[2018-08-07] MEDS ORDERED: P-EPHED 60MG/TRIPROLIDI 2.5MG TABLET PO PRN (14:00)
[2018-08-07] MEDS ORDERED: IBUPROFEN 400 MG TABLET (FP) PO PRN (14:00)
[2018-08-07] MEDS ORDERED: MAGNESIUM HYDROX 2400MG/30ML ORAL SUSPENSION 30 ML CUP PO PRN (14:00)
[2018-08-07] MEDS ORDERED: guaiFENesin/D-METHORPHAN HB 10 ML UNIT-DOSE CUPS PO PRN (14:00)
[2018-08-07] MEDS ORDERED: MAGNESIUM CITRATE 300 ML BOTTLE PO PRN (14:00)
[2018-08-07] MEDS ORDERED: diazePAM 5 MG TABLET PO ONE (16:00)
[2018-08-07] MEDS ORDERED: MELATONIN 5 MG TABLETS PO PRN (22:00)
[2018-08-07] MEDS: GABAPENTIN 300 MG CAPSULE (FP) PO SCH (22:26)
[2018-08-07] MEDS: DOCUSATE SODIUM 100 MG CAPSULE (FP) PO SCH (22:26)
[2018-08-07] MEDS: THIAMINE HCL 100 MG TABLET (FP) PO SCH (22:26)
[2018-08-07] MEDS: hydrOXYzine PAMOATE 25 MG CAPSULE (FP) PO PRN (22:28)
[2018-08-07] MEDS: BUDESONIDE/FORMETEROL FUMARATE 160/4.5 mcg INHALER IH SCH (22:29)
[2018-08-07] MEDS: diazePAM 5 MG TABLET PO SCH (22:29)
[2018-08-08] MEDS: diazePAM 5 MG TABLET PO PRN ×2 (01:35→07:59)
[2018-08-08 01:40] LABS: URINE APPEARANCE CLEAR; URINE BILIRUBIN NEGATIVE (<2.0 mg/dL); URINE COLOR DKYELLOW; URINE GLUCOSE (UA) NEGATIVE (NEGATIVE); URINE KETONE NEGATIVE (NEGATIVE); URINE LEUK ESTERASE NEGATIVE (NEGATIVE); URINE NITRITE NEGATIVE (NEGATIVE); URINE PROTEIN NEGATIVE (NEGATIVE); URINE UROBILINOGEN 4.0 E.U/dl mg/dL (0.2-1.0)
[2018-08-08] MEDS ORDERED: METHADONE HCL 40 MG DISPERSABLE TABLET ONE (05:23)
[2018-08-08] MEDS ORDERED: METHADONE HCL 10 MG TABLET ONE (05:23)
[2018-08-08] MEDS: METHADONE 80 MG, METHADONE 20 MG PO SCH (05:42)
[2018-08-08] MEDS: DOCUSATE SODIUM 100 MG CAPSULE (FP) PO SCH ×3 (05:42→22:32)
[2018-08-08] MEDS: diazePAM 5 MG TABLET PO SCH (05:42)
[2018-08-08] MEDS: GABAPENTIN 300 MG CAPSULE (FP) PO SCH ×3 (05:43→22:32)
[2018-08-08] MEDS: ALBUTEROL SO4 8 GM HFA INHALER IH PRN (05:46)
[2018-08-08] MEDS ORDERED: METHADONE HCL 10 MG TABLET PO SCH (06:00)
[2018-08-08] MEDS: hydrOXYzine PAMOATE 25 MG CAPSULE (FP) PO PRN ×2 (06:58→13:43)
--- NOTE | 2018-08-08 08:33 | PN ---
S CIWA - CIWA Score Nausea/Vomitin-Mild Nausea/No Vomiting Muscle Tremors: 3 Anxiety: 3 Agitation: 2 Paroxysmal Sweats: 1-Minimal Palms Moist Orientation: 1-Uncertain about Date Tacttile Disturbances: 1-Very Mild Itch/Numbness Auditory Disturbances: 0-None Visual Disturbances: 0-None Headache: 1-Very Mild CIWA-Ar Total Score: 13 BHS Progress Note (SOAP) Subjective: patient prefer librium detox regimen for alcohol and benzo withdrawal sx that valium does not work well with him c/o gi distress discontinue motrin begin zantac c/o constipation lactulose works well for him by history withdrawal sx as: tremor sweat gi distress anxiety Objective: 08/08/18 09:50 Vital Signs Temperature 97.9 F 08/08/18 09:11 Pulse Rate 78 08/08/18 09:11 Respiratory Rate 18 08/08/18 09:11 Blood Pressure 98/68 08/08/18 09:11 O2 Sat by Pulse Oximetry (%) Laboratory Last Values Urine Color Dkyellow 08/08/18 00:01 Urine Appearance Clear 08/08/18 00:01 Urine pH 5.0 (5.0-8.0) 08/08/18 00:01 Ur Specific [place] 1.025 (1.010-1.035) 08/08/18 00:01 Urine Protein Negative (NEGATIVE) 08/08/18 00:01 Urine Glucose (UA) Negative (NEGATIVE) 08/08/18 00:01 Urine Ketones Negative (NEGATIVE) 08/08/18 00:01 Urine Blood Negative (NEGATIVE) 08/08/18 00:01 Urine Nitrite Negative (NEGATIVE) 08/08/18 00:01 Urine Bilirubin Negative (<2.0 mg/dL) 08/08/18 00:01 Urine Urobilinogen 4.0 e.u/dl mg/dL (0.2-1.0) 08/08/18 00:01 Ur Leukocyte Esterase Negative (NEGATIVE) 08/08/18 00:01 lab noted Assessment: 08/08/18 09:51 withdrawal sx methadone program Plan: continue detox zantac
[2018-08-08] MEDS ORDERED: LACTULOSE 20 GM/30 ML UDC (FOR ORAL USE ONLY) PO ONE (08:40)
--- NOTE | 2018-08-08 08:49 | CONSULT ---
[facility] Psychiatric Consult - Data Date of interview: 08/08/18 Admission source: [facility] Identifying data: Patient is a 32 year old single male, father of one, domiciled , and currently unemployed. This is one of multiple admissions for patient. Pt. admitted to for alcohol, cocaine, marijuana, and opiate dependence. Substance Abuse History: - Smoking Cessation. Smoking history: Current every day smoker. Have you smoked in the past 12 months: Yes. Aproximately how many cigarettes per day: 10. Cigars Per Day: 0. Hx Chewing Tobacco Use: No. Initiated information on smoking cessation: Yes. 'Breaking Loose' booklet given : 08/07/18. - Substance & Tx. History. Hx Alcohol Use: Yes. Hx Substance Use : Yes. Substance Use Type: Alcohol, Cocaine, Tranquilizers. - Substances Abused. Cocaine. Route: Injection. Frequency: Daily. Amount used: $80. Age of first use: 26. Date of Last Use: 08/06/18. Heroin. Route: Injection. Frequency: 1-2 times per week. Amount used: 2 bags. Age of first use: 28. Date of Last Use: 08/06/18. Alcohol-cognac. Route: Oral. Frequency: Daily. Amount used: 2 pts. Age of first use: 22. Date of Last Use : 08/06/18. Xanax. Route: Oral. Frequency: Daily. Amount used: 6-8 mg. Age of first use: 28. Date of Last Use: 08/06/18 Medical History: GERD and bronchial asthma Psychiatric History: Patient reports one psychiatric hospitalization at [facility]. As per records he also reported psychiatric admissions to [facility] and [facility]. He reports a diagnosis of anxiety and depression. Outpatient psychiatric care is provided at the [facility] clinic. Pt. is currently prescribed seroquel 300mg qhs. He longer accepts buspar and refuses to resume medication while in detox. Patient requesting to resume seroquel dose. Patient is currently on Methadone maintainence of 100mg daily. Pt denies h/o suicide attempt. Physical/Sexual Abuse/Trauma History: denies. Mental Status Exam - Mental Status Exam Alert and Oriented to: Time, Place, Person Cognitive Function: Good Patient Appearance: Well Groomed Mood: Hopeful, Euthymic Affect: Appropriate, Mood Congruent Patient Behavior: Appropriate, Cooperative Speech Pattern: Clear, Appropriate Voice Loudness: Normal Thought Process: Intact, Goal Oriented Thought Disorder: Not Present Hallucinations: Denies Suicidal Ideation: Denies Homicidal Ideation: Denies Insight/Judgement: Poor Sleep: Poorly Appetite: Fair Muscle strength/Tone: Normal Gait/Station: Normal Psychiatric Findings - Problem List ([place] 1, 2,3) (1) Alcohol dependence with uncomplicated withdrawal Current Visit: Yes Status: Acute (2) Sedative hypnotic or anxiolytic dependence Current Visit: Yes Status: Acute (3) Substance-induced sleep disorder Current Visit: Yes Status: Acute (4) Cocaine dependence Current Visit: Yes Status: Chronic Qualifiers: (5) Opioid dependence on agonist therapy Current Visit: Yes Status: Chronic (6) Substance induced mood disorder Current Visit: Yes Status: Acute - Initial Treatment Plan Initial Treatment Plan: Psychoeducation provided. Detoxification in progress. Will order Seroquel 300mg qhs. Benefits and side effects discussed. Verbal consent given.
[2018-08-08] MEDS: chlordiazePOXIDE HCL 25 MG CAPSULE PO SCH ×3 (10:25→22:32)
[2018-08-08] MEDS: RANITIDINE HCL 150 MG TABLET (FP) PO SCH ×2 (10:25→22:32)
[2018-08-08] MEDS: NICOTINE 21 MG/24 HOURS TOPICAL PATCH TD SCH (10:25)
[2018-08-08] MEDS: PRENATAL VITAMINS W/ FOLIC ACID TABLET (FP) PO SCH (10:25)
[2018-08-08 11:35] LABS: HEMATOCRIT 40.2 % (35.4-49); HEMOGLOBIN 12.9 GM/dL (11.7-16.9); MCH 26.8 pg (25.7-33.7); MCHC 32.1 g/dl (32.0-35.9); MEAN CELL VOLUME 83.4 fl (80-96); PLATELET COUNT 174 K/MM3 (134-434); RBC 4.82 M/mm3 (4.00-5.60)
[2018-08-08 11:54] LABS: ALBUMIN 3.7 g/dl (3.4-5.0); ALK PHOS 189 U/L (45-117); ANION GAP 9 MMOL/L (8-16); BILIRUBIN,TOTAL 0.5 mg/dL (0.2-1); BLOOD UREA NITROGEN 12 mg/dL (7-18); CALCIUM 8.8 mg/dL (8.5-10.1); CHLORIDE 103 mmol/L (98-107); CO2 28 mmol/L (21-32); CREATININE 0.8 mg/dL (0.55-1.3); GLUCOSE,RANDOM 68 mg/dL (74-106); POTASSIUM 4.3 mmol/L (3.5-5.1); SGOT/AST 178 U/L (15-37); SGPT/ALT 296 U/L (13-61); SODIUM 140 mmol/L (136-145); TOT PROT 7.1 g/dl (6.4-8.2)
[2018-08-08] MEDS: BUDESONIDE/FORMETEROL FUMARATE 160/4.5 mcg INHALER IH SCH ×2 (12:23→22:33)
[2018-08-08] MEDS: chlordiazePOXIDE HCL 25 MG CAPSULE PO PRN ×2 (12:24→19:28)
[2018-08-08] MEDS: THIAMINE HCL 100 MG TABLET (FP) PO SCH (22:32)
[2018-08-08] MEDS: QUEtiapine FUMARATE 300 MG TABLET PO SCH (22:32)
[2018-08-09] MEDS ORDERED: METHADONE HCL 40 MG DISPERSABLE TABLET ONE (04:18)
[2018-08-09] MEDS ORDERED: METHADONE HCL 10 MG TABLET ONE (04:18)
[2018-08-09] MEDS: DOCUSATE SODIUM 100 MG CAPSULE (FP) PO SCH ×3 (05:14→21:24)
[2018-08-09] MEDS: METHADONE 80 MG, METHADONE 20 MG PO SCH (05:14)
[2018-08-09] MEDS: GABAPENTIN 300 MG CAPSULE (FP) PO SCH ×3 (05:14→23:53)
[2018-08-09] MEDS: chlordiazePOXIDE HCL 25 MG CAPSULE PO SCH ×4 (05:15→23:52)
[2018-08-09] MEDS: chlordiazePOXIDE HCL 25 MG CAPSULE PO PRN (09:15)
--- NOTE | 2018-08-09 09:52 | EKG ---
Test Reason : Blood Pressure : / mmHG Vent. Rate : 059 BPM Atrial Rate : 059 BPM P-R Int : 160 ms QRS Dur : 098 ms QT Int : 446 ms P-R-T Axes : 073 076 053 degrees QTc Int : 441 ms SINUS BRADYCARDIA OTHERWISE NORMAL ECG WHEN COMPARED WITH ECG OF 26-JUN-2018 19:10, NO SIGNIFICANT CHANGE WAS FOUND Confirmed by VALERIY HERCULES MD ([id number]) on 08/09/2018 9:51:55 AM Referred By: Confirmed By:VALERIY HERCULES MD
[2018-08-09] MEDS ORDERED: diazePAM 5 MG TABLET PO SCH (10:00)
--- NOTE | 2018-08-09 10:34 | PN ---
S CIWA - CIWA Score Nausea/Vomitin-Mild Nausea/No Vomiting Muscle Tremors: 2 Anxiety: 1-Mildly Anxious Agitation: 1-Slight > Activity Paroxysmal Sweats: 1-Minimal Palms Moist Orientation: 1-Uncertain about Date Tacttile Disturbances: 1-Very Mild Itch/Numbness Auditory Disturbances: 1-Very Mild Visual Disturbances: 0-None Headache: 1-Very Mild CIWA-Ar Total Score: 10 BHS Progress Note (SOAP) Subjective: sweat constipation tremor anxiety trouble sleep at night Objective: 08/09/18 10:33 Vital Signs Temperature 98.4 F 08/09/18 09:31 Pulse Rate 100 H 08/09/18 09:31 Respiratory Rate 18 08/09/18 09:31 Blood Pressure 115/62 08/09/18 09:31 O2 Sat by Pulse Oximetry (%) Laboratory Last Values WBC 5.0 K/mm3 (4.0-10.0) 08/08/18 06:00 RBC 4.82 M/mm3 (4.00-5.60) 08/08/18 06:00 Hgb 12.9 GM/dL (11.7-16.9) 08/08/18 06:00 Hct 40.2 % (35.4-49) 08/08/18 06:00 MCV 83.4 fl (80-96) 08/08/18 06:00 MCH 26.8 pg (25.7-33.7) 08/08/18 06:00 MCHC 32.1 g/dl (32.0-35.9) 08/08/18 06:00 RDW 16.0 % (11.9-15.9) H 08/08/18 06:00 Plt Count 174 K/MM3 (134-434) 08/08/18 06:00 MPV 9.0 fl (7.5-11.1) 08/08/18 06:00 Sodium 140 mmol/L (136-145) 08/08/18 06:00 Potassium 4.3 mmol/L (3.5-5.1) 08/08/18 06:00 Chloride 103 mmol/L (98-107) 08/08/18 06:00 Carbon Dioxide 28 mmol/L (21-32) 08/08/18 06:00 Anion Gap 9 MMOL/L (8-16) 08/08/18 06:00 BUN 12 mg/dL (7-18) 08/08/18 06:00 Creatinine 0.8 mg/dL (0.55-1.3) 08/08/18 06:00 Creat Clearance w eGFR > 60 (>60) 08/08/18 06:00 Random Glucose 68 mg/dL (74-106) L 08/08/18 06:00 Calcium 8.8 mg/dL (8.5-10.1) 08/08/18 06:00 Total Bilirubin 0.5 mg/dL (0.2-1) 08/08/18 06:00 AST 178 U/L (15-37) H 08/08/18 06:00 ALT 296 U/L (13-61) H 08/08/18 06:00 Alkaline Phosphatase 189 U/L (45-117) H 08/08/18 06:00 Total Protein 7.1 g/dl (6.4-8.2) 08/08/18 06:00 Albumin 3.7 g/dl (3.4-5.0) 08/08/18 06:00 Urine Color Dkyellow 08/08/18 00:01 Urine Appearance Clear 08/08/18 00:01 Urine pH 5.0 (5.0-8.0) 08/08/18 00:01 Ur Specific [place] 1.025 (1.010-1.035) 08/08/18 00:01 Urine Protein Negative (NEGATIVE) 08/08/18 00:01 Urine Glucose (UA) Negative (NEGATIVE) 08/08/18 00:01 Urine Ketones Negative (NEGATIVE) 08/08/18 00:01 Urine Blood Negative (NEGATIVE) 08/08/18 00:01 Urine Nitrite Negative (NEGATIVE) 08/08/18 00:01 Urine Bilirubin Negative (<2.0 mg/dL) 08/08/18 00:01 Urine Urobilinogen 4.0 e.u/dl mg/dL (0.2-1.0) 08/08/18 00:01 Ur Leukocyte Esterase Negative (NEGATIVE) 08/08/18 00:01 RPR Titer Nonreactive (NONREACTIVE) 08/08/18 06:00 lab noted Assessment: 08/09/18 10:36 withdrawal sx repeat ast alt 08/09/18 10:38 constipation Plan: continue detox lactulose bid continue methadone 100 mg
[2018-08-09] MEDS: RANITIDINE HCL 150 MG TABLET (FP) PO SCH ×2 (12:24→23:54)
[2018-08-09] MEDS: LACTULOSE 20 GM/30 ML UDC (FOR ORAL USE ONLY) PO SCH ×2 (12:25→23:05)
[2018-08-09] MEDS: PRENATAL VITAMINS W/ FOLIC ACID TABLET (FP) PO SCH (12:25)
[2018-08-09] MEDS: BUDESONIDE/FORMETEROL FUMARATE 160/4.5 mcg INHALER IH SCH ×2 (12:25→23:53)
[2018-08-09] MEDS: ALBUTEROL SO4 8 GM HFA INHALER IH PRN (12:25)
[2018-08-09] MEDS: NICOTINE 21 MG/24 HOURS TOPICAL PATCH TD SCH (12:25)
[2018-08-09] MEDS: LOPERAMIDE HCL 2 MG CAPSULE PO PRN (15:03)
--- NOTE | 2018-08-09 17:14 | PN ---
[facility] Progress Note Note: Vital Signs Temperature 97.6 F 08/09/18 14:11 Pulse Rate 81 08/09/18 14:11 Respiratory Rate 16 08/09/18 14:11 Blood Pressure 100/68 08/09/18 14:11 O2 Sat by Pulse Oximetry (%) nausea and vomiting one time order tigan fluids as tolerated continue to monitor
[2018-08-09] MEDS ORDERED: TRIMETHOBENZAMIDE HCL 200MG/2ML INJ IM ONE (17:45)
[2018-08-09] MEDS: QUEtiapine FUMARATE 300 MG TABLET PO SCH (23:53)
[2018-08-09] MEDS: THIAMINE HCL 100 MG TABLET (FP) PO SCH (23:53)
[2018-08-10] MEDS: TRIMETHOBENZAMIDE HCL 200MG/2ML INJ IM PRN ×2 (02:23→22:08)
[2018-08-10] MEDS ORDERED: METHADONE HCL 40 MG DISPERSABLE TABLET ONE (04:08)
[2018-08-10] MEDS ORDERED: METHADONE HCL 10 MG TABLET ONE (04:09)
[2018-08-10] MEDS: chlordiazePOXIDE HCL 25 MG CAPSULE PO SCH (05:07)
[2018-08-10] MEDS: GABAPENTIN 300 MG CAPSULE (FP) PO SCH ×3 (05:07→22:46)
[2018-08-10] MEDS: METHADONE 80 MG, METHADONE 20 MG PO SCH (05:07)
[2018-08-10] MEDS: DOCUSATE SODIUM 100 MG CAPSULE (FP) PO SCH (05:11)
[2018-08-10] MEDS: chlordiazePOXIDE HCL 25 MG CAPSULE PO PRN ×3 (07:26→20:23)
--- NOTE | 2018-08-10 08:55 | PN ---
S Progress Note (SOAP) Subjective: patient c/o constipation x "days" treated with colace and lactulose c/o diarrhea today patient had one dose immodium at 1500 on 08/09/18 discontinue colace encourage oral fluid and clear liquid x 24 hours encourage tylenal for low grade fever patient has good appetite encourage clear liquid for today no tremor no sweat sleep better at night Objective: 08/10/18 10:08 Vital Signs Temperature 100.0 F H 08/10/18 09:25 Pulse Rate 106 H 08/10/18 09:25 Respiratory Rate 18 08/10/18 09:25 Blood Pressure 133/69 08/10/18 09:25 O2 Sat by Pulse Oximetry (%) Laboratory Last Values WBC 5.0 K/mm3 (4.0-10.0) 08/08/18 06:00 RBC 4.82 M/mm3 (4.00-5.60) 08/08/18 06:00 Hgb 12.9 GM/dL (11.7-16.9) 08/08/18 06:00 Hct 40.2 % (35.4-49) 08/08/18 06:00 MCV 83.4 fl (80-96) 08/08/18 06:00 MCH 26.8 pg (25.7-33.7) 08/08/18 06:00 MCHC 32.1 g/dl (32.0-35.9) 08/08/18 06:00 RDW 16.0 % (11.9-15.9) H 08/08/18 06:00 Plt Count 174 K/MM3 (134-434) 08/08/18 06:00 MPV 9.0 fl (7.5-11.1) 08/08/18 06:00 Sodium 140 mmol/L (136-145) 08/08/18 06:00 Potassium 4.3 mmol/L (3.5-5.1) 08/08/18 06:00 Chloride 103 mmol/L (98-107) 08/08/18 06:00 Carbon Dioxide 28 mmol/L (21-32) 08/08/18 06:00 Anion Gap 9 MMOL/L (8-16) 08/08/18 06:00 BUN 12 mg/dL (7-18) 08/08/18 06:00 Creatinine 0.8 mg/dL (0.55-1.3) 08/08/18 06:00 Creat Clearance w eGFR > 60 (>60) 08/08/18 06:00 Random Glucose 68 mg/dL (74-106) L 08/08/18 06:00 Calcium 8.8 mg/dL (8.5-10.1) 08/08/18 06:00 Total Bilirubin 0.5 mg/dL (0.2-1) 08/08/18 06:00 AST 178 U/L (15-37) H 08/08/18 06:00 ALT 296 U/L (13-61) H 08/08/18 06:00 Alkaline Phosphatase 189 U/L (45-117) H 08/08/18 06:00 Total Protein 7.1 g/dl (6.4-8.2) 08/08/18 06:00 Albumin 3.7 g/dl (3.4-5.0) 08/08/18 06:00 Urine Color Dkyellow 08/08/18 00:01 Urine Appearance Clear 08/08/18 00:01 Urine pH 5.0 (5.0-8.0) 08/08/18 00:01 Ur Specific [place] 1.025 (1.010-1.035) 08/08/18 00:01 Urine Protein Negative (NEGATIVE) 08/08/18 00:01 Urine Glucose (UA) Negative (NEGATIVE) 08/08/18 00:01 Urine Ketones Negative (NEGATIVE) 08/08/18 00:01 Urine Blood Negative (NEGATIVE) 08/08/18 00:01 Urine Nitrite Negative (NEGATIVE) 08/08/18 00:01 Urine Bilirubin Negative (<2.0 mg/dL) 08/08/18 00:01 Urine Urobilinogen 4.0 e.u/dl mg/dL (0.2-1.0) 08/08/18 00:01 Ur Leukocyte Esterase Negative (NEGATIVE) 08/08/18 00:01 RPR Titer Nonreactive (NONREACTIVE) 08/08/18 06:00 lab noted repeat ast alt pending 08/10/18 10:09 Assessment: 08/10/18 10:09 mild withdrawal sx 08/10/18 10:11 stated no longer constipation Plan: medically supervised detox patient agrees to return to methadone program for medical mental and addiction issues
[2018-08-10] MEDS ORDERED: ONDANSETRON *ODT* 4 MG TABLET SL ONE (10:11)
[2018-08-10] MEDS: BUDESONIDE/FORMETEROL FUMARATE 160/4.5 mcg INHALER IH SCH ×2 (10:12→22:49)
[2018-08-10] MEDS: RANITIDINE HCL 150 MG TABLET (FP) PO SCH ×2 (10:12→22:46)
[2018-08-10] MEDS: NICOTINE 21 MG/24 HOURS TOPICAL PATCH TD SCH (10:12)
[2018-08-10] MEDS: hydrOXYzine PAMOATE 25 MG CAPSULE (FP) PO PRN (10:12)
[2018-08-10] MEDS: chlordiazePOXIDE 5 MG CAPSULE PO SCH ×3 (10:13→22:46)
[2018-08-10] MEDS: PRENATAL VITAMINS W/ FOLIC ACID TABLET (FP) PO SCH (10:14)
[2018-08-10 10:50] LABS: SGOT/AST 160 U/L (15-37); SGPT/ALT 324 U/L (13-61)
[2018-08-10] MEDS: MENTHOL/PHENOL 1 EACH UD MM PRN ×3 (12:42→21:27)
[2018-08-10] MEDS: ACETAMINOPHEN 325 MG TABLET (FP) PO PRN ×2 (12:50→20:16)
[2018-08-10] MEDS: QUEtiapine FUMARATE 300 MG TABLET PO SCH (22:46)
[2018-08-10] MEDS: THIAMINE HCL 100 MG TABLET (FP) PO SCH (22:50)
--- NOTE | 2018-08-10 23:51 | PN ---
[facility] Progress Note Note: ASKED TO SEE PT FOR FEVER X 2 READINGS. CLIENT REPORTS HE FEELS FINE, INITIALLY REFUSING EXAM. HE THEN REPORTED HAVING A SORE THROAT X 1 DAY. C/O N/V/ D EARLIER TODAY BUT SYMPTOMS HAVE SINCE RESOLVED WITH TXMENT. HE IS IVDA. DENIES SOB, C.P. CHILLS, Vital Signs - 24 hr 08/10/18 08/10/18 08/10/18 03:30 07:14 09:25 Temperature 101.7 F H 100.0 F H Pulse Rate 99 H 106 H Respiratory 16 20 18 Rate Blood Pressure 122/67 133/69 08/10/18 08/10/18 17:25 22:07 Temperature 98.9 F 101.7 F H Pulse Rate 84 106 H Respiratory 18 18 Rate Blood Pressure 110/67 145/64 Laboratory Tests 08/08/18 08/08/18 08/08/18 00:01 06:00 06:00 WBC 5.0 RBC 4.82 Hgb 12.9 Hct 40.2 MCV 83.4 MCH 26.8 MCHC 32.1 RDW 16.0 H Plt Count 174 MPV 9.0 Sodium 140 Potassium 4.3 Chloride 103 Carbon Dioxide 28 Anion Gap 9 BUN 12 Creatinine 0.8 Creat Clearance w eGFR > 60 Random Glucose 68 L Calcium 8.8 Total Bilirubin 0.5 AST 178 H ALT 296 H Alkaline Phosphatase 189 H Total Protein 7.1 Albumin 3.7 Urine Color Dkyellow Urine Appearance Clear Urine pH 5.0 Ur Specific [place] 1.025 Urine Protein Negative Urine Glucose (UA) Negative Urine Ketones Negative Urine Blood Negative Urine Nitrite Negative Urine Bilirubin Negative Urine Urobilinogen 4.0 e.u/dl Ur Leukocyte Esterase Negative RPR Titer 08/08/18 08/10/18 06:00 07:00 WBC RBC Hgb Hct MCV MCH MCHC RDW Plt Count MPV Sodium Potassium Chloride Carbon Dioxide Anion Gap BUN Creatinine Creat Clearance w eGFR Random Glucose Calcium Total Bilirubin AST 160 H ALT 324 H Alkaline Phosphatase Total Protein Albumin Urine Color Urine Appearance Urine pH Ur Specific [place] Urine Protein Urine Glucose (UA) Urine Ketones Urine Blood Urine Nitrite Urine Bilirubin Urine Urobilinogen Ur Leukocyte Esterase RPR Titer Nonreactive AWAKE ALERT X3 NAD HEENT- NCAT, MMM, THROAT CLEAR NO REDNESS, TONSIL NL NECK- NEG LAD CV- TACHY LUNGS- CTAB SKIN- HOT TO TOUCH A- WITHDRAWAL SX'S, FEVER P- PO HYDRATION TYLENOL ORDERED CBC WILL REEVALUATE IN A.M IF FEVER CONT WHICH WILL BE GREATER THAN 1 DAY WILL START ON ABT TXMENT
[2018-08-11] MEDS: ACETAMINOPHEN 325 MG TABLET (FP) PO PRN ×2 (00:17→07:10)
[2018-08-11] MEDS: LOPERAMIDE HCL 2 MG CAPSULE PO PRN (00:27)
[2018-08-11] MEDS ORDERED: METHADONE HCL 10 MG TABLET ONE (05:00)
[2018-08-11] MEDS ORDERED: METHADONE HCL 40 MG DISPERSABLE TABLET ONE (05:00)
[2018-08-11] MEDS: METHADONE 80 MG, METHADONE 20 MG PO SCH (07:04)
[2018-08-11] MEDS: GABAPENTIN 300 MG CAPSULE (FP) PO SCH ×3 (07:05→21:23)
[2018-08-11] MEDS: chlordiazePOXIDE 5 MG CAPSULE PO SCH (07:09)
[2018-08-11] MEDS ORDERED: LIDOCAINE VISCOUS 2% ORAL/TOP 20 ML UNIT-DOSE CUP MM PRN (09:10)
[2018-08-11] MEDS ORDERED: diazePAM 5 MG TABLET PO SCH (10:00)
[2018-08-11] MEDS: chlordiazePOXIDE HCL 10 MG CAPSULE PO SCH ×2 (10:22→17:34)
[2018-08-11] MEDS: RANITIDINE HCL 150 MG TABLET (FP) PO SCH ×2 (10:22→21:24)
[2018-08-11] MEDS: PRENATAL VITAMINS W/ FOLIC ACID TABLET (FP) PO SCH (10:22)
[2018-08-11] MEDS: NICOTINE 21 MG/24 HOURS TOPICAL PATCH TD SCH (10:23)
[2018-08-11] MEDS: BUDESONIDE/FORMETEROL FUMARATE 160/4.5 mcg INHALER IH SCH ×2 (10:23→21:24)
[2018-08-11] MEDS ORDERED: AMOX TR/POT CLAV 500MG/125MG TABLETS (FP) PO ONE (10:37)
--- NOTE | 2018-08-11 11:34 | PN ---
[facility] Progress Note (SOAP) Subjective: sore throat sweats body aches Objective: 08/11/18 11:33 Vital Signs Temperature 100.8 F H 08/11/18 09:31 Pulse Rate 104 H 08/11/18 09:31 Respiratory Rate 18 08/11/18 09:31 Blood Pressure 106/84 08/11/18 09:31 O2 Sat by Pulse Oximetry (%) aaox3 ambulating low grade temp noted Assessment: 08/11/18 11:35 sore throat with some redness noted pt c/o having difficulty swallowing Plan: increase fluids continue with detox lidocaine s/s ordered ABX ordered
[2018-08-11] MEDS ORDERED: IBUPROFEN 600 MG TABLET (FP) PO PRN (14:48)
[2018-08-11] MEDS ORDERED: NAPROXEN 500 MG TABLET (FP) PO ONE (14:51)
[2018-08-11 16:26] LABS: BASO % 0.1 % (0-2.0); EOS % 1.1 % (0-4.5); HEMATOCRIT 38.1 % (35.4-49); HEMOGLOBIN 12.6 GM/dL (11.7-16.9); LYMPH % 15.6 % (8-40); MCH 27.2 pg (25.7-33.7); MCHC 33.1 g/dl (32.0-35.9); MEAN CELL VOLUME 82.3 fl (80-96); MEAN PLT VOLUME 8.5 fl (7.5-11.1); MONO % 9.2 % (3.8-10.2); PLATELET COUNT 212 K/MM3 (134-434); RBC 4.63 M/mm3 (4.00-5.60); RDW 15.1 % (11.9-15.9); WHITE BLOOD COUNT 14.1 K/mm3 (4.0-10.0)
[2018-08-11] MEDS: AMOX TR/POT CLAV 500MG/125MG TABLETS (FP) PO SCH (17:33)
[2018-08-11] MEDS: CYCLOBENZAPRINE HCL 10 MG TABLET (FP) PO PRN (21:23)
[2018-08-11] MEDS: QUEtiapine FUMARATE 300 MG TABLET PO SCH (21:23)
[2018-08-11] MEDS: NAPROXEN 500 MG TABLET (FP) PO SCH (21:24)
[2018-08-11] MEDS: THIAMINE HCL 100 MG TABLET (FP) PO SCH (21:24)
[2018-08-12] MEDS: chlordiazePOXIDE HCL 10 MG CAPSULE PO SCH ×2 (00:09→06:20)
[2018-08-12] MEDS ORDERED: METHADONE HCL 40 MG DISPERSABLE TABLET ONE (05:42)
[2018-08-12] MEDS ORDERED: METHADONE HCL 10 MG TABLET ONE (05:43)
[2018-08-12] MEDS: METHADONE 80 MG, METHADONE 20 MG PO SCH (06:20)
[2018-08-12] MEDS: GABAPENTIN 300 MG CAPSULE (FP) PO SCH (06:21)
[2018-08-12] MEDS: CYCLOBENZAPRINE HCL 10 MG TABLET (FP) PO PRN (07:24)
[2018-08-12] MEDS: AMOX TR/POT CLAV 500MG/125MG TABLETS (FP) PO SCH (07:47)
[2018-08-12] MEDS: NAPROXEN 500 MG TABLET (FP) PO SCH (09:47)
[2018-08-12] MEDS: PRENATAL VITAMINS W/ FOLIC ACID TABLET (FP) PO SCH (09:47)
[2018-08-12] MEDS: RANITIDINE HCL 150 MG TABLET (FP) PO SCH (09:48)
[2018-08-12] MEDS: BUDESONIDE/FORMETEROL FUMARATE 160/4.5 mcg INHALER IH SCH (09:48)
[2018-08-12] MEDS: NICOTINE 21 MG/24 HOURS TOPICAL PATCH TD SCH (09:50)
[2018-08-12 09:52] VITALS: BP 94/62; PULSE 78; TEMP 97.2
--- NOTE | 2018-08-12 11:14 | PN ---
[facility] Progress Note Note: Psychiatry Attending's note : Asked by BULL Goodman to address script for seroquel. Detoxification completed.Patient is referred to Megan Clark. Needs a month supply of that medication. Chart reviewed. Mr Diaz is well known to jingle writer.Medications revisited. Dose confirmed. Intervention : Seroquel 300 mg po hs tab # 30. Script sent electronically to [facility].
--- NOTE | 2018-08-12 12:26 | DS ---
[facility] Detox Discharge Summary Admission Date: 08/07/18 Discharge Date: 08/12/18 - History Present History: Alcohol Dependence, Opioid Dependence - Physical Exam Results Vital Signs: Vital Signs Temperature 97.2 F L 08/12/18 09:52 Pulse Rate 78 08/12/18 09:52 Respiratory Rate 16 08/12/18 09:52 Blood Pressure 94/62 08/12/18 09:52 O2 Sat by Pulse Oximetry (%) Pertinent Admission Physical Exam Findings: PATIENT COMPLETED DETOX WITHOUT ADVERSE EVENT. CLINICALLY STABLE, DENIES SI/HI. PATIENT ACCEPTED REFERRAL TO [facility] AND ENCOURAGED TO COMPLETE REHAB TO PREVENT RELAPSE. PATIENT GIVEN D/C INSTRUCTIONS BY STAFF. - Treatment Hospital Course: Detox Protocol Followed, Detoxed Safely, Responded well, Discharged Condition Good, Rehab Referral Accepted Patient has Accepted a Rehab Referral to: [facility] - Medication Discharge Medications: Ambulatory Orders Gabapentin 600 mg PO TID 04/05/18 Docusate Sodium [Colace -] 100 mg PO TID 05/22/18 Quetiapine Fumarate [Seroquel] 300 mg PO HS 05/23/18 Albuterol Sulfate Inhaler - [Ventolin HFA Inhaler -] 2 inh PO Q4H PRN #1 inhaler 08/10/18 Budesonide/Formeterol Fumarate [SYMBICORT 160/4.5mcg -] 2 puff IH BID #1 inhaler 08/10/18 Ranitidine [Zantac -] 150 mg PO BID #60 tablet 08/10/18 Amoxicillin/Potassium Clav [Augmentin 500-125 Tablet] 1 each PO BID 6 Days #12 tablet 08/12/18 Quetiapine Fumarate [Seroquel -] 300 mg PO HS #30 tab 08/12/18 - AMA Did Patient Leave Against Medical Advice: No
== END 2018-08-12 10:05 | disposition home or self-care (01) | DRG 773 ==
LOC: YASAS 10:57 → Y6N 15:43
PROC: HZ2ZZZZ Detoxification Services for Substance Abuse Treatment (ICD-10-PCS; principal; 2018-08-07)
DX: F10.230 Alcohol dependence with withdrawal, uncomplicated (principal); F13.230 Sedative, hypnotic or anxiolytic dependence with withdrawal, uncomplicated; F14.20 Cocaine dependence, uncomplicated; F11.20 Opioid dependence, uncomplicated; F19.282 Other psychoactive substance dependence with psychoactive substance-induced sleep disorder; F19.24 Other psychoactive substance dependence with psychoactive substance-induced mood disorder; F51.05 Insomnia due to other mental disorder; F32.9 Major depressive disorder, single episode, unspecified; F41.8 Other specified anxiety disorders; K21.9 Gastro-esophageal reflux disease without esophagitis; E86.0 Dehydration; K08.9 Disorder of teeth and supporting structures, unspecified; Z91.013 Allergy to seafood
CPT/HCPCS: 36415; 80053; 81003; 84450; 84460; 85025; 85027; 86593; 93005; 93010; Q0162

== ENCOUNTER 2018-10-24 14:44 | Inpatient (IN) | payer OTHER ==
[2018-10-24 15:40] VITALS: BMI 27.3
--- NOTE | 2018-10-24 16:13 | HP ---
CIWA Score Nausea/Vomitin Muscle Tremors: 4-Moderate,w/Arms Extend Anxiety: 4-Mod. Anxious/Guarded Agitation: 1-Slight > Activity Paroxysmal Sweats: 2 Orientation: 0-Oriented Tacttile Disturbances: 0-None Auditory Disturbances: 0-None Visual Disturbances: 0-None Headache: 3-Moderate CIWA-Ar Total Score: 17 - Admission Criteria OASAS Guidelines: Admission for Medically Managed Detox: Requires at least one of the followin. CIWA greater than 12 2. Seizures within the past 24 hours 3. Delirium tremens within the past 24 hours 4. Hallucinations within the past 24 hours 5. Acute intervention needed for co occurring medical disorder 6. Acute intervention needed for co occurring psychiatric disorder 7. Severe withdrawal that cannot be handled at a lower level of care (continued vomiting, continued diarrhea, abnormal vital signs) requiring intravenous medication and/or fluids 8. Patient presents the following: CIWA greater than 12 Admission Criteria Met: Admission criteria met Admission ROS [facility] Allergies/Adverse Reactions: Allergies Allergy/AdvReac Type Severity Reaction Status Date / Time shellfish derived Allergy Severe Swelling Verified 08/07/18 12:56 No Known Drug Allergies Allergy Verified 08/07/18 12:56 History of Present Illness: patient here requesting detox from etoh use reports 2 pints x 3 mo , current symptoms as above , denies seizures , + blackouts , + tremors , reports drinking in the afternoons and in the mornings upon awakening , latest use yesterday . benzo use : 2-3 xanax /d and klonopin 2 mg x 2 mo illicit use , latest use yesterday cocaine : 1/2 gr /day IVDU in lesa UE , needles from [facility] , denies sharing, + re-using , denies abscess , denies OD MMTP : 1 yr at [facility] , highest dose now 115 mg q d planning to move to [place] this summer tobacco : 1/2 ppd PMHX: asthma ( [place]/ [place] ) has ALbuterol latest use 2 d. ago , LBP PSHX : denies PSych : anxiety SHx : lives at program [facility] , unemployed , finances habit through " hustling " , denies current legal issues . Exam Limitations: No Limitations - Ebola screening Have you traveled outside of the country in the last 21 days: No Have you had contact with anyone from an Ebola affected area: No Have you been sick,other than usual withdrawal symptoms: No Do you have a fever: No - Review of Systems Constitutional: See HPI EENT: reports: Other (denies vision loss , reports poor dentition , planning to obtain partial dentures) Respiratory: reports: No Symptoms reported Cardiac: reports: No Symptoms Reported GI: reports: See HPI : reports: No Symptoms Reported Musculoskeletal: reports: Back Pain, Joint Pain Integumentary: reports: Other (IVDU lesa UE) Neuro: reports: See HPI Endocrine: reports: No Symptoms Reported Psychiatric: reports: Orientated x3, Anxious Patient History - Patient Medical History Hx Anemia: No Hx Asthma: Yes (on albuterol inhaler) Hx Chronic Obstructive Pulmonary Disease (COPD): No Hx Cancer: No Hx Cardiac Disorders: No Hx Congestive Heart Failure: No Hx Hypertension: No Hx Hypercholesterolemia: No Hx Pacemaker: No HX Cerebrovascular Accident: No Hx Seizures: No Hx Dementia: No Hx Diabetes: No Hx Gastrointestinal Disorders: Yes (acid reflux) Hx Liver Disease: No Hx Genitourinary Disorders: No Hx Sexually Transmitted Disorders: No Hx Renal Disease (ESRD): No Hx Thyroid Disease: No Hx Human Immunodeficiency Virus (HIV): No Hx Hepatitis C: No (negative) Hx Depression: Yes (and anxiety) Hx Suicide Attempt: No Hx Bipolar Disorder: No Hx Schizophrenia: No - Patient Surgical History Past Surgical History: No Hx Neurologic Surgery: No Hx Cataract Extraction: No Hx Cardiac Surgery: No Hx Lung Surgery: No Hx Breast Surgery: No Hx Breast Biopsy: No Hx Abdominal Surgery: No Hx Appendectomy: No Hx Cholecystectomy: No Hx Genitourinary Surgery: No Hx Section: No Hx Orthopedic Surgery: No Anesthesia Reaction: No - PPD History Date: 04/07/18 Results: negative - Smoking Cessation Smoking history: Current every day smoker Have you smoked in the past 12 months: Yes Aproximately how many cigarettes per day: 10 Cigars Per Day: 0 Hx Chewing Tobacco Use: No Initiated information on smoking cessation: No Family Disease History - Family Disease History Family Disease History: Diabetes: Mother (living, ), Other: Father (living, healthy), Mother, Sister (1 living - healthy), Daughter (age 7 - healthy) Admission Physical Exam BHS - Vital Signs Vital Signs: Vital Signs - 24 hr 10/24/18 15:39 Temperature 96.0 F L Pulse Rate 67 Respiratory 18 Rate Blood Pressure 152/91 - Physical General Appearance: Yes: No Apparent Distress, Disheveled HEENTM: Yes: EOMI, Hearing grossly Normal, Normocephalic, Normal Voice Respiratory: Yes: Chest Non-Tender, Lungs Clear, Normal Breath Sounds Neck: Yes: No masses,lesions,Nodules, Trachea in good position Cardiology: Yes: Regular Rhythm, Regular Rate, S1, S2 Abdominal: Yes: Normal Bowel Sounds, Soft Genitourinary: Yes: Within Normal Limits Back: Yes: Normal Inspection Musculoskeletal: Yes: Gait Steady Extremities: Yes: Non-Tender Neurological: Yes: Motor Strength 5/5, Normal Mood/Affect Integumentary: Yes: Normal Color, Dry, Track Erickson (lesa UE L >> R no current absces , + induration left antecubital) - Diagnostic (1) Sedative hypnotic or anxiolytic dependence Current Visit: No Status: Acute (2) Cocaine dependence Current Visit: No Status: Chronic Qualifiers: Substance use status: uncomplicated Qualified Code(s): F14.20 - Cocaine dependence, uncomplicated (3) Opioid dependence on agonist therapy Current Visit: No Status: Chronic (4) Alcohol dependence with uncomplicated withdrawal Current Visit: No Status: Acute BHS Breath Alcohol Content Breath Alcohol Content: 0 Urine Drug Screen - Results Drug Screen Negative: No Urine Drug Screen Results: LYLE-Cocaine, OPI-Opiates, MET-Methamphetamine, BZO- Benzodiazepines, MTD-Methadone
[2018-10-24] MEDS ORDERED: NICOTINE POLACRILEX 2 MG GUM BC PRN (16:19)
[2018-10-24] MEDS ORDERED: guaiFENesin/D-METHORPHAN HB 10 ML UNIT-DOSE CUPS PO PRN (16:19)
[2018-10-24] MEDS ORDERED: MAGNESIUM CITRATE 300 ML BOTTLE PO PRN (16:19)
[2018-10-24] MEDS ORDERED: IBUPROFEN 400 MG TABLET (FP) PO PRN (16:19)
[2018-10-24] MEDS ORDERED: MAG HYDROX/AL HYDROX/SIMETH 30 ML UNIT-DOSE CUP PO PRN (16:19)
[2018-10-24] MEDS ORDERED: MAGNESIUM HYDROX 2400MG/30ML ORAL SUSPENSION 30 ML CUP PO PRN (16:19)
[2018-10-24] MEDS ORDERED: P-EPHED 60MG/TRIPROLIDI 2.5MG TABLET PO PRN (16:19)
[2018-10-24] MEDS ORDERED: MENTHOL/PHENOL 1 EACH UD MM PRN (16:19)
[2018-10-24] MEDS ORDERED: ALBUTEROL SO4 8 GM HFA INHALER IH PRN (16:20)
[2018-10-24] MEDS: chlordiazePOXIDE HCL 25 MG CAPSULE PO PRN (20:06)
[2018-10-24] MEDS: ACETAMINOPHEN 325 MG TABLET (FP) PO PRN (20:08)
[2018-10-24] MEDS ORDERED: ONDANSETRON *ODT* 4 MG TABLET SL ONE (20:26)
[2018-10-24] MEDS ORDERED: MELATONIN 5 MG TABLETS PO PRN (22:00)
[2018-10-24] MEDS: THIAMINE HCL 100 MG TABLET (FP) PO SCH (22:03)
[2018-10-24] MEDS: DOCUSATE SODIUM 100 MG CAPSULE (FP) PO SCH (22:03)
[2018-10-24] MEDS: QUEtiapine FUMARATE 50 MG TABLET PO SCH (22:03)
[2018-10-24] MEDS: chlordiazePOXIDE HCL 25 MG CAPSULE PO SCH (22:04)
[2018-10-25] MEDS: chlordiazePOXIDE HCL 25 MG CAPSULE PO SCH (04:11)
[2018-10-25] MEDS ORDERED: METHADONE HCL 10 MG TABLET PO SCH (06:00)
[2018-10-25] MEDS: DOCUSATE SODIUM 100 MG CAPSULE (FP) PO SCH ×3 (07:01→22:24)
[2018-10-25] MEDS: ACETAMINOPHEN 325 MG TABLET (FP) PO PRN (07:01)
[2018-10-25] MEDS ORDERED: METHADONE HCL 5 MG TABLET ONE (08:35)
[2018-10-25] MEDS ORDERED: METHADONE HCL 40 MG DISPERSABLE TABLET ONE (08:35)
[2018-10-25] MEDS ORDERED: METHADONE HCL 10 MG TABLET ONE (08:35)
[2018-10-25] MEDS: chlordiazePOXIDE HCL 25 MG CAPSULE PO PRN (08:45)
[2018-10-25] MEDS: METHADONE 80 MG, METHADONE 30 MG, METHADONE 5 MG PO SCH (08:46)
[2018-10-25] MEDS ORDERED: hydrOXYzine PAMOATE 25 MG CAPSULE (FP) PO ONE (09:06)
--- NOTE | 2018-10-25 09:19 | PN ---
S CIWA - CIWA Score Nausea/Vomitin-Mild Nausea/No Vomiting Muscle Tremors: 4-Moderate,w/Arms Extend Anxiety: 3 Agitation: 3 Paroxysmal Sweats: 1-Minimal Palms Moist Orientation: 0-Oriented Tacttile Disturbances: 0-None Auditory Disturbances: 0-None Visual Disturbances: 0-None Headache: 2-Mild CIWA-Ar Total Score: 14 BHS Progress Note (SOAP) Subjective: patient preferred Valium detox regimen for alcohol withdrawal sx right upper tooth decay swelling gum begin amoxicillin c/o anxiousness one dose of Vistaril tremor sweating anxiety Objective: 10/25/18 15:13 Vital Signs Temperature 97.6 F 10/25/18 13:16 Pulse Rate 80 10/25/18 13:16 Respiratory Rate 18 10/25/18 13:16 Blood Pressure 100/59 L 10/25/18 13:16 O2 Sat by Pulse Oximetry (%) Laboratory Last Values WBC 4.3 K/mm3 (4.0-10.0) 10/25/18 07:00 RBC 4.37 M/mm3 (4.00-5.60) 10/25/18 07:00 Hgb 12.5 GM/dL (11.7-16.9) 10/25/18 07:00 Hct 37.3 % (35.4-49) 10/25/18 07:00 MCV 85.3 fl (80-96) 10/25/18 07:00 MCH 28.6 pg (25.7-33.7) 10/25/18 07:00 MCHC 33.5 g/dl (32.0-35.9) 10/25/18 07:00 RDW 14.5 % (11.9-15.9) 10/25/18 07:00 Plt Count 199 K/MM3 (134-434) 10/25/18 07:00 MPV 8.2 fl (7.5-11.1) 10/25/18 07:00 Sodium 142 mmol/L (136-145) 10/25/18 07:00 Potassium 3.5 mmol/L (3.5-5.1) 10/25/18 07:00 Chloride 104 mmol/L (98-107) 10/25/18 07:00 Carbon Dioxide 30 mmol/L (21-32) 10/25/18 07:00 Anion Gap 8 MMOL/L (8-16) 10/25/18 07:00 BUN 8 mg/dL (7-18) 10/25/18 07:00 Creatinine 0.7 mg/dL (0.55-1.3) 10/25/18 07:00 Creat Clearance w eGFR > 60 (>60) 10/25/18 07:00 Random Glucose 88 mg/dL (74-106) 10/25/18 07:00 Calcium 8.1 mg/dL (8.5-10.1) L 10/25/18 07:00 Total Bilirubin 0.3 mg/dL (0.2-1) 10/25/18 07:00 AST 81 U/L (15-37) H 10/25/18 07:00 ALT 112 U/L (13-61) H 10/25/18 07:00 Alkaline Phosphatase 63 U/L (45-117) 10/25/18 07:00 Total Protein 5.8 g/dl (6.4-8.2) L 10/25/18 07:00 Albumin 3.0 g/dl (3.4-5.0) L 10/25/18 07:00 RPR Titer Nonreactive (NONREACTIVE) 10/25/18 07:00 HIV 1&2 Antibody Screen Negative 10/25/18 07:00 HIV P24 Antigen Negative 10/25/18 07:00 lab noted Assessment: 10/25/18 15:13 withdrawal sx Plan: continue detox
[2018-10-25] MEDS: NICOTINE 14 MG/24 HOURS TOPICAL PATCH TD SCH (10:14)
[2018-10-25] MEDS: AMOXICILLIN 500 MG CAPSULE (FP) PO SCH ×2 (10:14→22:23)
[2018-10-25] MEDS: PRENATAL VITAMINS W/ FOLIC ACID TABLET (FP) PO SCH (10:14)
[2018-10-25] MEDS ORDERED: diazePAM 5 MG TABLET PO ONE (10:20)
[2018-10-25 10:26] LABS: HEMATOCRIT 37.3 % (35.4-49); HEMOGLOBIN 12.5 GM/dL (11.7-16.9); MCH 28.6 pg (25.7-33.7); MCHC 33.5 g/dl (32.0-35.9); MEAN CELL VOLUME 85.3 fl (80-96); MEAN PLT VOLUME 8.2 fl (7.5-11.1); PLATELET COUNT 199 K/MM3 (134-434); RBC 4.37 M/mm3 (4.00-5.60); RDW 14.5 % (11.9-15.9); WHITE BLOOD COUNT 4.3 K/mm3 (4.0-10.0)
[2018-10-25 10:58] LABS: ALK PHOS 63 U/L (45-117); ANION GAP 8 MMOL/L (8-16); BILIRUBIN,TOTAL 0.3 mg/dL (0.2-1); BLOOD UREA NITROGEN 8 mg/dL (7-18); CALCIUM 8.1 mg/dL (8.5-10.1); CHLORIDE 104 mmol/L (98-107); CO2 30 mmol/L (21-32); CREATININE 0.7 mg/dL (0.55-1.3); GLUCOSE,RANDOM 88 mg/dL (74-106); POTASSIUM 3.5 mmol/L (3.5-5.1); SGOT/AST 81 U/L (15-37); SGPT/ALT 112 U/L (13-61); SODIUM 142 mmol/L (136-145); TOT PROT 5.8 g/dl (6.4-8.2)
[2018-10-25] MEDS: diazePAM 5 MG TABLET PO ONE (11:19)
--- NOTE | 2018-10-25 11:28 | CONSULT ---
[facility] Psychiatric Consult - Data Date of interview: 10/25/18 Admission source: [facility] Identifying data: This is a 33 years old father of one, homless, unemployed,patient here requesting detox from etoh use reporting Alcohol withdrawal symptoms. Patient reports long history of Alcohol, Opioids, Cocaine and Nicotine dependence. Denies suicidal, homicidal history Substance Abuse History: Ptient reports lomg history of Alcohol, Opioids, [id number] and Nixcotine depepndence/abuse, with history of mulitiple detox admissions. Smoking history: Current every day smoker. Have you smoked in the past 12 months: Yes. Aproximately how many cigarettes per day: 10. Cigars Per Day: 0. Hx Chewing Tobacco Use: No. Initiated information on smoking cessation : No Medical History: LBP, Asthma, DM-II, COPD, Weight loss history Psychiatric History: Patient reports TINO, Panic disorder, reports unclear only psychiatori admission on abput 5 years ago for safety. Denies suicidal, [id number] history. Reports taking prior to admissiion: Seroquel 100mg poqd. 200mg po qhs. Gabapentin 300mg po tid Physical/Sexual Abuse/Trauma History: Denies Additional Comment: Seroquel 100mg poqd. 200mg po qhs. Gabapentin 300mg po tid Mental Status Exam - Mental Status Exam Alert and Oriented to: Person Cognitive Function: Fair Patient Appearance: Unkempt Mood: Anxious, Irritable Affect: Labile Patient Behavior: Distractible, Cooperative, Agitated Speech Pattern: Excessive Voice Loudness: Normal Thought Process: Goal Oriented Thought Disorder: Being Controlled Hallucinations: Denies Suicidal Ideation: Denies Homicidal Ideation: Denies Insight/Judgement: Fair Sleep: Difficulty falling asleep Appetite: Weight loss Muscle strength/Tone: Normal Gait/Station: Normal Additional Comments: Seroquel 100mg poqd. 200mg po qhs. Gabapentin 300mg po tid Psychiatric Findings - Problem List ([place] 1, 2,3) (1) Alcohol dependence with uncomplicated withdrawal Current Visit: No Status: Acute (2) Opioid dependence with withdrawal Current Visit: No Status: Acute (3) Panic disorder Current Visit: No Status: Acute (4) Sedative hypnotic or anxiolytic dependence Current Visit: No Status: Acute (5) Substance induced mood disorder Current Visit: No Status: Acute (6) Substance induced mood disorder Current Visit: No Status: Acute (7) Substance-induced sleep disorder Current Visit: No Status: Acute (8) Chronic obstructive pulmonary disease, unspecified Current Visit: No Status: Chronic Qualifiers: (9) Cocaine dependence Current Visit: No Status: Chronic Qualifiers: Substance use status: uncomplicated Qualified Code(s): F14.20 - Cocaine dependence, uncomplicated (10) TINO (generalized anxiety disorder) Current Visit: No Status: Chronic Comment: Historical diagnosis. (11) GERD (gastroesophageal reflux disease) Current Visit: No Status: Chronic Qualifiers: Esophagitis presence: esophagitis presence not specified Qualified Code(s) : K21.9 - Gastro-esophageal reflux disease without esophagitis (12) Opioid dependence on agonist therapy Current Visit: No Status: Chronic (13) Mood disorder Current Visit: No Status: Suspected (14) Substance-induced anxiety disorder Current Visit: No Status: Suspected - Initial Treatment Plan Initial Treatment Plan: Seroquel 100mg poqd. 200mg po qhs. Gabapentin 300mg po tid
[2018-10-25] MEDS: QUEtiapine FUMARATE 100 MG TABLET (FP) PO SCH (12:46)
[2018-10-25] MEDS ORDERED: ONDANSETRON *ODT* 4 MG TABLET SL ONE (12:50)
[2018-10-25] MEDS ORDERED: GABAPENTIN 300 MG CAPSULE (FP) PO ONE (13:05)
[2018-10-25] MEDS: RANITIDINE HCL 150 MG TABLET (FP) PO SCH ×2 (13:32→22:23)
[2018-10-25] MEDS ORDERED: GABAPENTIN 300 MG CAPSULE (FP) PO SCH (14:00)
[2018-10-25] MEDS: diazePAM 5 MG TABLET PO SCH ×2 (14:02→22:25)
[2018-10-25] MEDS: GABAPENTIN 300 MG CAPSULE (FP) PO SCH ×2 (15:57→22:24)
[2018-10-25] MEDS: diazePAM 5 MG TABLET PO PRN (18:54)
[2018-10-25] MEDS: QUEtiapine FUMARATE 200 MG TABLET PO SCH (22:23)
[2018-10-25] MEDS: QUEtiapine FUMARATE 50 MG TABLET PO SCH (22:24)
[2018-10-25] MEDS: THIAMINE HCL 100 MG TABLET (FP) PO SCH (22:24)
[2018-10-25] MEDS ORDERED: chlordiazePOXIDE HCL 25 MG CAPSULE PO SCH (23:00)
[2018-10-26] MEDS ORDERED: METHADONE HCL 10 MG TABLET ONE (04:58)
[2018-10-26] MEDS ORDERED: METHADONE HCL 40 MG DISPERSABLE TABLET ONE (04:58)
[2018-10-26] MEDS ORDERED: METHADONE HCL 5 MG TABLET ONE (04:59)
[2018-10-26] MEDS: GABAPENTIN 300 MG CAPSULE (FP) PO SCH ×3 (05:35→21:41)
[2018-10-26] MEDS: DOCUSATE SODIUM 100 MG CAPSULE (FP) PO SCH ×3 (05:35→21:41)
[2018-10-26] MEDS: diazePAM 5 MG TABLET PO SCH ×3 (05:36→21:40)
[2018-10-26] MEDS: METHADONE 80 MG, METHADONE 30 MG, METHADONE 5 MG PO SCH (05:36)
[2018-10-26] MEDS: RANITIDINE HCL 150 MG TABLET (FP) PO SCH ×2 (10:27→21:41)
[2018-10-26] MEDS: PRENATAL VITAMINS W/ FOLIC ACID TABLET (FP) PO SCH (10:27)
[2018-10-26] MEDS: NICOTINE 14 MG/24 HOURS TOPICAL PATCH TD SCH (10:27)
[2018-10-26] MEDS: AMOXICILLIN 500 MG CAPSULE (FP) PO SCH ×2 (10:27→21:41)
[2018-10-26] MEDS: QUEtiapine FUMARATE 100 MG TABLET (FP) PO SCH (10:27)
[2018-10-26] MEDS: ACETAMINOPHEN 325 MG TABLET (FP) PO PRN (11:59)
[2018-10-26] MEDS: diazePAM 5 MG TABLET PO PRN ×2 (11:59→17:13)
[2018-10-26] MEDS ORDERED: ONDANSETRON *ODT* 4 MG TABLET SL ONE (14:26)
--- NOTE | 2018-10-26 15:17 | PN ---
S CIWA - CIWA Score Nausea/Vomitin Muscle Tremors: None Anxiety: 2 Agitation: 1-Slight > Activity Paroxysmal Sweats: 3 Orientation: 0-Oriented Tacttile Disturbances: 0-None Auditory Disturbances: 0-None Visual Disturbances: 1-Very Mild Sensitivity Headache: 3-Moderate CIWA-Ar Total Score: 13 BHS Progress Note (SOAP) Subjective: Body Aches, Sweating, Nausea, Sweating, H/A. Objective: PATIENT A & O X 3. IN NO ACUTE DISTRESS. 10/26/18 15:16 Vital Signs Temperature 97.1 F L 10/26/18 13:23 Pulse Rate 94 H 10/26/18 13:23 Respiratory Rate 16 10/26/18 13:23 Blood Pressure 108/67 10/26/18 13:23 O2 Sat by Pulse Oximetry (%) Laboratory Tests 10/25/18 10/25/18 10/25/18 07:00 07:00 07:00 WBC 4.3 RBC 4.37 Hgb 12.5 Hct 37.3 MCV 85.3 MCH 28.6 MCHC 33.5 RDW 14.5 Plt Count 199 MPV 8.2 Sodium 142 Potassium 3.5 Chloride 104 Carbon Dioxide 30 Anion Gap 8 BUN 8 Creatinine 0.7 Creat Clearance w eGFR > 60 Random Glucose 88 Calcium 8.1 L Total Bilirubin 0.3 AST 81 H ALT 112 H Alkaline Phosphatase 63 Total Protein 5.8 L Albumin 3.0 L RPR Titer Nonreactive HIV 1&2 Antibody Screen HIV P24 Antigen 10/25/18 07:00 WBC RBC Hgb Hct MCV MCH MCHC RDW Plt Count MPV Sodium Potassium Chloride Carbon Dioxide Anion Gap BUN Creatinine Creat Clearance w eGFR Random Glucose Calcium Total Bilirubin AST ALT Alkaline Phosphatase Total Protein Albumin RPR Titer HIV 1&2 Antibody Screen Negative HIV P24 Antigen Negative LABS NOTED. Assessment: 10/26/18 15:16 WITHDRAWAL SYMPTOMS. Plan: CONTINUE DETOX. INCREASE DAILY PO FLUID INTAKE.
[2018-10-26] MEDS: QUEtiapine FUMARATE 200 MG TABLET PO SCH (21:41)
[2018-10-26] MEDS: THIAMINE HCL 100 MG TABLET (FP) PO SCH (21:41)
[2018-10-26] MEDS ORDERED: chlordiazePOXIDE 5 MG CAPSULE PO SCH (23:00)
[2018-10-27] MEDS: GABAPENTIN 300 MG CAPSULE (FP) PO SCH ×3 (05:39→22:03)
[2018-10-27] MEDS: DOCUSATE SODIUM 100 MG CAPSULE (FP) PO SCH ×3 (05:40→22:03)
[2018-10-27] MEDS: diazePAM 5 MG TABLET PO PRN (05:41)
[2018-10-27] MEDS ORDERED: METHADONE 80 MG, METHADONE 30 MG, METHADONE 5 MG PO SCH (09:00)
[2018-10-27] MEDS ORDERED: METHADONE HCL 40 MG DISPERSABLE TABLET ONE (09:20)
[2018-10-27] MEDS ORDERED: METHADONE HCL 10 MG TABLET ONE (09:20)
[2018-10-27] MEDS ORDERED: METHADONE HCL 5 MG TABLET ONE (09:21)
[2018-10-27] MEDS: RANITIDINE HCL 150 MG TABLET (FP) PO SCH ×2 (10:40→22:03)
[2018-10-27] MEDS: AMOXICILLIN 500 MG CAPSULE (FP) PO SCH ×2 (10:43→22:03)
[2018-10-27] MEDS: PRENATAL VITAMINS W/ FOLIC ACID TABLET (FP) PO SCH (10:43)
[2018-10-27] MEDS: QUEtiapine FUMARATE 100 MG TABLET (FP) PO SCH (10:43)
[2018-10-27] MEDS: diazePAM 5 MG TABLET PO SCH ×2 (10:44→22:04)
[2018-10-27] MEDS: NICOTINE 14 MG/24 HOURS TOPICAL PATCH TD SCH (10:47)
[2018-10-27] MEDS ORDERED: ONDANSETRON *ODT* 4 MG TABLET SL PRN (17:05)
--- NOTE | 2018-10-27 17:09 | PN ---
BHS Progress Note (SOAP) Subjective: Nausea, Body Aches, Sweating, Constipation (Chronic). Objective: PATIENT A & O X 3, OBSERVED AMBULATING ON UNIT. IN NO ACUTE DISTRESS. 10/27/18 17:08 Vital Signs Temperature 98.7 F 10/27/18 14:09 Pulse Rate 70 10/27/18 14:09 Respiratory Rate 16 10/27/18 14:09 Blood Pressure 119/74 10/27/18 14:09 O2 Sat by Pulse Oximetry (%) Laboratory Tests 10/25/18 10/25/18 10/25/18 07:00 07:00 07:00 WBC 4.3 RBC 4.37 Hgb 12.5 Hct 37.3 MCV 85.3 MCH 28.6 MCHC 33.5 RDW 14.5 Plt Count 199 MPV 8.2 Sodium 142 Potassium 3.5 Chloride 104 Carbon Dioxide 30 Anion Gap 8 BUN 8 Creatinine 0.7 Creat Clearance w eGFR > 60 Random Glucose 88 Calcium 8.1 L Total Bilirubin 0.3 AST 81 H ALT 112 H Alkaline Phosphatase 63 Total Protein 5.8 L Albumin 3.0 L RPR Titer Nonreactive HIV 1&2 Antibody Screen HIV P24 Antigen 10/25/18 07:00 WBC RBC Hgb Hct MCV MCH MCHC RDW Plt Count MPV Sodium Potassium Chloride Carbon Dioxide Anion Gap BUN Creatinine Creat Clearance w eGFR Random Glucose Calcium Total Bilirubin AST ALT Alkaline Phosphatase Total Protein Albumin RPR Titer HIV 1&2 Antibody Screen Negative HIV P24 Antigen Negative LABS NOTED. Assessment: 10/27/18 17:09 WITHDRAWAL SYMPTOMS. Plan: CONTINUE DETOX. PATIENT SCHEDULED FOR D/C TOMORROW .
[2018-10-27] MEDS: THIAMINE HCL 100 MG TABLET (FP) PO SCH (22:03)
[2018-10-27] MEDS: QUEtiapine FUMARATE 200 MG TABLET PO SCH (22:04)
[2018-10-27] MEDS ORDERED: chlordiazePOXIDE HCL 10 MG CAPSULE PO SCH (23:00)
[2018-10-28] MEDS: diazePAM 5 MG TABLET PO ONE (05:16)
[2018-10-28] MEDS: GABAPENTIN 300 MG CAPSULE (FP) PO SCH (05:16)
[2018-10-28] MEDS ORDERED: METHADONE 80 MG, METHADONE 30 MG, METHADONE 5 MG PO SCH (06:10)
[2018-10-28] MEDS ORDERED: METHADONE HCL 10 MG TABLET ONE (06:17)
[2018-10-28] MEDS ORDERED: METHADONE HCL 5 MG TABLET ONE (06:18)
[2018-10-28] MEDS ORDERED: METHADONE HCL 40 MG DISPERSABLE TABLET ONE (06:18)
[2018-10-28] MEDS: DOCUSATE SODIUM 100 MG CAPSULE (FP) PO SCH (06:20)
[2018-10-28 06:33] VITALS: BP 124/68; PULSE 85; TEMP 97.5
--- NOTE | 2018-10-28 19:57 | DS ---
[facility] Detox Discharge Summary Admission Date: 10/24/18 Discharge Date: 10/28/18 - History Present History: Alcohol Dependence, Cocaine Dependence, Opioid Dependence, Sedative Dependence, MMTP Additional Comments: PATIENT LEFT DETOX UNIT EARLY IN AM PRIOR TO TIME OF ARRIVAL OF TOOL PUSHER ON UNIT. THUS , PRE-DISCHARGE MEDICAL EVALUATION UNABLE TO BE DONE. PER TOOL PUSHER'S CONVERSATION WITH PATIENT YESTERDAY, PATIENT WILL APPLY FOR REHAB ADMISSION AT A LATER DATE. PATIENT WILL RETURN TO [facility] (WHERE HE IS CURRENTLY A CLIENT) FOR AFTERCARE. PATIENT ALSO PREVIOUSLY ADVISED TO CONSIDER LOCAL 12-STEP / NA / AA OUTPATIENT SUPPORT GROUPS FOR AFTERCARE. PATIENT VERBALIZED UNDERSTANDING OF RECOMMENDATION. Pertinent Past History: History of Depression, History of Asthma, History of C.O.P.D., History of Panic Disorder, History of Constipation, M.M.T.P., History of G.E.R.D., Generalized Anxiety Disorder, History of Mood Disorder, History of Constipation. - Physical Exam Results Vital Signs: Vital Signs Temperature 97.5 F L 10/28/18 06:32 Pulse Rate 85 10/28/18 06:32 Respiratory Rate 18 10/28/18 06:32 Blood Pressure 124/68 10/28/18 06:32 O2 Sat by Pulse Oximetry (%) Pertinent Admission Physical Exam Findings: WITHDRAWAL SYMPTOMS. Laboratory Tests 10/25/18 10/25/18 10/25/18 07:00 07:00 07:00 WBC 4.3 RBC 4.37 Hgb 12.5 Hct 37.3 MCV 85.3 MCH 28.6 MCHC 33.5 RDW 14.5 Plt Count 199 MPV 8.2 Sodium 142 Potassium 3.5 Chloride 104 Carbon Dioxide 30 Anion Gap 8 BUN 8 Creatinine 0.7 Creat Clearance w eGFR > 60 Random Glucose 88 Calcium 8.1 L Total Bilirubin 0.3 AST 81 H ALT 112 H Alkaline Phosphatase 63 Total Protein 5.8 L Albumin 3.0 L RPR Titer Nonreactive HIV 1&2 Antibody Screen HIV P24 Antigen 10/25/18 07:00 WBC RBC Hgb Hct MCV MCH MCHC RDW Plt Count MPV Sodium Potassium Chloride Carbon Dioxide Anion Gap BUN Creatinine Creat Clearance w eGFR Random Glucose Calcium Total Bilirubin AST ALT Alkaline Phosphatase Total Protein Albumin RPR Titer HIV 1&2 Antibody Screen Negative HIV P24 Antigen Negative LABS NOTED. - Treatment Hospital Course: Detox Protocol Followed, Detoxed Safely, Responded well, Discharged Condition Good Patient has Accepted a Rehab Referral to: PATIENT WILL APPLY FOR ADMISSION FOR REHAB AT A LATER DATE. - Medication Discharge Medications: Ambulatory Orders Gabapentin 600 mg PO TID 04/05/18 Albuterol Sulfate Inhaler - [Ventolin HFA Inhaler -] 2 inh PO Q4H PRN #1 inhaler 08/10/18 Quetiapine Fumarate [Seroquel -] 300 mg PO HS #30 tab 08/12/18 Amoxicillin - [Amoxicillin 500mg Capsule -] 500 mg PO BID 3 Days #6 capsule Docusate Sodium [Colace -] 100 mg PO TID #20 capsule 10/27/18 - Diagnosis (1) Alcohol dependence with uncomplicated withdrawal Status: Acute (2) Opioid dependence with withdrawal Status: Acute (3) Panic disorder Status: Acute (4) Sedative hypnotic or anxiolytic dependence Status: Acute (5) Substance induced mood disorder Status: Acute (6) Substance-induced sleep disorder Status: Acute (7) Insomnia secondary to depression with anxiety Status: Acute (8) Sedative, hypnotic or anxiolytic dependence with withdrawal, uncomplicated Status: Acute (9) Asthma Status: Chronic Qualifiers: Asthma severity: mild Asthma persistence: intermittent Asthma complication type: uncomplicated Qualified Code(s): J45.20 - Mild intermittent asthma, uncomplicated (10) Chronic obstructive pulmonary disease, unspecified Status: Chronic Qualifiers: COPD type: unspecified COPD Qualified Code(s): J44.9 - Chronic obstructive pulmonary disease, unspecified (11) MDD (major depressive disorder), recurrent episode, moderate Status: Chronic (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
== END 2018-10-28 08:10 | disposition home or self-care (01) | DRG 773 ==
LOC: YASAS 14:44 → Y3N 18:27
PROVIDERS: ADMIT Neuromusculoskeletal Medicine & OMM; ATTEND Neuromusculoskeletal Medicine & OMM
PROC: HZ2ZZZZ Detoxification Services for Substance Abuse Treatment (ICD-10-PCS; principal; 2018-10-24)
DX: F10.230 Alcohol dependence with withdrawal, uncomplicated (principal); F13.230 Sedative, hypnotic or anxiolytic dependence with withdrawal, uncomplicated; F14.20 Cocaine dependence, uncomplicated; F11.20 Opioid dependence, uncomplicated; F33.1 Major depressive disorder, recurrent, moderate; F19.282 Other psychoactive substance dependence with psychoactive substance-induced sleep disorder; F19.24 Other psychoactive substance dependence with psychoactive substance-induced mood disorder; F19.280 Other psychoactive substance dependence with psychoactive substance-induced anxiety disorder; F41.9 Anxiety disorder, unspecified; F41.1 Generalized anxiety disorder; F51.05 Insomnia due to other mental disorder; F41.0 Panic disorder [episodic paroxysmal anxiety]; J44.9 Chronic obstructive pulmonary disease, unspecified; J45.909 Unspecified asthma, uncomplicated; K21.9 Gastro-esophageal reflux disease without esophagitis
CPT/HCPCS: 36415; 80053; 85027; 86593; 87389; Q0162

== ENCOUNTER 2018-12-07 09:46 | Inpatient (IN) | payer OTHER ==
[2018-12-07 10:18] VITALS: BMI 28.4
--- NOTE | 2018-12-07 12:48 | HP ---
CIWA Score Nausea/Vomitin Muscle Tremors: 2 Anxiety: 3 Agitation: 2 Paroxysmal Sweats: 1-Minimal Palms Moist Orientation: 0-Oriented Tacttile Disturbances: 1-Very Mild Itch/Numbness Auditory Disturbances: 1-Very Mild Visual Disturbances: 0-None Headache: 1-Very Mild CIWA-Ar Total Score: 13 - Admission Criteria OASAS Guidelines: Admission for Medically Managed Detox: Requires at least one of the followin. CIWA greater than 12 2. Seizures within the past 24 hours 3. Delirium tremens within the past 24 hours 4. Hallucinations within the past 24 hours 5. Acute intervention needed for co occurring medical disorder 6. Acute intervention needed for co occurring psychiatric disorder 7. Severe withdrawal that cannot be handled at a lower level of care (continued vomiting, continued diarrhea, abnormal vital signs) requiring intravenous medication and/or fluids 8. Patient presents the following: CIWA greater than 12 Admission Criteria Met: Admission criteria met Admission ROS [facility] - HPI Chief Complaint: i need help to stop drinking alcohol,xanax,cocaine ,mmtp 115 mgs/day Allergies/Adverse Reactions: Allergies Allergy/AdvReac Type Severity Reaction Status Date / Time shellfish derived Allergy Severe Swelling Verified 12/07/18 10:47 No Known Drug Allergies Allergy Verified 12/07/18 10:47 History of Present Illness: this 33 years old male with alcohol,xanax,cocaine dependence ,mmtp 115 mgs/day, last medicated today multiple admissions but keep relapsing nicotine dependence 10 cigarette/day,requested nicotine patch infected dental cavity right upper molar for 2 days weight loss anxiety low back pain longest period of sobriety 1 year plan for rehab after detox asthma Exam Limitations: No Limitations - Ebola screening Have you traveled outside of the country in the last 21 days: No Have you had contact with anyone from an Ebola affected area: No Have you been sick,other than usual withdrawal symptoms: No Do you have a fever: No - Review of Systems Constitutional: Loss of Appetite, Malaise, Night Sweats, Changes in sleep, Weakness, Unintentional Wgt. Loss EENT: reports: Tearing, Nose Congestion, Other (infected dental cavity) Respiratory: reports: No Symptoms reported Cardiac: reports: No Symptoms Reported GI: reports: Constipated, Nausea, Abdominal cramping : reports: No Symptoms Reported Musculoskeletal: reports: Back Pain, Muscle Pain, Other (low backpain) Integumentary: reports: Dryness Neuro: reports: Headache, Tremors Endocrine: reports: No Symptoms Reported Hematology: reports: No Symptoms Reported Psychiatric: reports: No Sypmtoms Reported, Judgement Intact, Mood/Affect Appropiate, Orientated x3, Anxious, Depressed Other Systems: Reviewed and Negative Patient History - Patient Medical History Hx Anemia: No Hx Asthma: Yes (on albuterol inhaler) Hx Chronic Obstructive Pulmonary Disease (COPD): No Hx Cancer: No Hx Cardiac Disorders: No Hx Congestive Heart Failure: No Hx Hypertension: No Hx Hypercholesterolemia: No Hx Pacemaker: No HX Cerebrovascular Accident: No Hx Seizures: No Hx Dementia: No Hx Diabetes: No Hx Gastrointestinal Disorders: No Hx Liver Disease: No Hx Genitourinary Disorders: No Hx Sexually Transmitted Disorders: No Hx Renal Disease (ESRD): No Hx Thyroid Disease: No Hx Human Immunodeficiency Virus (HIV): No (last 10/21 negative) Hx Hepatitis C: No (negative) Hx Depression: Yes (anxiety,insomnia) Hx Suicide Attempt: No Hx Bipolar Disorder: No Hx Schizophrenia: No Other Medical History: no suicidal,no homicidal - Patient Surgical History Past Surgical History: No Hx Neurologic Surgery: No Hx Cataract Extraction: No Hx Cardiac Surgery: No Hx Lung Surgery: No Hx Breast Surgery: No Hx Breast Biopsy: No Hx Abdominal Surgery: No Hx Appendectomy: No Hx Cholecystectomy: No Hx Genitourinary Surgery: No Hx Section: No Hx Orthopedic Surgery: No Anesthesia Reaction: No - PPD History Previous Implant?: Yes Documented Results: Negative w/proof Date: 04/07/18 Results: negative PPD to be Administered?: No - Reproductive History Patient : No - Smoking Cessation Smoking history: Current every day smoker Have you smoked in the past 12 months: Yes Aproximately how many cigarettes per day: 10 Cigars Per Day: 0 Hx Chewing Tobacco Use: No Initiated information on smoking cessation: Yes 'Breaking Loose' booklet given: 12/07/18 - Substance & Tx. History Hx Alcohol Use: Yes Hx Substance Use: Yes Substance Use Type: Alcohol, Tranquilizers - Substances Abused Alcohol Route: Oral Frequency: Daily Amount used: 2 pints hennesy, 3 beers (12 oz bottle each) Age of first use: 16 Date of Last Use: 12/06/18 Alprazolam (Xanax) Route: Oral Frequency: 3-6 times per week Amount used: 6mg Age of first use: 30 Date of Last Use: 12/06/18 Benzodiazepine (Klonopin) Route: Oral Frequency: 3-6 times per week Amount used: 6mg Age of first use: 30 Date of Last Use: 12/06/18 Cocaine Route: Injection Frequency: 1-2 times per week Amount used: 100$ Age of first use: 26 Date of Last Use: 12/06/18 Family Disease History - Family Disease History Family Disease History: Diabetes: Mother (living, ), Other: Father (living, healthy), Mother, Sister (1 living - healthy), Daughter (age 7 - healthy) Admission Physical Exam [facility] - Vital Signs Vital Signs: Vital Signs - 24 hr 12/07/18 10:13 Temperature 96.8 F L Pulse Rate 67 Respiratory 18 Rate Blood Pressure 93/64 - Physical General Appearance: Yes: Moderate Distress, Tremorous, Irritable, Sweating, Anxious HEENTM: Yes: Normal ENT Inspection, JONATHON, Pharynx Normal, Other (infected dental cavity upper molar right) Respiratory: Yes: Within Normal Limits, Lungs Clear, Normal Breath Sounds Neck: Yes: Within Normal Limits, Supple, Trachea in good position Breast: Yes: Within Normal Limits Cardiology: Yes: Within Normal Limits, Regular Rhythm, Regular Rate, S1, S2 Abdominal: Yes: Within Normal Limits, Normal Bowel Sounds, Non Tender, Flat, Soft Genitourinary: Yes: Within Normal Limits Musculoskeletal: Yes: full range of Motion, Back pain, Muscle Pain Extremities: Yes: Within Normal Limits, Normal Range of Motion, Tremors Neurological: Yes: repacker II-XII NML intact, Fully Oriented, Alert, Motor Strength 5/5 Integumentary: Yes: Dry Lymphatic: Yes: Within Normal Limits - Diagnostic (1) Alcohol dependence with uncomplicated withdrawal Current Visit: No Status: Acute (2) Insomnia Current Visit: No Status: Acute Qualifiers: Insomnia type: unspecified Qualified Code(s): G47.00 - Insomnia, unspecified (3) Insomnia secondary to depression with anxiety Current Visit: No Status: Acute (4) Panic disorder Current Visit: No Status: Acute (5) Weight loss Current Visit: No Status: Acute (6) Alopecia Current Visit: No Status: Chronic (7) Asthma Current Visit: No Status: Chronic Qualifiers: Asthma severity: mild Asthma persistence: intermittent Asthma complication type: uncomplicated Qualified Code(s): J45.20 - Mild intermittent asthma, uncomplicated (8) Back pain Current Visit: No Status: Chronic Qualifiers: Back pain location: low back pain Chronicity: chronic Back pain laterality: midline Sciatica presence: without sciatica Qualified Code(s): M54.5 - Low back pain; G89.29 - Other chronic pain (9) Dehydration Current Visit: No Status: Chronic (10) Poor dentition Current Visit: No Status: Chronic Cleared for Admission [facility] - Detox or Rehab [facility] Level of Care: Medically Managed Detox Regimen/Protocol: Librium [facility] Breath Alcohol Content Breath Alcohol Content: 0 Urine Drug Screen - Results Drug Screen Negative: No Urine Drug Screen Results: LYLE-Cocaine, OPI-Opiates, BZO-Benzodiazepines, MTD- Methadone, FEN-Fentanyl Inpatient Rehab Admission - Rehab Decision to Admit Inpatient rehab admission?: No
[2018-12-07] MEDS ORDERED: MAGNESIUM HYDROX 2400MG/30ML ORAL SUSPENSION 30 ML CUP PO PRN (12:58)
[2018-12-07] MEDS ORDERED: IBUPROFEN 400 MG TABLET (FP) PO PRN (12:58)
[2018-12-07] MEDS ORDERED: MENTHOL/PHENOL 1 EACH UD MM PRN (12:58)
[2018-12-07] MEDS ORDERED: METHOCARBAMOL 500 MG TABLET PO PRN (12:58)
[2018-12-07] MEDS ORDERED: MAG HYDROX/AL HYDROX/SIMETH 30 ML UNIT-DOSE CUP PO PRN (12:58)
[2018-12-07] MEDS ORDERED: MAGNESIUM CITRATE 300 ML BOTTLE PO PRN (12:58)
[2018-12-07] MEDS ORDERED: ACETAMINOPHEN 325 MG TABLET (FP) PO PRN (12:58)
[2018-12-07] MEDS ORDERED: hydrOXYzine PAMOATE 25 MG CAPSULE (FP) PO PRN (12:58)
[2018-12-07] MEDS ORDERED: BISMUTH SUBSALICYLATE 262 MG/15 ML BTL PO PRN (12:58)
[2018-12-07] MEDS ORDERED: MELATONIN 5 MG TABLETS PO PRN (12:58)
[2018-12-07] MEDS: chlordiazePOXIDE HCL 25 MG CAPSULE PO SCH ×2 (14:12→22:30)
[2018-12-07] MEDS: GABAPENTIN 300 MG CAPSULE (FP) PO SCH ×2 (14:12→22:30)
[2018-12-07] MEDS: AMOXICILLIN 500 MG CAPSULE (FP) PO SCH ×2 (14:12→22:30)
[2018-12-07] MEDS: NICOTINE 21 MG/24 HOURS TOPICAL PATCH TD SCH (14:13)
[2018-12-07] MEDS: DOCUSATE SODIUM 100 MG CAPSULE (FP) PO SCH ×2 (14:13→22:30)
[2018-12-07] MEDS: ALBUTEROL SO4 8 GM HFA INHALER IH PRN (14:15)
[2018-12-07] MEDS: ACETAMINOPHEN 325 MG TABLET (FP) PO PRN (17:15)
[2018-12-07] MEDS: chlordiazePOXIDE HCL 10 MG CAPSULE PO PRN (17:15)
[2018-12-07] MEDS: RANITIDINE HCL 150 MG TABLET (FP) PO SCH (22:30)
[2018-12-07] MEDS: THIAMINE HCL 100 MG TABLET (FP) PO SCH (22:32)
[2018-12-08] MEDS: chlordiazePOXIDE HCL 25 MG CAPSULE PO SCH (05:35)
[2018-12-08] MEDS: GABAPENTIN 300 MG CAPSULE (FP) PO SCH ×2 (05:35→14:12)
[2018-12-08] MEDS: DOCUSATE SODIUM 100 MG CAPSULE (FP) PO SCH ×2 (05:36→14:12)
[2018-12-08] MEDS: AMOXICILLIN 500 MG CAPSULE (FP) PO SCH ×2 (05:36→14:12)
[2018-12-08] MEDS: ALBUTEROL SO4 8 GM HFA INHALER IH PRN (05:46)
[2018-12-08] MEDS ORDERED: BENZOCAINE 20 % GEL TUBE MM PRN (10:08)
[2018-12-08 10:41] LABS: HEMOGLOBIN 12.9 GM/dL (11.7-16.9); MCH 29.1 pg (25.7-33.7); MCHC 33.2 g/dl (32.0-35.9); MEAN CELL VOLUME 87.7 fl (80-96); MEAN PLT VOLUME 8.8 fl (7.5-11.1); PLATELET COUNT 239 K/MM3 (134-434); RBC 4.44 M/mm3 (4.00-5.60); RDW 14.2 % (11.9-15.9); WHITE BLOOD COUNT 8.2 K/mm3 (4.0-10.0)
[2018-12-08] MEDS ORDERED: METHADONE HCL 10 MG TABLET PO ONE (10:44)
[2018-12-08] MEDS ORDERED: METHADONE 80 MG, METHADONE 30 MG, METHADONE 5 MG PO ONE (11:00)
[2018-12-08] MEDS ORDERED: METHADONE HCL 40 MG DISPERSABLE TABLET ONE (11:07)
[2018-12-08] MEDS ORDERED: METHADONE HCL 5 MG TABLET ONE (11:07)
[2018-12-08] MEDS ORDERED: METHADONE HCL 10 MG TABLET ONE (11:08)
[2018-12-08] MEDS: PRENATAL VITAMINS W/ FOLIC ACID TABLET (FP) PO SCH (11:08)
[2018-12-08] MEDS: RANITIDINE HCL 150 MG TABLET (FP) PO SCH (11:08)
[2018-12-08] MEDS: NICOTINE 21 MG/24 HOURS TOPICAL PATCH TD SCH (11:08)
[2018-12-08 11:19] LABS: ALBUMIN 3.7 g/dl (3.4-5.0); ALK PHOS 74 U/L (45-117); ANION GAP 4 MMOL/L (8-16); BILIRUBIN,TOTAL 0.4 mg/dL (0.2-1); BLOOD UREA NITROGEN 30 mg/dL (7-18); CALCIUM 8.1 mg/dL (8.5-10.1); CHLORIDE 103 mmol/L (98-107); CO2 33 mmol/L (21-32); CREATININE 1.2 mg/dL (0.55-1.3); GLUCOSE,RANDOM 96 mg/dL (74-106); POTASSIUM 4.6 mmol/L (3.5-5.1); SGOT/AST 86 U/L (15-37); SGPT/ALT 83 U/L (13-61); SODIUM 140 mmol/L (136-145); TOT PROT 6.5 g/dl (6.4-8.2)
[2018-12-08] MEDS: VITAMINS A AND D TOPICAL OINTMENT 60 GM TUBE TP SCH ×2 (12:27→17:38)
[2018-12-08] MEDS: chlordiazePOXIDE 5 MG CAPSULE PO SCH (12:45)
--- NOTE | 2018-12-08 13:44 | PN ---
S CIWA - CIWA Score Nausea/Vomitin-No Nausea/No Vomiting Muscle Tremors: 3 Anxiety: 3 Agitation: 4-Moderately Restless Paroxysmal Sweats: 2 Orientation: 0-Oriented Tacttile Disturbances: 0-None Auditory Disturbances: 0-None Visual Disturbances: 0-None Headache: 0-None Present CIWA-Ar Total Score: 12 BHS Progress Note (SOAP) Subjective: tooth aches sweats chills body aches Objective: 12/08/18 13:43 Vital Signs Temperature 98.1 F 12/08/18 13:27 Pulse Rate 64 12/08/18 13:27 Respiratory Rate 18 12/08/18 13:27 Blood Pressure 116/67 12/08/18 13:27 O2 Sat by Pulse Oximetry (%) Laboratory Tests 12/07/18 12/08/18 12/08/18 13:10 05:39 06:00 WBC 8.2 RBC 4.44 Hgb 12.9 Hct 39.0 MCV 87.7 MCH 29.1 MCHC 33.2 RDW 14.2 Plt Count 239 D MPV 8.8 Sodium Potassium Chloride Carbon Dioxide Anion Gap BUN Creatinine Creat Clearance w eGFR POC Glucometer 110 Random Glucose Calcium Total Bilirubin AST ALT Alkaline Phosphatase Total Protein Albumin HIV 1&2 Antibody Screen Negative HIV P24 Antigen Negative 12/08/18 06:00 WBC RBC Hgb Hct MCV MCH MCHC RDW Plt Count MPV Sodium 140 Potassium 4.6 Chloride 103 Carbon Dioxide 33 H Anion Gap 4 L BUN 30 H Creatinine 1.2 Creat Clearance w eGFR > 60 POC Glucometer Random Glucose 96 Calcium 8.1 L Total Bilirubin 0.4 AST 86 H ALT 83 H Alkaline Phosphatase 74 Total Protein 6.5 Albumin 3.7 HIV 1&2 Antibody Screen HIV P24 Antigen aaox3 ambulating no acute distress Assessment: 12/08/18 13:43 withdrawal sx Plan: continue detox increase fluids oral gel ordered
--- NOTE | 2018-12-08 14:49 | PN ---
Psychiatric Progress Note Vital Signs: Vital Signs Period Temp Pulse Resp BP Sys/Samuel Pulse Ox Last 24 Hr 97.3 F-98.1 F 57-64 16- 90-116/53-72 Date of Session: 12/08/18 Chief Complaint:: Self-referred HPI: Mr Diaz is a 33 years old single male, father of a 8 years old daughter, unemployed with no source of income, living with his mother seeking detox treatment for alcohol, cocaine and benzodiazepine Current Medications: Active Medications Generic Name Dose Route Start Last Admin Trade Name Freq PRN Reason Stop Dose Admin Acetaminophen 650 mg 12/07/18 12:58 12/07/18 17:15 Tylenol - PO 650 mg Q6H PRN Administration PAIN LEVEL 4 - 6 Acetaminophen 650 mg 12/07/18 12:58 Tylenol - PO Q6H PRN FEVER Al Hydroxide/Mg Hydroxide 30 ml 12/07/18 12:58 Mylanta Oral Suspension - PO Q6H PRN DYSPEPSIA Albuterol Sulfate 2 puff 12/07/18 13:02 12/08/18 05:46 Ventolin Hfa Inhaler - IH 2 puff Q4H PRN Administration ASTHMA Amoxicillin 500 mg 12/07/18 14:00 12/08/18 14:12 Amoxicillin - PO 500 mg TID RONNA Administration Benzocaine 1 applic 12/08/18 10:08 Anbesol - MM Q6H PRN FOR TOOTHACHE Bismuth Subsalicylate 30 ml 12/07/18 12:58 Pepto-Bismol Liquid - PO Q1H PRN DIARRHEA Chlordiazepoxide HCl 10 mg 12/09/18 13:00 Librium - PO 12/10/18 13:00 Q12H PRN Signs/symptoms of Withdrawal Chlordiazepoxide HCl 10 mg 12/07/18 12:58 12/07/18 17:15 Librium - PO 12/09/18 13:00 10 mg Q8H PRN Administration Signs/symptoms of Withdrawal Chlordiazepoxide HCl 15 mg 12/08/18 13:00 12/08/18 12:45 Librium - PO 12/09/18 05:01 15 mg Q8H RONNA Administration Chlordiazepoxide HCl 10 mg 12/09/18 13:00 Librium - PO 12/10/18 13:01 Q8H RONNA Docusate Sodium 100 mg 12/07/18 14:00 12/08/18 14:12 Colace - PO 100 mg TID RONNA Administration Eucalyptus/Menthol/Phenol/Sorbitol 1 each 12/07/18 12:58 Cepastat Lozenge - MM 12/13/18 12:59 Q4H PRN SORE THROAT Gabapentin 300 mg 12/07/18 14:00 12/08/18 14:12 Neurontin - PO 300 mg TID RONNA Administration Hydroxyzine Pamoate 25 mg 12/07/18 12:58 Vistaril - PO 12/13/18 12:59 Q6H PRN For Anxiety Ibuprofen 400 mg 12/07/18 12:58 Motrin - PO Q6H PRN PAIN LEVEL 1 - 3 Magnesium Citrate 300 ml 12/07/18 12:58 Citroma - PO Q48H PRN CONSTIPATION Magnesium Hydroxide 30 ml 12/07/18 12:58 Milk Of Magnesia - PO PRN PRN CONSTIPATION Melatonin 5 mg 12/07/18 12:58 Melatonin PO HS PRN INSOMNIA Methadone HCl 80 mg/ Methadone 115 mg 12/09/18 06:00 HCl 30 mg/ Methadone HCl 5 mg PO 12/15/18 05:59 DAILY@0600 RONNA Methocarbamol 500 mg 12/07/18 12:58 Robaxin - PO 12/13/18 12:59 Q6H PRN MUSCLE SPASMS Nicotine 21 mg 12/07/18 13:55 12/08/18 11:08 Nicoderm Patch - TD 21 mg DAILY RONNA Administration Multivit/Folic Acid/Iron 1 tab 12/08/18 10:00 12/08/18 11:08 Vitamins (Sjr) - PO 1 tab DAILY RONNA Administration Ranitidine HCl 150 mg 12/07/18 22:00 12/08/18 11:08 Zantac - PO 150 mg BID RONNA Administration Thiamine HCl 100 mg 12/07/18 22:00 12/07/18 22:32 Vitamin B1 - PO 100 mg HS RONNA Administration Vitamin A/Vitamin D 1 applic 12/08/18 12:00 12/08/18 12:27 Vitamin A & D Top Oint - TP 1 applic Q6HPO RONNA Administration
--- NOTE | 2018-12-08 14:55 | CONSULT ---
[facility] Psychiatric Consult - Data Date of interview: 12/08/18 Admission source: Self-referred Identifying data: Mr Diaz is a 33 years old single male, father of a 8 years old daughter, unemployed with no source of income, living with his mother seeking detox treatment for alcohol, cocaine and benzodiazepine Substance Abuse History: Reports history of alcohol, cocaine, xanax and klonopin use. Refer to addiction counselor's sumary for further information Medical History: Significant for bronchial asthma, low back pain. Patient is on methadone 115 mg/day([facility]). Smokes 10 cigarettes daily Psychiatric History: Reports being diagnosed with anxiety 4 years ago when he was admitted to [facility]. He was prescribed Zoloft and Seroquel. Reports that he has been taking medications on & off since. Reports a second psychiatric admission to [facility] in [place], [place].Claims that he only takes Seroquel now. He stopped taking Zoloft 6 weeks ago. Up to 3 days ago he attended [facility] and he was prescribed Seroquel 300 mg po HS by their staff psychiatrist. At present, reports feeling anxious and sleeping poorly Physical/Sexual Abuse/Trauma History: Denies history of emotional, physical or sexual as well as DV relatiobship. No service Additional Comment: No criminal history Mental Status Exam - Mental Status Exam Alert and Oriented to: Time, Place, Person Cognitive Function: Fair Patient Appearance: Well Groomed Mood: Anxious Affect: Appropriate Patient Behavior: Cooperative Speech Pattern: Clear Voice Loudness: Normal Thought Process: Intact, Goal Oriented Thought Disorder: Not Present Hallucinations: Denies Suicidal Ideation: Denies Homicidal Ideation: Denies Insight/Judgement: Poor Sleep: Poorly Appetite: Fair Muscle strength/Tone: Normal Gait/Station: Normal Psychiatric Findings - Problem List (Senath 1, 2,3) (1) Anxiety disorder Current Visit: Yes Status: Chronic (2) Substance-induced anxiety disorder Current Visit: Yes Status: Acute (3) Substance-induced sleep disorder Current Visit: Yes Status: Acute (4) Alcohol dependence with uncomplicated withdrawal Current Visit: No Status: Acute (5) Cocaine dependence Current Visit: No Status: Acute Qualifiers: Substance use status: uncomplicated Qualified Code(s): F14.20 - Cocaine dependence, uncomplicated (6) Sedative hypnotic or anxiolytic dependence Current Visit: No Status: Acute (7) Opioid dependence on agonist therapy Current Visit: No Status: Chronic (8) Nicotine dependence Current Visit: No Status: Chronic Qualifiers: (9) Asthma Current Visit: No Status: Chronic Qualifiers: Asthma severity: mild Asthma persistence: intermittent Asthma complication type: uncomplicated Qualified Code(s): J45.20 - Mild intermittent asthma, uncomplicated (10) Low back pain Current Visit: Yes Status: Chronic - Initial Treatment Plan Initial Treatment Plan: 1) Continue Seroquel 300 mg po HS. 2) Continue inpatient detoxification
[2018-12-08] MEDS: chlordiazePOXIDE HCL 10 MG CAPSULE PO PRN (17:01)
[2018-12-09] MEDS: chlordiazePOXIDE 5 MG CAPSULE PO SCH ×2 (00:21→05:18)
[2018-12-09] MEDS: AMOXICILLIN 500 MG CAPSULE (FP) PO SCH ×4 (00:27→22:54)
[2018-12-09] MEDS: DOCUSATE SODIUM 100 MG CAPSULE (FP) PO SCH ×4 (00:29→22:54)
[2018-12-09] MEDS: GABAPENTIN 300 MG CAPSULE (FP) PO SCH ×4 (00:29→22:54)
[2018-12-09] MEDS: VITAMINS A AND D TOPICAL OINTMENT 60 GM TUBE TP SCH ×4 (00:30→17:49)
[2018-12-09] MEDS: QUEtiapine FUMARATE 300 MG TABLET PO SCH ×2 (00:31→22:54)
[2018-12-09] MEDS: THIAMINE HCL 100 MG TABLET (FP) PO SCH ×2 (00:32→23:12)
[2018-12-09] MEDS: RANITIDINE HCL 150 MG TABLET (FP) PO SCH ×3 (00:32→22:54)
[2018-12-09] MEDS: chlordiazePOXIDE HCL 10 MG CAPSULE PO PRN ×2 (02:14→09:10)
[2018-12-09] MEDS ORDERED: METHADONE HCL 40 MG DISPERSABLE TABLET ONE (05:19)
[2018-12-09] MEDS ORDERED: METHADONE HCL 5 MG TABLET ONE (05:19)
[2018-12-09] MEDS: METHADONE 80 MG, METHADONE 30 MG, METHADONE 5 MG PO SCH (05:20)
[2018-12-09] MEDS ORDERED: METHADONE HCL 10 MG TABLET ONE (05:20)
[2018-12-09] MEDS ORDERED: METHADONE HCL 40 MG DISPERSABLE TABLET PO SCH (06:00)
[2018-12-09] MEDS ORDERED: METHADONE 80 MG, METHADONE 30 MG, METHADONE 5 MG PO SCH (06:00)
--- NOTE | 2018-12-09 10:07 | PN ---
S CIWA - CIWA Score Nausea/Vomitin-Mild Nausea/No Vomiting Muscle Tremors: 3 Anxiety: 3 Agitation: 3 Paroxysmal Sweats: 3 Orientation: 0-Oriented Tacttile Disturbances: 0-None Auditory Disturbances: 0-None Visual Disturbances: 0-None Headache: 0-None Present CIWA-Ar Total Score: 13 BHS Progress Note (SOAP) Subjective: sweats shakes irritable Objective: 12/09/18 10:07 Vital Signs Temperature 97.2 F L 12/09/18 06:00 Pulse Rate 62 12/09/18 06:00 Respiratory Rate 18 12/09/18 06:00 Blood Pressure 99/64 12/09/18 06:00 O2 Sat by Pulse Oximetry (%) Laboratory Tests 12/07/18 12/08/18 12/08/18 13:10 05:39 06:00 WBC 8.2 RBC 4.44 Hgb 12.9 Hct 39.0 MCV 87.7 MCH 29.1 MCHC 33.2 RDW 14.2 Plt Count 239 D MPV 8.8 Sodium Potassium Chloride Carbon Dioxide Anion Gap BUN Creatinine Creat Clearance w eGFR POC Glucometer 110 Random Glucose Calcium Total Bilirubin AST ALT Alkaline Phosphatase Total Protein Albumin HIV 1&2 Antibody Screen Negative HIV P24 Antigen Negative 12/08/18 06:00 WBC RBC Hgb Hct MCV MCH MCHC RDW Plt Count MPV Sodium 140 Potassium 4.6 Chloride 103 Carbon Dioxide 33 H Anion Gap 4 L BUN 30 H Creatinine 1.2 Creat Clearance w eGFR > 60 POC Glucometer Random Glucose 96 Calcium 8.1 L Total Bilirubin 0.4 AST 86 H ALT 83 H Alkaline Phosphatase 74 Total Protein 6.5 Albumin 3.7 HIV 1&2 Antibody Screen HIV P24 Antigen aaox3 ambulating no acute distress Assessment: 12/09/18 10:07 withdrawal sx Plan: continue detox increase fluids
[2018-12-09] MEDS: NICOTINE 21 MG/24 HOURS TOPICAL PATCH TD SCH (11:10)
[2018-12-09] MEDS: PRENATAL VITAMINS W/ FOLIC ACID TABLET (FP) PO SCH (11:10)
[2018-12-09] MEDS ORDERED: chlordiazePOXIDE HCL 10 MG CAPSULE PO PRN (13:00)
[2018-12-09] MEDS: chlordiazePOXIDE HCL 10 MG CAPSULE PO SCH ×2 (13:07→20:53)
[2018-12-10] MEDS: VITAMINS A AND D TOPICAL OINTMENT 60 GM TUBE TP SCH ×3 (01:04→12:54)
[2018-12-10] MEDS ORDERED: METHADONE HCL 40 MG DISPERSABLE TABLET ONE (04:38)
[2018-12-10] MEDS ORDERED: METHADONE HCL 5 MG TABLET ONE (04:38)
[2018-12-10] MEDS ORDERED: METHADONE HCL 10 MG TABLET ONE (04:38)
[2018-12-10] MEDS: AMOXICILLIN 500 MG CAPSULE (FP) PO SCH ×2 (05:15→13:00)
[2018-12-10] MEDS: GABAPENTIN 300 MG CAPSULE (FP) PO SCH ×2 (05:15→13:00)
[2018-12-10] MEDS: DOCUSATE SODIUM 100 MG CAPSULE (FP) PO SCH ×2 (05:15→13:00)
[2018-12-10] MEDS: METHADONE 80 MG, METHADONE 30 MG, METHADONE 5 MG PO SCH (05:15)
[2018-12-10] MEDS: chlordiazePOXIDE HCL 10 MG CAPSULE PO SCH ×2 (05:15→12:59)
[2018-12-10] MEDS ORDERED: ONDANSETRON *ODT* 4 MG TABLET SL PRN (05:45)
[2018-12-10] MEDS: NICOTINE 21 MG/24 HOURS TOPICAL PATCH TD SCH (10:13)
[2018-12-10] MEDS: RANITIDINE HCL 150 MG TABLET (FP) PO SCH (10:13)
[2018-12-10] MEDS: PRENATAL VITAMINS W/ FOLIC ACID TABLET (FP) PO SCH (10:13)
[2018-12-10] MEDS: ACETAMINOPHEN 325 MG TABLET (FP) PO PRN (13:00)
--- NOTE | 2018-12-10 14:08 | DS ---
[facility] Detox Discharge Summary Admission Date: 12/07/18 Discharge Date: 12/10/18 - History Present History: Alcohol Dependence, Cocaine Dependence, Opioid Dependence, MMTP Additional Comments: Patient completed detox successfully. Patient is A/A/Ox3, in nad, ambulatory. Patient scheduled for discharge today as there was no rehab beds available. Patient initially told this fiction writer that he wasn't feeling well because he was still experiencing withdrawal symptoms (N/V, headache 6/10, feels weak and no appetite. Lab Support Tech had cancelled discharge until tomorrow due to withdrawal symptoms. Patient later agreed to be admitted to [facility] as a bed became available. Patient encouraged to increase PO water hydration and to take motrin/tylenol prn along with other prn medications that will help his withdrawal symptoms. Pertinent Past History: Alcohol dependence Sedative dependence Cocaine dependence Opioid dependence on agonist (MMTP) Nicotine dependence Asthma - Physical Exam Results Vital Signs: Vital Signs Temperature 98.3 F 12/10/18 09:52 Pulse Rate 72 12/10/18 09:52 Respiratory Rate 18 12/10/18 09:52 Blood Pressure 112/51 L 12/10/18 09:52 O2 Sat by Pulse Oximetry (%) Pertinent Admission Physical Exam Findings: Withdrawal symptoms Laboratory Tests 12/07/18 12/08/18 12/08/18 13:10 05:39 06:00 WBC 8.2 RBC 4.44 Hgb 12.9 Hct 39.0 MCV 87.7 MCH 29.1 MCHC 33.2 RDW 14.2 Plt Count 239 D MPV 8.8 Sodium Potassium Chloride Carbon Dioxide Anion Gap BUN Creatinine Creat Clearance w eGFR POC Glucometer 110 Random Glucose Calcium Total Bilirubin AST ALT Alkaline Phosphatase Total Protein Albumin RPR Titer HIV 1&2 Antibody Screen Negative HIV P24 Antigen Negative 12/08/18 12/08/18 06:00 06:00 WBC RBC Hgb Hct MCV MCH MCHC RDW Plt Count MPV Sodium 140 Potassium 4.6 Chloride 103 Carbon Dioxide 33 H Anion Gap 4 L BUN 30 H Creatinine 1.2 Creat Clearance w eGFR > 60 POC Glucometer Random Glucose 96 Calcium 8.1 L Total Bilirubin 0.4 AST 86 H ALT 83 H Alkaline Phosphatase 74 Total Protein 6.5 Albumin 3.7 RPR Titer Nonreactive HIV 1&2 Antibody Screen HIV P24 Antigen Labs reviewed - Treatment Hospital Course: Detox Protocol Followed, Detoxed Safely, Responded well, Discharged Condition Good, Rehab Referral Accepted - Medication Discharge Medications: Ambulatory Orders Gabapentin 600 mg PO TID 04/05/18 Albuterol Sulfate Inhaler - [Ventolin HFA Inhaler -] 2 inh PO Q4H PRN #1 inhaler 08/10/18 Quetiapine Fumarate [Seroquel -] 300 mg PO HS #30 tab 08/12/18 Amoxicillin - [Amoxicillin 500mg Capsule -] 500 mg PO BID 3 Days #6 capsule Docusate Sodium [Colace -] 100 mg PO TID #20 capsule 10/27/18 - Diagnosis (1) Dental infection Current Visit: Yes Status: Acute (2) Alcohol dependence with uncomplicated withdrawal Current Visit: Yes Status: Acute (3) Cocaine dependence Current Visit: Yes Status: Chronic Qualifiers: Substance use status: uncomplicated Qualified Code(s): F14.20 - Cocaine dependence, uncomplicated (4) Sedative, hypnotic or anxiolytic dependence with withdrawal, uncomplicated Current Visit: Yes Status: Acute (5) Asthma Current Visit: Yes Status: Chronic Qualifiers: Asthma severity: mild Asthma persistence: intermittent Asthma complication type: uncomplicated Qualified Code(s): J45.20 - Mild intermittent asthma, uncomplicated (6) Nicotine dependence Current Visit: Yes Status: Chronic Qualifiers: (7) Opioid dependence on agonist therapy Current Visit: Yes Status: Chronic - AMA Did Patient Leave Against Medical Advice: No (Patient accepted admission to [facility])
[2018-12-10 14:16] VITALS: BP 118/66; PULSE 87; TEMP 98.6
== END 2018-12-10 18:06 | disposition other institution (70) | DRG 773 ==
LOC: YASAS 09:46 → Y6N 13:23
PROVIDERS: ADMIT Surgery; ATTEND Surgery
PROC: HZ2ZZZZ Detoxification Services for Substance Abuse Treatment (ICD-10-PCS; principal; 2018-12-07)
DX: F10.230 Alcohol dependence with withdrawal, uncomplicated (principal); F11.20 Opioid dependence, uncomplicated; F13.230 Sedative, hypnotic or anxiolytic dependence with withdrawal, uncomplicated; F14.20 Cocaine dependence, uncomplicated; F17.210 Nicotine dependence, cigarettes, uncomplicated; F41.0 Panic disorder [episodic paroxysmal anxiety]; F41.9 Anxiety disorder, unspecified; F19.280 Other psychoactive substance dependence with psychoactive substance-induced anxiety disorder; F19.282 Other psychoactive substance dependence with psychoactive substance-induced sleep disorder; F51.05 Insomnia due to other mental disorder; J45.20 Mild intermittent asthma, uncomplicated; K04.7 Periapical abscess without sinus; K08.9 Disorder of teeth and supporting structures, unspecified; M54.5 Low back pain; G89.29 Other chronic pain; G47.00 Insomnia, unspecified; K65.9 Peritonitis, unspecified; E86.0 Dehydration; Z91.013 Allergy to seafood; R63.4 Abnormal weight loss; Z68.28 Body mass index [BMI] 28.0-28.9, adult
CPT/HCPCS: 36415; 80053; 82962; 85027; 86593; 87389; Q0162

== ENCOUNTER 2018-12-10 18:02 | Inpatient (IN) | payer OTHER ==
[2018-12-10] MEDS ORDERED: MAGNESIUM HYDROX 2400MG/30ML ORAL SUSPENSION 30 ML CUP PO PRN (19:10)
[2018-12-10] MEDS ORDERED: guaiFENesin 200 MG/10 ML 10 ML UNIT-DOSE CUPS PO PRN (19:10)
[2018-12-10] MEDS ORDERED: MENTHOL/PHENOL 1 EACH UD MM PRN (19:10)
[2018-12-10] MEDS ORDERED: P-EPHED 60MG/TRIPROLIDI 2.5MG TABLET PO PRN (19:10)
[2018-12-10] MEDS ORDERED: MAGNESIUM CITRATE 300 ML BOTTLE PO PRN (19:10)
[2018-12-10] MEDS ORDERED: LOPERAMIDE HCL 2 MG CAPSULE PO PRN (19:10)
[2018-12-10] MEDS ORDERED: ACETAMINOPHEN 325 MG TABLET (FP) PO PRN (19:10)
[2018-12-10] MEDS ORDERED: MAG HYDROX/AL HYDROX/SIMETH 30 ML UNIT-DOSE CUP PO PRN (19:10)
[2018-12-10] MEDS ORDERED: ALBUTEROL SO4 8 GM HFA INHALER IH PRN (19:11)
[2018-12-10 20:30] VITALS: BMI 28.4
--- NOTE | 2018-12-10 21:42 | HP ---
[facility] Rehab Assess/Revision - Admission History Admitted to Rehab from: [facility] [address] [place] - Vital signs Vital Signs: Vital Signs Period Temp Pulse Resp BP Sys/Samuel Pulse Ox Last 24 Hr 98.5 F-98.5 F 88-88 18-18 109-109/67-67 - Findings Detox History & Physical reviewed: Yes Concur with findings: Yes Inpatient Rehab Admission - Rehab Decision to Admit Inpatient rehab admission?: Yes - Initial Determination Are CD services needed?: Yes Free of communicable disease: Yes Not in need of hospitalization: Yes - Rehab Admission Criteria Previous failed treatment: Yes Poor recovery environment: Yes Comorbidities: Yes Lacks judgement: No Patient is meeting Inpatient Rehab admission criteria:: Yes
[2018-12-10] MEDS: THIAMINE HCL 100 MG TABLET (FP) PO SCH (22:01)
[2018-12-10] MEDS: QUEtiapine FUMARATE 300 MG TABLET PO SCH (22:01)
[2018-12-10] MEDS: GABAPENTIN 300 MG CAPSULE (FP) PO SCH (22:01)
[2018-12-10] MEDS: RANITIDINE HCL 150 MG TABLET (FP) PO SCH (22:01)
[2018-12-11] MEDS ORDERED: METHADONE HCL 10 MG TABLET ONE (04:03)
[2018-12-11] MEDS ORDERED: METHADONE HCL 40 MG DISPERSABLE TABLET ONE (04:03)
[2018-12-11] MEDS ORDERED: METHADONE HCL 5 MG TABLET ONE (04:04)
[2018-12-11] MEDS ORDERED: METHADONE HCL 5 MG TABLET PO SCH (06:00)
[2018-12-11] MEDS: GABAPENTIN 300 MG CAPSULE (FP) PO SCH ×3 (06:08→21:00)
[2018-12-11] MEDS: METHADONE 80 MG, METHADONE 30 MG, METHADONE 5 MG PO SCH (06:08)
[2018-12-11] MEDS: RANITIDINE HCL 150 MG TABLET (FP) PO SCH ×2 (10:44→21:00)
[2018-12-11] MEDS: PRENATAL VITAMINS W/ FOLIC ACID TABLET (FP) PO SCH (10:44)
[2018-12-11] MEDS: VITAMINS A AND D TOPICAL OINTMENT 60 GM TUBE TP SCH ×2 (12:02→17:41)
[2018-12-11] MEDS ORDERED: ONDANSETRON *ODT* 4 MG TABLET SL PRN (16:53)
--- NOTE | 2018-12-11 16:54 | PN ---
S Progress Note Note: Vital Signs Temperature 97.5 F L 12/11/18 07:11 Pulse Rate 84 12/11/18 07:11 Respiratory Rate 18 12/11/18 07:11 Blood Pressure 108/67 12/11/18 07:11 O2 Sat by Pulse Oximetry (%) c/o of nausea zofran prn continue to monitor
[2018-12-11] MEDS: THIAMINE HCL 100 MG TABLET (FP) PO SCH (21:00)
[2018-12-11] MEDS: QUEtiapine FUMARATE 300 MG TABLET PO SCH (21:00)
[2018-12-12] MEDS: VITAMINS A AND D TOPICAL OINTMENT 60 GM TUBE TP SCH ×5 (00:11→23:10)
[2018-12-12] MEDS ORDERED: METHADONE HCL 5 MG TABLET ONE (04:22)
[2018-12-12] MEDS ORDERED: METHADONE HCL 40 MG DISPERSABLE TABLET ONE (04:22)
[2018-12-12] MEDS ORDERED: METHADONE HCL 10 MG TABLET ONE (04:22)
[2018-12-12] MEDS: METHADONE 80 MG, METHADONE 30 MG, METHADONE 5 MG PO SCH (06:12)
[2018-12-12] MEDS: GABAPENTIN 300 MG CAPSULE (FP) PO SCH ×3 (06:13→21:04)
[2018-12-12] MEDS ORDERED: NICOTINE POLACRILEX 2 MG GUM BC PRN (06:46)
[2018-12-12] MEDS: PRENATAL VITAMINS W/ FOLIC ACID TABLET (FP) PO SCH (09:47)
[2018-12-12] MEDS: RANITIDINE HCL 150 MG TABLET (FP) PO SCH ×2 (09:47→21:03)
[2018-12-12] MEDS: NICOTINE 14 MG/24 HOURS TOPICAL PATCH TD SCH (09:47)
[2018-12-12] MEDS: hydrOXYzine PAMOATE 50 MG CAPSULE (FP) PO PRN ×2 (09:49→21:04)
[2018-12-12] MEDS: BENZOCAINE 20 % GEL TUBE MM PRN ×2 (09:49→15:39)
[2018-12-12] MEDS ORDERED: PT OWN MED DRAWER 7, Y5N ONE (09:50)
--- NOTE | 2018-12-12 15:15 | PN ---
S Progress Note Note: Client is requesting a decrease in his methadone maintenance dose. Client was advised to discuss with the couselor at his methadone program; Soft Tile Setter here was also informed, who will consult with the patient.
[2018-12-12] MEDS: IBUPROFEN 400 MG TABLET (FP) PO PRN (15:38)
[2018-12-12] MEDS: THIAMINE HCL 100 MG TABLET (FP) PO SCH (21:03)
[2018-12-12] MEDS: QUEtiapine FUMARATE 300 MG TABLET PO SCH (21:03)
[2018-12-12] MEDS: DOCUSATE SODIUM 100 MG CAPSULE (FP) PO SCH (21:04)
[2018-12-12] MEDS: MELATONIN 5 MG TABLETS PO PRN (21:05)
[2018-12-13] MEDS ORDERED: METHADONE HCL 40 MG DISPERSABLE TABLET ONE (03:55)
[2018-12-13] MEDS ORDERED: METHADONE HCL 10 MG TABLET ONE (03:55)
[2018-12-13] MEDS ORDERED: METHADONE HCL 5 MG TABLET ONE (03:55)
[2018-12-13] MEDS: METHADONE 80 MG, METHADONE 30 MG, METHADONE 5 MG PO SCH (05:53)
[2018-12-13] MEDS: GABAPENTIN 300 MG CAPSULE (FP) PO SCH ×3 (05:53→21:05)
[2018-12-13] MEDS: VITAMINS A AND D TOPICAL OINTMENT 60 GM TUBE TP SCH ×4 (05:56→23:18)
[2018-12-13] MEDS: RANITIDINE HCL 150 MG TABLET (FP) PO SCH ×2 (10:23→21:05)
[2018-12-13] MEDS: NICOTINE 14 MG/24 HOURS TOPICAL PATCH TD SCH (10:23)
[2018-12-13] MEDS: PRENATAL VITAMINS W/ FOLIC ACID TABLET (FP) PO SCH (10:23)
[2018-12-13] MEDS ORDERED: TUBERCULIN PPD 5 TU/0.1ML VIAL ID ONE (20:48)
[2018-12-13] MEDS: THIAMINE HCL 100 MG TABLET (FP) PO SCH (21:04)
[2018-12-13] MEDS: MELATONIN 5 MG TABLETS PO PRN (21:05)
[2018-12-13] MEDS: QUEtiapine FUMARATE 300 MG TABLET PO SCH (21:05)
[2018-12-13] MEDS: DOCUSATE SODIUM 100 MG CAPSULE (FP) PO SCH (21:05)
[2018-12-14] MEDS ORDERED: METHADONE HCL 5 MG TABLET ONE (03:20)
[2018-12-14] MEDS ORDERED: METHADONE HCL 10 MG TABLET ONE (03:20)
[2018-12-14] MEDS ORDERED: METHADONE HCL 40 MG DISPERSABLE TABLET ONE (03:20)
[2018-12-14] MEDS ORDERED: PT OWN MED DRAWER 7, Y5N ONE (03:21)
[2018-12-14] MEDS: METHADONE 80 MG, METHADONE 30 MG, METHADONE 5 MG PO SCH (05:57)
[2018-12-14] MEDS: VITAMINS A AND D TOPICAL OINTMENT 60 GM TUBE TP SCH ×4 (05:57→23:08)
[2018-12-14] MEDS: GABAPENTIN 300 MG CAPSULE (FP) PO SCH ×3 (05:57→21:42)
[2018-12-14] MEDS: IBUPROFEN 400 MG TABLET (FP) PO PRN (07:57)
[2018-12-14] MEDS: NICOTINE 14 MG/24 HOURS TOPICAL PATCH TD SCH (10:33)
[2018-12-14] MEDS: PRENATAL VITAMINS W/ FOLIC ACID TABLET (FP) PO SCH (10:33)
[2018-12-14] MEDS: RANITIDINE HCL 150 MG TABLET (FP) PO SCH ×2 (10:33→21:42)
--- NOTE | 2018-12-14 10:46 | PN ---
[facility] Progress Note Note: labs reviewed with patient, client understood all explanations. Discussed elevated blood glucose; but normal POC glucose; A1c was 6.3. Discussed at risk for DM. Reviewed diet, encouraged to decrease high sugar drinks and foods. Discussed BMI and that he does not need Ensure of Glucerna.
--- NOTE | 2018-12-14 10:47 | PN ---
B[facility] Progress Note (SOAP) Subjective: c/o of tooth pain for 1 1/2 weeks. States that he has a broken tooth Objective: 12/14/18 10:46 Right incisor with cavity Assessment: 12/14/18 10:47 dental caries Plan: Magic mouthwash ordered.
[2018-12-14] MEDS: MAG HYDROX/ALH/SMC/DPHA/LIDO 240 ML MOUTHWASH MM SCH ×3 (12:27→23:08)
[2018-12-14] MEDS: THIAMINE HCL 100 MG TABLET (FP) PO SCH (21:41)
[2018-12-14] MEDS: DOCUSATE SODIUM 100 MG CAPSULE (FP) PO SCH (21:41)
[2018-12-14] MEDS: MELATONIN 5 MG TABLETS PO PRN (21:41)
[2018-12-14] MEDS: QUEtiapine FUMARATE 300 MG TABLET PO SCH (21:42)
[2018-12-15] MEDS ORDERED: METHADONE HCL 5 MG TABLET ONE (02:46)
[2018-12-15] MEDS ORDERED: METHADONE HCL 10 MG TABLET ONE (02:46)
[2018-12-15] MEDS ORDERED: METHADONE HCL 40 MG DISPERSABLE TABLET ONE (02:46)
[2018-12-15] MEDS ORDERED: PT OWN MED DRAWER 7, Y5N ONE (02:47)
[2018-12-15] MEDS: IBUPROFEN 400 MG TABLET (FP) PO PRN (03:10)
[2018-12-15] MEDS: GABAPENTIN 300 MG CAPSULE (FP) PO SCH ×3 (06:04→21:08)
[2018-12-15] MEDS: METHADONE 80 MG, METHADONE 30 MG, METHADONE 5 MG PO SCH (06:04)
[2018-12-15] MEDS: MAG HYDROX/ALH/SMC/DPHA/LIDO 240 ML MOUTHWASH MM SCH ×4 (06:04→23:13)
[2018-12-15] MEDS: VITAMINS A AND D TOPICAL OINTMENT 60 GM TUBE TP SCH (06:05)
[2018-12-15] MEDS ORDERED: VITAMINS A AND D TOPICAL OINTMENT 60 GM TUBE TP PRN (08:28)
[2018-12-15] MEDS: NICOTINE 14 MG/24 HOURS TOPICAL PATCH TD SCH (09:45)
[2018-12-15] MEDS: PRENATAL VITAMINS W/ FOLIC ACID TABLET (FP) PO SCH (09:45)
[2018-12-15] MEDS: RANITIDINE HCL 150 MG TABLET (FP) PO SCH ×2 (09:45→21:09)
--- NOTE | 2018-12-15 09:49 | PN ---
[facility] Progress Note Note: PATIENT C/O LBP, DULL ACHE, LEVEL 5/10. PATIENT DENIES RECENT INJURIES, ABLE TO AMBULATE WITHOUT ASSISTANCE. EXT FULL ROM, NO VISIBLE SWELLING. A/P LBP-WILL ORDER LIDOCAINE PATCH TO LS SPINE AREA DAILY AND REMOVE HS. CONTINUE TO MONITOR. Vital Signs Temperature 98.0 F 12/15/18 06:35 Pulse Rate 73 12/15/18 06:35 Respiratory Rate 18 12/15/18 06:35 Blood Pressure 94/70 12/15/18 06:35 O2 Sat by Pulse Oximetry (%)
[2018-12-15] MEDS: LIDOCAINE 5% TOPICAL PATCH TP SCH (12:00)
[2018-12-15] MEDS: MELATONIN 5 MG TABLETS PO PRN (21:08)
[2018-12-15] MEDS: THIAMINE HCL 100 MG TABLET (FP) PO SCH (21:09)
[2018-12-15] MEDS: DOCUSATE SODIUM 100 MG CAPSULE (FP) PO SCH (21:09)
[2018-12-15] MEDS: QUEtiapine FUMARATE 300 MG TABLET PO SCH (21:09)
[2018-12-15] MEDS: LIDOCAINE PATCH REMOVAL MC SCH (21:09)
[2018-12-16] MEDS ORDERED: METHADONE HCL 10 MG TABLET ONE (04:07)
[2018-12-16] MEDS ORDERED: METHADONE HCL 40 MG DISPERSABLE TABLET ONE (04:07)
[2018-12-16] MEDS ORDERED: METHADONE HCL 5 MG TABLET ONE (04:08)
[2018-12-16] MEDS: METHADONE 80 MG, METHADONE 30 MG, METHADONE 5 MG PO SCH (05:53)
[2018-12-16] MEDS: GABAPENTIN 300 MG CAPSULE (FP) PO SCH ×3 (05:53→21:10)
[2018-12-16] MEDS: MAG HYDROX/ALH/SMC/DPHA/LIDO 240 ML MOUTHWASH MM SCH ×3 (05:54→17:40)
[2018-12-16] MEDS: LIDOCAINE 5% TOPICAL PATCH TP SCH (10:19)
[2018-12-16] MEDS: NICOTINE 14 MG/24 HOURS TOPICAL PATCH TD SCH (10:19)
[2018-12-16] MEDS: PRENATAL VITAMINS W/ FOLIC ACID TABLET (FP) PO SCH (10:19)
[2018-12-16] MEDS: RANITIDINE HCL 150 MG TABLET (FP) PO SCH ×2 (10:20→21:10)
[2018-12-16] MEDS: IBUPROFEN 400 MG TABLET (FP) PO PRN (11:01)
[2018-12-16] MEDS ORDERED: IBUPROFEN 600 MG TABLET (FP) PO PRN (12:48)
[2018-12-16] MEDS ORDERED: LIDOCAINE VISCOUS 2% ORAL/TOP 20 ML UNIT-DOSE CUP MM PRN (12:49)
--- NOTE | 2018-12-16 12:52 | PN ---
BHS Progress Note Note: tooth pain,poor dental hygiene with cavity,motrin increase to 600 mgs po q 6 hrs prn,2% lidociane viscous prn swish and split
[2018-12-16] MEDS ORDERED: PT OWN MED DRAWER 7, Y5N ONE (17:43)
[2018-12-16] MEDS: MELATONIN 5 MG TABLETS PO PRN (21:09)
[2018-12-16] MEDS: DOCUSATE SODIUM 100 MG CAPSULE (FP) PO SCH (21:09)
[2018-12-16] MEDS: QUEtiapine FUMARATE 300 MG TABLET PO SCH (21:10)
[2018-12-16] MEDS: THIAMINE HCL 100 MG TABLET (FP) PO SCH (21:11)
[2018-12-16] MEDS: LIDOCAINE PATCH REMOVAL MC SCH (21:11)
[2018-12-17] MEDS: MAG HYDROX/ALH/SMC/DPHA/LIDO 240 ML MOUTHWASH MM SCH ×2 (00:30→06:12)
[2018-12-17] MEDS ORDERED: METHADONE HCL 5 MG TABLET ONE (04:00)
[2018-12-17] MEDS ORDERED: METHADONE HCL 40 MG DISPERSABLE TABLET ONE (04:00)
[2018-12-17] MEDS ORDERED: METHADONE HCL 10 MG TABLET ONE (04:00)
[2018-12-17] MEDS ORDERED: METHADONE 80 MG, METHADONE 30 MG, METHADONE 5 MG PO SCH (06:00)
[2018-12-17] MEDS: GABAPENTIN 300 MG CAPSULE (FP) PO SCH (06:10)
[2018-12-17 06:42] VITALS: BP 100/59; PULSE 83; TEMP 98.2
[2018-12-17] MEDS ORDERED: PT OWN MED DRAWER 7, Y5N ONE (09:00)
[2018-12-17] MEDS: NICOTINE 14 MG/24 HOURS TOPICAL PATCH TD SCH (09:02)
[2018-12-17] MEDS: LIDOCAINE 5% TOPICAL PATCH TP SCH (09:02)
[2018-12-17] MEDS: PRENATAL VITAMINS W/ FOLIC ACID TABLET (FP) PO SCH (09:03)
[2018-12-17] MEDS: RANITIDINE HCL 150 MG TABLET (FP) PO SCH (09:03)
--- NOTE | 2018-12-17 10:08 | PN ---
S Progress Note Note: patient did not want to complete treatment,all attempts to convince patient to stay with no avail,seen by counselor,signed release ama Vital Signs Temperature 98.2 F 12/17/18 06:41 Pulse Rate 83 12/17/18 06:41 Respiratory Rate 18 12/17/18 06:41 Blood Pressure 100/59 L 12/17/18 06:41 O2 Sat by Pulse Oximetry (%) risk of relapsing explained to patient advise to go to nearest emergency room if any problem
--- NOTE | 2018-12-17 10:43 | DS ---
[facility] Detox Discharge Summary Admission Date: 12/10/18 Discharge Date: 12/17/18 - History Present History: Alcohol Dependence, MMTP Additional Comments: this discharge summary is for rehab patient,patient signed release ama Pertinent Past History: asthma back pain neuropathy constipation - Physical Exam Results Vital Signs: Vital Signs Temperature 98.2 F 12/17/18 06:41 Pulse Rate 83 12/17/18 06:41 Respiratory Rate 18 12/17/18 06:41 Blood Pressure 100/59 L 12/17/18 06:41 O2 Sat by Pulse Oximetry (%) - Medication Discharge Medications: Ambulatory Orders Gabapentin 600 mg PO TID 04/05/18 Quetiapine Fumarate [Seroquel -] 300 mg PO HS #30 tab 08/12/18 Amoxicillin - [Amoxicillin 500mg Capsule -] 500 mg PO BID 3 Days #6 capsule Docusate Sodium [Colace -] 100 mg PO TID #20 capsule 10/27/18 Albuterol Sulfate Inhaler - [Ventolin HFA Inhaler -] 2 inh PO Q4H PRN #1 inhaler 12/17/18 Docusate Sodium [Colace -] 300 mg PO HS #90 capsule 12/17/18 Gabapentin [Neurontin -] 300 mg PO TID #90 capsule 12/17/18 - AMA Did Patient Leave Against Medical Advice: Yes
== END 2018-12-17 10:20 | disposition left against medical advice (07) | DRG 770 ==
LOC: YASAS 18:02 → Y3W 18:03
PROVIDERS: ADMIT Neuromusculoskeletal Medicine & OMM; ATTEND Neuromusculoskeletal Medicine & OMM
PROC: HZ42ZZZ Group Counseling for Substance Abuse Treatment, Cognitive-Behavioral (ICD-10-PCS; principal; 2018-12-10)
DX: F10.20 Alcohol dependence, uncomplicated (principal); F11.20 Opioid dependence, uncomplicated; G62.9 Polyneuropathy, unspecified; K59.00 Constipation, unspecified; M54.5 Low back pain; K02.9 Dental caries, unspecified
CPT/HCPCS: Q0162

== ENCOUNTER 2019-01-20 13:58 | Inpatient (IN) | payer OTHER ==
--- NOTE | 2019-01-20 15:54 | HP ---
CIWA Score Nausea/Vomitin-Mild Nausea/No Vomiting Muscle Tremors: 3 Anxiety: 3 Agitation: 3 Paroxysmal Sweats: 2 Orientation: 0-Oriented Tacttile Disturbances: 2-Mild Itch/Numbness/Burn Auditory Disturbances: 0-None Visual Disturbances: 0-None Headache: 1-Very Mild CIWA-Ar Total Score: 15 - Admission Criteria OASAS Guidelines: Admission for Medically Managed Detox: Requires at least one of the followin. CIWA greater than 12 2. Seizures within the past 24 hours 3. Delirium tremens within the past 24 hours 4. Hallucinations within the past 24 hours 5. Acute intervention needed for co occurring medical disorder 6. Acute intervention needed for co occurring psychiatric disorder 7. Severe withdrawal that cannot be handled at a lower level of care (continued vomiting, continued diarrhea, abnormal vital signs) requiring intravenous medication and/or fluids 8. Patient presents the following: CIWA greater than 12 Admission Criteria Met: Admission criteria met Admission ROS BHS - HPI Chief Complaint: I want to get off of benzos and alcohol and go to rehab Allergies/Adverse Reactions: Allergies Allergy/AdvReac Type Severity Reaction Status Date / Time shellfish derived Allergy Severe Swelling Verified 12/10/18 20:09 No Known Drug Allergies Allergy Verified 12/10/18 20:09 History of Present Illness: Patient is a 33 year old male with alcohol, xanax and cocaine dependence who presents for detox. His last detox treatment at [facility] was 4 weeks ago. He is on methadone maintenance, currently receiving 115mg, last dose given today. Patient has next dose with him at admission. Exam Limitations: No Limitations - Ebola screening Have you traveled outside of the country in the last 21 days: No (N) Have you had contact with anyone from an Ebola affected area: No Have you been sick,other than usual withdrawal symptoms: No Do you have a fever: No - Review of Systems Constitutional: Loss of Appetite, Changes in sleep, Unintentional Wgt. Loss, Other (missing some teeth) EENT: reports: No Symptoms Reported Respiratory: reports: No Symptoms reported Cardiac: reports: No Symptoms Reported GI: reports: Poor Appetite, Poor Fluid Intake, Abdominal cramping : reports: No Symptoms Reported Musculoskeletal: reports: Back Pain, Joint Pain, Muscle Pain Integumentary: reports: No Symptoms Reported Neuro: reports: Headache, Numbness Endocrine: reports: No Symptoms Reported Hematology: reports: No Symptoms Reported Psychiatric: reports: Anxious, Depressed Other Systems: Reviewed and Negative Patient History - Patient Medical History Hx Anemia: No Hx Asthma: Yes (on albuterol inhaler) Hx Chronic Obstructive Pulmonary Disease (COPD): No Hx Cancer: No Hx Cardiac Disorders: No Hx Congestive Heart Failure: No Hx Hypertension: No Hx Hypercholesterolemia: No Hx Pacemaker: No HX Cerebrovascular Accident: No Hx Seizures: Yes (last episode last year) Hx Dementia: No Hx Diabetes: No Hx Gastrointestinal Disorders: Yes (GERD) Hx Liver Disease: No Hx Genitourinary Disorders: No Hx Sexually Transmitted Disorders: No Hx Renal Disease (ESRD): No Hx Thyroid Disease: No Hx Human Immunodeficiency Virus (HIV): No Hx Hepatitis C: No (negative) Hx Depression: Yes (anxiety,insomnia) Hx Suicide Attempt: No Hx Bipolar Disorder: No Hx Schizophrenia: No - Patient Surgical History Past Surgical History: No Hx Neurologic Surgery: No Hx Cataract Extraction: No Hx Cardiac Surgery: No Hx Lung Surgery: No Hx Breast Surgery: No Hx Breast Biopsy: No Hx Abdominal Surgery: No Hx Appendectomy: No Hx Cholecystectomy: No Hx Genitourinary Surgery: No Hx Section: No Hx Orthopedic Surgery: No Anesthesia Reaction: No - PPD History Date: 12/16/18 Results: negative - Smoking Cessation Smoking history: Current every day smoker Have you smoked in the past 12 months: Yes Aproximately how many cigarettes per day: 10 Cigars Per Day: 0 Hx Chewing Tobacco Use: No Initiated information on smoking cessation: No - Substances abused Alprazolam (Xanax) Substance route: Oral Frequency: Daily Amount used: 4 sticks Age of first use: 26 Date of last use: 01/19/19 Other Other (specify): Klonopin Substance route: Oral Frequency: Daily Amount used: 5 pills (10mg total) Age of first use: 26 Date of last use: 01/19/19 Heroin Substance route: Injection Frequency: 1-2 times per week Amount used: 1 bag Age of first use: 28 Date of last use: 01/19/19 Cocaine Substance route: Injection Frequency: 1-3 times last 30 days Amount used: 0.5 grams Age of first use: 24 Date of last use: 01/19/19 Alcohol Substance route: Oral Frequency: Daily Amount used: 2-3 pints of cognac Age of first use: 18 Date of last use: 01/19/19 Family Disease History - Family Disease History Family Disease History: Diabetes: Mother Admission Physical Exam [facility] - Vital Signs Vital Signs: Vital Signs - 24 hr 01/20/19 15:19 Temperature 98 F Pulse Rate 75 Respiratory 18 Rate Blood Pressure 129/62 - Physical General Appearance: Yes: No Apparent Distress HEENTM: Yes: Hearing grossly Normal, Normocephalic, Normal Voice, Other ( missing some teeth) Respiratory: Yes: Chest Non-Tender, Lungs Clear, Normal Breath Sounds, No Respiratory Distress, No Accessory Muscle Use Neck: Yes: No masses,lesions,Nodules, Supple Breast: Yes: Breast Exam Deferred Cardiology: Yes: Regular Rhythm, Regular Rate, S1, S2 Abdominal: Yes: Normal Bowel Sounds, Soft Genitourinary: Yes: Within Normal Limits Back: Yes: Normal Inspection Musculoskeletal: Yes: full range of Motion, Back pain, Muscle Pain Neurological: Yes: newspaper publisher II-XII NML intact, Fully Oriented, Alert, Normal Mood/ Affect, Normal Response Integumentary: Yes: Normal Color Lymphatic: Yes: Within Normal Limits - Diagnostic (1) Alcohol dependence with uncomplicated withdrawal Current Visit: No Status: Acute (2) Sedative, hypnotic or anxiolytic dependence with withdrawal, uncomplicated Current Visit: No Status: Acute (3) Back pain Current Visit: No Status: Chronic Qualifiers: Back pain location: low back pain Chronicity: chronic Back pain laterality: midline Sciatica presence: without sciatica Qualified Code(s): M54.5 - Low back pain; G89.29 - Other chronic pain (4) GERD (gastroesophageal reflux disease) Current Visit: Yes Status: Chronic Qualifiers: Esophagitis presence: without esophagitis Qualified Code(s): K21.9 - Gastro -esophageal reflux disease without esophagitis (5) Methadone maintenance therapy patient Current Visit: Yes Status: Chronic (6) Nicotine dependence Current Visit: Yes Status: Acute Qualifiers: Nicotine product type: cigarettes Substance use status: uncomplicated Qualified Code(s): F17.210 - Nicotine dependence, cigarettes, uncomplicated (7) Poor dentition Current Visit: No Status: Chronic Cleared for Admission [facility] - Detox or Rehab [facility] Level of Care: Medically Managed Detox Regimen/Protocol: Librium Breathalyzer - Breathalyzer Breathalyzer: 0 Urine Drug Screen - Test Device Lot number: [id number] Expiration date: 09/01/20 - Control Is test valid?: Yes - Results Urine drug screen results: LYLE-Cocaine, MOP-Opiates, MTD-Methadone, BZO- Benzodiazepines Inpatient Rehab Admission - Rehab Decision to Admit Inpatient rehab admission?: No - Initial Determination Are CD services needed?: Yes Free of communicable disease: Yes Not in need of hospitalization: Yes
[2019-01-20] MEDS ORDERED: MAG HYDROX/AL HYDROX/SIMETH 30 ML UNIT-DOSE CUP PO PRN (15:58)
[2019-01-20] MEDS ORDERED: NICOTINE POLACRILEX 2 MG GUM BUC PRN (15:58)
[2019-01-20] MEDS ORDERED: MAGNESIUM HYDROX 2400MG/30ML ORAL SUSPENSION 30 ML CUP PO PRN (15:58)
[2019-01-20] MEDS ORDERED: MAGNESIUM CITRATE 300 ML BOTTLE PO PRN (15:58)
[2019-01-20] MEDS ORDERED: BISMUTH SUBSALICYLATE 524 MG/30 ML UD PO PRN (15:58)
[2019-01-20] MEDS ORDERED: MENTHOL/PHENOL 1 EACH UD MM PRN (15:58)
[2019-01-20] MEDS ORDERED: chlordiazePOXIDE HCL 25 MG CAPSULE PO ONE (16:15)
[2019-01-20] MEDS: NICOTINE 14 MG/24 HOURS TOPICAL PATCH TD SCH (17:23)
[2019-01-20] MEDS: hydrOXYzine PAMOATE 50 MG CAPSULE (FP) PO PRN (17:23)
[2019-01-20] MEDS: chlordiazePOXIDE HCL 10 MG CAPSULE PO PRN (19:22)
[2019-01-20] MEDS: ONDANSETRON *ODT* 4 MG TABLET SL PRN (19:22)
[2019-01-20] MEDS: THIAMINE HCL 100 MG TABLET (FP) PO SCH (22:24)
[2019-01-20] MEDS: MELATONIN 5 MG TABLETS PO PRN (22:26)
[2019-01-20] MEDS: RANITIDINE HCL 150 MG TABLET (FP) PO SCH (22:31)
[2019-01-20] MEDS: chlordiazePOXIDE HCL 25 MG CAPSULE PO SCH (22:32)
[2019-01-21] MEDS ORDERED: METHADONE HCL 40 MG DISPERSABLE TABLET ONE (04:28)
[2019-01-21] MEDS ORDERED: METHADONE HCL 5 MG TABLET (FOR DETOX USE ONLY) ONE (04:28)
[2019-01-21] MEDS ORDERED: METHADONE HCL 10 MG TABLET (FOR DETOX USE ONLY) ONE (04:29)
[2019-01-21] MEDS: chlordiazePOXIDE HCL 25 MG CAPSULE PO SCH (05:08)
[2019-01-21] MEDS ORDERED: METHADONE PO ONE (06:00)
[2019-01-21] MEDS ORDERED: METHADONE HCL 10 MG TABLET PO ONE (06:00)
[2019-01-21] MEDS: ONDANSETRON *ODT* 4 MG TABLET SL PRN (07:50)
[2019-01-21] MEDS: chlordiazePOXIDE HCL 10 MG CAPSULE PO PRN (07:50)
[2019-01-21] MEDS: PRENATAL VITAMINS W/ FOLIC ACID TABLET (FP) PO SCH (10:18)
[2019-01-21] MEDS: NICOTINE 14 MG/24 HOURS TOPICAL PATCH TD SCH (10:19)
[2019-01-21 10:22] LABS: ALBUMIN 3.1 g/dl (3.4-5.0); ALK PHOS 61 U/L (45-117); ANION GAP 4 MMOL/L (8-16); BILIRUBIN,TOTAL 0.3 mg/dL (0.2-1); BLOOD UREA NITROGEN 7 mg/dL (7-18); CALCIUM 8.4 mg/dL (8.5-10.1); CHLORIDE 102 mmol/L (98-107); CO2 31 mmol/L (21-32); CREATININE 0.6 mg/dL (0.55-1.3); GLUCOSE,RANDOM 104 mg/dL (74-106); SGOT/AST 30 U/L (15-37); SGPT/ALT 39 U/L (13-61); SODIUM 137 mmol/L (136-145); TOT PROT 6.3 g/dl (6.4-8.2)
[2019-01-21] MEDS ORDERED: chlordiazePOXIDE HCL 25 MG CAPSULE PO ONE ×2 (10:27→15:00)
[2019-01-21 10:34] LABS: HEMATOCRIT 38.9 % (35.4-49); HEMOGLOBIN 12.8 GM/dL (11.7-16.9); MCH 28.6 pg (25.7-33.7); MEAN CELL VOLUME 86.8 fl (80-96); MEAN PLT VOLUME 8.8 fl (7.5-11.1); PLATELET COUNT 178 K/MM3 (134-434); RBC 4.48 M/mm3 (4.00-5.60); RDW 13.3 % (11.9-15.9); WHITE BLOOD COUNT 4.6 K/mm3 (4.0-10.0)
[2019-01-21] MEDS ORDERED: chlordiazePOXIDE 5 MG CAPSULE PO PRN (10:36)
[2019-01-21] MEDS: chlordiazePOXIDE HCL 25 MG CAPSULE PO PRN ×3 (11:52→22:07)
--- NOTE | 2019-01-21 13:20 | PN ---
S CIWA - CIWA Score Nausea/Vomitin Muscle Tremors: 4-Moderate,w/Arms Extend Anxiety: 4-Mod. Anxious/Guarded Agitation: 2 Paroxysmal Sweats: 3 Orientation: 0-Oriented Tacttile Disturbances: 0-None Auditory Disturbances: 0-None Visual Disturbances: 0-None Headache: 0-None Present CIWA-Ar Total Score: 15 BHS Progress Note (SOAP) Subjective: Perfuse sweating, anxiety, restless. Patient stated he drinks 3 pints of liquor plus few cans of beers daily and that he is planning to leave [facility] because he's having withdrawal symptoms and librium dosage not working for him. Patient requesting to increase librium or change it to valium. Engineering Patternmaker spoke with patient at length and patient agreed to have prn librium increase to 23mg q4hr prn for 3 days then 10mg q4hr prn. Patient also made aware that his standing librium doses will be changed to daily instead of q8hr because his librium prn was increased in which he agreed and verbalized understanding. Patient ordered for librium 15mg PO x 1 dose due to increased withdrawal symptoms. Objective: 01/21/19 13:20 Last Vital Signs Temp Pulse Resp BP Pulse Ox 97.9 F 59 L 16 93/56 L 01/21/19 10:15 01/21/19 10:15 01/21/19 10:15 01/21/19 10:15 Hypotension noted: 93/56 Laboratory Tests 01/21/19 01/21/19 01/21/19 07:40 07:40 07:40 WBC 4.6 RBC 4.48 Hgb 12.8 Hct 38.9 MCV 86.8 MCH 28.6 MCHC 33.0 RDW 13.3 Plt Count 178 D MPV 8.8 Sodium 137 Potassium 4.0 Chloride 102 Carbon Dioxide 31 Anion Gap 4 L BUN 7 Creatinine 0.6 Creat Clearance w eGFR 157.15 Random Glucose 104 Calcium 8.4 L Total Bilirubin 0.3 AST 30 ALT 39 Alkaline Phosphatase 61 Total Protein 6.3 L Albumin 3.1 L RPR Titer Nonreactive Labs reviewed Assessment: 01/21/19 13:21 Withdrawal symptoms Noted with hypotension Plan: Continue detox Hypotension: asymptomatic, encouraged PO water hydration
[2019-01-21] MEDS: DOCUSATE SODIUM 100 MG CAPSULE (FP) PO SCH ×2 (14:53→22:05)
[2019-01-21] MEDS: GABAPENTIN 300 MG CAPSULE (FP) PO SCH ×2 (14:53→22:05)
[2019-01-21] MEDS: hydrOXYzine PAMOATE 50 MG CAPSULE (FP) PO PRN (17:33)
[2019-01-21] MEDS ORDERED: chlordiazePOXIDE 5 MG CAPSULE PO SCH (21:00)
[2019-01-21] MEDS: THIAMINE HCL 100 MG TABLET (FP) PO SCH (22:04)
[2019-01-21] MEDS: MELATONIN 5 MG TABLETS PO PRN (22:05)
[2019-01-21] MEDS: RANITIDINE HCL 150 MG TABLET (FP) PO SCH (22:05)
[2019-01-22] MEDS: GABAPENTIN 300 MG CAPSULE (FP) PO SCH ×3 (05:33→22:07)
[2019-01-22] MEDS: DOCUSATE SODIUM 100 MG CAPSULE (FP) PO SCH ×3 (05:33→22:07)
[2019-01-22] MEDS: chlordiazePOXIDE HCL 25 MG CAPSULE PO PRN ×4 (05:35→20:49)
[2019-01-22] MEDS ORDERED: METHADONE HCL 10 MG TABLET PO SCH (09:00)
[2019-01-22] MEDS ORDERED: METHADONE HCL 5 MG TABLET ONE (09:25)
[2019-01-22] MEDS ORDERED: METHADONE HCL 10 MG TABLET ONE (09:25)
[2019-01-22] MEDS ORDERED: METHADONE HCL 40 MG DISPERSABLE TABLET ONE (09:26)
[2019-01-22] MEDS: METHADONE 80 MG, METHADONE 30 MG, METHADONE 5 MG PO SCH (09:39)
[2019-01-22] MEDS: NICOTINE 14 MG/24 HOURS TOPICAL PATCH TD SCH (10:08)
[2019-01-22] MEDS: PRENATAL VITAMINS W/ FOLIC ACID TABLET (FP) PO SCH (10:08)
[2019-01-22] MEDS ORDERED: chlordiazePOXIDE HCL 25 MG CAPSULE PO ONE (11:00)
--- NOTE | 2019-01-22 11:10 | PN ---
S CIWA - CIWA Score Nausea/Vomitin-No Nausea/No Vomiting Muscle Tremors: None Anxiety: 4-Mod. Anxious/Guarded Agitation: 4-Moderately Restless Paroxysmal Sweats: No Perspiration Orientation: 0-Oriented Tacttile Disturbances: 0-None Auditory Disturbances: 0-None Visual Disturbances: 0-None Headache: 2-Mild CIWA-Ar Total Score: 10 BHS Progress Note (SOAP) Subjective: PATIENT C/O ANXIETY, RESTLESSNESS AND HEADACHE Objective: 01/22/19 11:09 Laboratory Tests 01/21/19 01/21/19 01/21/19 07:40 07:40 07:40 WBC 4.6 RBC 4.48 Hgb 12.8 Hct 38.9 MCV 86.8 MCH 28.6 MCHC 33.0 RDW 13.3 Plt Count 178 D MPV 8.8 Sodium 137 Potassium 4.0 Chloride 102 Carbon Dioxide 31 Anion Gap 4 L BUN 7 Creatinine 0.6 Creat Clearance w eGFR 157.15 Random Glucose 104 Calcium 8.4 L Total Bilirubin 0.3 AST 30 ALT 39 Alkaline Phosphatase 61 Total Protein 6.3 L Albumin 3.1 L RPR Titer Nonreactive Vital Signs Temperature 97.5 F L 01/22/19 10:33 Pulse Rate 64 01/22/19 10:33 Respiratory Rate 16 01/22/19 10:33 Blood Pressure 113/68 01/22/19 10:33 O2 Sat by Pulse Oximetry (%) PE: ALERT AND ORIENTED X 3 SKIN WARM AND DRY EXT NO TREMORS, AMB AD DANTE ANXIOUS PACING IN HALLWAY Assessment: 01/22/19 11:10 WITHDRAWAL SX Plan: CONTINUE DETOX ENCOURAGE FLUIDS PENDING PSYCH CONSULT
--- NOTE | 2019-01-22 11:54 | CONSULT ---
[facility] Psychiatric Consult - Data Date of interview: 01/22/19 Admission source: [facility] Identifying data: Mr Diaz is a 33 years old single male, father of a 8 years old daughter, unemployed with no source of income, living with his mother seeking detox treatment for alcohol, cocaine and benzodiazepine Substance Abuse History: Reports history of alcohol, cocaine, xanax and klonopin use. Refer to addiction counselor's sumary for further information Medical History: Significant for bronchial asthma, low back pain. Patient is on methadone 115 mg/day([facility]). Smokes 10 cigarettes daily Psychiatric History: Patient was seen recently by machine sign writer on 12/08/18 while admitted to this facility. He reports being diagnosed with anxiety 4 years ago when he was admitted to [facility]. He was prescribed Zoloft and Seroquel. Reports that he has been taking medications on & off since. Reports a second psychiatric admission to [facility] in [place], [place].Claims that he only takes Seroquel now and stopped taking Zoloft in late October 2018. Before his last admission to this facility on 12/07/18 3, he attended [facility] and he was prescribed Seroquel 300 mg po HS by their staff psychiatrist. During his inpatient admission for both detox & rehab in this facility from 12/07/18 to and he was continued on Seroquel 300 mg po HS. At present, reports feeling anxious and sleeping poorly. Requests to resume Seroquel Physical/Sexual Abuse/Trauma History: Denies history of emotional, physical or sexual as well as DV relatiobship. No service Additional Comment: No criminal history Mental Status Exam - Mental Status Exam Alert and Oriented to: Time, Place, Person Cognitive Function: Fair Patient Appearance: Well Groomed Mood: Anxious Affect: Appropriate Patient Behavior: Cooperative Speech Pattern: Clear Voice Loudness: Normal Thought Process: Intact, Goal Oriented Thought Disorder: Not Present Hallucinations: Denies Suicidal Ideation: Denies Homicidal Ideation: Denies Insight/Judgement: Poor Sleep: Poorly Appetite: Fair Muscle strength/Tone: Normal Gait/Station: Normal Psychiatric Findings - Problem List ([place] 1, 2,3) (1) Anxiety disorder Current Visit: No Status: Chronic (2) Substance-induced anxiety disorder Current Visit: No Status: Acute (3) Substance-induced sleep disorder Current Visit: No Status: Acute (4) Alcohol dependence with uncomplicated withdrawal Current Visit: No Status: Acute (5) Sedative, hypnotic or anxiolytic dependence with withdrawal, uncomplicated Current Visit: No Status: Acute (6) Cocaine dependence Current Visit: No Status: Acute Qualifiers: Substance use status: uncomplicated Qualified Code(s): F14.20 - Cocaine dependence, uncomplicated (7) Opioid dependence on agonist therapy Current Visit: No Status: Chronic (8) Nicotine dependence Current Visit: Yes Status: Chronic Qualifiers: Nicotine product type: cigarettes Substance use status: uncomplicated Qualified Code(s): F17.210 - Nicotine dependence, cigarettes, uncomplicated (9) GERD (gastroesophageal reflux disease) Current Visit: Yes Status: Chronic Qualifiers: Esophagitis presence: without esophagitis Qualified Code(s): K21.9 - Gastro -esophageal reflux disease without esophagitis (10) Asthma Current Visit: No Status: Chronic Qualifiers: Asthma severity: mild Asthma persistence: intermittent Asthma complication type: uncomplicated Qualified Code(s): J45.20 - Mild intermittent asthma, uncomplicated (11) Low back pain Current Visit: No Status: Chronic - Initial Treatment Plan Initial Treatment Plan: 1) Resume Seroquel 300 mg po HS. 2) Continue inpatient detoxification
[2019-01-22] MEDS: hydrOXYzine PAMOATE 50 MG CAPSULE (FP) PO PRN (15:17)
[2019-01-22] MEDS: ONDANSETRON *ODT* 4 MG TABLET SL PRN (16:36)
[2019-01-22] MEDS: ALBUTEROL SO4 8 GM HFA INHALER IH PRN (17:09)
[2019-01-22] MEDS: METHOCARBAMOL 500 MG TABLET PO PRN (19:05)
[2019-01-22] MEDS ORDERED: chlordiazePOXIDE HCL 10 MG CAPSULE PO PRN (21:00)
[2019-01-22] MEDS ORDERED: chlordiazePOXIDE HCL 10 MG CAPSULE PO SCH (21:00)
[2019-01-22] MEDS: QUEtiapine FUMARATE 300 MG TABLET PO SCH (22:07)
[2019-01-22] MEDS: THIAMINE HCL 100 MG TABLET (FP) PO SCH (22:07)
[2019-01-22] MEDS: RANITIDINE HCL 150 MG TABLET (FP) PO SCH (22:07)
[2019-01-23] MEDS ORDERED: METHADONE HCL 5 MG TABLET ONE (04:34)
[2019-01-23] MEDS ORDERED: METHADONE HCL 40 MG DISPERSABLE TABLET ONE (04:35)
[2019-01-23] MEDS ORDERED: METHADONE HCL 10 MG TABLET ONE (04:35)
[2019-01-23] MEDS: GABAPENTIN 300 MG CAPSULE (FP) PO SCH ×3 (05:29→22:08)
[2019-01-23] MEDS: DOCUSATE SODIUM 100 MG CAPSULE (FP) PO SCH ×3 (05:29→22:08)
[2019-01-23] MEDS: METHADONE 80 MG, METHADONE 30 MG, METHADONE 5 MG PO SCH (05:30)
[2019-01-23] MEDS: chlordiazePOXIDE HCL 25 MG CAPSULE PO PRN ×4 (05:32→22:11)
[2019-01-23] MEDS: NICOTINE 14 MG/24 HOURS TOPICAL PATCH TD SCH (10:06)
[2019-01-23] MEDS: PRENATAL VITAMINS W/ FOLIC ACID TABLET (FP) PO SCH (10:06)
[2019-01-23] MEDS ORDERED: chlordiazePOXIDE 5 MG CAPSULE PO ONE (11:00)
[2019-01-23] MEDS ORDERED: chlordiazePOXIDE HCL 10 MG CAPSULE PO SCH (11:00)
--- NOTE | 2019-01-23 11:01 | PN ---
[facility] CIWA - CIWA Score Nausea/Vomitin-No Nausea/No Vomiting Muscle Tremors: 2 Anxiety: 1-Mildly Anxious Agitation: 2 Paroxysmal Sweats: 2 Orientation: 0-Oriented Tacttile Disturbances: 0-None Auditory Disturbances: 0-None Visual Disturbances: 0-None Headache: 0-None Present CIWA-Ar Total Score: 7 BHS Progress Note (SOAP) Subjective: sweats anxiety Objective: 01/23/19 10:59 Vital Signs Temperature 99.1 F 01/23/19 09:31 Pulse Rate 73 01/23/19 09:31 Respiratory Rate 18 01/23/19 09:31 Blood Pressure 108/68 01/23/19 09:31 O2 Sat by Pulse Oximetry (%) [id number] ambulating no acute distress Assessment: 01/23/19 11:00 mild withdrawal Plan: continue detox increase fluids
[2019-01-23] MEDS: METHOCARBAMOL 500 MG TABLET PO PRN (17:49)
[2019-01-23] MEDS: THIAMINE HCL 100 MG TABLET (FP) PO SCH (22:08)
[2019-01-23] MEDS: QUEtiapine FUMARATE 300 MG TABLET PO SCH (22:09)
[2019-01-23] MEDS: RANITIDINE HCL 150 MG TABLET (FP) PO SCH (22:09)
[2019-01-23] MEDS: ACETAMINOPHEN 325 MG TABLET (FP) PO PRN (22:11)
[2019-01-24] MEDS ORDERED: METHADONE HCL 5 MG TABLET ONE (04:22)
[2019-01-24] MEDS ORDERED: METHADONE HCL 40 MG DISPERSABLE TABLET ONE (04:22)
[2019-01-24] MEDS ORDERED: METHADONE HCL 10 MG TABLET ONE (04:22)
[2019-01-24] MEDS: IBUPROFEN 400 MG TABLET (FP) PO PRN ×2 (04:48→18:47)
[2019-01-24] MEDS: METHADONE 80 MG, METHADONE 30 MG, METHADONE 5 MG PO SCH (06:11)
[2019-01-24] MEDS: DOCUSATE SODIUM 100 MG CAPSULE (FP) PO SCH ×3 (06:12→22:21)
[2019-01-24] MEDS: GABAPENTIN 300 MG CAPSULE (FP) PO SCH ×3 (06:12→22:21)
[2019-01-24] MEDS: ACETAMINOPHEN 325 MG TABLET (FP) PO PRN ×2 (06:13→15:11)
[2019-01-24] MEDS: chlordiazePOXIDE HCL 25 MG CAPSULE PO PRN (06:15)
--- NOTE | 2019-01-24 10:17 | PN ---
[facility] CIWA - CIWA Score Nausea/Vomitin-No Nausea/No Vomiting Muscle Tremors: 1-None Visible, but [place] Anxiety: 1-Mildly Anxious Agitation: 1-Slight > Activity Paroxysmal Sweats: No Perspiration Orientation: 0-Oriented Tacttile Disturbances: 0-None Auditory Disturbances: 0-None Visual Disturbances: 0-None Headache: 0-None Present CIWA-Ar Total Score: 3 BHS Progress Note (SOAP) Subjective: Pt states he did not receive tapering dose of librium- is getting prn Librium. Pt scheduled for librium 10mg q 8h today.Will leave tomorrrow O: Laboratory Tests 01/21/19 01/21/19 01/21/19 07:40 07:40 07:40 WBC 4.6 RBC 4.48 Hgb 12.8 Hct 38.9 MCV 86.8 MCH 28.6 MCHC 33.0 RDW 13.3 Plt Count 178 D MPV 8.8 Sodium 137 Potassium 4.0 Chloride 102 Carbon Dioxide 31 Anion Gap 4 L BUN 7 Creatinine 0.6 Creat Clearance w eGFR 157.15 Random Glucose 104 Calcium 8.4 L Total Bilirubin 0.3 AST 30 ALT 39 Alkaline Phosphatase 61 Total Protein 6.3 L Albumin 3.1 L RPR Titer Nonreactive Vital Signs - 24 hr 01/23/19 01/23/19 01/23/19 13:05 16:55 21:33 Temperature 98.8 F 98.4 F 97.7 F Pulse Rate 88 87 69 Respiratory 18 18 16 Rate Blood Pressure 114/66 107/65 98/61 01/24/19 01/24/19 01/24/19 00:30 03:00 03:30 Temperature 98.2 F Pulse Rate 70 Respiratory 18 18 18 Rate Blood Pressure 105/60 a/p: continue alcohol/zanax treatment protocol today- pt to be discharged tomorrow.
[2019-01-24] MEDS: hydrOXYzine PAMOATE 50 MG CAPSULE (FP) PO PRN (10:25)
[2019-01-24] MEDS: PRENATAL VITAMINS W/ FOLIC ACID TABLET (FP) PO SCH (10:25)
[2019-01-24] MEDS: chlordiazePOXIDE HCL 10 MG CAPSULE PO SCH ×2 (10:25→18:47)
[2019-01-24] MEDS: NICOTINE 14 MG/24 HOURS TOPICAL PATCH TD SCH (10:25)
[2019-01-24] MEDS: METHOCARBAMOL 500 MG TABLET PO PRN (10:25)
[2019-01-24] MEDS: ALBUTEROL SO4 8 GM HFA INHALER IH PRN (10:26)
[2019-01-24] MEDS ORDERED: chlordiazePOXIDE 5 MG CAPSULE PO PRN (15:00)
[2019-01-24] MEDS ORDERED: LIDOCAINE VISCOUS 2% ORAL/TOP 100 ML BOTTLE MM PRN (15:45)
[2019-01-24] MEDS: QUEtiapine FUMARATE 300 MG TABLET PO SCH (22:21)
[2019-01-24] MEDS: RANITIDINE HCL 150 MG TABLET (FP) PO SCH (22:22)
[2019-01-24] MEDS: THIAMINE HCL 100 MG TABLET (FP) PO SCH (22:22)
[2019-01-25] MEDS: chlordiazePOXIDE HCL 10 MG CAPSULE PO SCH (04:37)
[2019-01-25] MEDS ORDERED: METHADONE HCL 5 MG TABLET ONE (04:39)
[2019-01-25] MEDS ORDERED: METHADONE HCL 10 MG TABLET ONE (04:40)
[2019-01-25] MEDS ORDERED: METHADONE HCL 40 MG DISPERSABLE TABLET ONE (04:41)
[2019-01-25] MEDS: METHADONE 80 MG, METHADONE 30 MG, METHADONE 5 MG PO SCH (05:05)
[2019-01-25] MEDS: GABAPENTIN 300 MG CAPSULE (FP) PO SCH (05:05)
[2019-01-25] MEDS: DOCUSATE SODIUM 100 MG CAPSULE (FP) PO SCH (05:05)
[2019-01-25] MEDS: ACETAMINOPHEN 325 MG TABLET (FP) PO PRN (05:06)
[2019-01-25 06:08] VITALS: BP 108/69; PULSE 88; TEMP 98
[2019-01-25] MEDS: ALBUTEROL SO4 8 GM HFA INHALER IH PRN (07:56)
--- NOTE | 2019-01-25 08:47 | DS ---
[facility] Detox Discharge Summary Admission Date: 01/20/19 Discharge Date: 01/25/19 - History Present History: Alcohol Dependence, Cocaine Dependence, Sedative Dependence, MMTP - Physical Exam Results Vital Signs: Vital Signs Temperature 98 F 01/25/19 06:08 Pulse Rate 88 01/25/19 06:08 Respiratory Rate 18 01/25/19 06:08 Blood Pressure 108/69 01/25/19 06:08 O2 Sat by Pulse Oximetry (%) - Treatment Hospital Course: Detox Protocol Followed, Detoxed Safely, Responded well, Discharged Condition Good, Rehab Referral Accepted - Medication Discharge Medications: Ambulatory Orders Clobetasol Propionate [Cormax] 25 ml TP DAILY 01/20/19 Docusate Sodium [Colace -] 300 mg PO HS 01/20/19 EPINEPHrine (EPI-PEN 0.3MG) [Epipen 0.3MG -] 0.3 mg IM ASDIR PRN 01/20/19 Gabapentin [Neurontin -] 600 mg PO TID 01/20/19 Methadone HCl 115 mg PO DAILY 01/20/19 Quetiapine Fumarate [Seroquel -] 300 mg PO HS 01/20/19 Quetiapine Fumarate [Seroquel -] 300 mg PO HS #30 tablet 01/22/19 Albuterol Sulfate Inhaler - [Ventolin HFA Inhaler -] 2 inh PO Q4H PRN #1 inhaler 01/25/19 Ranitidine HCl [Zantac] 150 mg PO HS #30 tablet 01/25/19 - AMA Did Patient Leave Against Medical Advice: No (going back to [facility] )
== END 2019-01-25 08:37 | disposition home or self-care (01) | DRG 773 ==
LOC: YASAS 13:58 → Y6N 15:48
PROVIDERS: ADMIT Surgery; ATTEND Surgery
PROC: HZ2ZZZZ Detoxification Services for Substance Abuse Treatment (ICD-10-PCS; principal; 2019-01-20)
DX: F10.230 Alcohol dependence with withdrawal, uncomplicated (principal); F11.20 Opioid dependence, uncomplicated; F13.230 Sedative, hypnotic or anxiolytic dependence with withdrawal, uncomplicated; F14.20 Cocaine dependence, uncomplicated; F17.210 Nicotine dependence, cigarettes, uncomplicated; F41.9 Anxiety disorder, unspecified; F19.280 Other psychoactive substance dependence with psychoactive substance-induced anxiety disorder; F19.282 Other psychoactive substance dependence with psychoactive substance-induced sleep disorder; K21.9 Gastro-esophageal reflux disease without esophagitis; J45.20 Mild intermittent asthma, uncomplicated; M54.5 Low back pain; G89.29 Other chronic pain; I95.9 Hypotension, unspecified; K08.9 Disorder of teeth and supporting structures, unspecified; Z86.69 Personal history of other diseases of the nervous system and sense organs; Z91.013 Allergy to seafood
CPT/HCPCS: 36415; 80053; 85027; 86593; Q0162

== ENCOUNTER 2019-05-01 16:34 | Inpatient (IN) | payer OTHER ==
[2019-05-01 21:29] VITALS: BMI 27.2
--- NOTE | 2019-05-01 23:19 | HP ---
"CIWA Score Nausea/Vomitin-Mild Nausea/No Vomiting Muscle Tremors: 4-Moderate,w/Arms Extend Anxiety: 4-Mod. Anxious/Guarded Agitation: 0-Normal Activity Paroxysmal Sweats: 3 (Increased facial moisture) Orientation: 0-Oriented Tacttile Disturbances: 0-None Auditory Disturbances: 0-None Visual Disturbances: 0-None Headache: 0-None Present CIWA-Ar Total Score: 12 - Admission Criteria OASAS Guidelines: Admission for Medically Managed Detox: Requires at least one of the followin. CIWA greater than 12 2. Seizures within the past 24 hours 3. Delirium tremens within the past 24 hours 4. Hallucinations within the past 24 hours 5. Acute intervention needed for co occurring medical disorder 6. Acute intervention needed for co occurring psychiatric disorder 7. Severe withdrawal that cannot be handled at a lower level of care (continued vomiting, continued diarrhea, abnormal vital signs) requiring intravenous medication and/or fluids 8. Patient presents the following: CIWA greater than 12 Admission Criteria Met: Admission criteria met Admission ROS [facility] Chief Complaint: having alcohol withdrawal. Allergies/Adverse Reactions: Allergies Allergy/AdvReac Type Severity Reaction Status Date / Time shellfish derived Allergy Severe Swelling Verified 05/01/19 21:18 No Known Drug Allergies Allergy Verified 12/10/18 20:09 History of Present Illness: 33 yo presents w/ alcohol and benzo use withdrawal and requesting detox. States able to stay sober for 1 month after last detox. Alcohol use since age 18. States currently drinking 2 pints daily x 1 year. Cocaine use since age 24. Currently uses approx 1/2-1 gm IV QOD. Xanax/Klonopin use since age 26. Approx total 6 mg/day. Non-prescribed. Marijuana use began at age 16. 2 - 3 blunts per month. Nicotine use began at age 19. Currently smokes 1/2 PPD. Heroin use since age 28. Currently on [facility] Methadone program x about 6 months. Continues to relapse w/ heroin despite being on MMTP. Currently on 115 mg PO daily. Last medicated today. Uses heroin IV. State does not share needles or works. Discussed overdose risks and has a Narcan kit at home which family knows how to use.. Denies hx seizures, blackouts or overdose. PMHx: Asthma (Last exacerbation 4 days); MHHx: Anxiety, Insomnia (Prescribed by MMTP Provider). Denies depression. Denies thoughts of harming self or others. Patient Name: Mohinder Diaz Date: 1985 Address: [address] [place] [id number] Sex: Male Rx Written Rx Dispensed Drug Quantity Days Supply Prescriber Name 04/18/2019 04/18/2019 methadone hcl 10 mg tablet 3 3 Richard Jackelyn NP 04/17/2019 04/17/2019 methadone hcl 10 mg tablet 66 6 Moni Pardo 02/05/2019 02/05/2019 diazepam 5 mg tablet 30 3 Shira Ramosvilma GALLEGOS 02/05/2019 02/05/2019 methadone hcl 10 mg tablet 69 7 RichardShiraJackelyn NP Search Terms: Mohinder Diaz, 1985 Search Date: 05/01/2019 11:18:47 PM States Searched: [place], [place], [place], [place], [place], [place], [place] The Drug Utilization Report below displays the controlled substance prescriptions, if any, that were dispensed in the indicated state(s). The information displayed on this report is compiled from requests submitted to other states' PMPs, and accurately reflects the information as returned by them. Blank gallegos indicate data not provided by other state. This report was requested by: Rose Pardo | Reference #: [id number] Exam Limitations: No Limitations - Ebola screening Have you traveled outside of the country in the last 21 days: No (N) Have you had contact with anyone from an Ebola affected area: No Have you been sick,other than usual withdrawal symptoms: No (Denies measles exposure) Do you have a fever: No - Review of Systems Constitutional: Diaphoresis, Changes in sleep (Difficulty falling and staying asleep - takes Seroquel) EENT: reports: Dental Problems (Missing teeth. Able to eat regular food.) Respiratory: reports: No Symptoms reported Cardiac: reports: No Symptoms Reported GI: reports: Constipated (Last BM 4 days ago.), Nausea (Mild nausea), Indigestion (Acid reflux - takes Nexium) : reports: No Symptoms Reported Musculoskeletal: reports: No Symptoms Reported Integumentary: reports: No Symptoms Reported Neuro: reports: Tremors Endocrine: reports: Increased Thirst Hematology: reports: No Symptoms Reported Psychiatric: reports: Judgement Intact, Orientated x3, Anxious Patient History - Patient Medical History Hx Anemia: No Hx Asthma: Yes (on albuterol inhaler) Hx Chronic Obstructive Pulmonary Disease (COPD): No Hx Cancer: No Hx Cardiac Disorders: No Hx Congestive Heart Failure: No Hx Hypertension: No Hx Hypercholesterolemia: No Hx Pacemaker: No HX Cerebrovascular Accident: No Hx Seizures: Yes (last episode last year) Hx Dementia: No Hx Diabetes: No Hx Gastrointestinal Disorders: Yes (GERD) Hx Liver Disease: No Hx Genitourinary Disorders: No Hx Sexually Transmitted Disorders: No Hx Renal Disease (ESRD): No Hx Thyroid Disease: No Hx Human Immunodeficiency Virus (HIV): No Hx Hepatitis C: No (negative) Hx Depression: Yes (anxiety,insomnia) Hx Suicide Attempt: No Hx Bipolar Disorder: No Hx Schizophrenia: No - Patient Surgical History Past Surgical History: No Hx Neurologic Surgery: No Hx Cataract Extraction: No Hx Cardiac Surgery: No Hx Lung Surgery: No Hx Breast Surgery: No Hx Breast Biopsy: No Hx Abdominal Surgery: No Hx Appendectomy: No Hx Cholecystectomy: No Hx Genitourinary Surgery: No Hx Section: No Hx Orthopedic Surgery: No Anesthesia Reaction: No - PPD History Previous Implant?: Yes Documented Results: Negative w/proof Implanted On Prior R Admission?: Yes Date: 12/16/18 Results: negative PPD to be Administered?: No - Smoking Cessation Smoking history: Current every day smoker Have you smoked in the past 12 months: Yes Aproximately how many cigarettes per day: 10 Cigars Per Day: 0 Hx Chewing Tobacco Use: No Initiated information on smoking cessation: Yes 'Breaking Loose' booklet given: 05/01/19 - Substance & Tx. History Hx Alcohol Use: Yes Hx Substance Use: Yes Substance Use Type: Alcohol, Cocaine, Heroin, Marijuana, Tranquilizers (benzo) Hx Substance Use Treatment: Yes (detox, rehab) - Substances abused Alprazolam (Xanax) Substance route: Oral Frequency: Daily Amount used: 6mg Age of first use: 26 Date of last use: 04/30/19 Other Other (specify): Klonopin Substance route: Oral Frequency: Daily Amount used: 5 pills (10mg total) Age of first use: 26 Date of last use: 01/19/19 Heroin Substance route: Injection Frequency: 1-3 times last 30 days Amount used: 1 bag Age of first use: 28 Date of last use: 04/30/19 Cocaine Substance route: Injection Frequency: Daily Amount used: 1 grams Age of first use: 24 Date of last use: 04/30/19 Alcohol Substance route: Oral Frequency: Daily Amount used: 2-3 pints of cognac Age of first use: 18 Date of last use: 04/30/19 Family Disease History - Family Disease History Family Disease History: Diabetes: Mother, Other: Father (living, healthy), Sister (1 living - healthy), Daughter (age 7 - healthy) Admission Physical Exam [facility] - Vital Signs Vital Signs: Vital Signs - 24 hr 05/01/19 21:18 Temperature 97.2 F L Pulse Rate 75 Respiratory 18 Rate Blood Pressure 107/68 - Physical General Appearance: Yes: Nourished, Mild Distress, Tremorous, Sweating ( Increased facial moisture), Anxious HEENTM: Yes: EOMI (Jerking movement of eyes upon lateral gaze), Hearing grossly Normal, Normocephalic, Normal Voice, JONATHON, Pharynx Normal Respiratory: Yes: Lungs Clear, Normal Breath Sounds, No Respiratory Distress Neck: Yes: No masses,lesions,Nodules, Supple Breast: Yes: Breast Exam Deferred Cardiology: Yes: Regular Rhythm, Regular Rate (HR: 72), S1, S2 Abdominal: Yes: Normal Bowel Sounds, Non Tender, Soft Genitourinary: Yes: Within Normal Limits Back: Yes: Normal Inspection Musculoskeletal: Yes: full range of Motion, Gait Steady Extremities: Yes: Normal Capillary Refill, Normal Range of Motion, Non-Tender, Tremors (Gross tremors of hands) Neurological: Yes: pulp bleacher II-XII NML intact (Jerking movement of eyes upon lateral gaze), Fully Oriented, Alert, Motor Strength 5/5, Normal Response Integumentary: Yes: Normal Color, Warm, Track Erickson (Old and new track erickson. No increased erythema or warmth.), Other (Decreased skin turgor) - Diagnostic (1) History of asthma Current Visit: Yes Status: Chronic (2) Cannabis abuse, uncomplicated Current Visit: Yes Status: Chronic (3) Alcohol dependence with uncomplicated withdrawal Current Visit: Yes Status: Acute (4) Cocaine dependence Current Visit: Yes Status: Chronic Qualifiers: Substance use status: uncomplicated Qualified Code(s): F14.20 - Cocaine dependence, uncomplicated (5) Sedative, hypnotic or anxiolytic dependence with withdrawal, uncomplicated Current Visit: Yes Status: Acute (6) Constipation Current Visit: Yes Status: Chronic Qualifiers: Constipation type: unspecified constipation type Qualified Code(s): K59.00 - Constipation, unspecified (7) GERD (gastroesophageal reflux disease) Current Visit: Yes Status: Chronic Qualifiers: Esophagitis presence: without esophagitis Qualified Code(s): K21.9 - Gastro -esophageal reflux disease without esophagitis (8) Methadone maintenance therapy patient Current Visit: Yes Status: Chronic (9) Tinea pedis Current Visit: Yes Status: Chronic Qualifiers: Laterality: bilateral Qualified Code(s): B35.3 - Tinea pedis Cleared for Admission [facility] - Detox or Rehab S Level of Care: Medically Managed Detox Regimen/Protocol: Valium Claeared for Rehab Admission: No Breathalyzer - Breathalyzer Breathalyzer: 0 Urine Drug Screen - Test Device Lot number: [id number] Expiration date: 01/30/21 - Control Is test valid?: Yes - Results Drug screen NEGATIVE: No Urine drug screen results: THC-Marijuana, LYLE-Cocaine, FEN-Fentanyl, MOP-Opiates , MTD-Methadone, BZO-Benzodiazepines Inpatient Rehab Admission - Rehab Decision to Admit Inpatient rehab admission?: No"
[2019-05-02] MEDS ORDERED: MENTHOL/PHENOL 1 EACH UD MM PRN (00:01)
[2019-05-02] MEDS ORDERED: BISMUTH SUBSALICYLATE 524 MG/30 ML UD PO PRN (00:01)
[2019-05-02] MEDS ORDERED: IBUPROFEN 400 MG TABLET (FP) PO PRN (00:01)
[2019-05-02] MEDS ORDERED: diazePAM 5 MG TABLET PO ONE (00:01)
[2019-05-02] MEDS ORDERED: MELATONIN 5 MG TABLETS PO PRN (00:01)
[2019-05-02] MEDS ORDERED: MAGNESIUM CITRATE 300 ML BOTTLE PO PRN (00:01)
[2019-05-02] MEDS ORDERED: ACETAMINOPHEN 325 MG TABLET (FP) PO PRN ×2 (00:01)
[2019-05-02] MEDS ORDERED: MAG HYDROX/AL HYDROX/SIMETH 30 ML UNIT-DOSE CUP PO PRN (00:01)
[2019-05-02] MEDS ORDERED: METHOCARBAMOL 500 MG TABLET PO PRN (00:01)
[2019-05-02] MEDS ORDERED: MAGNESIUM HYDROX 2400MG/30ML ORAL SUSPENSION 30 ML CUP PO PRN (00:01)
[2019-05-02] MEDS ORDERED: NICOTINE POLACRILEX 2 MG GUM BUC PRN (00:01)
[2019-05-02] MEDS ORDERED: ALBUTEROL SO4 8 GM HFA INHALER IH PRN (00:04)
[2019-05-02] MEDS ORDERED: QUEtiapine FUMARATE 100 MG TABLET (FP) PO ONE (00:07)
[2019-05-02] MEDS: diazePAM 5 MG TABLET PO PRN ×4 (03:46→20:07)
[2019-05-02] MEDS: GABAPENTIN 300 MG CAPSULE (FP) PO SCH ×3 (05:56→22:24)
[2019-05-02] MEDS: diazePAM 5 MG TABLET PO SCH ×3 (05:57→22:23)
[2019-05-02] MEDS: DOCUSATE SODIUM 100 MG CAPSULE (FP) PO SCH ×3 (05:57→22:24)
[2019-05-02] MEDS ORDERED: METHADONE HCL 10 MG TABLET PO ONE (09:21)
[2019-05-02] MEDS ORDERED: METHADONE 80 MG, METHADONE 30 MG, METHADONE 5 MG PO ONE (09:30)
[2019-05-02] MEDS ORDERED: METHADONE HCL 5 MG TABLET ONE (09:34)
[2019-05-02] MEDS ORDERED: METHADONE HCL 10 MG TABLET ONE (09:35)
[2019-05-02] MEDS ORDERED: METHADONE HCL 40 MG DISPERSABLE TABLET ONE (09:35)
[2019-05-02] MEDS: PRENATAL VITAMINS W/ FOLIC ACID TABLET (FP) PO SCH (10:42)
[2019-05-02] MEDS: NICOTINE 14 MG/24 HOURS TOPICAL PATCH TD SCH (10:42)
[2019-05-02] MEDS: PANTOPRAZOLE 40 MG TABLET (FP) PO SCH (10:42)
[2019-05-02] MEDS: TOLNAFTATE 1% CREAM 15 GM TUBE TP SCH ×2 (10:55→22:27)
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
--- NOTE | 2019-05-02 12:47 | PN ---
[facility] CIWA - CIWA Score Nausea/Vomitin-Mild Nausea/No Vomiting Muscle Tremors: 2 Anxiety: 1-Mildly Anxious Agitation: 1-Slight > Activity Paroxysmal Sweats: 1-Minimal Palms Moist Orientation: 0-Oriented Tacttile Disturbances: 0-None Auditory Disturbances: 0-None Visual Disturbances: 0-None Headache: 1-Very Mild CIWA-Ar Total Score: 7 [facility] Progress Note (SOAP) Subjective: pt states he is feeling tired as he came to the floor physician/internist. Here for alcohol and benzo detox, on MAT methadone 115mg O: Vital Signs - 24 hr 05/01/19 05/02/19 05/02/19 21:18 01:10 03:30 Temperature 97.2 F L 97.3 F L Pulse Rate 75 67 Respiratory 18 18 18 Rate Blood Pressure 107/68 111/63 05/02/19 05/02/19 07:43 09:18 Temperature 97.7 F 97.6 F Pulse Rate 69 76 Respiratory 17 18 Rate Blood Pressure 100/60 103/50 L labs pending a/p: alcohol detox protocol- day #1, pt seems to be doing well continue MAT methadone
[2019-05-02] MEDS ORDERED: QUEtiapine FUMARATE 100 MG TABLET (FP) PO SCH (22:00)
[2019-05-02] MEDS: THIAMINE HCL 100 MG TABLET (FP) PO SCH (22:23)
[2019-05-03] MEDS: diazePAM 5 MG TABLET PO PRN ×4 (02:22→19:10)
[2019-05-03] MEDS ORDERED: METHADONE HCL 40 MG DISPERSABLE TABLET ONE (04:54)
[2019-05-03] MEDS ORDERED: METHADONE HCL 10 MG TABLET ONE (04:54)
[2019-05-03] MEDS ORDERED: METHADONE HCL 5 MG TABLET ONE (04:55)
[2019-05-03] MEDS: diazePAM 5 MG TABLET PO SCH ×2 (05:34→18:52)
[2019-05-03] MEDS: GABAPENTIN 300 MG CAPSULE (FP) PO SCH ×3 (05:34→22:03)
[2019-05-03] MEDS: DOCUSATE SODIUM 100 MG CAPSULE (FP) PO SCH ×3 (05:34→22:03)
[2019-05-03] MEDS: METHADONE 80 MG, METHADONE 30 MG, METHADONE 5 MG PO SCH (05:35)
[2019-05-03] MEDS ORDERED: METHADONE HCL 40 MG DISPERSABLE TABLET PO SCH (06:00)
[2019-05-03] MEDS: TOLNAFTATE 1% CREAM 15 GM TUBE TP SCH ×2 (10:03→22:04)
[2019-05-03] MEDS: PRENATAL VITAMINS W/ FOLIC ACID TABLET (FP) PO SCH (10:04)
[2019-05-03] MEDS: NICOTINE 14 MG/24 HOURS TOPICAL PATCH TD SCH (10:04)
[2019-05-03] MEDS: PANTOPRAZOLE 40 MG TABLET (FP) PO SCH (10:04)
[2019-05-03 11:48] LABS: HEMATOCRIT 35.8 % (35.4-49); MCH 27.8 pg (25.7-33.7); MCHC 33.5 g/dl (32.0-35.9); MEAN PLT VOLUME 8.3 fl (7.5-11.1); PLATELET COUNT 231 K/MM3 (134-434); RBC 4.32 M/mm3 (4.00-5.60); RDW 14.7 % (11.9-15.9); WHITE BLOOD COUNT 4.2 K/mm3 (4.0-10.0)
[2019-05-03 11:54] LABS: URINE APPEARANCE CLEAR; URINE BILIRUBIN NEGATIVE (NEGATIVE); URINE COLOR YELLOW; URINE GLUCOSE (UA) NEGATIVE (NEGATIVE); URINE KETONE NEGATIVE (NEGATIVE); URINE LEUK ESTERASE NEGATIVE (NEGATIVE); URINE NITRITE NEGATIVE (NEGATIVE); URINE PROTEIN NEGATIVE (NEGATIVE)
[2019-05-03 12:04] LABS: ALBUMIN 3.1 g/dl (3.4-5.0); BILIRUBIN,TOTAL 0.2 mg/dL (0.2-1); BLOOD UREA NITROGEN 12.4 mg/dL (7-18); CALCIUM 8.7 mg/dL (8.5-10.1); CREATININE 0.7 mg/dL (0.55-1.3); POTASSIUM 4.3 mmol/L (3.5-5.1); TOT PROT 6.8 g/dl (6.4-8.2)
[2019-05-03] MEDS ORDERED: TRIMETHOBENZAMIDE HCL 200MG/2ML INJ IM PRN (13:37)
--- NOTE | 2019-05-03 14:38 | PN ---
S CIWA - CIWA Score Nausea/Vomitin Muscle Tremors: None Anxiety: 3 Agitation: 2 Paroxysmal Sweats: No Perspiration Orientation: 0-Oriented Tacttile Disturbances: 1-Very Mild Itch/Numbness Auditory Disturbances: 0-None Visual Disturbances: 0-None Headache: 0-None Present CIWA-Ar Total Score: 9 [facility] Progress Note (SOAP) Subjective: Nausea, Anxiety, Constipation. Objective: PATIENT A & O X 3, OBSERVED AMBULATING ON UNIT WITH ASSISTANCE OF A CANE. IN NO ACUTE DISTRESS. 05/03/19 14:36 Vital Signs Temperature 98.2 F 05/03/19 13:41 Pulse Rate 81 05/03/19 13:41 Respiratory Rate 18 05/03/19 13:41 Blood Pressure 111/67 05/03/19 13:41 O2 Sat by Pulse Oximetry (%) Laboratory Tests 05/03/19 05/03/19 05/03/19 07:30 07:30 07:30 WBC 4.2 RBC 4.32 Hgb 12.0 Hct 35.8 MCV 83.0 MCH 27.8 MCHC 33.5 RDW 14.7 D Plt Count 231 D MPV 8.3 Sodium 137 Potassium 4.3 Chloride 103 Carbon Dioxide 30 Anion Gap 5 L BUN 12.4 Creatinine 0.7 Est GFR (CKD-EPI)AfAm 145.74 Est GFR (CKD-EPI)NonAf 125.75 Random Glucose 134 H Calcium 8.7 Total Bilirubin 0.2 AST 52 H ALT 55 Alkaline Phosphatase 92 Total Protein 6.8 Albumin 3.1 L Urine Color Urine Appearance Urine pH Ur Specific [place] Urine Protein Urine Glucose (UA) Urine Ketones Urine Blood Urine Nitrite Urine Bilirubin Urine Urobilinogen Ur Leukocyte Esterase RPR Titer Nonreactive 05/03/19 09:25 WBC RBC Hgb Hct MCV MCH MCHC RDW Plt Count MPV Sodium Potassium Chloride Carbon Dioxide Anion Gap BUN Creatinine Est GFR (CKD-EPI)AfAm Est GFR (CKD-EPI)NonAf Random Glucose Calcium Total Bilirubin AST ALT Alkaline Phosphatase Total Protein Albumin Urine Color Yellow Urine Appearance Clear Urine pH 8.0 D Ur Specific [place] 1.015 Urine Protein Negative Urine Glucose (UA) Negative Urine Ketones Negative Urine Blood Negative Urine Nitrite Negative Urine Bilirubin Negative Urine Urobilinogen 1.0 Ur Leukocyte Esterase Negative RPR Titer LABS NOTED. Assessment: 05/03/19 14:37 WITHDRAWAL SYMPTOMS. ELEVATED AST LEVEL. 05/03/19 14:37 Plan: CONTINUE DETOX. INCREASE DAILY PO WATER INTAKE. PRN MOM FOR CONSTIPATION.
--- NOTE | 2019-05-03 16:14 | PN ---
Psychiatric Progress Note Vital Signs: Vital Signs Period Temp Pulse Resp BP Sys/Samuel Pulse Ox Last 24 Hr 97.8 F-98.3 F 67-87 17-20 100-116/51-67 Date of Session: 05/03/19 Chief Complaint:: " i don't need seroquel." HPI: Patient admitted to for alcohol and benzodiazepine dependence. ROS: Patient coherent, alert and oriented X3. Current Medications: Active Medications Generic Name Dose Route Start Last Admin Trade Name Freq PRN Reason Stop Dose Admin Acetaminophen 650 mg 05/02/19 00:01 Tylenol - PO Q6H PRN PAIN LEVEL 4 - 6 Acetaminophen 650 mg 05/02/19 00:01 Tylenol - PO Q6H PRN FEVER Al Hydroxide/Mg Hydroxide 30 ml 05/02/19 00:01 Mylanta Oral Suspension - PO Q6H PRN DYSPEPSIA Albuterol Sulfate 2 puff 05/02/19 00:04 Ventolin Hfa Inhaler - IH Q4H PRN ASTHMA Bismuth Subsalicylate 524 mg 05/02/19 00:01 Pepto-Bismol - PO Q1H PRN DIARRHEA Diazepam 5 mg 05/03/19 06:00 05/03/19 05:34 Valium - PO 05/03/19 18:01 5 mg Q12H RONNA Administration Diazepam 5 mg 05/04/19 06:00 Valium - PO 05/04/19 06:01 ONCE ONE Diazepam 10 mg 05/02/19 00:01 05/03/19 12:36 Valium - PO 05/05/19 00:00 10 mg Q4H PRN Administration WITHDRAWAL(CONT SUBST) Docusate Sodium 100 mg 05/02/19 06:00 05/03/19 14:26 Colace - PO 100 mg TID RONNA Administration Eucalyptus/Menthol/Phenol/Sorbitol 1 each 05/02/19 00:01 Cepastat Lozenge - MM 05/08/19 00:01 Q4H PRN SORE THROAT Gabapentin 300 mg 05/02/19 06:00 05/03/19 14:27 Neurontin - PO 300 mg TID RONNA Administration Ibuprofen 400 mg 05/02/19 00:01 Motrin - PO Q6H PRN PAIN LEVEL 1 - 3 Magnesium Citrate 300 ml 05/02/19 00:01 Citroma - PO Q48H PRN CONSTIPATION Magnesium Hydroxide 30 ml 05/02/19 00:01 05/02/19 22:26 Milk Of Magnesia - PO 30 ml PRN PRN Administration CONSTIPATION Melatonin 5 mg 05/02/19 00:01 Melatonin PO HS PRN INSOMNIA Methadone HCl 80 mg/ Methadone 115 mg 05/03/19 06:00 05/03/19 05:35 HCl 30 mg/ Methadone HCl 5 mg PO 115 mg DAILY@0600 RONNA Administration Methocarbamol 500 mg 05/02/19 00:01 Robaxin - PO 05/08/19 00:01 Q6H PRN MUSCLE SPASMS Nicotine 14 mg 05/02/19 10:00 05/03/19 10:04 Nicoderm Patch - TD 14 mg DAILY RONNA Administration Nicotine Polacrilex 2 mg 05/02/19 00:01 Nicorette Gum - BUC Q2H PRN NICOTINE REPLACEMENT RX Pantoprazole Sodium 40 mg 05/02/19 10:00 05/03/19 10:04 Protonix - PO 40 mg DAILY RONNA Administration Multivit/Folic Acid/Iron 1 tab 05/02/19 10:00 05/03/19 10:04 Vitamins (Sjr) - PO 1 tab DAILY RONNA Administration Quetiapine Fumarate 100 mg 05/02/19 22:00 05/02/19 22:23 Seroquel - PO 100 mg HS RONNA Administration Thiamine HCl 100 mg 05/02/19 22:00 05/02/19 22:23 Vitamin B1 - PO 100 mg HS RONNA Administration Tolnaftate 1 applic 05/02/19 10:00 05/03/19 10:03 Tinactin 1% Cream - TP 1 applic BID RONNA Administration Trimethobenzamide HCl 200 mg 05/03/19 13:37 Tigan Injection - IM Q8H PRN NAUSEA AND/OR VOMITING Medication(s) Change(s): Yes. D/C seroquel 100mg HS. Current Side Effect: No Lab tests ordered: No Lab tests reviewed: Yes Provider note:: Patient reports no longer taking seroquel on the outside and is requesting program writer discontinue medication after taking seroquel 100mg for insomnia the previous two nights. Patient reports stable mood. Patient is motivated to attend [facility] tomorrow and states he does not require the seroquel anymore. Total face to face time:: 15 Mental Status Exam - Mental Status Exam Alert and Oriented to: Time, Place, Person Cognitive Function: Good Patient Appearance: Well Groomed Mood: Euthymic Affect: Mood Congruent Patient Behavior: Cooperative Speech Pattern: Appropriate Voice Loudness: Normal Thought Process: Goal Oriented Thought Disorder: Not Present Hallucinations: Denies Suicidal Ideation: Denies Homicidal Ideation: Denies Insight/Judgement: Poor Sleep: Fair Appetite: Fair Muscle strength/Tone: Normal Gait/Station: Normal Psychiatric Treatment Plan - Problem List (1) Alcohol dependence with uncomplicated withdrawal Current Visit: Yes (2) Sedative, hypnotic or anxiolytic dependence with withdrawal, uncomplicated Current Visit: Yes (3) Cannabis abuse, uncomplicated Current Visit: Yes (4) Cocaine dependence Current Visit: Yes Qualifiers: Substance use status: uncomplicated Qualified Code(s): F14.20 - Cocaine dependence, uncomplicated (5) Methadone maintenance therapy patient Current Visit: Yes (6) Substance induced mood disorder Current Visit: Yes (7) Substance-induced sleep disorder Current Visit: Yes
[2019-05-03] MEDS: THIAMINE HCL 100 MG TABLET (FP) PO SCH (22:03)
[2019-05-04] MEDS: diazePAM 5 MG TABLET PO PRN (00:34)
[2019-05-04] MEDS ORDERED: METHADONE HCL 10 MG TABLET ONE (04:11)
[2019-05-04] MEDS ORDERED: METHADONE HCL 40 MG DISPERSABLE TABLET ONE (04:11)
[2019-05-04] MEDS ORDERED: METHADONE HCL 5 MG TABLET ONE (04:11)
[2019-05-04] MEDS: GABAPENTIN 300 MG CAPSULE (FP) PO SCH (05:43)
[2019-05-04] MEDS: METHADONE 80 MG, METHADONE 30 MG, METHADONE 5 MG PO SCH (05:43)
[2019-05-04] MEDS: DOCUSATE SODIUM 100 MG CAPSULE (FP) PO SCH (05:43)
[2019-05-04] MEDS ORDERED: diazePAM 5 MG TABLET PO ONE (06:00)
[2019-05-04 06:21] VITALS: BP 97/60; PULSE 79; TEMP 98.1
--- NOTE | 2019-05-04 08:52 | DS ---
[facility] Detox Discharge Summary Admission Date: 05/02/19 Discharge Date: 05/04/19 - History Present History: Alcohol Dependence, Cannabis Dependence, Cocaine Dependence, Sedative Dependence, MMTP - Physical Exam Results Vital Signs: Vital Signs Temperature 98.1 F 05/04/19 06:00 Pulse Rate 79 05/04/19 06:00 Respiratory Rate 18 05/04/19 06:00 Blood Pressure 97/60 05/04/19 06:00 O2 Sat by Pulse Oximetry (%) Pertinent Admission Physical Exam Findings: pt arrived in withdrawals Laboratory Tests 05/03/19 05/03/19 05/03/19 07:30 07:30 07:30 WBC 4.2 RBC 4.32 Hgb 12.0 Hct 35.8 MCV 83.0 MCH 27.8 MCHC 33.5 RDW 14.7 D Plt Count 231 D MPV 8.3 Sodium 137 Potassium 4.3 Chloride 103 Carbon Dioxide 30 Anion Gap 5 L BUN 12.4 Creatinine 0.7 Est GFR (CKD-EPI)AfAm 145.74 Est GFR (CKD-EPI)NonAf 125.75 Random Glucose 134 H Calcium 8.7 Total Bilirubin 0.2 AST 52 H ALT 55 Alkaline Phosphatase 92 Total Protein 6.8 Albumin 3.1 L Urine Color Urine Appearance Urine pH Ur Specific [place]man Urine Protein Urine Glucose (UA) Urine Ketones Urine Blood Urine Nitrite Urine Bilirubin Urine Urobilinogen Ur Leukocyte Esterase RPR Titer Nonreactive 05/03/19 09:25 WBC RBC Hgb Hct MCV MCH MCHC RDW Plt Count MPV Sodium Potassium Chloride Carbon Dioxide Anion Gap BUN Creatinine Est GFR (CKD-EPI)AfAm Est GFR (CKD-EPI)NonAf Random Glucose Calcium Total Bilirubin AST ALT Alkaline Phosphatase Total Protein Albumin Urine Color Yellow Urine Appearance Clear Urine pH 8.0 D Ur Specific Kirkman 1.015 Urine Protein Negative Urine Glucose (UA) Negative Urine Ketones Negative Urine Blood Negative Urine Nitrite Negative Urine Bilirubin Negative Urine Urobilinogen 1.0 Ur Leukocyte Esterase Negative RPR Titer labs noted aaox3 ambulating no acute distress no s/s of withdrawals - Treatment Hospital Course: Detox Protocol Followed Patient has Accepted a Rehab Referral to: pt referred to [facility] - Medication Discharge Medications: Ambulatory Orders EPINEPHrine (EPI-PEN 0.3MG) [Epipen 0.3MG -] 0.3 mg IM ASDIR PRN 01/20/19 Gabapentin [Neurontin -] 600 mg PO TID 01/20/19 Methadone HCl 115 mg PO DAILY 01/20/19 Albuterol Sulfate Inhaler - [Ventolin HFA Inhaler -] 2 inh PO Q4H PRN #1 inhaler 01/25/19 - Diagnosis (1) Alcohol dependence with uncomplicated withdrawal Current Visit: Yes Status: Chronic (2) Sedative, hypnotic or anxiolytic dependence with withdrawal, uncomplicated Current Visit: Yes Status: Chronic (3) Substance induced mood disorder Current Visit: Yes Status: Acute (4) Substance-induced sleep disorder Current Visit: Yes Status: Acute (5) Cannabis abuse, uncomplicated Current Visit: Yes Status: Chronic (6) Cocaine dependence Current Visit: Yes Status: Chronic Qualifiers: Substance use status: uncomplicated Qualified Code(s): F14.20 - Cocaine dependence, uncomplicated (7) Constipation Current Visit: Yes Status: Chronic Qualifiers: Constipation type: unspecified constipation type Qualified Code(s): K59.00 - Constipation, unspecified (8) GERD (gastroesophageal reflux disease) Current Visit: Yes Status: Chronic Qualifiers: Esophagitis presence: without esophagitis Qualified Code(s): K21.9 - Gastro -esophageal reflux disease without esophagitis (9) History of asthma Current Visit: Yes Status: Chronic (10) Methadone maintenance therapy patient Current Visit: Yes Status: Chronic (11) Tinea pedis Current Visit: Yes Status: Chronic Qualifiers: Laterality: bilateral Qualified Code(s): B35.3 - Tinea pedis (12) Insomnia Current Visit: No Status: Acute Qualifiers: Insomnia type: unspecified Qualified Code(s): G47.00 - Insomnia, unspecified (13) Insomnia secondary to depression with anxiety Current Visit: No Status: Acute (14) Panic disorder Current Visit: No Status: Acute (15) Substance induced mood disorder Current Visit: No Status: Acute (16) Substance-induced anxiety disorder Current Visit: No Status: Acute (17) Substance-induced sleep disorder Current Visit: No Status: Acute (18) Weight loss Current Visit: No Status: Acute (19) Acne Current Visit: No Status: Chronic (20) Alopecia Current Visit: No Status: Chronic (21) Anxiety and depression Current Visit: No Status: Chronic (22) Anxiety disorder Current Visit: No Status: Chronic (23) Asthma Current Visit: Yes Status: Chronic Qualifiers: Asthma severity: mild Asthma persistence: intermittent Asthma complication type: uncomplicated Qualified Code(s): J45.20 - Mild intermittent asthma, uncomplicated (24) COPD (chronic obstructive pulmonary disease) Current Visit: No Status: Chronic Qualifiers: COPD type: unspecified COPD Qualified Code(s): J44.9 - Chronic obstructive pulmonary disease, unspecified (25) Chronic obstructive pulmonary disease, unspecified Current Visit: No Status: Chronic Qualifiers: COPD type: unspecified COPD Qualified Code(s): J44.9 - Chronic obstructive pulmonary disease, unspecified (26) TINO (generalized anxiety disorder) Current Visit: No Status: Chronic (27) Hemorrhoids without complication Current Visit: No Status: Chronic (28) MDD (major depressive disorder), recurrent episode, moderate Current Visit: No Status: Chronic (29) Nicotine dependence Current Visit: Yes Status: Chronic Qualifiers: Nicotine product type: cigarettes Substance use status: uncomplicated Qualified Code(s): F17.210 - Nicotine dependence, cigarettes, uncomplicated (30) Poor dentition Current Visit: No Status: Chronic (31) Substance-induced anxiety disorder Current Visit: No Status: Suspected - AMA Did Patient Leave Against Medical Advice: No (referred to [facility])
== END 2019-05-04 09:10 | disposition home or self-care (01) | DRG 773 ==
LOC: YASAS 16:34 → Y6N 05-02 00:02
PROVIDERS: ADMIT Surgery; ATTEND Surgery
PROC: HZ2ZZZZ Detoxification Services for Substance Abuse Treatment (ICD-10-PCS; principal; 2019-05-02)
DX: F10.230 Alcohol dependence with withdrawal, uncomplicated (principal); F13.230 Sedative, hypnotic or anxiolytic dependence with withdrawal, uncomplicated; F11.20 Opioid dependence, uncomplicated; F14.20 Cocaine dependence, uncomplicated; F12.20 Cannabis dependence, uncomplicated; F17.210 Nicotine dependence, cigarettes, uncomplicated; F19.282 Other psychoactive substance dependence with psychoactive substance-induced sleep disorder; F19.24 Other psychoactive substance dependence with psychoactive substance-induced mood disorder; F51.05 Insomnia due to other mental disorder; K21.9 Gastro-esophageal reflux disease without esophagitis; K59.00 Constipation, unspecified; J45.20 Mild intermittent asthma, uncomplicated; B35.3 Tinea pedis
CPT/HCPCS: 36415; 80053; 81003; 85027; 86593

== ENCOUNTER 2019-08-29 11:57 | Inpatient (IN) | payer OTHER ==
[2019-08-29 13:31] VITALS: BMI 27.5
--- NOTE | 2019-08-29 13:45 | HP ---
CIWA Score Nausea/Vomitin Muscle Tremors: 3 Anxiety: 2 Agitation: 3 Paroxysmal Sweats: 4-Forehead w/Sweat Beads Orientation: 0-Oriented Tacttile Disturbances: 0-None Auditory Disturbances: 0-None Visual Disturbances: 0-None Headache: 4-Moderately Severe CIWA-Ar Total Score: 19 - Admission Criteria OASAS Guidelines: Admission for Medically Managed Detox: Requires at least one of the followin. CIWA greater than 12 2. Seizures within the past 24 hours 3. Delirium tremens within the past 24 hours 4. Hallucinations within the past 24 hours 5. Acute intervention needed for co occurring medical disorder 6. Acute intervention needed for co occurring psychiatric disorder 7. Severe withdrawal that cannot be handled at a lower level of care (continued vomiting, continued diarrhea, abnormal vital signs) requiring intravenous medication and/or fluids 8. Admitting History and Physical - Admission Chief Complaint: " I am here to detox off of alcohol. I am also using heroin because I was trying to switch to suboxone. History of Present Illness: 33 yo presents w/ alcohol and benzo use withdrawal and requesting detox. States able to stay sober for 3 month after last detox. Alcohol use since age 18. States currently drinking 3 pints daily x 1 year, last drink yesterday. He has blackout and last one was just last week. Denies withdrawal seizures. He has an eye under cutter drink daily. Cocaine use since age 24. Currently uses approx 1 gm IV QOD. Xanax/Klonopin use since age 26. Approx total 6 mg/day. Non-prescribed. Marijuana use began at age 16. 2 - 3 blunts per day, last used yesterday. Nicotine use began at age 19. Currently smokes 1/2 PPD. Heroin use restarted due to low dose of methadone. Currently on [facility] Methadone program on 40 mg daily. Continues to relapse w/ heroin despite being on MMTP. He was decreasing his methadone dose to switch to suboxone. Last medicated today. He has methadone bottles for tomorrow. Denies hx seizures, blackouts or overdose. PMHx: Asthma (Last exacerbation 4 days); MHHx: Anxiety, Insomnia (Prescribed by MMTP Provider). Denies depression. Denies thoughts of harming self or others. History Source: Patient Limitations to Obtaining History: No Limitations - Past Medical History Pulmonary: Yes: Asthma Psych: Yes: Anxiety - Past Surgical History Past Surgical History: Yes: None - Advance Directives Advance Directives: No: Living Will, Health Care Proxy, DNR - Smoking History Smoking history: Current every day smoker Have you smoked in the past 12 months: Yes Aproximately how many cigarettes per day: 10 - Alcohol/Substance Use Hx Alcohol Use: Yes History of Substance Use: reports: Cocaine, Heroin, Marijuana - Social History Usual Living Arrangement: Yes: With Parent Do you think of yourself as: Straight/Heterosexual ADL: Independent Occupation: unemployed, [employer] History of Recent Travel: No Admission [facility] Allergies/Adverse Reactions: Allergies Allergy/AdvReac Type Severity Reaction Status Date / Time shellfish derived Allergy Severe Swelling Verified 05/01/19 21:18 No Known Drug Allergies Allergy Verified 12/10/18 20:09 - Ebola screening Have you traveled outside of the country in the last 21 days: No Have you had contact with anyone from an Ebola affected area: No Have you been sick,other than usual withdrawal symptoms: No Do you have a fever: No - Review of Systems Constitutional: Chills, Diaphoresis, Unintentional Wgt. Loss EENT: reports: No Symptoms Reported, Other (poor dentition missing teeth) Respiratory: reports: No Symptoms reported Cardiac: reports: No Symptoms Reported GI: reports: Nausea, Indigestion, Abdominal cramping : reports: No Symptoms Reported Musculoskeletal: reports: Back Pain, Muscle Pain Integumentary: reports: No Symptoms Reported Neuro: reports: No Symptoms reported Endocrine: reports: No Symptoms Reported Hematology: reports: No Symptoms Reported Psychiatric: reports: Agitated, Anxious Other Systems: Reviewed and Negative Patient History - Patient Medical History Hx Anemia: No Hx Asthma: Yes (on albuterol inhaler) Hx Chronic Obstructive Pulmonary Disease (COPD): No Hx Cancer: No Hx Cardiac Disorders: No Hx Congestive Heart Failure: No Hx Hypertension: No Hx Hypercholesterolemia: No Hx Pacemaker: No HX Cerebrovascular Accident: No Hx Seizures: Yes (last episode last year) Hx Dementia: No Hx Diabetes: No Hx Gastrointestinal Disorders: Yes (GERD) Hx Liver Disease: No Hx Genitourinary Disorders: No Hx Sexually Transmitted Disorders: No Hx Renal Disease (ESRD): No Hx Thyroid Disease: No Hx Human Immunodeficiency Virus (HIV): No Hx Hepatitis C: No (negative) Hx Depression: Yes (anxiety,insomnia) Hx Suicide Attempt: No Hx Bipolar Disorder: No Hx Schizophrenia: No - Patient Surgical History Past Surgical History: No Hx Neurologic Surgery: No Hx Cataract Extraction: No Hx Cardiac Surgery: No Hx Lung Surgery: No Hx Breast Surgery: No Hx Breast Biopsy: No Hx Abdominal Surgery: No Hx Appendectomy: No Hx Cholecystectomy: No Hx Genitourinary Surgery: No Hx Section: No Hx Orthopedic Surgery: No Anesthesia Reaction: No - PPD History Previous Implant?: Yes Documented Results: Negative w/proof Implanted On Prior [facility] Admission?: Yes Date: 12/16/18 Results: negative PPD to be Administered?: No - Smoking Cessation Smoking history: Current every day smoker Have you smoked in the past 12 months: Yes Aproximately how many cigarettes per day: 10 Cigars Per Day: 0 Hx Chewing Tobacco Use: No Initiated information on smoking cessation: Yes 'Breaking Loose' booklet given: 08/29/19 - Substances abused Alprazolam (Xanax) Substance route: Oral Frequency: 3-6 times per week Amount used: 6mg Age of first use: 26 Date of last use: 08/29/19 Other Other (specify): Klonopin Substance route: Oral Frequency: Daily Amount used: 5 pills (10mg total) Age of first use: 26 Date of last use: 01/19/19 Heroin Substance route: Injection Frequency: 1-3 times last 30 days Amount used: 1 bag Age of first use: 28 Date of last use: 08/28/19 Cocaine Substance route: Injection Frequency: Daily Amount used: 1 grams Age of first use: 24 Date of last use: 08/29/19 Alcohol Substance route: Oral Frequency: Daily Amount used: 3 pints of gocnac and vodka/ 6 packs of beer. Age of first use: 18 Date of last use: 08/28/19 Marijuana/Hashish Substance route: Smoking Frequency: Daily Amount used: few blunts Age of first use: 18 Date of last use: 08/28/19 PCP Substance route: Smoking Frequency: 1-2 times per week Amount used: 1 blunt Age of first use: 34 Date of last use: 08/28/19 Admission Physical Exam [facility] - Vital Signs Vital Signs: Vital Signs - 24 hr 08/29/19 13:14 Temperature 97.9 F Pulse Rate 83 Respiratory 16 Rate Blood Pressure 116/76 - Physical General Appearance: Yes: Mild Distress HEENTM: Yes: EOMI, Hearing grossly Normal, Normocephalic, Normal Voice, JONATHON, Pharynx Normal, Tm's normal Respiratory: Yes: Chest Non-Tender, Lungs Clear, Normal Breath Sounds, No Respiratory Distress, No Accessory Muscle Use Neck: Yes: No masses,lesions,Nodules, Supple, Trachea in good position Breast: Yes: Within Normal Limits Cardiology: Yes: Regular Rhythm, Regular Rate, S1, S2 Abdominal: Yes: Soft, Increased Bowel Sounds. No: Guarding, Rebound, Tenderness Genitourinary: Yes: Within Normal Limits Back: Yes: Normal Inspection Musculoskeletal: Yes: full range of Motion, Gait Steady Extremities: Yes: Normal Capillary Refill, Normal Inspection, Normal Range of Motion, Non-Tender Neurological: Yes: maintenance helper II-XII NML intact, Fully Oriented, Alert, Motor Strength 5/5, Normal Mood/Affect, Normal Response Integumentary: Yes: Normal Color, Warm Lymphatic: Yes: Within Normal Limits - Diagnostic (1) Insomnia secondary to depression with anxiety Current Visit: Yes Status: Acute (2) Weight loss Current Visit: Yes Status: Acute (3) Alcohol dependence with uncomplicated withdrawal Current Visit: Yes Status: Chronic (4) Anxiety and depression Current Visit: Yes Status: Chronic (5) Asthma Current Visit: Yes Status: Chronic Qualifiers: Asthma severity: mild Asthma persistence: intermittent Asthma complication type: uncomplicated Qualified Code(s): J45.20 - Mild intermittent asthma, uncomplicated (6) COPD (chronic obstructive pulmonary disease) Current Visit: Yes Status: Chronic Qualifiers: COPD type: unspecified COPD Qualified Code(s): J44.9 - Chronic obstructive pulmonary disease, unspecified (7) Cannabis abuse, uncomplicated Current Visit: Yes Status: Chronic (8) TINO (generalized anxiety disorder) Current Visit: Yes Status: Chronic Comment: Historical diagnosis. (9) GERD (gastroesophageal reflux disease) Current Visit: Yes Status: Chronic Qualifiers: Esophagitis presence: without esophagitis Qualified Code(s): K21.9 - Gastro -esophageal reflux disease without esophagitis (10) History of asthma Current Visit: Yes Status: Chronic (11) Methadone maintenance therapy patient Current Visit: Yes Status: Chronic (12) Nicotine dependence Current Visit: Yes Status: Chronic Qualifiers: Nicotine product type: cigarettes Substance use status: uncomplicated Qualified Code(s): F17.210 - Nicotine dependence, cigarettes, uncomplicated (13) Poor dentition Current Visit: Yes Status: Chronic Screened but not Admitted - Documentation of Visit Screened but not Admitted: No Breathalyzer - Breathalyzer Breathalyzer: 0 Urine Drug Screen - Test Device Lot number: [id number] Expiration date: 01/30/21 - Control Is test valid?: Yes - Results Drug screen NEGATIVE: No Urine drug screen results: THC-Marijuana, LYLE-Cocaine, FEN-Fentanyl, MOP-Opiates , MTD-Methadone, BZO-Benzodiazepines Inpatient Rehab Admission - Rehab Decision to Admit Inpatient rehab admission?: No
[2019-08-29] MEDS ORDERED: IBUPROFEN 400 MG TABLET (FP) PO PRN (13:55)
[2019-08-29] MEDS ORDERED: MAGNESIUM HYDROX 2400MG/30ML ORAL SUSPENSION 30 ML CUP PO PRN (13:55)
[2019-08-29] MEDS ORDERED: METHOCARBAMOL 500 MG TABLET PO PRN (13:55)
[2019-08-29] MEDS ORDERED: MENTHOL/PHENOL 1 EACH UD MM PRN (13:55)
[2019-08-29] MEDS ORDERED: MAG HYDROX/AL HYDROX/SIMETH 30 ML UNIT-DOSE CUP PO PRN (13:55)
[2019-08-29] MEDS ORDERED: BISMUTH SUBSALICYLATE 262 MG/15 ML BTL PO PRN (13:55)
[2019-08-29] MEDS ORDERED: MAGNESIUM CITRATE 300 ML BOTTLE PO PRN (13:55)
[2019-08-29] MEDS ORDERED: ACETAMINOPHEN 325 MG TABLET (FP) PO PRN ×2 (13:55)
[2019-08-29] MEDS ORDERED: MELATONIN 5 MG TABLETS PO PRN (13:55)
[2019-08-29] MEDS ORDERED: EPINEPHrine 1:1,000 0.3 MG/0.3 ML SYR IM PRN (13:57)
[2019-08-29] MEDS ORDERED: ALBUTEROL SO4 8 GM HFA INHALER IH PRN (13:57)
[2019-08-29] MEDS: GABAPENTIN 300 MG CAPSULE (FP) PO SCH ×2 (17:12→22:18)
[2019-08-29] MEDS: DOCUSATE SODIUM 100 MG CAPSULE (FP) PO SCH ×2 (17:12→22:18)
[2019-08-29] MEDS: LORazepam 2 MG TABLET PO SCH ×2 (17:12→22:18)
[2019-08-29 17:22] LABS: HEMATOCRIT 41.2 % (35.4-49); HEMOGLOBIN 13.6 GM/dL (11.7-16.9); MCH 28.4 pg (25.7-33.7); MCHC 32.9 g/dl (32.0-35.9); MEAN CELL VOLUME 86.2 fl (80-96); MEAN PLT VOLUME 8.2 fl (7.5-11.1); PLATELET COUNT 239 K/MM3 (134-434); RBC 4.78 M/mm3 (4.00-5.60); RDW 13.5 % (11.9-15.9); WHITE BLOOD COUNT 6.5 K/mm3 (4.0-10.0)
[2019-08-29 17:33] LABS: BILIRUBIN,TOTAL 0.4 mg/dL (0.2-1); BLOOD UREA NITROGEN 14.8 mg/dL (7-18); CALCIUM 9.1 mg/dL (8.5-10.1); CREATININE 0.9 mg/dL (0.55-1.3); TOT PROT 7.5 g/dl (6.4-8.2)
[2019-08-29] MEDS: THIAMINE HCL 100 MG TABLET (FP) PO SCH (22:18)
[2019-08-29] MEDS: hydrOXYzine PAMOATE 25 MG CAPSULE (FP) PO PRN (22:21)
[2019-08-30] MEDS: LORazepam 2 MG TABLET PO SCH ×4 (05:46→22:22)
[2019-08-30] MEDS: GABAPENTIN 300 MG CAPSULE (FP) PO SCH ×2 (05:46→15:25)
[2019-08-30] MEDS: DOCUSATE SODIUM 100 MG CAPSULE (FP) PO SCH ×3 (05:46→22:22)
[2019-08-30] MEDS ORDERED: METHADONE HCL 40 MG DISPERSABLE TABLET PO ONE (10:00)
--- NOTE | 2019-08-30 10:00 | PN ---
S CIWA - CIWA Score Nausea/Vomitin-Mild Nausea/No Vomiting Muscle Tremors: 2 Anxiety: 4-Mod. Anxious/Guarded Agitation: 3 Paroxysmal Sweats: 2 Orientation: 0-Oriented Tacttile Disturbances: 1-Very Mild Itch/Numbness Auditory Disturbances: 0-None Visual Disturbances: 0-None Headache: 1-Very Mild CIWA-Ar Total Score: 14 BHS Progress Note (SOAP) Subjective: 34 years old male admitted on 08/29/19 for alcohol and benzo withdrawal sx management treated with ativan detox regimen received methadone 40 mg today verified by take home bottle methadone verification will be performed tomorrow 08/31/19 when program open Objective: 08/30/19 09:59 Vital Signs Temperature 97.1 F L 08/30/19 09:08 Pulse Rate 74 08/30/19 09:08 Respiratory Rate 18 08/30/19 09:08 Blood Pressure 95/65 08/30/19 09:08 O2 Sat by Pulse Oximetry (%) Laboratory Last Values WBC 6.5 K/mm3 (4.0-10.0) 08/29/19 14:00 RBC 4.78 M/mm3 (4.00-5.60) 08/29/19 14:00 Hgb 13.6 GM/dL (11.7-16.9) 08/29/19 14:00 Hct 41.2 % (35.4-49) D 08/29/19 14:00 MCV 86.2 fl (80-96) 08/29/19 14:00 MCH 28.4 pg (25.7-33.7) 08/29/19 14:00 MCHC 32.9 g/dl (32.0-35.9) 08/29/19 14:00 RDW 13.5 % (11.9-15.9) 08/29/19 14:00 Plt Count 239 K/MM3 (134-434) 08/29/19 14:00 MPV 8.2 fl (7.5-11.1) 08/29/19 14:00 Sodium 139 mmol/L (136-145) 08/29/19 14:00 Potassium 4.0 mmol/L (3.5-5.1) 08/29/19 14:00 Chloride 101 mmol/L (98-107) 08/29/19 14:00 Carbon Dioxide 33 mmol/L (21-32) H 08/29/19 14:00 Anion Gap 5 MMOL/L (8-16) L 08/29/19 14:00 BUN 14.8 mg/dL (7-18) 08/29/19 14:00 Creatinine 0.9 mg/dL (0.55-1.3) 08/29/19 14:00 Est GFR (CKD-EPI)AfAm 130.52 08/29/19 14:00 Est GFR (CKD-EPI)NonAf 112.62 08/29/19 14:00 Random Glucose 70 mg/dL (74-106) L 08/29/19 14:00 Calcium 9.1 mg/dL (8.5-10.1) 08/29/19 14:00 Total Bilirubin 0.4 mg/dL (0.2-1) 08/29/19 14:00 AST 39 U/L (15-37) H 08/29/19 14:00 ALT 49 U/L (13-61) 08/29/19 14:00 Alkaline Phosphatase 66 U/L (45-117) 08/29/19 14:00 Total Protein 7.5 g/dl (6.4-8.2) 08/29/19 14:00 Albumin 4.0 g/dl (3.4-5.0) 08/29/19 14:00 lab noted Assessment: 08/30/19 10:00 alcohol and benzo withdrawal sx Plan: continue ativan detox regimen
[2019-08-30] MEDS: PRENATAL VITAMINS W/ FOLIC ACID TABLET (FP) PO SCH (10:18)
[2019-08-30] MEDS: NICOTINE 14 MG/24 HOURS TOPICAL PATCH TD SCH (10:19)
--- NOTE | 2019-08-30 11:20 | CONSULT ---
[facility] Psychiatric Consult - Data Date of interview: 08/30/19 Admission source: [facility] Identifying data: Patient is a 34 year old single male, father of one, unemployed, domiciled, and is not receiving financial assistance. This is one of multiple admissions for patient. Patient admitted to for alcohol, benzodiazepine, cocaine, and opiate dependence. Substance Abuse History: Smoking Cessation. Smoking history: Current every day smoker. Have you smoked in the past 12 months: Yes. Aproximately how many cigarettes per day: 10. Cigars Per Day: 0. Hx Chewing Tobacco Use: No. Initiated information on smoking cessation: Yes. 'Breaking Loose' booklet given : 08/29/19. - Substances abused. Alprazolam (Xanax). Substance route: Oral. Frequency: 3-6 times per week. Amount used: 6mg. Age of first use: 26. Date of last use: 08/29/19. Other. Other (specify): Klonopin. Substance route: Oral. Frequency: Daily. Amount used: 5 pills (10mg total). Age of first use: 26. Date of last use: 01/19/19. Heroin. Substance route: Injection. Frequency: 1-3 times last 30 days. Amount used: 1 bag. Age of first use: 28. Date of last use: 08/28/19. Cocaine. Substance route: Injection. Frequency: Daily. Amount used: 1 grams. Age of first use: 24. Date of last use: 08/29/19. Alcohol. Substance route: Oral. Frequency: Daily. Amount used: 3 pints of gocnac and vodka/ 6 packs of beer. Age of first use: 18. Date of last use: 08/28/19. Marijuana/Hashish. Substance route: Smoking. Frequency: Daily. Amount used: few blunts. Age of first use: 18. Date of last use: 08/28/19. PCP. Substance route: Smoking. Frequency : 1-2 times per week. Amount used: 1 blunt. Age of first use: 34. Date of last use: 08/28/19 Medical History: Significant for bronchial asthma, low back pain, Seizures, GERD Psychiatric History: Interviewed conducted bedside. History remains consistent. Patient reports h/o two psychiatric hospitalizations most recently four years ago at [facility] after stating he wanted to hurt himself so that he could be admitted for detox treatment. He reports one additional hospitalization at [facility] on [address]. As per previous notes patient reports being hospitalized at [facility]. Patient denies current outpatient psychiatric care. Mr. Diaz has a chronic history of noncompliance to outpatient treatment. History of multiple admissions to detox/ rehab at [facility] and has been prescribed seroquel ranging from 100mg -300mg HS. During previous admission patient reported no longer taking seroquel but was requesting the medication for insomnia. Today, patient reports taking seroquel 300mg HS. Medication compliance is questionable. At present patient appears fatigue but is experiencing difficulty sleeping. Physical/Sexual Abuse/Trauma History: denies. Additional Comment: Currently on [facility] Methadone program on 40 mg daily Mental Status Exam - Mental Status Exam Alert and Oriented to: Time, Place, Person Cognitive Function: Good Patient Appearance: Unkempt Mood: Withdrawn Affect: Mood Congruent Patient Behavior: Fatigued Speech Pattern: Appropriate Voice Loudness: Mildly Soft/Quiet Thought Process: Goal Oriented Thought Disorder: Not Present Hallucinations: Denies Suicidal Ideation: Denies Homicidal Ideation: Denies Insight/Judgement: Poor Sleep: Poorly Appetite: Fair Muscle strength/Tone: Normal Gait/Station: Normal Psychiatric Findings - Problem List ([place] 1, 2,3) (1) Alcohol use disorder Current Visit: Yes Status: Acute (2) Cocaine use disorder Current Visit: Yes Status: Acute (3) Sedative hypnotic or anxiolytic dependence Current Visit: Yes Status: Acute (4) Methadone maintenance therapy patient Current Visit: Yes Status: Chronic (5) Substance-induced sleep disorder Current Visit: Yes Status: Acute (6) Cannabis abuse, uncomplicated Current Visit: Yes Status: Chronic (7) Nicotine dependence Current Visit: Yes Status: Chronic Qualifiers: Nicotine product type: cigarettes Substance use status: uncomplicated Qualified Code(s): F17.210 - Nicotine dependence, cigarettes, uncomplicated (8) Substance induced mood disorder Current Visit: Yes Status: Acute - Initial Treatment Plan Initial Treatment Plan: Psychoeducation provided. Detoxification in progress. Will order Seroquel 100mg HS. Benefits and side effects discussed. Verbal consent given.
[2019-08-30] MEDS: LORazepam 1 MG TABLET PO PRN (13:09)
[2019-08-30] MEDS: hydrOXYzine PAMOATE 25 MG CAPSULE (FP) PO PRN (15:25)
[2019-08-30] MEDS ORDERED: QUEtiapine FUMARATE 100 MG TABLET (FP) PO SCH (22:00)
[2019-08-30] MEDS: THIAMINE HCL 100 MG TABLET (FP) PO SCH (22:22)
[2019-08-31] MEDS: DOCUSATE SODIUM 100 MG CAPSULE (FP) PO SCH ×2 (05:51→13:13)
[2019-08-31] MEDS: LORazepam 1 MG TABLET PO SCH ×2 (05:51→11:14)
[2019-08-31] MEDS: PRENATAL VITAMINS W/ FOLIC ACID TABLET (FP) PO SCH (09:32)
[2019-08-31] MEDS: LORazepam 1 MG TABLET PO PRN (09:32)
[2019-08-31] MEDS: NICOTINE 14 MG/24 HOURS TOPICAL PATCH TD SCH (09:33)
[2019-08-31] MEDS ORDERED: METHADONE HCL 40 MG DISPERSABLE TABLET PO ONE (09:42)
[2019-08-31 12:44] VITALS: BP 122/75; PULSE 80; TEMP 96.8
--- NOTE | 2019-08-31 13:16 | DS ---
[facility] Detox Discharge Summary Admission Date: 08/29/19 Discharge Date: 08/31/19 (AMA) - History Present History: Alcohol Dependence, Cocaine Dependence, Sedative Dependence - Physical Exam Results Vital Signs: Vital Signs Temperature 96.8 F L 08/31/19 12:43 Pulse Rate 80 08/31/19 12:43 Respiratory Rate 18 08/31/19 12:43 Blood Pressure 122/75 08/31/19 12:43 O2 Sat by Pulse Oximetry (%) - Treatment Hospital Course: Detox Protocol Followed - Medication Discharge Medications: Ambulatory Orders EPINEPHrine (EPI-PEN 0.3MG) [Epipen 0.3MG -] 0.3 mg IM ASDIR PRN 01/20/19 Gabapentin [Neurontin -] 600 mg PO TID 01/20/19 Albuterol Sulfate Inhaler - [Ventolin HFA Inhaler -] 2 inh PO Q4H PRN #1 inhaler 01/25/19 Docusate Sodium [Colace] 100 mg PO TID 08/29/19 - Diagnosis (1) Alcohol use disorder Current Visit: Yes Status: Chronic (2) Cocaine use disorder Current Visit: Yes Status: Chronic (3) Sedative hypnotic or anxiolytic dependence Current Visit: Yes Status: Chronic (4) Asthma Current Visit: Yes Status: Chronic Qualifiers: Asthma severity: mild Asthma persistence: intermittent Asthma complication type: uncomplicated Qualified Code(s): J45.20 - Mild intermittent asthma, uncomplicated (5) GERD (gastroesophageal reflux disease) Current Visit: Yes Status: Chronic Qualifiers: Esophagitis presence: without esophagitis Qualified Code(s): K21.9 - Gastro -esophageal reflux disease without esophagitis - AMA Did Patient Leave Against Medical Advice: Yes (Pt wants to go . )
[2019-09-01] MEDS ORDERED: LORazepam 0.5 MG TABLET PO PRN
[2019-09-01] MEDS ORDERED: LORazepam 0.5 MG TABLET PO SCH (05:00)
[2019-09-01] MEDS ORDERED: METHADONE HCL 40 MG DISPERSABLE TABLET PO SCH (06:00)
[2019-09-02] MEDS ORDERED: LORazepam 0.5 MG TABLET PO ONE (05:00)
== END 2019-08-31 13:35 | disposition left against medical advice (07) | DRG 770 ==
LOC: YASAS 11:57 → Y3N 15:05
PROVIDERS: ADMIT Allergy & Immunology; ATTEND Allergy & Immunology
PROC: HZ2ZZZZ Detoxification Services for Substance Abuse Treatment (ICD-10-PCS; principal; 2019-08-29)
DX: F10.230 Alcohol dependence with withdrawal, uncomplicated (principal); F13.230 Sedative, hypnotic or anxiolytic dependence with withdrawal, uncomplicated; F11.20 Opioid dependence, uncomplicated; F12.20 Cannabis dependence, uncomplicated; F16.10 Hallucinogen abuse, uncomplicated; F17.210 Nicotine dependence, cigarettes, uncomplicated; F51.05 Insomnia due to other mental disorder; F19.24 Other psychoactive substance dependence with psychoactive substance-induced mood disorder; F19.282 Other psychoactive substance dependence with psychoactive substance-induced sleep disorder; F41.1 Generalized anxiety disorder; J44.9 Chronic obstructive pulmonary disease, unspecified; J45.20 Mild intermittent asthma, uncomplicated; K21.9 Gastro-esophageal reflux disease without esophagitis; G47.00 Insomnia, unspecified; K08.9 Disorder of teeth and supporting structures, unspecified; R63.4 Abnormal weight loss; Z68.27 Body mass index [BMI] 27.0-27.9, adult; Z86.69 Personal history of other diseases of the nervous system and sense organs; Z91.013 Allergy to seafood
CPT/HCPCS: 36415; 80053; 85027; 86593